=== PATIENT | female | born 1975 | race Caucasian/White ===

== ENCOUNTER 2019-06-16 09:30 | Outpatient (CLI) | payer BC, SELFPAY ==
--- NOTE | ~2019-06-16 | XR_ITS ---
XR ribs RT 2V w CXR 2V DATE: 06/16/2019 10:07 INDICATION: Right rib and chest pain under right breast following a fall 2 days ago TECHNIQUE: PA and lateral views COMPARISON: None FINDINGS: Bilateral hyperinflation suggesting COPD. No pulmonary infiltrate or consolidation or any s ignificant new pulmonary opacity is noted. Normal heart size. No hilar or mediastinal enlargement. Moderate osteopenia. IMPRESSION: Bilateral hyperinflation; no active cardiopulmonary disease No rib fracture is evident Reviewed, dictated and finalized at location B. ING LOOM OPERATOR
[2019-06-16 09:46] LABS: Basophils Absolute Auto 0.06 K/mm3 (0.00-0.10); Basophils Percent Auto 0.5 % (0.0-1.0); Eosinophils Absolute Auto 0.08 K/mm3 (0.02-0.50); Eosinophils Percent Auto 0.7 % (1.0-6.0); Hematocrit 46.8 % (35.0-49.0); Hemoglobin 15.8 g/dL (12.0-15.0); Immature Granulocyte Absolute 0.05 K/mm3 (0.00-0.00); Immature Granulocyte Percent A 0.4 % (0.0-0.0); Lymphocytes Absolute Auto 1.82 K/mm3 (1.10-4.50); Lymphocytes Percent Auto 15.1 % (18.0-42.0); Mean Corpuscular HGB Conc 33.8 g/dL (32.0-36.0); Mean Corpuscular Hemoglobin 32.4 pg (27.0-31.0); Mean Corpuscular Volume 95.9 fL (78.0-102.0); Mean Platelet Volume 9.8 fl (9.2-11.8); Neutrophils Absolute Auto 9.5 K/mm3 (1.7-7.2); Neutrophils Percent Auto 78.3 % (50.0-70.0); Platelet Count Result 257 K/mm3 (150-420); Red Blood Count 4.88 M/mm3 (4.20-5.40); Red Cell Distribution Width 12.4 % (11.6-14.4); White Blood Count 12.1 K/mm3 (4.8-10.8)
[2019-06-16 10:34] LABS: Alanine Aminotransferase 18 U/L (14-59); Albumin Level 4.6 g/dL (3.4-5.0); Alkaline Phosphatase 105 U/L (46-116); Anion Gap 17.3 mmol/L (7-16); Aspartate Amino Transferase 12 U/L (15-37); Bilirubin,Total 0.4 mg/dL (0.00-1.00); Blood Urea Nitrogen 10 mg/dL (7-18); Calcium 9.5 mg/dL (8.5-10.1); Carbon Dioxide 25 mmol/L (21-32); Chloride 102 mmol/L (98-108); Estimated Glomerular Filt Rate > 60; Glucose 122 mg/dL (70-99); Osmolality Calculated 290 mOsm/kg (285-295); Potassium 4.3 mmol/L (3.5-5.1); Sodium 140 mmol/L (136-145); Total Protein 8.3 g/dL (6.4-8.2)
[2019-06-16 12:41] LABS: Hemoglobin A1C 5.3 % (<5.7)
[2019-06-19 10:06] LABS: Vitamin D 25 Hydroxy 25 ng/mL (30-100)
== END 2019-06-16 09:31 | disposition home or self-care (01) ==
PROVIDERS: PCP Internal Medicine; Visit Provider Nurse Practitioner Family
DX: R07.9 Chest pain, unspecified (principal); R07.81 Pleurodynia; E55.9 Vitamin D deficiency, unspecified; R73.01 Impaired fasting glucose
CPT/HCPCS: 36415; 71045; 71101; 80053; 82306; 83036; 85025

== ENCOUNTER 2020-03-23 11:42 | Emergency (ER) | payer BC, SELFPAY ==
--- NOTE | ~2020-03-23 | CT_ITS ---
EXAMINATION: CT brain wo con EXAM DATE: 03/23/2020 13:04 INDICATION: confusion after head injury head injury 1wk ago with confusion since, hx sinus surg 17yrs ago . TECHNIQUE: Spiral CT of the head was performed without contrast. Axial, coronal and sagittal images were reviewed. The dose-length product (DLP) for this examination was 529.67 mGy-cm. The exposure w as tailored according to patient size, and iterative reconstruction (ASIR) was used as additional dos e reduction technique. There is no prior study for comparison. FINDINGS: There is no acute intraparenchymal hemorrhage. No evidence of intraparenchymal brain mass lesion. No evidence of acute infarction. There is no mass effect or midline shift. The ventricles are normal in size. There are no extra-axial collections. There are no acute calvarial fractures. T he orbits are unremarkable. Soft tissue is unremarkable. There is mild bilateral ethmoid mucoperios teal thickening and probable partial ethmoidectomies. Mastoid air cells are well aerated. IMPRESSION: 1. No acute intracranial findings. Reviewed, dictated and finalized at location B. CTIVE PRECINCT
--- NOTE | ~2020-03-23 | XR_ITS ---
EXAMINATION: XR chest 2V EXAM DATE: 03/23/2020 13:13 INDICATION: palpitations x 3days, hx asthma. TECHNIQUE: Frontal and lateral projections of the chest obtained and reviewed. Comparison is made to prior examination from 06/16/2019. FINDINGS: Moderate chronic hyperinflation. The lungs are clear. There are no pleural effusions. Th e cardiomediastinal silhouette is within normal limits. There is no pneumothorax suspected. The bon es and soft tissues are unremarkable. IMPRESSION: 1. No acute cardiopulmonary findings. 2. Hyperinflation. Reviewed, dictated and finalized at location B. E FITTER
--- NOTE | 2020-03-23 12:04 | ED.HEATRA ---
HPI - Head Injury General Chief complaint: Head Injury Stated complaint: dr sent pt to er Time Seen by Provider: 03/23/20 12:04 Source: patient Mode of arrival: ambulatory Limitations: no limitations History of Present Illness HPI Narrative: 45-year-old woman was previously well comes in today complaining of nausea, palpitations, confusion, weakness, and fatigue. She states that she began not feeling well after she hit her head after a drinking binge at home a week ago. She states that she does not recall losing consciousness and had no vomiting afterwards. Since then she has not felt like herself. She complains of fast heart rate, lightheadedness, palpitations, and weakness today. She denies prior history of similar symptoms and is not a regular drinker. MD Complaint: head injury Onset (ago): week(s) (1) Mechanism of Injury: fall Loss of Consciousness: no Severity: moderate Other Injuries: none Context: recent alcohol use Associated symptoms: confusion and nausea Related Data Home Medications Medication Instructions Recorded Confirmed duloxetine 60 mg PO DAILY 03/23/20 03/23/20 fluticasone propion-salmeterol 1 inh INHALATION Q12H 03/23/20 03/23/20 [Advair Diskus] Allergies Allergy/AdvReac Type Severity Reaction Status Date / Time No Known Allergies Allergy Unverified 06/13/12 14:35 Review of Systems Constitutional: Constitutional: Denies chills, Reports fatigue, Denies fever(s) and Reports weakness Eyes: Eyes: Denies change in vision and Denies photophobia ENT: Denies dysphagia, Denies nasal congestion and Denies sore throat Cardiovascular: Cardiovascular: Denies chest pain and Denies radiating jaw, neck or arm pain Respiratory: Respiratory: Denies cough, Denies dyspnea and Denies wheezing Gastrointestinal: Gastrointestinal: Denies abdominal pain, Denies diarrhea, Reports nausea and Denies vomiting Genitourinary: Genitourinary: Denies hematuria, Denies nocturia and Denies dysuria Musculoskeletal: Musculoskeletal: Denies back pain, Denies arthralgias and Denies joint swelling Integumentary/Breasts: Skin/Breast: Denies pruritus, Denies erythema and Denies rash Neurologic: Denies vertigo, Denies dizziness and Denies syncope Endocrine: Endocrine: Reports fatigue, Denies polydipsia and Denies polyuria Hematologic/Lymphatic: Hematologic/Lymphatic: Denies easy bleeding and Denies easy bruising Allergic/Immunologic: Allergic/Immunologic: Denies lip swelling and Denies tongue swelling [facility] Surgical History Surgical History (Updated 03/23/20 @ 12:16 by Martin Frazier MD) H/O sinus surgery Social History Social History (Updated 03/23/20 @ 12:17 by Martin Frazier MD) Smoking status: Current every day smoker Alcohol use details: occasional Substance use: never Living arrangements: with family Exam Const: General: healthy appearing and alert Orientation/consciousness: patient oriented x3 Limitations: no limitations Other: mild acute distress. HENMT: Head: normal to inspection Ears: external ears normal, TM's normal bilaterally and EAC's normal General nose exam: Normal nares present Face and sinus: normal facial exam Mouth: Yes moist mucous membranes Throat: posterior oropharynx normal Eyes: Conjunctivae: conjunctivae normal Pupils: Equal, round and reactive pupils present EOM: EOMs intact bilaterally Neck: Neck: normal visual inspection and no lymphadenopathy Resp: Effort & Inspection: normal respiratory effort and not labored Auscultation: clear to auscultation bilaterally, no rales, no rhonchi and no wheezes Cardio: Rate: tachycardic Rhythm: regular rhythm Heart sounds: no murmurs GI: GI Palp: Yes Soft to palpation, No Tenderness to palpation present (GI), No Guarding due to palpation present (GI), No Rigid due to palpation and No Palpable mass present Skin: General skin exam: normal color, no jaundice and no pallor Rashes: no rashes Neuro: General:
[2020-03-23 12:06] VITALS: BP 165/87; PULSE 120; RESP 20; TEMP 36.6; O2SAT 99
--- NOTE | 2020-03-23 12:10 | ECG_ITS ---
Measurements Intervals [place] Rate: 100 P: 64 RI: 121 QRS: 98 QRSD: 105 T: 1 QT: 364 QTc: 471 Interpretive Statements SINUS TACHYCARDIA RIGHT AXIS DEVIATION DELAYED PRECORDIAL R/S TRANSITION BORDERLINE T WAVE ABNORMALITY- ANTEROLATERAL LEADS BORDERLINE ECG Electronically Signed On 03-23-2020 13:00:18 LINOTYPIST by Kamran Rea D.O.
[2020-03-23] MEDS: SODIUM CHLORIDE 0.9% IV 1,000 ML 999 ML IV CONT (12:34)
[2020-03-23] MEDS: ONDANSETRON INJ 4 MG/2 ML VIAL IV PUSH (12:34)
[2020-03-23 12:35] LABS: Basophils Absolute Auto 0.04 K/mm3 (0.00-0.10); Basophils Percent Auto 0.5 % (0.0-1.0); Eosinophils Absolute Auto 0.11 K/mm3 (0.02-0.50); Eosinophils Percent Auto 1.3 % (1.0-6.0); Hematocrit 45.5 % (35.0-49.0); Hemoglobin 15.1 g/dL (12.0-15.0); Immature Granulocyte Absolute 0.03 K/mm3 (0.00-0.00); Immature Granulocyte Percent A 0.4 % (0.0-0.0); Lymphocytes Absolute Auto 1.97 K/mm3 (1.10-4.50); Lymphocytes Percent Auto 23.9 % (18.0-42.0); Mean Corpuscular HGB Conc 33.2 g/dL (32.0-36.0); Mean Corpuscular Hemoglobin 32.3 pg (27.0-31.0); Mean Corpuscular Volume 97.2 fL (78.0-102.0); Mean Platelet Volume 10.1 fl (9.2-11.8); Monocytes Absolute Auto 0.39 K/mm3 (0.10-0.90); Monocytes Percent Auto 4.7 % (2.0-11.0); Neutrophils Absolute Auto 5.7 K/mm3 (1.7-7.2); Neutrophils Percent Auto 69.2 % (50.0-70.0); Platelet Count Result 240 K/mm3 (150-420); Red Blood Count 4.68 M/mm3 (4.20-5.40); Red Cell Distribution Width 12.2 % (11.6-14.4); White Blood Count 8.3 K/mm3 (4.8-10.8)
[2020-03-23 12:37] LABS: Add Urine Microscopic? YES; Appearance Urine Clear (Clear); Bilirubin Urine Negative (Negative); Blood Urine 2+ (Negative); Color Urine Yellow (Yellow); Glucose Urine UA Negative (Negative); Ketones Urine Negative (Negative); Leukocyte Esterase Ur Negative LEU/UL (Negative); Nitrate Urine Negative (Negative); Protein Urine Negative (Negative); Specific Grav Ur 1.025 (1.010-1.020); Urobilinogen Urine 0.2 mg/dL (0.2-1.0)
[2020-03-23 12:42] LABS: Bacteria Urine 1+ /hpf; Squamous Epithelial Cell Urine Moderate /hpf (Few); WBC Urine 0-3 /hpf (0-3)
[2020-03-23 12:45] LABS: Amphetamine Screen Urine Negative (Negative); Barbiturate Screen Urine Negative (Negative); Benzodiazepines Screen Urine Negative (Negative); Cannabinoid Screen Urine Negative (Negative); Cocaine Screen Urine Negative (Negative); Methadone Screen Urine Negative (Negative); Opiate Screen Urine Negative (Negative); Phencyclidine Screen Urine Negative (Negative)
[2020-03-23 12:46] VITALS: BP 147/86; PULSE 96; RESP 18; O2SAT 98
[2020-03-23 12:51] LABS: Partial Thromboplastin Time 29.4 SEC (23.90-30.70); Prothrombin Time 11.1 Seconds (9.50-12.10)
[2020-03-23 12:54] LABS: Lactic Acid Reflex 1.4 mmol/L (0.4-2.0)
[2020-03-23 13:05] LABS: Creatine Kinase 64 U/L (26-192)
[2020-03-23 13:06] LABS: D Dimer 0.33 mg/L (0.19-0.50); Troponin I < 0.02 ng/mL (0.00-0.056)
[2020-03-23 13:53] VITALS: BP 130/81; PULSE 91; RESP 18; O2SAT 100
== END 2020-03-23 14:04 | disposition home or self-care (01) ==
PROVIDERS: Emergency Provider Emergency Medicine; PCP Internal Medicine
DX: F07.81 Postconcussional syndrome (principal); S09.90XA Unspecified injury of head, initial encounter; E86.0 Dehydration; W19.XXXA Unspecified fall, initial encounter
CPT/HCPCS: 36415; 70450; 71046; 80307; 81001; 82550; 83605; 84443; 84484; 85025; 85380; 85610; 85730; 87040; 93005; 96361; 96374; 99284; J2405; J7030

== ENCOUNTER → 2020-04-15 16:22 | Outpatient (CLI) | payer BC, SELFPAY ==
--- NOTE | ~2020-04-15 | MM_ITS ---
EXAMINATION: MM screening nate BI w maryanne HISTORY: Screening mammogram TECHNIQUE: Craniocaudal and mediolateral oblique 3-D tomosynthesis images were obtained and synthetic 2-D images were generated. CAD analysis was submitted and interpreted. COMPARISON: No prior mammogram is available for comparison at this institution. BREAST PARENCHYMAL COMPOSITION: The breasts are heterogeneously dense, which may obscure small masses . FINDINGS: Bilateral asymmetries are noted in the mid to lower aspect of the breasts on MLO projection , including circumscribed 9 mm opacity in the mid and lower outer right breast. Bilateral diagnostic mammography and bilateral breast ultrasound examination are recommended. IMPRESSION: 1. Bilateral mammographic asymmetries including mid to lower outer right breast 9 mm mass 2. Bilateral diagnostic mammography and bilateral breast ultrasound examination are recommended BI-RADS Category 0: Incomplete: Needs additional imaging evaluation. Reviewed, dictated and finalized at location A. NATAL EDUCATOR
== END ==
PROVIDERS: PCP Internal Medicine; Visit Provider Internal Medicine
DX: Z12.31 Encounter for screening mammogram for malignant neoplasm of breast (principal); R92.8 Other abnormal and inconclusive findings on diagnostic imaging of breast
CPT/HCPCS: 77063; 77067

== ENCOUNTER → 2020-05-13 13:59 | Outpatient (CLI) | payer BC, SELFPAY ==
--- NOTE | ~2020-05-13 | MMUS_ITS ---
EXAMINATION: MM diagnostic mammo BI, US breast BI complete HISTORY: Follow-up bilateral breast asymmetries TECHNIQUE: Additional 3-D tomosynthesis images of the breasts were performed and synthetic 2-D images were generated. CAD analysis was submitted and interpreted. High resolution complete bilateral breas t ultrasound was performed. COMPARISON: 04/15/2020 BREAST PARENCHYMAL COMPOSITION: The breasts are heterogenously dense, which may obscure small masses. FINDINGS: MAMMOGRAPHIC FINDINGS: There are scattered bilateral nodular densities in both breasts which are obscured by dense fibroglan dular tissue. There are no suspicious calcifications or architectural distortion. ULTRASOUND: Complete bilateral breast ultrasound including all 4 quadrants in the subareolar locations: There are in numerable bilateral simple cysts, minimally complicated cysts and clusters of microcysts in both breasts corresponding to the nodular densities seen on mammography. There are no suspicious masses in either breast to suggest malignancy. IMPRESSION: 1. No evidence for malignancy in either breast. Benign findings. 2. Routine yearly screening mammogram and regular clinical breast examination are recommended. BI-RADS Category 2: Benign finding(s). Reviewed, dictated and finalized at location A. ER HARDWARE WORKER IMPRESSION: 1. No evidence for malignancy in either breast. Benign findings. 2. Routine yearly screening mammogram and regular clinical breast examination a re recommended. BI-RADS Category 2: Benign finding(s).
== END ==
PROVIDERS: PCP Internal Medicine; Visit Provider Internal Medicine
DX: R92.8 Other abnormal and inconclusive findings on diagnostic imaging of breast (principal); N60.02 Solitary cyst of left breast; N60.01 Solitary cyst of right breast
CPT/HCPCS: 76641; 77066

== ENCOUNTER 2020-05-25 18:13 | Outpatient (CLI) | payer BC, SELFPAY ==
[2020-05-25 19:00] LABS: SARS-CoV-2 Ag Negative (Negative)
[2020-05-27 19:17] LABS: SARS-CoV-2 RNA PCR Negative
== END 2020-05-25 18:14 | disposition home or self-care (01) ==
LOC: CHSLAB 18:15
PROVIDERS: PCP Internal Medicine; Visit Provider Family Medicine
DX: J01.80 Other acute sinusitis (principal); Z20.822 Contact with and (suspected) exposure to COVID-19
CPT/HCPCS: 87426; C9803; U0003; U0005

== ENCOUNTER 2021-04-07 15:13 | Outpatient (CLI) | payer BC, SELFPAY ==
--- NOTE | ~2021-04-07 | XR_ITS ---
EXAMINATION: XR chest 2V DATE: 04/07/2021 15:32 INDICATION: Shortness of breath. Cough. TECHNIQUE: Frontal and lateral views of the chest were obtained on 3 radiographs. COMPARISON: Chest 2 views 03/23/2020, 03/18/2018, CT abdomen and pelvis 05/04/12 FINDINGS: There is mild scarring at the lung apices. A calcified left lung nodule is consistent with old granulomatous disease. No pleural effusion or pneumothorax. The heart size is normal. IMPRESSION: 1. Mild scarring at the lung apices. Reviewed, dictated and finalized at location A. EILLANCE SYSTEMS ANALYST
== END 2021-04-07 15:14 | disposition home or self-care (01) ==
LOC: CHSIMG 15:15
PROVIDERS: PCP Internal Medicine; Visit Provider Nurse Practitioner Family
DX: J06.9 Acute upper respiratory infection, unspecified (principal)
CPT/HCPCS: 71046

== ENCOUNTER 2021-07-17 14:29 | Outpatient (CLI) | payer BC, SELFPAY ==
--- NOTE | ~2021-07-17 | CT_ITS ---
EXAMINATION: CT abdomen pelvis w con INDICATION: Acute left lower quadrant abdominal pain TECHNIQUE: Computed tomographic images of the abdomen and pelvis were obtained after the administrati on of 100 cc of Omnipaque 350 intravenous contrast. The dose-length product (DLP) was 207.49 mGy-cm. Automated exposure control and iterative reconstruction technique were employed. COMPARISON: 05/14/2012 FINDINGS: The lung bases are clear. The heart size is normal. Cysts of the liver measure up to 7 mm i n the right hepatic lobe. The spleen, pancreas, gallbladder, and adrenal glands are normal. Cysts of the kidneys measure up to 7 mm on the right. There is a 9 mm rim calcified aneurysm of the splenic ar hardik. No pathologically enlarged abdominal or pelvic lymph nodes are identified. There is no free int raperitoneal gas or evidence of bowel obstruction. The appendix is normal. There is colonic diverticu losis. There is wall thickening with adjacent fat stranding in the proximal sigmoid colon. There is a n umbilical hernia containing fat. There is mild lumbar spondylosis. IMPRESSION: 1. Uncomplicated sigmoid diverticulitis. 2. 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 Reviewed, dictated and finalized at location B.
== END 2021-07-17 14:30 | disposition home or self-care (01) ==
PROVIDERS: PCP Internal Medicine; Visit Provider Internal Medicine
DX: R10.32 Left lower quadrant pain (principal)
CPT/HCPCS: 74177; Q9967

== ENCOUNTER 2022-05-25 15:24 | Outpatient (CLI) | payer BC, SELFPAY ==
--- NOTE | ~2022-05-25 | CT_ITS ---
EXAMINATION: CT sinus wo con DATE: 05/25/2022 15:38 INDICATION: Chronic sinusitis. TECHNIQUE: Computed tomography (CT) of the paranasal sinuses was performed without intravenous contra st. Iterative reconstruction technique was employed. The dose-length product was 304.88 mGy-cm. COMPARISON: Head CT 03/23/2020 FINDINGS: There is moderate mucosal thickening in the frontal sinuses and bilateral ethmoid sinuses a nd sphenoid sinuses. There is mild mucosal thickening in right maxillary sinus and moderate mucosal t hickening in left maxillary sinus. There are changes of uncinectomies, ethmoidectomies, and partial l eft middle turbinectomy. The ostiomeatal units are patent. There is leftward deviation of the nasal s eptum. Right middle turbinate is paradoxical. There are small mastoid effusions. IMPRESSION: 1. Mucosal thickening in the paranasal sinuses. 2. Leftward deviation of the nasal septum. Reviewed, dictated and finalized at location A. WAY TRUCK DRIVER
== END 2022-05-25 15:25 | disposition home or self-care (01) ==
LOC: CHSIMG 15:25
PROVIDERS: PCP Internal Medicine; Visit Provider Internal Medicine
DX: J32.9 Chronic sinusitis, unspecified (principal); J34.2 Deviated nasal septum
CPT/HCPCS: 70486

== ENCOUNTER 2022-06-01 12:17 | Outpatient (CLI) | payer BC, SELFPAY ==
--- NOTE | 2022-06-01 12:30 | ECG_ITS ---
Measurements Intervals [place] Rate: 82 P: 38 [place]: 117 QRS: 83 QRSD: 98 T: 62 QT: 363 QTc: 426 Interpretive Statements SINUS RHYTHM WITH SHORT MO INTERVAL ST DEVIATION AND MODERATE T-WAVE ABNORMALITY, CONSIDER ANTEROLATERAL ISCHEMIA [-0.1+ mV T-WAVE IN V3-V6] COMPARED TO ECG 03/23/2020 12:46:[address] SEGMENT CHANGES ARE NOW EVIDENT Electronically Signed On 06-01-2022 14:24:57 COMMERCIAL FINANCE ANALYST by Jaciel Bianchi M.D.
== END 2022-06-01 12:18 | disposition home or self-care (01) ==
LOC: CHSCARD 12:23
PROVIDERS: PCP Internal Medicine
DX: G44.001 Cluster headache syndrome, unspecified, intractable (principal); Z79.899 Other long term (current) drug therapy; R94.31 Abnormal electrocardiogram [ECG] [EKG]
CPT/HCPCS: 93005

== ENCOUNTER 2022-06-13 11:06 | Outpatient (CLI) | payer BC, SELFPAY ==
--- NOTE | 2022-06-13 11:19 | ECG_ITS ---
Measurements Intervals [place] Rate: 75 P: 48 MO: 135 QRS: 82 QRSD: 98 T: 15 QT: 372 QTc: 416 Interpretive Statements SINUS RHYTHM MODERATE T-WAVE ABNORMALITY, CONSIDER LATERAL ISCHEMIA [-0.1+ mV T-WAVE IN I/aVL/V5/V6] MODERATE T-WAVE ABNORMALITY, CONSIDER INFERIOR ISCHEMIA [-0.1+ mV T-WAVE IN II/aVF] COMPARED TO ECG 06/01/2022 12:35:25 NO SIGNIFICANT CHANGES Electronically Signed On 06-13-2022 19:54:49 BLOCKING MACHINE OPERATOR SECOND by Zina Orosco M.D.
== END 2022-06-13 11:07 | disposition home or self-care (01) ==
LOC: CHSCARD 11:10
PROVIDERS: PCP Internal Medicine
DX: G44.001 Cluster headache syndrome, unspecified, intractable (principal); Z79.899 Other long term (current) drug therapy
CPT/HCPCS: 93005

== ENCOUNTER 2022-07-03 11:56 | Outpatient (CLI) | payer BC, SELFPAY ==
[2022-07-03 12:13] LABS: Basophils Absolute Auto 0.03 K/mm3 (0.00-0.10); Basophils Percent Auto 0.4 % (0.0-1.0); Eosinophils Absolute Auto 0.22 K/mm3 (0.02-0.50); Eosinophils Percent Auto 3.1 % (1.0-6.0); Hematocrit 42.8 % (35.0-49.0); Hemoglobin 14.7 g/dL (12.0-15.0); Immature Granulocyte Absolute 0.02 K/mm3 (0.00-0.00); Immature Granulocyte Percent A 0.3 % (0.0-0.0); Lymphocytes Absolute Auto 2.68 K/mm3 (1.10-4.50); Lymphocytes Percent Auto 38.2 % (18.0-42.0); Mean Corpuscular HGB Conc 34.3 g/dL (32.0-36.0); Mean Corpuscular Hemoglobin 32.7 pg (27.0-31.0); Mean Corpuscular Volume 95.3 fL (78.0-102.0); Mean Platelet Volume 10.5 fl (9.2-11.8); Monocytes Absolute Auto 0.53 K/mm3 (0.10-0.90); Monocytes Percent Auto 7.5 % (2.0-11.0); Neutrophils Absolute Auto 3.5 K/mm3 (1.7-7.2); Neutrophils Percent Auto 50.5 % (50.0-70.0); Platelet Count Result 207 K/mm3 (150-420); Red Blood Count 4.49 M/mm3 (4.20-5.40); Red Cell Distribution Width 12.4 % (11.6-14.4)
[2022-07-03 12:35] LABS: Alanine Aminotransferase 29 U/L (14-59); Albumin Level 3.9 g/dL (3.4-5.0); Alkaline Phosphatase 95 U/L (46-116); Anion Gap 9 mmol/L (8-16); Aspartate Amino Transferase 12 U/L (15-37); Bilirubin,Total 0.5 mg/dL (0.00-1.00); Blood Urea Nitrogen 11 mg/dL (7-18); CRP < 0.5 mg/dL (0.0-0.9); Calcium 7.8 mg/dL (8.5-10.1); Carbon Dioxide 29 mmol/L (21-32); Chloride 104 mmol/L (98-108); Estimated Glomerular Filt Rate > 60; Glucose 102 mg/dL (70-99); NT Pro B Type Natriuretic Pept 77 pg/mL (0-125); Osmolality Calculated 293 mOsm/kg (285-295); Potassium 3.7 mmol/L (3.5-5.1); Sodium 142 mmol/L (136-145); Total Protein 7.5 g/dL (6.4-8.2); Uric Acid 3.5 mg/dL (2.6-6.0)
--- NOTE | 2022-07-03 13:00 | ECG_ITS ---
V3 V4 V5 V6 II Rate 94 NH 116 QRSd 94 QT 355 QTc 444 --[place]-- P 75 QRS 101 T -68 SINUS RHYTHM WITH SHORT NH INTERVAL RIGHT AXIS DEVIATION DELAYED PRECORDIAL R/S TRANSITION ST-T WAVE ABNORMALITY IN ANTEROLAT/INF LEADS- CONSIDER ISCHEMIA ABNORMAL ECG Electronically Signed On 07-03-2022 13:18:28 SPECIAL ED ASSISTANT by Kamran Rea D.O. COMPARED TO ECG 06/13/2022 11:24:24 NO SIGNIFICANT CHANGES MTDD
[2022-07-05 21:23] LABS: Vitamin D 25 Hydroxy 22 ng/mL (30-100)
== END 2022-07-03 11:57 | disposition home or self-care (01) ==
PROVIDERS: PCP Internal Medicine; Visit Provider Nurse Practitioner Family
DX: G44.001 Cluster headache syndrome, unspecified, intractable (principal); Z79.899 Other long term (current) drug therapy; E83.51 Hypocalcemia; M79.89 Other specified soft tissue disorders; I50.9 Heart failure, unspecified; R94.31 Abnormal electrocardiogram [ECG] [EKG]
CPT/HCPCS: 36415; 80053; 82306; 83880; 84550; 85025; 85380; 86140; 93005

== ENCOUNTER → 2022-07-09 15:12 | Outpatient (CLI) | payer BC, SELFPAY ==
--- NOTE | ~2022-07-09 | CT_ITS ---
EXAMINATION: CTA brain DATE: 07/09/2022 15:46 INDICATION: Pulsatile tenderness. TECHNIQUE: Computed tomographic angiography (CTA) of the head was performed without and with 100 mL O mnipaque-350 intravenous contrast. Automated exposure control and iterative reconstruction technique were employed. The dose-length product was 1101.17 mGy-cm. Maximum intensity projection 3D reconstru ctions were created. Volume-rendered 3D reconstructions of the intracranial arteries were created by the technologist on a separate workstation. COMPARISON: Head CT 03/23/2020, sinuses CT 05/25/2022 FINDINGS: There is no intracranial hemorrhage, acute infarction, or abnormal intracranial mass lesion . The ventricles are normal in size. There is mucosal thickening in the paranasal sinuses. There are likely changes of ocular lens replacement surgeries. There are trace mastoid effusions bilaterally. T he vertebral arteries are codominant. There is no significant stenosis of basilar artery or the poste rior cerebral arteries. There is no significant stenosis of the intracranial internal carotid arterie s. 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 There is no significant stenosis of the anterior or middle cerebral arteries. Anterior commun icating artery is normal. The posterior communicating arteries are normal. IMPRESSION: 1. 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 2. Normal brain. Reviewed, dictated and finalized at location A. IMPRESSION: 1. 2 mm saccular aneurysm of the cavernous segment of left internal carotid art octavio directed medially. 2. Normal brain.
== END ==
PROVIDERS: PCP Internal Medicine
DX: H93.A1 Pulsatile tinnitus, right ear (principal); I67.1 Cerebral aneurysm, nonruptured
CPT/HCPCS: 70496; Q9967

== ENCOUNTER 2022-08-03 09:41 | Outpatient (CLI) | payer BC, SELFPAY | END 2022-08-03 09:42 | disposition home or self-care (01) | PROVIDERS: PCP Internal Medicine | DX: G44.001 Cluster headache syndrome, unspecified, intractable (principal); Z79.899 Other long term (current) drug therapy; R94.31 Abnormal electrocardiogram [ECG] [EKG] | CPT/HCPCS: 93005 ==

== ENCOUNTER 2023-10-22 10:08 | Outpatient (CLI) | payer BC, SELFPAY ==
--- NOTE | 2023-10-22 10:16 | ECG_ITS ---
Test Date: 2023-10-22 10:23:07 Measurements Intervals [place] Rate: 67 P: 78 OR: 159 QRS: 92 QRSD: 110 T: 87 QT: 413 QTc: 438 Interpretive Statements SINUS RHYTHM BORDERLINE RIGHT AXIS DEVIATION [QRS AXIS > 90] MODERATE T-WAVE ABNORMALITY, CONSIDER ANTEROLATERAL ISCHEMIA [-0.1+ mV T-WAVE IN V3-V6] No previous ECG available for comparison Electronically Signed On 10-22-2023 13:23:45 CDT by Noni Navas M.D.
== END 2023-10-22 10:09 | disposition home or self-care (01) ==
LOC: CHSCARD 10:12
PROVIDERS: PCP Internal Medicine
DX: G44.009 Cluster headache syndrome, unspecified, not intractable (principal); R94.31 Abnormal electrocardiogram [ECG] [EKG]
CPT/HCPCS: 93005

== ENCOUNTER 2024-06-06 13:23 | Emergency (ER) | payer BC, SELFPAY ==
[2024-06-06] VITALS (22 sets, daily range): BP systolic 103–114; BP diastolic 66–91; PULSE 86–131; RESP 18–20; TEMP 36.8–37.1; O2SAT 92–98
--- NOTE | ~2024-06-06 | CT_ITS ---
EXAMINATION: CT abdomen pelvis wo con DATE: 06/06/2024 14:16 INDICATION: LLQ abdominal pain/ low back pain x2 days; worsening TECHNIQUE: Computed tomography (CT) of the abdomen and pelvis was performed without intravenous contr ast. Automated exposure control and iterative reconstruction technique were employed. The dose-length product was 192.83 mGy-cm. COMPARISON: 07/17/2021. FINDINGS: Lower thorax: Unremarkable Liver: Stable right lobe cyst/hemangioma. Biliary/Gallbladder: Gallbladder is normal. No bile duct dilation. Pancreas: No mass or duct dilation. Spleen: Normal. Adrenals:No mass. Kidneys: No suspicious mass, obstructing stone, or hydronephrosis. GI tract: No small or large bowel dilation. Normal appendix. Diverticulosis short segment proximal si gmoid wall thickening with significant surrounding inflammatory change. 2.2 cm gas and fecal filled p ericolonic collection, with an ill-defined wall. Mesentery/Peritoneum: No ascites, mass, or free air. Retroperitoneum: No mass. Atherosclerotic calcifications of intra-abdominal arterial vessels. Pelvis: Pelvic organs are within normal limits. Soft Tissues: Soft tissues and body wall unremarkable. Bones: No acute osseous finding. IMPRESSION: Acute diverticulitis. Adjacent 2.2 cm pericolonic collection may represent an early contained perfora tion or a markedly inflamed diverticulum. Reviewed, dictated and finalized at location [facility] [employer] IMPRESSION: Acute diverticulitis. Adjacent 2.2 cm pericolonic collection may represent an e mehrdad contained perforation or a markedly inflamed diverticulum.
--- OUTSIDE RECORDS SUMMARY | 2024-06-06 13:26 | XMS_ITS | Referral Summary ---
Author Organization [facility] [address] Address [address] [place] [address] Care Team Providers Care Dobby Loom Chain Pegger Name Role Phone Johanny Reyes MD Primary Care Provider Encounters Date Type Department Care Team Description 05/15/2024 Telephone [facility] Cardiology [address] [place] [address] [place] [id number] Jaciel Antonio MD Testing 03/11/2024 3:00 PM MANAGER INTRANET Office Visit [facility] - [address] [place] [address] Beata Fraser DO Otorrhea of left ear (Primary Dx) from Last 3 Months Allergies No known active allergies Medications DULoxetine DR (CYMBALTA) 60 mg capsule Take 1 capsule (60 mg total) by mouth daily 90 capsule 3 08/30/19 21 Active fluticasone propionate (FLONASE) 50 mcg/actuation nasal sprayIndicatio ns:Chronic maxillary sinusitis Administer 2 sprays into each nostril daily 16 g 11 06/13/19 23 Active fluticasone propion-salmet Jevon (ADVAIR DISKUS) 100-50 mcg/dose diskus inhaler Inhale 1 puff 2 (two) times a day Rinse mouth with water after use. Do not swallow. Active calcitRIOL (ROCALTROL) 0.5 mcg capsule Take 1 capsule (0.5 mcg total) by mouth daily Active atorvastatin (LIPITOR) 40 mg tablet Take 1 tablet (40 mg total) by mouth daily 30 tablet 10/16/19 24 025 Active ciprofloxacin (CILOXAN) 0.3 % ophthalmic solutionIndica tions:Otorrhea of left ear 7 drops into Left EAR, NOT EYE, twice daily for 10 days 10 mL 1 03/11/20 24 Active propranolol LA (INDERAL LA) 80 mg 24 hr capsule TAKE 1 CAPSULE(80 MG) BY MOUTH DAILY 90 capsule 05/18/19 25 Active propranolol LA (INDERAL LA) 80 mg 24 hr capsule Take 1 capsule (80 mg total) by mouth daily 30 capsule 11 08/15/19 24 025 Discontinued Active Problems Problem Noted Date Diagnosed Date Otorrhea of left ear 03/11/2024 Assessment & Plan (03/11/2024 3:05 PM MANAGER INTRANET): Ciprofloxacin 7 drops into the Left ear twice daily Call if no improvement in ear drainage for switch to Tobradex Familial hyperlipidemia, high LDL 08/14/2023 Tobacco use disorder 08/14/2023 Underweight 08/14/2023 Seasonal allergic rhinitis due to pollen 024 Assessment & Plan (07/09/2023 3:51 PM CDT): Cetirizine 10 mg daily (Zyrtec) without decongestant Avoid ear cleaning techniques Avoid water to ears Follow up in 9 months for ear tube check, earlier with ear drainage Dysfunction of left eustachian tube 07/09/2023 Assessment & Plan (07/09/2023 3:51 PM CDT): Cetirizine 10 mg daily (Zyrtec) without decongestant Avoid ear cleaning techniques Avoid water to ears Follow up in 9 months for ear tube check, earlier with ear drainage Abnormal EKG 12/05/2022 Dysfunction of both eustachian tubes 10/12/2022 Assessment & Plan (10/12/2022 2:44 PM CDT): Avoid ear cleaning techniques Use ear plugs El's proplugs, Junito's ear plugs with [place], [place] or [place] water exposure Follow up in 9 months for ear tube check Chronic maxillary sinusitis 06/13/2022 Assessment & Plan (06/13/2022 3:52 PM MANAGER INTRANET): CT angiogram - call with results If sinus mucosal thickening noted on imaging, will consider CT Sinus Hearing test Flonase 2 sprays into each nostril while looking down over the sink, do not sniff in or blow nose after use for at least 30 minutes Cefdinir twice daily with a meal for 14 days Sensorineural hearing loss ( SNHL) of right ear with unrestricted hearing of left ear 06/13/2022 Assessment & Plan (06/13/2022 3:52 PM MANAGER INTRANET): CT angiogram - call with results If sinus mucosal thickening noted on imaging, will consider CT Sinus Hearing test [facility] Dr. 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 Monthly or less 10/04/2022 Q2: How many drinks containi ng alcohol do you have on a typical day when you are drinking? 1 or 2 10/04/2022 Q3: How often do you have si x or more drinks on one occasion? Never 10/04/2022 Personal Safety Answer Date Recorded Have you ever been in or are you currently in a harmful physical or emotional relationship or is someone making you feel afraid or unsafe? Denies 10/04/2022 Comments No Sex and Gender Information Value Date Recorded Sex Assigned at Not on file Legal Sex Female 2:33 AM MANAGER INTRANET Gender Identity Not on file Sexual Orientation Not on file Last Filed Vital Signs Vital Sign Reading Time Taken Comments Blood Pressure 98/65 03/11/2024 2:38 PM MANAGER INTRANET Pulse 101 03/11/2024 2:38 PM MANAGER INTRANET Temperature 36.1 C (97 F) 03/11/2024 2:38 PM MANAGER INTRANET Respiratory Rate 21 02/14/2023 11:43 AM CDT Oxygen Saturation 94% 03/11/2024 2:38 PM MANAGER INTRANET Inhaled Oxygen Concentration - - Weight 57.2 kg (126 lb) 03/11/2024 2:38 PM MANAGER INTRANET Height 170.2 cm (5' 7 ) 03/11/2024 2:38 PM MANAGER INTRANET Body Mass Index 19.73 03/11/2024 2:38 PM MANAGER INTRANET Plan of Treatment Not on file Medical Devices Implanted Type Area Sap Data Analyst Device Identifier Shelf Expiration Date Model / Serial / Lot Med[employer]onic [employer] Karlos 1.27mm 9.5mm 4.5mm T Ear 9.5mm Tube Ventilation Silicone [id number] - [id number] Implanted:Qty: 1 on 10/04/2022 by Beata Fraser DO at [facility] Bilateral : Ear [employer] 01/07/2030 [id number] / / [id number] [place] Directives For more information, please contact: [phone] Documents on File Type Date Recorded Patient Business Support Professional Expl anation ADVANCE DIRECTIVE 08/27/2019 12:54 PM Care Teams Dobby Loom Chain Pegger Relationship Specialty Start Date End Date Johanny Reyes MD [address] [place] [address] PCP - General 08/21/16
--- OUTSIDE RECORDS SUMMARY | 2024-06-06 13:26 | XMS_ITS | Clinical Summary ---
Author Organization [facility] [address] Address [address] [place] [address] Care Team Providers Care Nutrient Management Specialist Name Role Phone Johanny Reyes MD Primary Care Provider Allergies No known active allergies Medications DULoxetine [...] mg total) by mouth daily 30 tablet 11 10/16/19 24 025 Active ciprofloxacin (CILOXAN) 0.3 [...] 03/11/2024 Assessment & Plan (03/11/2024 3:05 PM LIEN SEARCHER): Ciprofloxacin 7 drops into the Left ear [...] Avoid ear cleaning techniques Use ear plugs Doc's proplugs, Junito's ear plugs with [place], [place] or [place] water exposure Follow up in 9 months for ear tube check Chronic maxillary sinusitis 06/13/2022 Assessment & Plan (06/13/2022 3:52 PM LIEN SEARCHER): CT angiogram - call with results If [...] 06/13/2022 Assessment & Plan (06/13/2022 3:52 PM LIEN SEARCHER): CT angiogram - call with results If [...] 06/13 Assessment & Plan (06/13/2022 3:52 PM LIEN SEARCHER): CT angiogram - call with results Vestibular migraine 10/10/2012 Anxiety 10/10/2012 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 Cluster headaches 06/27/2009 Encounters Date Type Department Care Team Description 05/15/2024 Telephone [facility] Cardiology [address] 8[address] [place] [address] [place] [address] Jaciel Antonio MD Testing 03/11/2024 3:00 PM LIEN SEARCHER Office Visit [facility] - [address] [place] [address] Beata Fraser, DO Otorrhea of left ear (Primary Dx) from Last 3 Months Surgical History Surgery Date Site/Laterality Comments SINUS SURGERY Sinus Surgery - (Added by TW Conv) Medical History Medical History Date Comments Suicide and self-inflicted injury (HCC) Suicide Attempt - with alcohol and Xanax (Added by TW Conv) Episodic tension-type headac he, not intractable Episodic tension type headac he - (Added by TW Conv) PONV (postoperative nausea and vomiting) Asthma Family History Medical History Relation Name Comments Bipolar disorder Other Bipolar Dis order - daughter (Added by TW Conv) Relation Name Status Comments Other Social History Tobacco Use Types Packs/Day Years [...] on file Legal Sex Female 2:33 AM LIEN SEARCHER Gender Identity Not on file Sexual Orientation Not on file Obstetrics History Last Filed Vital Signs Vital Sign Reading Time Taken Comments Blood Pressure 98/65 03/11/2024 2:38 PM LIEN SEARCHER Pulse 101 03/11/2024 2:38 PM LIEN SEARCHER Temperature 36.1 C (97 F) 03/11/2024 2:38 PM LIEN SEARCHER Respiratory Rate 21 02/14/2023 11:43 AM CDT Oxygen Saturation 94% 03/11/2024 2:38 PM LIEN SEARCHER Inhaled Oxygen Concentration - - Weight 57.2 kg (126 lb) 03/11/2024 2:38 PM LIEN SEARCHER Height 170.2 cm (5' 7 ) 03/11/2024 2:38 PM LIEN SEARCHER Body Mass Index 19.73 03/11/2024 2:38 PM LIEN SEARCHER Plan of Treatment Health Maintenance Due Date Last Done Comments Breast Cancer Screening-Mammogram 1973 Cervical Cancer Screening 1973 Colon Cancer Screening-Colonoscopy 1973 Depression Screening 1973 Hepatitis C Screening 1973 Hepatitis B Screening 1991 Regular Well Visit/Exam 18-64 1991 Pneumococcal vaccine <65 (2 of 2 - PCV) 01/01/2020 12/31/2018 Zoster Vaccine (1 of 2) 2023 Influenza Vaccine (#1) 2023 9, 02/18/2018, 02/18/2015, Additional history exists DTaP/Tdap/Td Vaccine (2 - Td or Tdap) 12/31/2028 12/31/2018 Medical Devices Implanted Type Area Train Starter Device Identifier Shelf Expiration Date Model / Serial / Lot [employer] Karlos 1.27mm 9.5mm 4.5mm T Ear 9.5mm Tube Ventilation Silicone [id number] - [id number] Implanted:Qty: 1 on 10/04/2022 by Beata Fraser DO at [facility] Bilateral : Ear [employer] 01/07/2030 [id number] / / [id number] [place] [employer] [place] [employer] [place] [employer] [place] For more information, please contact: [phone] Documents on File Type Date Recorded Patient Dietary Director Expl anation ADVANCE DIRECTIVE 08/27/2019 12:54 PM Care Teams Nutrient Management Specialist Relationship Specialty Start Date End Date Johanny Reyes MD [address] [id number] PCP - General 08/21/16
--- OUTSIDE RECORDS SUMMARY | 2024-06-06 13:26 | XMS_ITS | Clinical Summary ---
Author Organization [facility] Address [address] [place] [address] Phone Care Team Providers Care Wild Animal Caretaker Name Role Phone DONOVAN ESTEVEZ DO Unavailable [phone] Reason for Visit and Chief Complaint The Chief Complaint is: No COVID exposure, sx of fever at 5 am yesterday morning of 100.3-took Tyl every 4 hours, coguhing phlegm, fatigue/tried,muscle/body aches, stefanie S.T and stuffy nasal congestion since 5 AM yesterday morning, along with have Rt side tooth pain-boke off & has an appt to get pulled the 18 of this month & Rt ear pain as well (2 COVID vaccines) Plan of Treatment Stay well hydrated and get plenty of rest. Alternate tylenol/ibuprofen for fever/muscle body aches. Can take OTC medications for symptoms. If symptoms worsen or do not improve call/return to clinic. - Last Documented On 06/30/2023 5:24PM ; [facility] Tooth pain: Discussed oral hygiene. Recommended frequent saline mouth rinses. Follow up with dentist at soonest availability. - Last Documented On 06/30/2023 5:24PM ; [facility] Assessments Includes: Assessments from this encounter Findings - Infection of tooth [K08.89 - Other specified disorders of teeth and supporting structures] - Last Documented On 06/30/2023 5:24PM ; [facility] - Viral infection [B34.9 - Viral infection, unspecified] - Last Documented On 06/30/2023 5:24PM ; [facility] Medical Equipment - Implanted Devices Includes: Current Devices No Medical Equipment Recorded Medications Includes: Medications discussed during this encounter and other current Medications New / Renewed during this visit KEN SANTAMARIA on 06/30/2023 Amoxicillin-Pot Clavulanate 875-125 MG Oral Tablet Provider: KEN SANTAMARIA 10 day supply: 20 tablet, 0 refills Diagnosis: Other specified disorders of teeth and supporting structures One tablet twice a day Pharmacy: [address], [id number] - Last Documented On 4 5:28PM By Ken SANTAMARIA ; [facility] Current Medications (continue as prescribed) Atorvastatin Calcium 10 MG Oral Tablet 07/30/2023 Pr ovider: Diagnosis: Last Documented On 07/30/2023 5:10PM By Edwina Salcedo ; [facility] Advair Diskus 100-50 MCG/ACT Inhalation Aerosol Powder Breath Activated 07/30/2023 Provider: Diagnosis: Last Documented On 07/30/2023 5:11PM By Edwina Salcedo ; [facility] Singulair 10 MG Oral Tablet 07/30/2023 Provider: Diagnosis: Last Documented On 07/30/2023 5:11PM By Edwina Salcedo ; [facility] Verapamil HCl ER 360 MG Oral Capsule Extended Re lease 24 Hour 03/29/2022 Provider: Diagnosis: Last Documented On 03/29/2022 3:58PM By RAFAELA MAGDALENO ; [facility] DULoxetine HCl 60 MG Oral Capsule Delayed Releas e Particles 03/29/2022 Provider: Diagnosis: Last Documented On 03/29/2022 4:00PM By RAFAELA MAGDALENO ; [facility] Past Medications on file Amoxicillin 875 MG Oral Tablet 09/11/2023 - 09/21/2023 Provider: KEN MARES DNP Diagnosis: Streptococcal pharyngitis 1 CAPSULE TWO TIMES A DAY Last Documented On 4 10:15AM By Ken Mares DNP ; [facility] Ofloxacin 0.3% Otic Solution 07/30/2023 - 08/06/2023 Provider: KEN MARES DNP Diagnosis: Otitis media, unspecified, left ear Apply 10 drops to the left e ar daily for 7 days Last Documented On 4 6:37PM By Ken Mares DNP ; [facility] Cefdinir 300 MG Oral Capsule 07/30/2023 - 08/09/2023 Provider: KEN STEVEN DNP Diagnosis: Otitis media, unspecified, left ear 1 CAPSULE TWO TIMES A DAY Last Documented On 4 5:50PM By Ken Mares DNP ; [facility] Amoxicillin 875 MG Oral Tablet 03/29/2022 - 04/08/2022 Provider: VLAD RIVERA INSOLE FILLER-BC Diagnosis: Acute serous will tis media, right ear One tablet twice a day Last Documented On 2 4:28PM By VLAD RIVERA INSOLE FILLER-BC ; [facility] Medications Administered Includes: Administered Medications from this encounter No Administered Medications Recorded Vital Signs Includes: Vital Signs from this encounter Vital Name 06/30/2023 05:06P Blood Pressure Sitting L 128/70 BP Cuff Size Regular Pulse Rate-Sitting (bpm) 110 Pulse Rhythm Regular Respiration Rate (breaths/min) 21 Temp-Oral (F) 98.1 Height (in) 65 Weight (lb) 112 Body Mass Index 18.6 Body Surface Area 1.5 Oxygen Saturation (%) 98 Last Documented: On 06/30/2023 5:10PM ; [facility] Results Includes: Results discussed during this encounter SARS COVID-19 FLU A & B [facility] Ordered by KEN SEYMOUR-Kareem on 0 06/30/2023 Collected: Reported: 06/30/2023 Last Documented On 4 5:23PM ; [facility] Reviewed on 06/30/2023; All test results are final unless otherwise noted. COVID neg N (Normal) Last Documented On 4 5:22PM ; [facility] INFLUENZA A neg (Negative) N (Normal) Last Documented On 4 5:22PM ; [facility] INFLUENZA B neg (negative) N (Normal) Last Documented On 4 5:22PM ; [facility] INT. QC ACCEPTABLE? yes N (Normal) Last Documented On 4 5:22PM ; [facility] LOT # & EXP. DATE [id number] 05/14/24 N (Normal) Last Documented On 4 5:22PM ; [facility] History of Present Illness Includes: History of Present Illness from this encounter JANIE MELCHOR is a 48 year old female. - Allergy list reviewed - Medication list reviewed - Medication list reviewed - Feeling tired - Feeling poorly (malaise) - Fever - Chills - Headache - Nasal discharge - Postnasal drip - Nasal passage blockage (stuffiness) - Sore throat - Tooth pain - No ear symptoms - No chest pain or discomfort - Feeling congested in the chest - Cough - No wheezing - Decreased appetite - No nausea - No vomiting - No abdominal pain - No diarrhea - Myalgia -muscle/body aches Isaías is here with symptoms since yesterday. She is feeling fever, congestion, body aches and sore throat. She is also having tooth pain from a right lower tooth that is broken and it hurts into the right ear. Social History Description Last Updated Not a current smoker 06/30/2023 Last Documented On 4 5:24PM ; [facility] Tobacco non-user 06/30/2023 Last Documented On 4 5:24PM ; [facility] Smoking Status Unknown Procedures and Surgical History Includes: Procedures from this encounter Procedures Code Diagnosis Performing Provider Service Location Service Date SARS-CO,SARS-COV- 2, INFLUENZA A/B TEST ([facility] WAIVED) 92745 Fever, unspecified, Acute cough, Acute pharyngitis, unspecified KEN SARMIENTO INSOLE FILLER-C [facility] 06/30/2023 Last Documented On 4 3:45PM ; [facility] Discussed with family/pt kailash t rapid influenza testing was NEGATIVE. Discussed with family that pt is contagious until afebrile for 24 hours, secretions controled, and feeling better. Discussed symptom relief. Pt / family to call our office for further evaluation if persisting, worsening, or new symptoms noted Last Documented On 4 5:20PM ; [facility] use of tobacco assessment performed 1000F Last Documented On 4 5:07PM ; [facility] Clinical summary provided to patient Last Documented On 4 5:20PM ; [facility] Medical History Includes: Medical History addressed during this encounter Description Last Updated Taking OTC medications 06/30/2023 Last Documented On 4 5:24PM ; [facility] No Contact with and (Suspected) exposure to COVID-19 06/30/2023 Last Documented On 4 5:24PM ; [facility] No fall 06/30/2023 Last Documented On 4 5:24PM ; [facility] Family History Includes: Family History addressed during this encounter No Family History Recorded Review of Systems Includes: Review of Systems from this encounter Systemic: Fatigue, fever, and chills. Head: Headache. Neck: Neck symptoms. Eyes: No eye symptoms. Otolaryngeal: Earache, nasal discharge, sore throat, and tooth pain. Cardiovascular: No chest pain or discomfort and no palpitations. Pulmonary: Dyspnea and cough. No wheezing. Gastrointestinal: No vomiting. Abdominal pain. No diarrhea. Musculoskeletal: Muscle aches. Skin: No skin symptoms. Mental Status Includes: Mental Status from this encounter Description Oriented to time, place, and person Functional Status Includes: Functional Status from this encounter No Functional Status Recorded Physical Exam Includes: Physical Exam from this encounter Allergies Includes: Active Allergies No Known Allergies Encounters Encounter Provider Location Date Check-In Time Check-Out Time Diagnosis COVID SICK VISIT- ESTABLISHED PATIENT KEN Doyle SANTAMARIA [facility] 06/30/19 24 4:43PM 5:24PM Infection of Tooth,Infecti ous Disease Viral Infection Insurance Includes: Active Insurance Policies Plan Name Member ID Group # Subscriber Relationship Effect edelmira Dates 1 - [facility] [id number] ISAÍAS MELCHOR Self Clinical Notes Includes: Clinical Notes from this encounter * Progress note Date Encounter Last Documented by 06/30/2023 COVID SICK VISIT- ESTABLISHED ANGEL CLARK Last documented on 06/30/2023; 5:24 PM, KEN SANTAMARIA; [facility] Chief Complaint The Chief Complaint is: No COVID exposure, sx of fever at 5 am yesterday morning of 100.3-took Tyl every 4 hours, coguhing phlegm, fatigue/tried,muscle/body aches, stefanie S.T and stuffy nasal congestion since 5 AM yesterday morning, along with have Rt side tooth pain-boke off & has an appt to get pulled the 18th of this month & Rt ear pain as well (2 COVID vaccines). History of Present Illness ISAÍAS MELCHOR is a 48 year old female. - Allergy list reviewed - Medication list reviewed - Medication list reviewed - Feeling tired - Feeling poorly (malaise) - Fever - Chills - Headache - Nasal discharge - Postnasal drip - Nasal passage blockage (stuffiness) - Sore throat - Tooth pain - No ear symptoms - No chest pain or discomfort - Feeling congested in the chest - Cough - No wheezing - Decreased appetite - No nausea - No vomiting - No abdominal pain - No diarrhea - Myalgia -muscle/body aches Isaías is here with symptoms since yesterday. She is feeling fever, congestion, body aches and sore throat. She is also having tooth pain from a right lower tooth that is broken and it hurts into the right ear. Current Medication - DULoxetine HCl 60 MG Oral Capsule Delayed Release Particles 1 Capsule every morning 0 days, 0 refills - Verapamil HCl ER 360 MG Oral Capsule Extended Release 24 Hour 1 Capsule every morning 0 days, 0 refills Past Medical/Surgical History Reported: Medications: Taking OTC medications. Exposure: No Contact with and (Suspected) exposure to COVID-19. Physical Trauma: No fall. Social History Tobacco use: Not a current smoker. Tobacco non-user. Allergies - No Known Allergies Review Of Systems Systemic: Fatigue, fever, and chills. Head: Headache. Neck: Neck symptoms. Eyes: No eye symptoms. Otolaryngeal: Earache, nasal discharge, sore throat, and tooth pain. Cardiovascular: No chest pain or discomfort and no palpitations. Pulmonary: Dyspnea and cough. No wheezing. Gastrointestinal: No vomiting. Abdominal pain. No diarrhea. Musculoskeletal: Muscle aches. Skin: No skin symptoms. Physical Findings - Vitals taken 06/30/2023 05:06 pm BP-Sitting L 128/70 mmHg BP Cuff Size Regular Pulse Rate-Sitting 110 bpm Pulse Rhythm Regular Respiration Rate 21 per min Temp-Oral 98.1 F Height 65 in Weight 112 lbs Body Mass Index 18.6 kg/m2 Body Surface Area 1.5 m2 Oxygen Saturation 98 % General Appearance: - Awake. - Alert. - Well developed. - Well nourished. - Well hydrated. - In no acute distress. Eyes: General/bilateral: Pupils: - PERRLA. Ears: Right Ear: External Auditory Canal: - Normal. Tympanic Membrane: - Normal. - Not erythematous. Left Ear: External Auditory Canal: - Normal. Tympanic Membrane: - Normal. - Not erythematous. Nose: General/bilateral: Discharge: - No nasal discharge. Sinus Tenderness: - No sinus tenderness. Oral Cavity: Teeth: - Dental abnormalities. Pharynx: Oropharynx: - Tonsils showed no abnormalities. - Tonsils were not erythematous. - Tonsils were not enlarged. - Tonsils showed no exudate. - Not inflamed. Lymph Nodes: - Normal. Lungs: - Clear to auscultation. - Normal breath sounds/voice sounds. - No wheezing was heard. - No rhonchi were heard. - No rales/crackles were heard. Cardiovascular: Heart Rate And Rhythm: - Normal. Heart Sounds: - Normal. Murmurs: - No murmurs were heard. Abdomen: Auscultation: - Bowel sounds were normal. Palpation: - Abdomen was soft. - No direct tenderness in the abdomen. Neurological: - Oriented to time, place, and person. Gait And Stance: - Normal. Psychiatric: Appearance: - Tired. Skin: - Mucous membranes were not dry. Tests - Test: SARS COVID-19 FLU A & B Report Date: 06/30/2023 COVID neg Normal INFLUENZA A neg Normal INFLUENZA B neg Normal INT. QC ACCEPTABLE? yes Normal LOT # & EXP. DATE [id number] 05/14/24 Normal Assessment - Infection of tooth [K08.89 - Other specified disorders of teeth and supporting structures] - Viral infection [B34.9 - Viral infection, unspecified] Therapy - Clinical summary provided to patient. Discussed with family/pt that rapid influenza testing was NEGATIVE. Discussed with family that pt is contagious until afebrile for 24 hours, secretions controled, and feeling better. Discussed symptom relief. Pt / family to call our office for further evaluation if persisting, worsening, or new symptoms noted. Plan StartCited - Other specified disorders of teeth and supporting structures Amoxicillin-Pot Clavulanate 875-125 MG tablet One tablet twice a day, 10 days, 0 refills EndCited StartCited - Viral infection, unspecified In office procedures/*Clia Waived Labs: SARS COVID-19 + flu A & B test EndCited Stay well hydrated and get plenty of rest. Alternate tylenol/ibuprofen for fever/muscle body aches. Can take OTC medications for symptoms. If symptoms worsen or do not improve call/return to clinic. Tooth pain: Discussed oral hygiene. Recommended frequent saline mouth rinses. Follow up with dentist at soonest availability. Practice Management Use of tobacco assessment performed. Health Reminders - Assess BMI satisfied 06/30/2023. - Assess Need for CT Lung Screen satisfied 06/30/2023. - Assess Tobacco Use satisfied 06/30/2023.
--- OUTSIDE RECORDS SUMMARY | 2024-06-06 13:26 | XMS_ITS | Continuity of Care Document ---
Author Organization [facility] Address [address] [place] [address] Phone Care Team Providers Care Rejector Name Role Phone Leoncio Seay MD Unavailable [...] No Charge GDX Retina IOLMaster-Technical Office/outpatient Visit, [facility] Advance Directives Directive Yes / No Effective Date File Name No Information Encounters Encounter Description Practice Location Reason(s) For Visit Diagnoses Date Provider Providers Copied on Encounter [facility], [address] [place] [address] [address], [place], [place], [id number], tel:[phone] [place] Profession[place] 1 mo CE PO (09/14/20) (chief complaint) Post op visit 1 Dawood Fang. [address] [facility] [place], [place], [id number], [place]. tel:[phone] Referring Provider: Violet[facility] Brantley OD, [facility] [address] [place], [address]. tel:[phone] [facility], [address], [place], [place], [id number], [place] tel:[phone] [place] Profession[place] Post-Op (chief complaint) Post op visit 1 No Information Referring Provider: Violetta Brantley OD, [facility] [address] [place], [address]. tel:[phone] [facility], [address], [place], [place], [id number], [place] tel: [place] Profession[place] 1 day CE PO (09/14/20) (chief complaint) Post op visit 1 No Information Referring Provider: Violetta Brantley OD, [facility] [address], [place], [address]. tel:[phone] [facility], [address], [place], [place], [id number], tel: [facility] No Information 1 Dawood Fang. [address] [facility], [address] [place], [place], [id number], . tel: Referring Provider: Violetta Brantley OD, [facility] [address], [place], [address]. tel:[phone] [facility], [address], [place], [place], [id number], [place] tel: [place] No Information 1 Dawood Fang. [address] [facility], [address] [place], [place], [id number], . tel:[phone] Referring Provider: Violetta Masonhop OD, [facility] [address], [place], [address]. tel:[phone] [facility], [address], [place], [place], [id number], [place] tel: SEC [place] No Information 1 Dawood Fang. [address] [facility], [address], [place], [id number], . tel: [facility], [address], [place], [place], [address], tel: [place] Post-Op (chief complaint) Post op visit No Information Referring Provider: Violetta Brantley OD, [facility] [address], [place], [address]. tel:[phone] [facility], [address], [place], [place], [id number], [place] tel:[phone] [place] 1 day po PCIOL OD (08/17/20) (chief complaint) Post op visit No Information Referring Provider: Violetta Brantley OD, [facility] [address], [place], [address]. tel:[phone] [facility], [address] [place] [address] [address], [place], [place], [id number], [place] tel: [facility] No Information Dawood Fang. [address] [facility] [place], [place], [address], [place]. tel:[phone] Referring Provider: Violetta Brantley OD, [facility] [address], [place], [address]. tel:[phone] [facility], [address], [place], [place], [id number], [place] tel: [place] No Information Dawood Fang. [address] [facility], [facility], [place], [place], [address], [place]. tel:[phone] Referring Provider: Violetta Brantley OD, [facility] [address], [place], [address]. tel:[phone] [facility], [address], [place], [place], [address], [place] tel:[phone] [place] Repeat measurements only (chief complaint) Age-related nuclear cataract, bilateral Jun- 1 Dawood Fang. [address] [facility], [facility], [place], [place], [address], [place]. tel:[phone] Referring Provider: Violetta Brantley OD, [facility] [address] [place], [address]. tel:[phone] [facility]pa tient Visit, [facility], [address], [place], [place], [id number], [place] tel:[phone] [place] Cataract evaluation (chief complaint) Posterior polar cataract of both eyesAge-rela sandra nuclear cataract, bilateral 1 Dawood Fang. [address] [facility], [facility], [place], [place], [address], [place]. tel:[phone] Referring Provider: Violetta Brantley OD, [facility] [address] [place], [address]. tel:[phone] [facility], [address], [place], [place], [address], [place] tel:[phone] [place] No Information 1 No Information Family History Family Member Type Diagnosis Age At Onset Problem Family history of Diabetes m blaine Payers Payer name Insurance type Covered republican ID Authoriza tion(s) No Information Social History [...]
--- OUTSIDE RECORDS SUMMARY | 2024-06-06 13:26 | XMS_ITS | Clinical Summary ---
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 Gender Identity Not on file Sexual Orientation Not on file Plan of Treatment Health Maintenance Due Date Last Done Comments Cervical Cancer Screening Pa p Smear (Age 30 to 64) Every 3 Years 1973 Colorectal Cancer Screening Colonoscopy (10 Years) 1973 Annual Physical 1976 Hepatitis C 1991 DTaP, Tdap and Td Vaccines ( 1 - Tdap) 1992 Hepatitis B Vaccines (1 of 3 - 19+ 3-dose series) 1992 Cervical Cancer Screening Pa p with HPV Testing (Age 30 to 64) Every 5 Years 2003 Cervical Cancer Screening with HPV 2003 Mammogram Screening 2013 Zoster Vaccines (1 of 2) 2023 COVID-19 Vaccine (2023-2 5 season) 2023 Influenza Adult (#1) 2024 Meningococcal B Vaccine Aged Out No l onger eligible based on patient's age to complete this topic Meningococcal Vaccine Aged Out No víctor janie eligible based on patient's age to complete this topic Pneumococcal Vaccine: Pediat rics (0 to 5 Years) and At-Risk Patients (6 to 64 Years) Aged Out No longer eligible b ased on patient's age to complete this topic RSV Immunizations Under 20 Months Aged Out No longer eligible based on patient's age to complete this topic
--- OUTSIDE RECORDS SUMMARY | 2024-06-06 13:26 | XMS_ITS | Clinical Summary ---
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 COVID/influenza test was negative. 1. Increase water intake. 2. Get plenty of rest. 3. Take antibiotic as directed, even if/when you start to feel better. 4. May use salt water gargles, OTC Chloraseptic spray, or throat lozenges to help with symptoms. 5. Change mouth care products, such as your tooth brush, 24-48 hours after starting antibiotic to help prevent re-infection. 6. Illness is spread via droplet contact. It is important to avoid sharing eating utensils and drinking cups to prevent the spread of infection. 7. Patient may return to school/work after being on antibiotic therapy for 24 hours. 8. Patient voiced understanding to the teaching. - Last Documented On 09/11/2023 10:44AM ; [facility] Assessments Includes: Assessments from this encounter Findings - [J02.0 - Streptococcal pharyngitis] Group A streptococcus: B hemolytic pharyngitis - Last Documented On 09/11/2023 10:44AM ; [facility] Medical Equipment - Implanted Devices Includes: Current Devices No Medical Equipment Recorded Medications Includes: Medications discussed during this encounter and other current Medications New / Renewed during this visit KEN MARES DNP on 09/11/2023 Amoxicillin 875 MG Oral Tablet Provider: KEN Aburto BACK SEAM STITCHER 10 day supply: 20 tablet, 0 refills Diagnosis: Streptococcal pharyngitis 1 CAPSULE TWO TIMES A DAY Pharmacy: [address], [phone] - Last Documented On 4 10:15AM By Ken Mares DNP ; [facility] Current Medications (continue as prescribed) Atorvastatin Calcium 10 MG Oral Tablet 07/30/2023 Pr ovider: Diagnosis: Last Documented On 07/30/2023 5:10PM By Edwina Salcedo ; [facility] Advair Diskus 100-50 MCG/ACT Inhalation Aerosol Powder Breath Activated 07/30/2023 Provider: Diagnosis: Last Documented On 07/30/2023 5:11PM By Edwina Salcedo ; [facility] Singulair 10 MG Oral Tablet 07/30/2023 Provider: Diagnosis: Last Documented On 07/30/2023 5:11PM By Edwina Salcedo ; [facility] Amoxicillin-Pot Clavulanate 875-125 MG Oral Tablet 06/30/2023 Provider: KEN SANTAMARIA Diagnosis: Other specified disorders of teeth and supporting structures One tablet twice a day Last Documented On 4 5:28PM By Ken SANTAMARIA ; [facility] Verapamil HCl ER 360 MG Oral Capsule Extended Re lease 24 Hour 03/29/2022 Provider: Diagnosis: Last Documented On 03/29/2022 3:58PM By RAFAELA MAGDALENO ; [facility] DULoxetine HCl 60 MG Oral Capsule Delayed Releas e Particles 03/29/2022 Provider: Diagnosis: Last Documented On 03/29/2022 4:00PM By RAFAELA MAGDALENO ; [facility] Medications Administered Includes: Administered Medications from this encounter No Administered Medications Recorded Vital Signs Includes: Vital Signs from this encounter Vital Name 09/11/2023 09:58A Pulse Rate-Sitting (bpm) 94 Respiration Rate (breaths/min) 21 Temp-Oral (F) 98.9 Height (in) 65 Weight (lb) 108.375 Body Mass Index 18 Body Surface Area 1.5 Oxygen Saturation (%) 98 Last Documented: On 09/11/2023 9:58AM ; [facility] Results Includes: Results discussed during this encounter Group A strep [facility] Ordered by KEN MARES DNP on Collected: Reported: 09/11/2023 Last Documented On 4 10:14AM ; [facility] Reviewed on 09/11/2023; All test results are final unless otherwise noted. Rapid Strep POS A (Abnormal) Last Documented On 4 10:12AM ; [facility] LOT # AND EXP. DATE [id number] 02-28-24 N (Normal) Last Documented On 4 10:12AM ; [facility] INT. QC ACCEPTABLE? YES N (Normal) Last Documented On 4 10:12AM ; [facility] SARS COVID-19 FLU A & B [facility] Ordered by KEN MARES DNP on Collected: Reported: 09/11/2023 Last Documented On 4 10:14AM ; [facility] Reviewed on 09/11/2023; All test results are final unless otherwise noted. COVID NEG N (Normal) Last Documented On 4 10:12AM ; [facility] INFLUENZA A NEG (Negative) N (Normal) Last Documented On 4 10:12AM ; [facility] INFLUENZA B NEG (negative) N (Normal) Last Documented On 4 10:12AM ; [facility] INT. QC ACCEPTABLE? YES N (Normal) Last Documented On 4 10:12AM ; [facility] LOT # & EXP. DATE [id number] 04-16-24 N (Normal) Last Documented On 4 10:12AM ; [facility] History of Present Illness Includes: History of Present Illness from this encounter JANIE MELCHOR is a 48 year old female. - Allergy list reviewed - Medication list reviewed - Not feeling fine - Feeling tired - Fever - Chills - No sinus pain - No neck pain - No neck stiffness - No swollen glands in the neck - No eye symptoms - Sore throat constantly - Triggered by swallowing - No ear symptoms - No nasal discharge - No nasal passage blockage (stuffiness) - No hoarseness - No excessive drooling - No chest pain or discomfort - No dyspnea - No cough - Decreased appetite - No heartburn - No nausea - No abdominal pain Harriet presents to the clinic with the above reported symptoms that have been going on for the past couple of days. She reports that she was running a fever and had chills off and on. Patient has been exposed to strep recently. Social History Description Last Updated Tobacco non-user 09/11/2023 Last Documented On 4 10:44AM ; [facility] Not a current smoker 09/11/2023 Last Documented On 4 10:44AM ; [facility] Smoking Status Unknown Procedures and Surgical History Includes: Procedures from this encounter Procedures Code Diagnosis Performing Provider Service Location Service Date SARS-CO,SARS-COV- 2, INFLUENZA A/B TEST ([facility]) 89545 Fever, unspecified KEN MARES [facility] 09/11/2023 Last Documented On 4 6:23PM ; [facility] STREP TEST SCREENING ([facility]) 16326 Streptococcal pharyngitis KEN MARES [facility] 09/11/2023 Last Documented On 4 6:23PM ; [facility] Pt to use prescription as ordered. Purpo se of and use of medication discussed.~ Last Documented On 4 10:14AM ; [facility] Pt to use OTC fever/pain product as need ed per product instruction.~ Last Documented On 4 10:14AM ; [facility] use of tobacco assessment performed 1000F Last Documented On 4 9:58AM ; [facility] review of medications documented 1160F Last Documented On 4 9:58AM ; [facility] Clinical summary provided to patient Last Documented On 4 10:14AM ; [facility] Medical History Includes: Medical History addressed during this encounter Description Last Updated No Contact with and (Suspected) exposure to COVID-19 09/11/2023 Last Documented On 4 10:44AM ; [facility] No fall 09/11/2023 Last Documented On 4 10:44AM ; [facility] Family History Includes: Family History addressed during this encounter No Family History Recorded Review of Systems Includes: Review of Systems from this encounter Systemic: Feeling poorly (malaise), fatigue, fever, and chills. Head: Headache. No sinus pain. Neck: No neck pain, no neck stiffness, and no lump or swelling in the neck. Eyes: No itching of the eyes and no eye pain. Otolaryngeal: No earache, no nasal discharge, and no hoarseness. Sore throat. Cardiovascular: No chest pain or discomfort. Pulmonary: No dyspnea and no cough. Gastrointestinal: No dysphagia, no nausea, no vomiting, no abdominal pain, and no diarrhea. Skin: No rash. Mental Status Includes: Mental Status from this encounter No Mental Status Recorded Functional Status Includes: Functional Status from this encounter No Functional Status Recorded Physical Exam Includes: Physical Exam from this encounter Allergies Includes: Active Allergies No Known Allergies Encounters Encounter Provider Location Date Check-In Time Check-Out Time Diagnosis COVID SICK VISIT- ESTABLISHED PATIENT KEN MARES DNP [facility] 09/11/19 24 9:25AM 10:14AM Pharyngitis Streptococcus, Group A: Beta Hemolytic Insurance Includes: Active Insurance Policies Plan Name Member ID Group # Subscriber Relationship Effect edelmira Dates 1 - [facility] [id number] HARRIET MELCHOR Self Clinical Notes Includes: Clinical Notes from this encounter * Progress note Date Encounter Last Documented by 09/11/2023 COVID SICK VISIT- ESTABLISHED ANGEL CLARK Last documented on 09/11/2023; 10:44 AM, KEN MARES DNP; [facility] Chief Complaint The Chief Complaint is: Sore throat PT IS DUE TO SORE THROAT, CHILLS, FATIGUE, BODY ACHES, AND SORE THROAT SINCE YESTERDAY DID FLU COVID STREP. History of Present Illness HARRIET MELCHOR is a 48 year old female. - Allergy list reviewed - Medication list reviewed - Not feeling fine - Feeling tired - Fever - Chills - No sinus pain - No neck pain - No neck stiffness - No swollen glands in the neck - No eye symptoms - Sore throat constantly - Triggered by swallowing - No ear symptoms - No nasal discharge - No nasal passage blockage (stuffiness) - No hoarseness - No excessive drooling - No chest pain or discomfort - No dyspnea - No cough - Decreased appetite - No heartburn - No nausea - No abdominal pain Harriet presents to the clinic with the above reported symptoms that have been going on for the past couple of days. She reports that she was running a fever and had chills off and on. Patient has been exposed to strep recently. Past Medical/Surgical History Reported: Exposure: No Contact with and (Suspected) exposure to COVID-19. Physical Trauma: No fall. Social History Tobacco use: Not a current smoker. Tobacco non-user. Review Of Systems Systemic: Feeling poorly (malaise), fatigue, fever, and chills. Head: Headache. No sinus pain. Neck: No neck pain, no neck stiffness, and no lump or swelling in the neck. Eyes: No itching of the eyes and no eye pain. Otolaryngeal: No earache, no nasal discharge, and no hoarseness. Sore throat. Cardiovascular: No chest pain or discomfort. Pulmonary: No dyspnea and no cough. Gastrointestinal: No dysphagia, no nausea, no vomiting, no abdominal pain, and no diarrhea. Skin: No rash. Physical Findings - Vitals taken 09/11/2023 09:58 am Pulse Rate-Sitting 94 bpm Respiration Rate 21 per min Temp-Oral 98.9 F Height 65 in Weight 108 lbs 6 oz Body Mass Index 18 kg/m2 Body Surface Area 1.5 m2 Oxygen Saturation 98 % General Appearance: - Awake. - Alert. - Well nourished. Eyes: General/bilateral: Pupils: - PERRLA. Ears: Right Ear: Tympanic Membrane: - Normal. - Not erythematous. Left Ear: Tympanic Membrane: - Examined. - PET in place. - Not erythematous. Nose: General/bilateral: Discharge: - No nasal discharge. Sinus Tenderness: - No sinus tenderness. Pharynx: Oropharynx: - Tonsils showed abnormalities. - Tonsils were enlarged. - Inflamed. - Tonsils showed no exudate. Lymph Nodes: - No adenopathy. - No tender lymph nodes. Lungs: - Clear to auscultation. Cardiovascular: Heart Rate And Rhythm: - Normal. Abdomen: Auscultation: - Bowel sounds were normal. Skin: - Normal. - Texture was normal. - Color and pigmentation were normal. - Mucous membranes were not dry. Tests - Test: Group A strep Report Date: 09/11/2023 Rapid Strep POS Abnormal LOT # AND EXP. DATE [id number] 02-28-24 Normal INT. QC ACCEPTABLE? YES Normal - Test: SARS COVID-19 FLU A & B Report Date: 09/11/2023 COVID NEG Normal INFLUENZA A NEG Normal INFLUENZA B NEG Normal INT. QC ACCEPTABLE? YES Normal LOT # & EXP. DATE [id number] 04-16-24 Normal Assessment - [J02.0 - Streptococcal pharyngitis] Group A streptococcus: B hemolytic pharyngitis Therapy - Clinical summary provided to patient. Pt to use prescription as ordered. Purpose of and use of medication discussed. . Pt to use OTC fever/pain product as needed per product instruction. . Plan StartCited - Streptococcal pharyngitis In office procedures/*Clia Waived Labs: Rapid Strep Test Amoxicillin 875 MG tablet 1 CAPSULE TWO TIMES A DAY, 10 days, 0 refills EndCited - Return to the clinic if condition worsens or new symptoms arise Strep test was positive at today's visit. COVID/influenza test was negative. 1. Increase water intake. 2. Get plenty of rest. 3. Take antibiotic as directed, even if/when you start to feel better. 4. May use salt water gargles, OTC Chloraseptic spray, or throat lozenges to help with symptoms. 5. Change mouth care products, such as your tooth brush, 24-48 hours after starting antibiotic to help prevent re-infection. 6. Illness is spread via droplet contact. It is important to avoid sharing eating utensils and drinking cups to prevent the spread of infection. 7. Patient may return to school/work after being on antibiotic therapy for 24 hours. 8. Patient voiced understanding to the teaching. Practice Management Use of tobacco assessment performed Review of medications documented. Health Reminders - Assess BMI satisfied 09/11/2023. - Assess Need for CT Lung Screen satisfied 09/11/2023. - Assess Tobacco Use satisfied 09/11/2023.
--- OUTSIDE RECORDS SUMMARY | 2024-06-06 13:26 | XMS_ITS | Clinical Summary ---
Author Organization [facility] Address [address] [place] [address] Phone Care Team Providers Care Commercial Sales Consultant Name Role Phone DONOVAN ESTEVEZ DO Unavailable [phone] Reason for Visit and Chief Complaint The Chief Complaint is: Left ear drainage since yesterday morning and Rt ear cannot hear out of it with pain off & on since yesterday Plan of Treatment - Return to the clinic if condition worsens or new symptoms arise - Last Documented On 04/02/2022 10:05AM ; [facility] - Patient will call for appointment as needed - Last Documented On 04/02/2022 10:05AM ; [facility] Assessments Includes: Assessments from this encounter Findings - [H65.01 - Acute serous otitis media, right ear] Otitis media - Last Documented On 04/02/2022 10:05AM ; [facility] Medical Equipment - Implanted Devices Includes: Current Devices No Medical Equipment Recorded Medications Includes: Medications discussed during this encounter and other current Medications New / Renewed during this visit VLAD HENRIQUEZ on 03/29/2022 Amoxicillin 875 MG Oral Tablet Provider: VLAD HENRIQUEZ 10 day supply: 20 tablet, 0 refills Diagnosis: Acute serous otitis media, right ear One tablet twice a day Pharmacy: [facility], [phone] - Last Documented On 4:28PM By VLAD HENRIQUEZ ; [facility] Current Medications (continue as prescribed) Atorvastatin Calcium 10 MG Oral Tablet 07/30/2023 Pr ovider: Diagnosis: Last Documented On 07/30/2023 5:10PM By Edwina Salcedo ; [facility] Advair Diskus 100-50 MCG/ACT Inhalation Aerosol Powder Breath Activated 07/30/2023 Provider: Diagnosis: Last Documented On 07/30/2023 5:11PM By Edwina Salcedo ; [facility] Singulair 10 MG Oral Tablet 07/30/2023 Provider: Diagnosis: Last Documented On 07/30/2023 5:11PM By Edwina Salcedo ; [facility] Amoxicillin-Pot Clavulanate 875-125 MG Oral Tablet 06/30/2023 Provider: KEN SANTAMARIA Diagnosis: Other specified disorders of teeth and supporting structures One tablet twice a day Last Documented On 4 5:28PM By Kne SANTAMARIA ; [facility] Verapamil HCl ER 360 MG Oral Capsule Extended Re lease 24 Hour 03/29/2022 Provider: Diagnosis: Last Documented On 03/29/2022 3:58PM By RAFAELA MAGDALENO ; [facility] DULoxetine HCl 60 MG Oral Capsule Delayed Releas e Particles 03/29/2022 Provider: Diagnosis: Last Documented On 03/29/2022 4:00PM By RAFAELA MAGDALENO ; [facility] Past Medications on file Amoxicillin 875 MG Oral Tablet 09/11/2023 - 09/21/2023 Provider: KEN MARES DNP Diagnosis: Streptococcal pharyngitis 1 CAPSULE TWO TIMES A DAY Last Documented On 4 10:15AM By Ken Mares DNP ; [facility] Ofloxacin 0.3% Otic Solution 07/30/2023 - 08/06/2023 Provider: KEN MARES DNP Diagnosis: Otitis media, unspecified, left ear Apply 10 drops to the left e ar daily for 7 days Last Documented On 4 6:37PM By Ken Mares DNP ; [facility] Cefdinir 300 MG Oral Capsule 07/30/2023 - 08/09/2023 Provider: KEN STEVEN DNP Diagnosis: Otitis media, unspecified, left ear 1 CAPSULE TWO TIMES A DAY Last Documented On 4 5:50PM By Ken Mares DNP ; [facility] Medications Administered Includes: Administered Medications from this encounter No Administered Medications Recorded Vital Signs Includes: Vital Signs from this encounter Vital Name 03/29/2022 03:58P Pulse Rate-Sitting (bpm) 102 Temp-Oral (F) 98.5 Height (in) 65 Weight (lb) 137.2 Body Mass Index 22.8 Body Surface Area 1.7 Oxygen Saturation (%) 96 Last Documented: On 03/29/2022 4:01PM ; [facility] Results Includes: Results discussed during this encounter No Results Recorded For Specified Dates History of Present Illness Includes: History of Present Illness from this encounter JANIE MELCHOR is a 47 year old female. - Allergy list reviewed - Medication list reviewed - Feeling fine - No fever - No chills - No headache - No chest pain or discomfort - No palpitations - The heart rate was not fast - No dyspnea - No cough - Normal appetite - No nausea - No vomiting - No abdominal pain Social History Description Last Updated Current smoker 03/29/2022 Last Documented On 2 10:05AM ; [facility] Sexually active with partners in the 05/17/2011 Last Documented On 2 3:58PM ; [facility] Alcohol use: 2 drinks or less per day Last Documented On 2 3:58PM ; [facility] Cigarette smoking 0.5 pack-years 20 04/29 Last Documented On 2 3:58PM ; [facility] 05/17/2011 Last Documented On 2 3:58PM ; [facility] 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 Last Documented On 2 3:58PM ; [facility] Smoking Status Unknown Procedures and Surgical History Includes: Procedures from this encounter Procedures Code Diagnosis Performing Provider Service L ocation Service Date use of tobacco assessment performed 1000F Last Documented On 2 3:58PM ; [facility] Clinical summary provided to patient Last Documented On 2 4:25PM ; [facility] Medical History Includes: Medical History addressed during this encounter Description Last Updated History of asthma 05/17/2011 Last Documented On 2 3:58PM ; [facility] 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 05/17/2011 Last Documented On 2 3:58PM ; [facility] History of urinary tract infection appx 3 per year 05/17/2011 Last Documented On 2 3:58PM ; [facility] 3 05/17/2011 Last Documented On 2 3:58PM ; [facility] Para 3 05/17/2011 Last Documented On 2 3:58PM ; [facility] LMP: 04/25/2011 05/17/2011 Last Documented On 2 3:58PM ; [facility] sinus surgery ~perforated colon ~cluster headaches 05/17/2011 Last Documented On 2 3:58PM ; [facility] A colonoscopy was performed 2009 diverti culitis 05/17/2011 Last Documented On 2 3:58PM ; [facility] Asthma 05/17/2011 Last Documented On 2 3:58PM ; [facility] Last pap smear date 200905/17/2011 Last Documented On 2 3:58PM ; [facility] Result: normal 05/17/2011 Last Documented On 2 3:58PM ; [facility] Family History Includes: Family History addressed during this encounter Description Last Updated Family history of diabetes mellitus 04/29 Last Documented On 2 3:58PM ; [facility] Family history of Cancer Father & Grandp arents 05/17/2011 Last Documented On 2 3:58PM ; [facility] Family history of cardiac problems grand parents 05/17/2011 Last Documented On 2 3:58PM ; [facility] Family history of Diabetes grandparents 05/17/2011 Last Documented On 2 3:58PM ; [facility] Family history of high cholesterol paren ts 05/17/2011 Last Documented On 2 3:58PM ; [facility] Family history of Hypertension parents 0 05/17/2011 Last Documented On 2 3:58PM ; [facility] Family history of thyroid disease mother 05/17/2011 Last Documented On 2 3:58PM ; [facility] Review of Systems Includes: Review of Systems from this encounter Systemic: No fever. Otolaryngeal: Earache. No sore throat. Pulmonary: No cough. 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
--- OUTSIDE RECORDS SUMMARY | 2024-06-06 13:26 | XMS_ITS ---
Author Organization [facility] Address [address] [place] [address] Phone Care Team Providers Care Sales Clerk Name Role Phone DONOVAN ESTEVEZ DO Shelly Unavailable [phone] Plan of Treatment Findings Encounter Date Ordered return to the clinic if condition worsens or new symptoms arise COVID SICK VISIT- ESTABLISHED PATIENT with KEN MARES [facility] 09/11/2023 Last Documented On 4 10:44AM ; [facility] Ordered return to the clinic if condition worsens or new symptoms arise COVID SICK VISIT- ESTABLISHED PATIENT with KEN MARES [facility] 07/30/2023 Last Documented On 4 5:20PM ; [facility] Ordered patient will call fo r appointment as needed WALK IN PATIENT - NEW PT with VLAD RIVERA [facility] 03/29/2022 Last Documented On 2 10:05AM ; [facility] Ordered return to the clinic if condition worsens or new symptoms arise WALK IN PATIENT - NEW PT with VLAD RIVERA [facility] 03/29/2022 Last Documented On 2 10:05AM ; [facility] Assessments Includes: Assessments for all patient encounters Findings Encounter Date Group A streptococcus: B hem olytic pharyngitis COVID SICK VISIT- ESTABLISHED PATIENT with KEN MARES DNP 09/11/2023 Last Documented On 4 10:44AM ; [facility] Otitis media of the left ear COVID SICK VISIT- ESTABLISHED PATIENT with KEN MARES DNP 07/30/2023 Last Documented On 4 5:20PM ; [facility] [B34.9 - Viral infection, un specified] viral infection COVID SICK VISIT- ESTABLISHED PATIENT with KEN REALCLAIR [employer] 06/30/2023 Last Documented On 4 5:24PM ; [facility] Infection of tooth COVID SICK VISIT- ES TABLISHED PATIENT with KEN REALCLAIR [employer] 06/30/2023 Last Documented On 4 5:24PM ; [facility] Otitis media WALK IN PATIENT - NEW PT with ISABELLE RIVERA [employer] 03/29/2022 Last Documented On 2 10:05AM ; [facility] Mirena insertion IUD INSERTION with Graciela SY MD 08/02/2011 Last Documented On 2 1:34PM ; [facility] Contraceptive management NEW PATIENT VISIT with Graciela MCNAIR MD 05/17/2011 Last Documented On 2 2:05PM ; [facility] NORMAL FEMALE EXAM NEW PATIENT VISIT with Graciela MCNAIR MD 05/17/2011 Last Documented On 2 2:05PM ; [facility] Urinary tract infection NEW PATIENT VISIT with Graciela CMNAIR MD 05/17/2011 Last Documented On 2 2:05PM ; [facility] Medical Equipment - Implanted Devices Includes: Current and historical Devices No Medical Equipment Recorded Medications Includes: Current and historical Medications Current Medications (continue as prescribed) Atorvastatin Calcium 10 MG Oral Tablet 07/30/2023 Pr ovider: Diagnosis: Last Documented On 07/30/2023 5:10PM By Edwina Salcedo ; [facility] Advair Diskus 100-50 MCG/ACT Inhalation Aerosol Powder Breath Activated 07/30/2023 Provider: Diagnosis: Last Documented On 07/30/2023 5:11PM By Edwina Salcedo ; [facility] Singulair 10 MG Oral Tablet 07/30/2023 Provider: Diagnosis: Last Documented On 07/30/2023 5:11PM By Edwina Salcedo ; [facility] Amoxicillin-Pot Clavulanate 875-125 MG Oral Tablet 06/30/2023 Provider: KEN Francis [employer] Diagnosis: Other specified disorders of teeth and supporting structures One tablet twice a day Last Documented On 4 5:28PM By Ken SANTAMARIA ; [facility] Verapamil HCl ER 360 MG Oral Capsule Extended Re lease 24 Hour 03/29/2022 Provider: Diagnosis: Last Documented On 03/29/2022 3:58PM By RAFAELA MAGDALENO ; [facility] DULoxetine HCl 60 MG Oral Capsule Delayed Releas e Particles 03/29/2022 Provider: Diagnosis: Last Documented On 03/29/2022 4:00PM By RAFAELA MAGDALENO ; [facility] Past Medications on file Amoxicillin 875 MG Oral Tablet 09/11/2023 - 09/21/2023 Provider: KEN MARES DNP Diagnosis: Streptococcal pharyngitis 1 CAPSULE TWO TIMES A DAY Last Documented On 4 10:15AM By Ken Mares DNP ; [facility] Ofloxacin 0.3% Otic Solution 07/30/2023 - 08/06/2023 Provider: KEN MARES DNP Diagnosis: Otitis media, unspecified, left ear Apply 10 drops to the left e ar daily for 7 days Last Documented On 4 6:37PM By Ken Mares DNP ; [facility] Cefdinir 300 MG Oral Capsule 07/30/2023 - 08/09/2023 Provider: KEN STEVEN DNP Diagnosis: Otitis media, unspecified, left ear 1 CAPSULE TWO TIMES A DAY Last Documented On 4 5:50PM By Ken Mares DNP ; [facility] Amoxicillin 875 MG Oral Tablet 03/29/2022 - 04/08/2022 Provider: VLAD HENRIQUEZ Diagnosis: Acute serous will tis media, right ear One tablet twice a day Last Documented On 2 4:28PM By VLAD HENRIQUEZ ; [facility] Medications Administered Includes: Administered Medications in patient's chart No Administered Medications Recorded Vital Signs Includes: Vital Signs from 06/06/2023 through 06/06/2024 Vital Name 09/11/2023 09:58A 07/30/2023 05:14P 06/29 05:06P Pulse Rate-Sitting (bpm) 94 120 110 Respiration Rate (breaths/min) 21 18 21 Temp-Oral (F) 98.9 98.8 98.1 Height (in) 65 65 65 Weight (lb) 108.375 115 112 Body Mass Index 18 19.1 18.6 Body Surface Area 1.5 1.6 1.5 Oxygen Saturation (%) 98 97 98 Blood Pressure Sitting L 128/70 BP Cuff Size Regular Pulse Rhythm Regular Last Documented: On 09/11/2023 9:58AM ; [facility] On 07/30/2023 5:14PM ; [facility] On 06/30/2023 5:10PM ; [facility] Results Includes: Results from 06/06/2023 through 06/06/2024 Group A strep [facility] Ordered by KEN MARES DNP on Collected: Reported: 09/11/2023 Last Documented On 4 10:14AM ; [facility] Reviewed on 09/11/2023; All test results are final unless otherwise noted. Rapid Strep POS A (Abnormal) Last Documented On 4 10:12AM ; [facility] LOT # AND EXP. DATE [id number] 02-28-24 N (Normal) Last Documented On 4 10:12AM ; [facility] INT. QC ACCEPTABLE? YES N (Normal) Last Documented On 4 10:12AM ; [facility] SARS COVID-19 FLU A & B [facility] Ordered by KEN MARES DNP on Collected: Reported: 09/11/2023 Last Documented On 4 10:14AM ; [facility] Reviewed on 09/11/2023; All test results are final unless otherwise noted. COVID NEG N (Normal) Last Documented On 4 10:12AM ; [facility] INFLUENZA A NEG (Negative) N (Normal) Last Documented On 4 10:12AM ; [facility] INFLUENZA B NEG (negative) N (Normal) Last Documented On 4 10:12AM ; [facility] INT. QC ACCEPTABLE? YES N (Normal) Last Documented On 4 10:12AM ; [facility] LOT # & EXP. DATE [id number] 04-16-24 N (Normal) Last Documented On 4 10:12AM ; [facility] SARS COVID-19 FLU A & B [facility] Ordered by KEN SANTAMARIA on 0 06/30/2023 Collected: Reported: 06/30/2023 Last Documented On 4 5:23PM ; [facility] Reviewed on 06/30/2023; All test results are final unless otherwise noted. COVID neg N (Normal) Last Documented On 4 5:22PM ; [facility] INFLUENZA A neg (Negative) N (Normal) Last Documented On 4 5:22PM ; [facility] INFLUENZA B neg (negative) N (Normal) Last Documented On 4 5:22PM ; [facility] INT. QC ACCEPTABLE? yes N (Normal) Last Documented On 4 5:22PM ; [facility] LOT # & EXP. DATE [id number] 05/14/24 N (Normal) Last Documented On 4 5:22PM ; [facility] History of Present Illness History of Present Illness not supported for this document type No History of Present Illness Recorded Social History Description Last Updated Tobacco non-user 09/11/2023 Last Documented On 4 10:44AM ; [facility] Not a current smoker 09/11/2023 Last Documented On 4 10:44AM ; [facility] In monogamous relationship 05/17/2011 Last Documented On 2 2:05PM ; [facility] Sexually active with partners in the t year 1 05/17/2011 Last Documented On 2 2:05PM ; [facility] Alcohol use: 2 drinks or less per day Last Documented On 2 2:05PM ; [facility] Cigarette smoking 0.5 pack-years 20 04/29 Last Documented On 2 2:05PM ; [facility] 05/17/2011 Last Documented On 2 2:05PM ; [facility] Does not have high school diploma 2011 Last Documented On 2 2:05PM ; [facility] 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 Last Documented On 2 2:05PM ; [facility] Smoking Status Unknown Procedures and Surgical History Includes: Procedures from 06/06/2023 through 06/06/2024 Procedures Code Diagnosis Performing Provider Service Location Service Date SARS-CO,SARS-COV- 2, INFLUENZA A/B TEST ([facility]IA WAIVED) 45611 Fever, unspecified KEN MARES [facility] 09/11/2023 Last Documented On 4 6:23PM ; [facility] STREP TEST SCREENING ([facility]IA WAIVED) 52641 Streptococcal pharyngitis KEN MARES [facility] 09/11/2023 Last Documented On 4 6:23PM ; [facility] SARS-CO,SARS-COV-2, INFLUENZA A/B TEST ([facility]IA WAIVED) 49188 Fever, unspecified, Acute cough, Acute pharyngitis, unspecified KEN SARMIENTO [employer] OFFICER-C [facility] 06/30/2023 Last Documented On 4 3:45PM ; [facility] Medical History Includes: Medical History in patient's chart Description Last Updated No Contact with and (Suspected) exposure to COVID-19 09/11/2023 Last Documented On 4 10:44AM ; [facility] No fall 09/11/2023 Last Documented On 4 10:44AM ; [facility] Taking OTC medications 06/30/2023 Last Documented On 4 5:24PM ; [facility] History of asthma 05/17/2011 Last Documented On 2 2:05PM ; [facility] 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 05/17/2011 Last Documented On 2 2:05PM ; [facility] History of urinary tract infection appx 3 per year 05/17/2011 Last Documented On 2 2:05PM ; [facility] No history of cervical dysplasia 012 Last Documented On 2 2:05PM ; [facility] No history of dysfunctional uterine blee ding 05/17/2011 Last Documented On 2 2:05PM ; [facility] No history of human papilloma virus infe ction 05/17/2011 Last Documented On 2 2:05PM ; [facility] No history of vaginitis 05/17/2011 Last Documented On 2 2:05PM ; [facility] 3 05/17/2011 Last Documented On 2 2:05PM ; [facility] Para 3 05/17/2011 Last Documented On 2 2:05PM ; [facility] LMP: 04/25/2011 05/17/2011 Last Documented On 2 2:05PM ; [facility] sinus surgery ~perforated colon ~cluster headaches 05/17/2011 Last Documented On 2 2:05PM ; [facility] A colonoscopy was performed 2009 diverti culitis 05/17/2011 Last Documented On 2 2:05PM ; [facility] Asthma 05/17/2011 Last Documented On 2 2:05PM ; [facility] Last pap smear date 200905/17/2011 Last Documented On 2 2:05PM ; [facility] Result: normal 05/17/2011 Last Documented On 2 2:05PM ; [facility] Family History Includes: Family History in patient's chart Description Last Updated Family history of diabetes mellitus 04/29 Last Documented On 2 2:05PM ; [facility] No family history of malignant female br east neoplasm 05/17/2011 Last Documented On 2 2:05PM ; [facility] No family history of malignant neoplasm of the large intestine 05/17/2011 Last Documented On 2 2:05PM ; [facility] No family history of malignant neoplasm of the ovary 05/17/2011 Last Documented On 2 2:05PM ; [facility] Family history of Cancer Father & Grandp arents 05/17/2011 Last Documented On 2 2:05PM ; [facility] Family history of cardiac problems grand parents 05/17/2011 Last Documented On 2 2:05PM ; [facility] Family history of Diabetes grandparents 05/17/2011 Last Documented On 2 2:05PM ; [facility] Family history of high cholesterol paren ts 05/17/2011 Last Documented On 2 2:05PM ; [facility] Family history of Hypertension parents 0 05/17/2011 Last Documented On 2 2:05PM ; [facility] Family history of thyroid disease mother 05/17/2011 Last Documented On 2 2:05PM ; [facility] Review of Systems Review of Systems not supported for this document type No Review of Systems Recorded Mental Status No Mental Status Recorded Functional Status No Functional Status Recorded Physical Exam Physical Exam not supported for this document type No Physical Exam Recorded Allergies Includes: Active, inactive, and resolved Allergies No Known Allergies Encounters Includes: Encounters from 06/06/2023 through 06/06/2024 Encounter Provider Location Date Check-In Time Check-Out Time Diagnosis COVID SICK VISIT- ESTABLISHED PATIENT KEN MARES DNP [facility] 09/11/19 24 9:25AM 10:14AM Pharyngitis Streptococcus, Group A: Beta Hemolytic COVID SICK VISIT- ESTABLISHED PATIENT KEN MARES DNP [facility] 07/30/19 24 4:53PM 5:15PM Otitis Media Left Ear COVID SICK VISIT- ESTABLISHED PATIENT KEN SARMIENTO [employer] OFFICER-C [facility] 06/30/19 24 4:43PM 5:24PM Infection of Tooth,Infectio us Disease Viral Infection Insurance Includes: Active Insurance Policies Plan Name Member ID Group # Subscriber Relationship Effect edelmira Dates 1 - [place] [id number] HARRIET MELCHOR Self Clinical Notes Includes: Signed Clinical Notes starting from 05/18/2022 * Progress note Date Encounter Last Documented by 09/11/2023 COVID SICK VISIT- ESTABLISHED ANGEL CLARK Last documented on 09/11/2023; 10:44 AM, KEN MARES DNP; [facility] Chief Complaint The Chief Complaint is: Sore [...] POS Abnormal LOT # AND EXP. DATE [id number] 02-28-24 Normal INT. QC ACCEPTABLE? YES Normal - Test: SARS COVID-19 FLU A & B Report Date: 09/11/2023 COVID NEG Normal INFLUENZA A NEG Normal INFLUENZA B NEG Normal INT. QC ACCEPTABLE? YES Normal LOT # & EXP. DATE [id number] 04-16-24 Normal Assessment - [J02.0 - Streptococcal [...] 09/11/2023. - Assess Tobacco Use satisfied 09/11/2023. * Progress note Date Encounter Last Documented by 07/30/2023 COVID SICK VISIT- ESTABLISHED ANGEL CLARK Last documented on 07/30/2023; 5:20 PM, KEN MARES DNP; [facility] Chief Complaint The Chief Complaint is: Ear draining left ear PT IS HERE WITH DRAINAGE COMING FROM HER LEFT EAR SINCE SATURDAY SHE HAS A TUBE IN IT SHE ALSO HAS A COUGH THAT STARTED TODAY NO TESTING WANTED. History of Present Illness HARRIET MELCHOR is a 48 year old female. - Allergy list reviewed - Medication list reviewed - Feeling tired - No fever - No chills - No sinus pain - No eye symptoms - Earache in left ear - The ears feel pressured on the left - Nasal discharge - No earache in right ear - The right ear does not feel pressured - No nasal passage blockage (stuffiness) - No sore throat - No chest pain or discomfort - Cough - No dyspnea Harriet presents to the clinic with the above reported symptoms. She reports that the left ear pain and drainage has been going on for the past 5 days. Patient reports that her cough and runny nose started today. She denies any known fever or chills. Current Medication - Advair Diskus 100-50 MCG/ACT Inhalation Aerosol Powder Breath Activated 0 days, 0 refills - Amoxicillin-Pot Clavulanate 875-125 MG Oral Tablet One tablet twice a day, 10 days, 0 refills - Atorvastatin Calcium 10 MG Oral Tablet 0 days, 0 refills - DULoxetine HCl 60 MG Oral Capsule Delayed Release Particles 1 Capsule every morning 0 days, 0 refills - Singulair 10 MG Oral Tablet 0 days, 0 refills - Verapamil HCl ER 360 MG Oral Capsule Extended Release 24 Hour 1 Capsule every morning 0 days, 0 refills Past Medical/Surgical History Reported: Exposure: No Contact with and (Suspected) exposure to COVID-19. Physical Trauma: No fall. Social History Tobacco use: Current smoker. Allergies - No Known Allergies Review Of Systems Systemic: No fever and no chills. Head: Headache. No sinus pain. Neck: Neck symptoms. Eyes: No eye pain. Otolaryngeal: Earache in left ear and nasal discharge. No nasal discharge and no sore throat. Cardiovascular: No chest pain or discomfort. Pulmonary: No dyspnea. Cough. Nursing Assessment: Other symptoms , specify: Ear draining. Physical Findings - Vitals taken 07/30/2023 05:14 pm Pulse Rate-Sitting 120 bpm Respiration Rate 18 per min Temp-Oral 98.8 F Height 65 in Weight 115 lbs Body Mass Index 19.1 kg/m2 Body Surface Area 1.6 m2 Oxygen Saturation 97 % General Appearance: - Awake. - Alert. - Well nourished. Eyes: General/bilateral: Pupils: - PERRLA. Ears: General/bilateral: External Auditory Canal: - Purulent discharge. Right Ear: External Auditory Canal: - Normal. Tympanic Membrane: - Examined. - PET in place. - No bulging tympanic membrane. - Not erythematous. Left Ear: External Auditory Canal: - Purulent discharge. - Normal. Tympanic Membrane: - Examined. - Bulging tympanic membrane. - Erythematous. - PET in place. Nose: General/bilateral: Discharge: - Nasal discharge. Cavity: - Nasal turbinate not hypertrophied. Sinus Tenderness: - No sinus tenderness. Pharynx: Oropharynx: - Tonsils showed no abnormalities. - Not inflamed. Lungs: - Clear to auscultation. Cardiovascular: Heart Rate And Rhythm: - Normal. Skin: - Mucous membranes were not dry. Assessment - [H66.92 - Otitis media, unspecified, left ear] Otitis media of the left ear Therapy - Clinical summary provided to patient. Plan StartCited - Otitis media, unspecified, left ear Ofloxacin 0.3% mL Apply 10 drops to the left ear daily for 7 days, 7 days, 0 refills Cefdinir 300 MG capsule 1 CAPSULE TWO TIMES A DAY, 10 days, 0 refills EndCited - Return to the clinic if condition worsens or new symptoms arise 1. Get plenty of rest. 2. Take antibiotic to full course, even if/when you start to feel better. 3. May use OTC antihistamine (Zyrtec, Claritin, Benadryl) to help dry up fluid behind the eardrum. 4. Flonase nasal spray may also help to open up nasal passages to help promote better flow of secretions through the sinus cavity. . Use a humidifier at night to help prevent nasal congestion. . May use OTC Tylenol/ibuprofen for fevers or pain. 9. Patient voiced understanding of teaching. Practice Management Use of tobacco assessment performed Review of medications documented. * Progress note Date Encounter Last Documented by 06/30/2023 COVID SICK VISIT- ESTABLISHED ANGEL CLARK Last documented on 06/30/2023; 5:24 PM, KEN SEYMOUR-C; [facility] Chief Complaint The Chief Complaint is: No [...] (2 COVID vaccines). History of Present Illness HARRIET MELCHOR is [...] - No diarrhea - Myalgia -muscle/body aches Harriet is here with symptoms since yesterday. She [...] yes Normal LOT # & EXP. DATE [id number] 05/14/24 Normal Assessment - Infection of tooth [...]
--- OUTSIDE RECORDS SUMMARY | 2024-06-06 13:26 | XMS_ITS ---
Care Plan - [facility] Created on: June 06, 2024 ALEXX MELCHOR : 1975 Sex: Female Author Organization [facility] Address [address] [place] [address] Phone Care Team Providers Care Silviculture Teacher Name Role Phone DONOVAN ESTEVEZ DO Unavailable [phone]
--- OUTSIDE RECORDS SUMMARY | 2024-06-06 13:26 | XMS_ITS | CONTINUITY OF CARE DOCUMENT ---
Author Name christina vasquez Address Unknown Organization [facility] Address [address] [place] [address] Phone [phone] Care Team Providers Care Product Manufacturing Professional Name Role Phone .[employer]hv Unavailable Unavailable INSURANCE PROVIDERS Payer name Policy type / Coverage type [place] red constitution party ID [facility] [id number]
--- OUTSIDE RECORDS SUMMARY | 2024-06-06 13:26 | XMS_ITS | Encounter Summary ---
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
--- OUTSIDE RECORDS SUMMARY | 2024-06-06 13:26 | XMS_ITS | Clinical Summary ---
Author Organization [facility] Address [address] [place] [address] Phone Care Team Providers Care Dietician Name Role Phone DONOVAN ESTEVEZ DO Unavailable [phone] Reason for Visit and Chief Complaint gynecologic consultation Here for IUD insertion. Currently on her period. Has had 2 Mirenas before - The Chief Complaint is: Procedure Mirena placement of period 12 pt is on peroid today Plan of Treatment - Insertion Of Iud - Last Documented On 08/02/2011 1:34PM ; [facility] In office procedures/*Family Practice: IUD - Last Documented On 08/02/2011 1:34PM ; [facility] Pending Tests Order Diagnosis Results Due Ordering Vielka hernandez In office procedures - *Family Practice IUD Insertion Of Iud 08/16/11 Graciela KNIGHT MD Last Documented On 2 1:34PM ; [facility] Assessments Includes: Assessments from this encounter Findings Mirena insertion. - Last Documented On 08/02/2011 1:34PM ; [facility] Medical Equipment - Implanted Devices Includes: Current Devices No Medical Equipment Recorded Medications Includes: Medications discussed during this encounter and other current Medications Current Medications (continue as prescribed) Atorvastatin Calcium 10 MG Oral Tablet 07/30/2023 Pr ovider: Diagnosis: Last Documented On 07/30/2023 5:10PM By Edwina Salcedo ; [facility] Advair Diskus 100-50 MCG/ACT Inhalation Aerosol Powder Breath Activated 07/30/2023 Provider: Diagnosis: Last Documented On 07/30/2023 5:11PM By Edwina Salcedo ; [facility] Singulair 10 MG Oral Tablet 07/30/2023 Provider: Diagnosis: Last Documented On 07/30/2023 5:11PM By Edwina Salcedo ; [facility] Amoxicillin-Pot Clavulanate 875-125 MG Oral Tablet 06/30/2023 Provider: KEN SANTAMARIA Diagnosis: Other specified disorders of teeth and supporting structures One tablet twice a day Last Documented On 4 5:28PM By Ken SANTAMARIA ; [facility] Verapamil HCl ER 360 MG Oral Capsule Extended Re lease 24 Hour 03/29/2022 Provider: Diagnosis: Last Documented On 03/29/2022 3:58PM By RAFAELA AVALOS [place] ; [facility] DULoxetine HCl 60 MG Oral Capsule Delayed Releas e Particles 03/29/2022 Provider: Diagnosis: Last Documented On 03/29/2022 4:00PM By RAFAELA MAGDALENO ; [facility] Past Medications on file Amoxicillin 875 MG Oral Tablet 09/11/2023 - 09/21/2023 Provider: KEN MARES DNP Diagnosis: Streptococcal pharyngitis 1 CAPSULE TWO TIMES A DAY Last Documented On 4 10:15AM By Ken Mares DNP ; [facility] Ofloxacin 0.3% Otic Solution 07/30/2023 - 08/06/2023 Provider: KEN MARES DNP Diagnosis: Otitis media, unspecified, left ear Apply 10 drops to the left e ar daily for 7 days Last Documented On 4 6:37PM By Ken Mares DNP ; [facility] Cefdinir 300 MG Oral Capsule 07/30/2023 - 08/09/2023 Provider: KEN STEVEN DNP Diagnosis: Otitis media, unspecified, left ear 1 CAPSULE TWO TIMES A DAY Last Documented On 4 5:50PM By Ken Mares DNP ; [facility] Amoxicillin 875 MG Oral Tablet 03/29/2022 - 04/08/2022 Provider: VLAD RIVERA CUSTODIAL MAINTENANCE WORKER- Diagnosis: Acute serous will tis media, right ear One tablet twice a day Last Documented On 2 4:28PM By VLAD RIVERA CUSTODIAL MAINTENANCE WORKER-BC ; [facility] Medications Administered Includes: Administered Medications from this encounter No Administered Medications Recorded Vital Signs Includes: Vital Signs from this encounter Vital Name 08/02/2011 01:00P Blood Pressure Sitting R 90/58 BP Cuff Size Regular Pulse Rate-Sitting (bpm) 72 Pulse Rhythm Regular Respiration Rate (breaths/min) 18 Weight (lb) 115 Last Documented: On 08/02/2011 1:13PM ; [facility] Results Includes: Results discussed during this encounter No Results Recorded For Specified Dates History of Present Illness Includes: History of Present Illness from this encounter No History of Present Illness Recorded Social History Description Last Updated In monogamous relationship 05/17/2011 Last Documented On 2 1:14PM ; [facility] Sexually active with partners in the 1 05/17/2011 Last Documented On 2 1:14PM ; [facility] Alcohol use: 2 drinks or less per day Last Documented On 2 1:14PM ; [facility] Cigarette smoking 0.5 pack-years 20 04/29 Last Documented On 2 1:14PM ; [facility] 05/17/2011 Last Documented On 2 1:14PM ; [facility] Does not have high school diploma 2011 Last Documented On 2 1:14PM ; [facility] 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 Last Documented On 2 1:14PM ; [facility] Smoking Status Unknown Medical History Includes: Medical History addressed during this encounter Description Last Updated History of asthma 05/17/2011 Last Documented On 2 1:14PM ; [facility] 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 05/17/2011 Last Documented On 2 1:14PM ; [facility] History of urinary tract infection appx 3 per year 05/17/2011 Last Documented On 2 1:14PM ; [facility] No history of cervical dysplasia 012 Last Documented On 2 1:14PM ; [facility] No history of dysfunctional uterine blee ding 05/17/2011 Last Documented On 2 1:14PM ; [facility] No history of human papilloma virus infe ction 05/17/2011 Last Documented On 2 1:14PM ; [facility] No history of vaginitis 05/17/2011 Last Documented On 2 1:14PM ; [facility] 3 05/17/2011 Last Documented On 2 1:14PM ; [facility] Para 3 05/17/2011 Last Documented On 2 1:14PM ; [facility] LMP: 04/25/2011 05/17/2011 Last Documented On 2 1:14PM ; [facility] sinus surgery ~perforated colon ~cluster headaches 05/17/2011 Last Documented On 2 1:14PM ; [facility] A colonoscopy was performed 2009 diverti culitis 05/17/2011 Last Documented On 2 1:14PM ; [facility] Asthma 05/17/2011 Last Documented On 2 1:14PM ; [facility] Last pap smear date 200905/17/2011 Last Documented On 2 1:14PM ; [facility] Result: normal 05/17/2011 Last Documented On 2 1:14PM ; [facility] Family History Includes: Family History addressed during this encounter No Family History Recorded Review of Systems Includes: Review of Systems from this encounter No Review of Systems Recorded Mental Status Includes: Mental Status from this encounter No Mental Status Recorded Functional Status Includes: Functional Status from this encounter No Functional Status Recorded Physical Exam Includes: Physical Exam from this encounter Allergies Includes: Active Allergies No Known Allergies Encounters Encounter Provider Location Date Check-In Time Check-Out Time Diagnosis IUD INSERTION Graciela MCNAIR MD [facility] 08/02/19 12 1:00PM 1:40PM Assessment [use For S.o.a.p. Note Free Text] Insurance Includes: Active Insurance Policies Plan Name Member ID Group # Subscriber Relationship Effect edelmira Dates [address] - [facility] [id number] ALEXX MELCHOR Self Clinical Notes Includes: Clinical Notes from this encounter No Clinical Notes Recorded
--- OUTSIDE RECORDS SUMMARY | 2024-06-06 13:26 | XMS_ITS ---
Author Name EJ DELEON D.O. Address [address] [place] [address] Phone [phone] [facility] Care Team Providers Care Donor Recruitment Manager Name Role Phone VELVET DELEON Unavailable [phone] Unavailable Unavailable Unavailable Unavailable Unavailable Unavailable Johanny Reyes Unavailable [phone] Reason for Referral Not Available Allergies, adverse reactions, alerts No known allergies History of medication use Medication Class Instructions Start Date End Date ALPRAZolam 0.25 mg Tab No Data Available 2023-03-27 No Data Available DULoxetine 60 mg Cap delayed rel No Data Available 2023-03-27 No Data Available Calcitriol 0.5 MCG Cap No Data Available 2023-03-26 No Data Available Montelukast Sodium 10 mg Tab No Data Available 2023-02 No Data Available Atorvastatin Calcium 20 mg Tab No Data Available 12-07 No Data Available Amoxicillin-Pot Clavulanate 875/125 mg Tab No Data Available 2023-06-30 No Data Available Cefdinir 300 mg Cap No Data Available 2023-07-30 No Data Available Ofloxacin 0.3 % Solution No Data Available 2023-07-30 No Data Available Propranolol ER 80 mg Cap ER 24hr No Data Available 2023-08-15 No Data Available Amoxicillin 875 mg Tab No Data Available 2023-09-11 No Data Available predniSONE 20 mg Tab Starting 5 tabs (10 0 mg) and decreased by 10 mg (half tab) every day 2023-09-19 No Data Available SUMAtriptan 20 mg/ACT Soluti on Nasal 1 spray intranasally one time if headache returns may repeat 1 time after 2 hours in one nostril 2023-09-19 No Data Available Verapamil ER 120 mg Tab ER 1 tablet oral ly qAM and 2 tablets qPM 2023-09-19 No Data Available methylPREDNISolone 4 mg Tab Therapy Pack No Data Available 2023-10-08 No Data Available Wixela Inhub 100-50 MCG/ACT Aerosol Powder Breath Activated No Data Available 2024-02-21 No Data Available Problem List No known problems Encounters Encounters Type Facility Date of Service Diagnosis/Co mplaint new patient, high complexity office visit [facility]2023 Episodic cluster hea dache, not intractable [facility]21[facility]2023 Episodic cluster hea dache, not intractable high complexity office visit [facility] 11/26/2023 Episodic cluster he adache, not intractableDepression, unspecifiedHeadache, unspecifiedOther chronic painAdjustment disorder with depressed mood Social History Sex Female Gender identity Woman History of Procedures Procedures Service Procedure code Service date Servicing provider Phone# new patient, high complexity office visit [id number] 2023-09-19 No Data Available No Data Availa ble moderate complexity office visit [id number] 2023-10-21 No Data Available No Data Availa ble high complexity office visit [id number] 2023-11-26 No Data Available No Data Availa ble Functional Status No Information Mental Status No Information Assessments Date of Service Assessments 2023-09-19 08:00:00 Episodic cluster hea dache 2023-10-21 08:30:00 Episodic cluster hea dache 2023-11-26 06:30:00 Episodic cluster hea dache Plan of Care Date of Service Plans 2023-09-19 08:00:00 Prednisone Taper for Cluster Headache:20 mg Tablet ( total 28)Take 5 tablets (100 mg total) for one day, 4 1/2 for one day, 4 for one day, 3 1/2 for one day, 3 for one day, 2 1/2 for one day, 2 for one day, 1 1/2 for one day, 1 for one day, then 1/2 one day, then stop. Take with either Famotidine or Omeprazole OTC to prevent acid reflex. Recommend to take melatonin 3-6 mg bedtime to counter insomniaOxygen for Cluster HeadachesTell me if you have COPD before using oxygen for cluster headaches.This can be used to help break headaches. You will want to set the oxygen to 15 liters per minute.You will use a special mask to help increase the amount of oxygen delivered.You will need to be in the tripod seated position that we discussed in the office.It is important to remember that this is an active process and you need to make sure you take big deep breaths. Typically people need to use this for 10 to 15 minutes.Sumatriptan Nasal SprayTake the medication at the onset of your headache. One spray in one nostril only. You can repeat after 2 hours if needed once. DO NOT EXCEED >3 days per week. Exceed this can lead to rebound headaches, which will end up making the headaches worse in the long run.Common side effects can include tightness in the jaw and drowsiness. If you have a history of heart attack or stroke or develop these, discuss with one of the headache physicians before taking this medication. If you begin to have heavy sweating, diarrhea, severe muscle stiffness, agitation after taking this medication, then stop this medication and message me before starting again. Do not take on the same day as other triptans (maxalt, relpax, etc).VerapamilER 120 mg tabletsWeek 1: take one at nightWeek 2 and thereafter: Take 1 in the morning and 1 at nightBefore beginning this medication, you need to get a EKG (if no recent EKG). Please message me after this was completed and I will inform you if it is okay to take this medication. After dosing changes, we will need to get an EKG 14 days after each time the dose is adjusted. Please confirm with me about the EKG after each dosing changes.If you are on a beta-sandra such as propranolol or metoprolol, please discuss with me before starting this medication....- Prednisone Burst/Bridge for Cluster Headache, which is typically a slightly higher dose than with migraine:20 mg Tablet ( total 28).Sig: Starting 5 tabs (100 mg) and decreased by 10 mg every day. #28. Take with either Famotidine or Omeprazole OTC to prevent acid reflex. Patient was recommended to take melatonin 3-6 mg bedtime to counter insomnia. Side effects including psychosis discussed.- For cluster headache, will prescribe oxygen to help abort the headaches. Patient will need to use a non-rebreather mask, sitting up in a tripod position with moderately heavy active breathing typically for 15 minutes.The patient should inform me if they have COPD- Patient will begin sumatriptan nasal 20 mg per spray. It is taken the onset of the headache. One spray in one nostril only. The patient can repeat after 2 hours if needed. Patient was instructed to not exceed > 2 days per week. Side effects were discussed and include: paresthesias, chest tightness/pressure, jaw tightness, nausea, unspecified dizziness, somnolence. Patient instructed not to take if they have or develop cardiac or stroke history unless discussing with the team first.- Patient was started on verapamil 240 mg (120 qam 120 qpm) with titration. Side effects such as hypotension and dizziness was discussed. Serious reactions such as severe bradycardia and AV block was also discussed.Initial EKG was done September 04 at cardiology office. Follow-up EKGs: in 4 weekswill obtain EKG/clearance from cardiology Dr Jaciel Dick next visit, will consider starting duloxetine to sertraline transitionrecommended once weekly sessions with therapyFollow up in 4 weeksVirtual Visit: Today's visit was conducted via secured, two-way communication through [employer]. Patient located in [place]. Patient expressed consent with video communication to carry out today's visit. Total time of video encounter was 61 mins that were spent reviewing records, obtaining history, doing a physical exam (via video) as appropriate, documenting in the chart, and any associated orders, all on the day of the visit.Voice dictation software is in use. Engine Room Operator variances may occur. Please excuse if any pronouns (he/she/they) or other wording is incorrect. If there is concern in wording, feel free to message back. We discussed the diagnosis today. We discussed the implications of this on future health and management. I reviewed relevant possible side effects and interactions of these medications. This allergy history was addressed in my selection of new medications. The patient was instructed to read packet insert and follow the instructions before taking the medication. We discussed potential referrals, testing and indications as above. For female patients, it was discussed to contact us if they wish to become or are . Additionally, if that applies, they should discuss all medications and treatments with their OBGyn before initiated therapy. Patient instructed to check the portal for updated care plan notes and clinical note. 2023-10-21 08:30:00 - Patient was starte d on verapamil 120mg qam and 240mg qpm. Side effects such as hypotension and dizziness was discussed. Serious reactions such as severe bradycardia and AV block was also discussed.Initial EKG was done September 04 at cardiology office. Follow-up EKGs: in 4 weeks. May continue O2 and IN sumatriptan for cluster headache acute rescue.will obtain EKG prior to next OV.at next visit, will consider starting duloxetine to sertraline transitionrecommended once weekly sessions with therapyFollow up in 4 weeksVirtual Visit: Today's visit was conducted via secured, two-way communication through [employer]. Patient located in [place]. Patient expressed consent with video communication to carry out today's visit. Total time of video encounter was 26 mins that were spent reviewing records, obtaining history, doing a physical exam (via video) as appropriate, documenting in the chart, and any associated orders, all on the day of the visit.Voice dictation software is in use. Engine Room Operator variances may occur. Please excuse if any pronouns (he/she/they) or other wording is incorrect. If there is concern in wording, feel free to message back. We discussed the diagnosis today. We discussed the implications of this on future health and management. I reviewed relevant possible side effects and interactions of these medications. This allergy history was addressed in my selection of new medications. The patient was instructed to read packet insert and follow the instructions before taking the medication. We discussed potential referrals, testing and indications as above. For female patients, it was discussed to contact us if they wish to become or are . Additionally, if that applies, they should discuss all medications and treatments with their OBGyn before initiated therapy. Patient instructed to check the portal for updated care plan notes and clinical note. 2023-10-21 08:54:58 12 Lead EKG 2023-11-26 06:30:00 continue current natalie apamil dosing.will refer to Dr Bocanegra for psychiatry management. Patient agrees.on duloxetine 60mg daily.recommended once weekly sessions with therapyFollow up in 4 weeksVirtual Visit: Today's visit was conducted via secured, two-way communication through [employer]. Patient located in [place]. Patient expressed consent with video communication to carry out today's visit. Total time of video encounter was 40 mins that were spent reviewing records, obtaining history, doing a physical exam (via video) as appropriate, documenting in the chart, and any associated orders, all on the day of the visit.Voice dictation software is in use. Engine Room Operator variances may occur. Please excuse if any pronouns (he/she/they) or other wording is incorrect. If there is concern in wording, feel free to message back. We discussed the diagnosis today. We discussed the implications of this on future health and management. I reviewed relevant possible side effects and interactions of these medications. This allergy history was addressed in my selection of new medications. The patient was instructed to read packet insert and follow the instructions before taking the medication. We discussed potential referrals, testing and indications as above. For female patients, it was discussed to contact us if they wish to become or are . Additionally, if that applies, they should discuss all medications and treatments with their OBGyn before initiated therapy. Patient instructed to check the portal for updated care plan notes and clinical note.
--- OUTSIDE RECORDS SUMMARY | 2024-06-06 13:26 | XMS_ITS | Clinical Summary ---
Author Organization [facility] Address [address] [place] [address] Phone Care Team Providers Care [id number] Engineer Name Role Phone DONOVAN ESTEEVZ DO Unavailable [phone] Reason for Visit and Chief Complaint The Chief Complaint is: Ear draining left ear ~ ~PT IS HERE WITH DRAINAGE COMING FROM HER LEFT EAR SINCE SATURDAY SHE HAS A TUBE IN IT SHE ALSO HAS A COUGH THAT STARTED TODAY NO TESTING WANTED Plan of Treatment - Return to the clinic if condition worsens or new symptoms arise - Last Documented On 07/30/2023 5:20PM ; [facility] 1. Get plenty of rest. 2. Take [...] pain. 9. Patient voiced understanding of teaching. - Last Documented On 07/30/2023 5:20PM ; [facility] Assessments Includes: Assessments from this encounter Findings - [H66.92 - Otitis media, unspecified, left ear] Otitis media of the left ear - Last Documented On 07/30/2023 5:20PM ; [facility] Medical Equipment - Implanted Devices Includes: Current Devices No Medical Equipment Recorded Medications Includes: Medications discussed during this encounter and other current Medications New / Renewed during this visit KEN MARES DNP on 07/30/2023 Ofloxacin 0.3% Otic Solution Provider: KEN Aburto NP 7 day supply: 5 mL, 0 refills Diagnosis: O titis media, unspecified, left ear Apply 10 drops to the left e ar daily for 7 days Pharmacy: [facility] [address], [id number] - Last Documented On 4 6:37PM By Ken Mares DNP ; [facility] Cefdinir 300 MG Oral Capsule Provider: KEN Aburto NP 10 day supply: 20 capsule, 0 refills Diagnosis: Otitis media, unspecified, left ear 1 CAPSULE TWO TIMES A DAY Pharmacy: [facility] [address], [id number] - Last Documented On 4 5:50PM By Ken Mares DNP ; [facility] Current Medications (continue as prescribed) Atorvastatin Calcium 10 MG Oral Tablet 07/30/2023 Pr ovider: Diagnosis: Last Documented On 07/30/2023 5:10PM By Edwina Salcedo ; [facility] Advair Diskus 100-50 MCG/ACT Inhalation Aerosol Powder Breath Activated 07/30/2023 Provider: Diagnosis: Last Documented On 07/30/2023 5:11PM By Edwina Salcedo ; [facility] Singulair 10 MG Oral Tablet 07/30/2023 Provider: Diagnosis: Last Documented On 07/30/2023 5:11PM By Edwina Salcedo ; [facility] Amoxicillin-Pot Clavulanate 875-125 MG Oral Tablet 06/30/2023 Provider: KEN SANTAMARIA Diagnosis: Other specified disorders of teeth and supporting structures One tablet twice a day Last Documented On 4 5:28PM By Ken SANTAMARIA ; [facility] Verapamil HCl ER 360 MG Oral Capsule Extended Re lease 24 Hour 03/29/2022 Provider: Diagnosis: Last Documented On 03/29/2022 3:58PM By RAFAELA MAGDALENO ; [facility] DULoxetine HCl 60 MG Oral Capsule Delayed Releas e Particles 03/29/2022 Provider: Diagnosis: Last Documented On 03/29/2022 4:00PM By RAFAELA MAGDALENO ; [facility] Past Medications on file Amoxicillin 875 MG Oral Tablet 09/11/2023 - 09/21/2023 Provider: KEN MARES DNP Diagnosis: Streptococcal pharyngitis 1 CAPSULE TWO TIMES A DAY Last Documented On 4 10:15AM By Ken Mares DNP ; [facility] Amoxicillin 875 MG Oral Tablet 03/29/2022 - 04/08/2022 Provider: VLAD HENRIQUEZ Diagnosis: Acute serous will tis media, right ear One tablet twice a day Last Documented On 2 4:28PM By VLAD SEYMOUR-ELIU ; [facility] Medications Administered Includes: Administered Medications from this encounter No Administered Medications Recorded Vital Signs Includes: Vital Signs from this encounter Vital Name 07/30/2023 05:14P Pulse Rate-Sitting (bpm) 120 Respiration Rate (breaths/min) 18 Temp-Oral (F) 98.8 Height (in) 65 Weight (lb) 115 Body Mass Index 19.1 Body Surface Area 1.6 Oxygen Saturation (%) 97 Last Documented: On 07/30/2023 5:14PM ; [facility] Results Includes: Results discussed during this encounter [...] She denies any known fever or chills. Social History Description Last Updated Current smoker 07/30/2023 Last Documented On 4 5:20PM ; [facility] Smoking Status Unknown Procedures and Surgical History Includes: Procedures from this encounter Procedures Code Diagnosis Performing Provider Service L ocation Service Date use of tobacco assessment performed 1000F Last Documented On 4 5:13PM ; [facility] review of medications documented 1160F Last Documented On 4 5:13PM ; [facility] Clinical summary provided to patient Last Documented On 4 5:14PM ; [facility] Medical History Includes: Medical History addressed during this encounter Description Last Updated No Contact with and (Suspected) exposure to COVID-19 07/30/2023 Last Documented On 4 5:20PM ; [facility] No fall 07/30/2023 Last Documented On 4 5:20PM ; [facility] Family History Includes: Family History addressed during this encounter No Family History Recorded Review of Systems Includes: Review of Systems from this encounter Systemic: No fever and no chills. Head: Headache. No sinus pain. Neck: Neck symptoms. Eyes: No eye pain. Otolaryngeal: Earache in left ear and nasal discharge. No nasal discharge and no sore throat. Cardiovascular: No chest pain or discomfort. Pulmonary: No dyspnea. Cough. Nursing Assessment: Other symptoms , specify: Ear draining. Mental Status Includes: Mental Status from this encounter No Mental Status Recorded Functional Status Includes: Functional Status from this encounter No Functional Status Recorded Physical Exam Includes: Physical Exam from this encounter Allergies Includes: Active Allergies No Known Allergies Encounters Encounter Provider Location Date Check-In Time Check-Out Time Diagnosis COVID SICK VISIT- ESTABLISHED PATIENT KEN MARES DNP [facility] 07/30/19 24 4:53PM 5:15PM Otitis Media Left Ear Insurance Includes: Active Insurance Policies Plan Name Member ID Group # Subscriber Relationship Effect edelmira Dates 1 - [facility] [id number] HARRIET MELCHOR Self Clinical Notes Includes: Clinical Notes from this encounter * Progress note Date Encounter Last Documented by 07/30/2023 COVID SICK VISIT- ESTABLISHED ANGEL RUTHIECHONG Last documented on 07/30/2023; 5:20 PM, KEN MARES DNP; [facility] Chief Complaint The Chief Complaint is: Ear [...]
--- OUTSIDE RECORDS SUMMARY | 2024-06-06 13:46 | XMS_ITS | Encounter Summary ---
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
--- OUTSIDE RECORDS SUMMARY | 2024-06-06 13:46 | XMS_ITS | Clinical Summary ---
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
--- OUTSIDE RECORDS SUMMARY | 2024-06-06 13:46 | XMS_ITS | Clinical Summary ---
Author Organization [facility] Address [address] [place] [address] Phone Care Team Providers Care Wheat Farmer Name Role Phone DONOVAN ESTEVEZ DO Unavailable [phone] Reason for Visit and [...] - Last Documented On 07/30/2023 5:20PM ; [facility] 1. Get plenty of rest. [...] - Last Documented On 07/30/2023 5:20PM ; [facility] Assessments Includes: Assessments from this encounter Findings - [H66.92 - Otitis media, unspecified, left ear] Otitis media of the left ear - Last Documented On 07/30/2023 5:20PM ; [facility] Medical Equipment - Implanted Devices [...] ar daily for 7 days Pharmacy: [facility] [address], [id number] - Last Documented On 4 6:37PM By Ken Mares DNP ; [facility] Cefdinir 300 MG Oral Capsule Provider: KEN Aburto NP 10 day supply: 20 capsule, 0 refills Diagnosis: Otitis media, unspecified, left ear 1 CAPSULE TWO TIMES A DAY Pharmacy: [facility] [address], [id number] - Last Documented On 4 5:50PM By Ken Mares DNP ; [facility] Current Medications (continue as prescribed) Atorvastatin Calcium 10 MG Oral Tablet 07/30/2023 Pr ovider: Diagnosis: Last Documented On 07/30/2023 5:10PM By Edwina Salcedo ; [facility] Advair Diskus 100-50 MCG/ACT Inhalation Aerosol Powder Breath Activated 07/30/2023 Provider: Diagnosis: Last Documented On 07/30/2023 5:11PM By Edwina Salcedo ; [facility] Singulair 10 MG Oral Tablet 07/30/2023 Provider: Diagnosis: Last Documented On 07/30/2023 5:11PM By Edwina Salcedo ; [facility] Amoxicillin-Pot Clavulanate 875-125 MG Oral Tablet 06/30/2023 Provider: KEN SANTAMARIA Diagnosis: Other specified disorders of teeth and supporting structures One tablet twice a day Last Documented On 4 5:28PM By Ken SANTAMARIA ; [facility] Verapamil HCl ER 360 MG Oral Capsule Extended Re lease 24 Hour 03/29/2022 Provider: Diagnosis: Last Documented On 03/29/2022 3:58PM By RAFAELA MAGDALENO ; [facility] DULoxetine HCl 60 MG Oral Capsule Delayed Releas e Particles 03/29/2022 Provider: Diagnosis: Last Documented On 03/29/2022 4:00PM By RAFAELA MAGDALENO ; [facility] Past Medications on file Amoxicillin 875 MG Oral Tablet 09/11/2023 - 09/21/2023 Provider: KEN MARES DNP Diagnosis: Streptococcal pharyngitis 1 CAPSULE TWO TIMES A DAY Last Documented On 4 10:15AM By Ken Mares DNP ; [facility] Amoxicillin 875 MG Oral Tablet 03/29/2022 - 04/08/2022 Provider: VLAD HENRIQUEZ Diagnosis: Acute serous will tis media, right ear One tablet twice a day Last Documented On 2 4:28PM By VLAD SEYMOUR-ELIU ; [facility] Medications Administered Includes: Administered Medications from this encounter No Administered Medications Recorded Vital Signs Includes: Vital Signs from this encounter Vital Name 07/30/2023 05:14P Pulse Rate-Sitting (bpm) 120 Respiration Rate (breaths/min) 18 Temp-Oral (F) 98.8 Height (in) 65 Weight (lb) 115 Body Mass Index 19.1 Body Surface Area 1.6 Oxygen Saturation (%) 97 Last Documented: On 07/30/2023 5:14PM ; [facility] Results Includes: Results discussed during this [...] 07/30/2023 Last Documented On 4 5:20PM ; [facility] Smoking Status Unknown Procedures and Surgical History Includes: Procedures from this encounter Procedures Code Diagnosis Performing Provider Service L ocation Service Date use of tobacco assessment performed 1000F Last Documented On 4 5:13PM ; [facility] review of medications documented 1160F Last Documented On 4 5:13PM ; [facility] Clinical summary provided to patient Last Documented On 4 5:14PM ; [facility] Medical History Includes: Medical History addressed during this encounter Description Last Updated No Contact with and (Suspected) exposure to COVID-19 07/30/2023 Last Documented On 4 5:20PM ; [facility] No fall 07/30/2023 Last Documented On 4 5:20PM ; [facility] Family History Includes: Family History addressed [...] SICK VISIT- ESTABLISHED PATIENT KEN MARES DNP [facility] 07/30/19 24 4:53PM 5:15PM Otitis Media Left Ear Insurance Includes: Active Insurance Policies Plan Name Member ID Group # Subscriber Relationship Effect edelmira Dates 1 - [facility] [id number] HARRIET MELCHOR Self Clinical Notes Includes: Clinical Notes from this encounter * Progress note Date Encounter Last Documented by 07/30/2023 COVID SICK VISIT- ESTABLISHED ANGEL RUTHIECHONG Last documented on 07/30/2023; 5:20 PM, KEN MARES DNP; [facility] Chief Complaint The Chief Complaint [...]
--- OUTSIDE RECORDS SUMMARY | 2024-06-06 13:46 | XMS_ITS | Referral Summary ---
Author Organization [facility] Address [address] [place] [address] Care Team Providers Care Paint Mixer Hand Name Role Phone Johanny Reyes MD Primary Care Provider Encounters Date Type Department Care Team Description 05/15/2024 Telephone [facility] Cardiology [address] 8[address] [place] [address] [place] [id number] Jaciel Antonio MD Testing 03/11/2024 3:00 PM SENIOR ELECTRICAL DESIGNER Office Visit [facility] - [address] [place] [address] Beata Fraser DO Otorrhea of [...] 03/11/2024 Assessment & Plan (03/11/2024 3:05 PM SENIOR ELECTRICAL DESIGNER): Ciprofloxacin 7 drops into the Left ear [...] plugs El's proplugs, Junito's ear plugs with [place], [place] or [place] water exposure Follow up in 9 months for ear tube check Chronic maxillary sinusitis 06/13/2022 Assessment & Plan (06/13/2022 3:52 PM SENIOR ELECTRICAL DESIGNER): CT angiogram - call with results If [...] 06/13/2022 Assessment & Plan (06/13/2022 3:52 PM SENIOR ELECTRICAL DESIGNER): CT angiogram - call with results If [...] 06/13 Assessment & Plan (06/13/2022 3:52 PM SENIOR ELECTRICAL DESIGNER): CT angiogram - call with results Vestibular [...] on file Legal Sex Female 2:33 AM SENIOR ELECTRICAL DESIGNER Gender Identity Not on file Sexual Orientation Not on file Last Filed Vital Signs Vital Sign Reading Time Taken Comments Blood Pressure 98/65 03/11/2024 2:38 PM SENIOR ELECTRICAL DESIGNER Pulse 101 03/11/2024 2:38 PM SENIOR ELECTRICAL DESIGNER Temperature 36.1 C (97 F) 03/11/2024 2:38 PM SENIOR ELECTRICAL DESIGNER Respiratory Rate 21 02/14/2023 11:43 AM CDT Oxygen Saturation 94% 03/11/2024 2:38 PM SENIOR ELECTRICAL DESIGNER Inhaled Oxygen Concentration - - Weight 57.2 kg (126 lb) 03/11/2024 2:38 PM SENIOR ELECTRICAL DESIGNER Height 170.2 cm (5' 7 ) 03/11/2024 2:38 PM SENIOR ELECTRICAL DESIGNER Body Mass Index 19.73 03/11/2024 2:38 PM SENIOR ELECTRICAL DESIGNER Plan of Treatment Not on file Medical Devices Implanted Type Area Salary Manager Device Identifier Shelf Expiration Date Model / Serial / Lot [employer] Karlos 1.27mm 9.5mm 4.5mm T Ear 9.5mm Tube Ventilation Silicone [id number] - [id number] Implanted:Qty: 1 on 10/04/2022 by Beata Fraser DO at [facility] Bilateral : Ear [employer] 01/07/2030 [id number] / / [id number] [place] Advance Directives For more information, please contact: [phone] Documents on File Type Date Recorded Patient Rice Drier Expl anation ADVANCE DIRECTIVE 08/27/2019 12:54 PM Care Teams Paint Mixer Hand Relationship Specialty Start Date End Date Johanny Reyes MD [address] [place] [address] PCP - General 08/21/16
--- OUTSIDE RECORDS SUMMARY | 2024-06-06 13:46 | XMS_ITS ---
Author Organization [facility] Address [address] [place] [address] Phone Care Team Providers Care Mailroom Assistant Name Role Phone DONOVAN ESTEVEZ DO Shelly Unavailable [phone] Plan of Treatment Findings Encounter Date Ordered return to the clinic if condition worsens or new symptoms arise COVID SICK VISIT- ESTABLISHED PATIENT with KEN MARES [facility] 09/11/2023 Last Documented On 4 10:44AM ; [facility] Ordered return to the clinic if condition worsens or new symptoms arise COVID SICK VISIT- ESTABLISHED PATIENT with KEN MARES [facility] 07/30/2023 Last Documented On 4 5:20PM ; [facility] Ordered patient will call fo r appointment as needed WALK IN PATIENT - NEW PT with VLAD RIVERA [facility] 03/29/2022 Last Documented On 2 10:05AM ; [facility] Ordered return to the clinic if condition worsens or new symptoms arise WALK IN PATIENT - NEW PT with VLAD RIVERA [facility] 03/29/2022 Last Documented On 2 10:05AM ; [facility] Assessments Includes: Assessments for all patient encounters Findings Encounter Date Group A streptococcus: B hem olytic pharyngitis COVID SICK VISIT- ESTABLISHED PATIENT with KEN MARES DNP 09/11/2023 Last Documented On 4 10:44AM ; [facility] Otitis media of the left ear COVID SICK VISIT- ESTABLISHED PATIENT with KEN MARES DNP 07/30/2023 Last Documented On 4 5:20PM ; [facility] [B34.9 - Viral infection, un specified] viral infection COVID SICK VISIT- ESTABLISHED PATIENT with KEN REALCLAIR VIDEO EFFECTS EDITOR-C 06/30/2023 Last Documented On 4 5:24PM ; [facility] Infection of tooth COVID SICK VISIT- ES TABLISHED PATIENT with KEN REALCLAIR VIDEO EFFECTS EDITOR-C 06/30/2023 Last Documented On 4 5:24PM ; [facility] Otitis media WALK IN PATIENT - NEW PT with ISABELLE RIVERA VIDEO EFFECTS EDITOR-BC 03/29/2022 Last Documented On 2 10:05AM ; [facility] Mirena insertion IUD INSERTION with Graciela SY MD 08/02/2011 Last Documented On 2 1:34PM ; [facility] Contraceptive management NEW PATIENT VISIT with Graciela MCNAIR MD 05/17/2011 Last Documented On 2 2:05PM ; [facility] NORMAL FEMALE EXAM NEW PATIENT VISIT with Graciela MCNAIR MD 05/17/2011 Last Documented On 2 2:05PM ; [facility] Urinary tract infection NEW PATIENT VISIT with Graciela MCNAIR MD 05/17/2011 Last Documented On 2 2:05PM ; [facility] Medical Equipment - Implanted Devices Includes: Current and historical Devices No Medical Equipment Recorded Medications Includes: Current and historical Medications Current Medications (continue as prescribed) Atorvastatin Calcium 10 MG Oral Tablet 07/30/2023 Pr ovider: Diagnosis: Last Documented On 07/30/2023 5:10PM By Edwina Salcedo ; [facility] Advair Diskus 100-50 MCG/ACT Inhalation Aerosol Powder Breath Activated 07/30/2023 Provider: Diagnosis: Last Documented On 07/30/2023 5:11PM By Edwina Salcedo ; [facility] Singulair 10 MG Oral Tablet 07/30/2023 Provider: Diagnosis: Last Documented On 07/30/2023 5:11PM By Edwina Salcedo ; [facility] Amoxicillin-Pot Clavulanate 875-125 MG Oral Tablet 06/30/2023 Provider: KEN Francis VIDEO EFFECTS EDITOR-C Diagnosis: Other specified disorders of teeth and supporting structures One tablet twice a day Last Documented On 4 5:28PM By Ken SANTAMARIA ; [facility] Verapamil HCl ER 360 MG Oral Capsule Extended Re lease 24 Hour 03/29/2022 Provider: Diagnosis: Last Documented On 03/29/2022 3:58PM By RAFAELA MAGDALENO ; [facility] DULoxetine HCl 60 MG Oral Capsule Delayed Releas e Particles 03/29/2022 Provider: Diagnosis: Last Documented On 03/29/2022 4:00PM By RAFAELA MAGDALENO ; [facility] Past Medications on file Amoxicillin 875 MG Oral Tablet 09/11/2023 - 09/21/2023 Provider: KEN MARES DNP Diagnosis: Streptococcal pharyngitis 1 CAPSULE TWO TIMES A DAY Last Documented On 4 10:15AM By Ken Mares DNP ; [facility] Ofloxacin 0.3% Otic Solution 07/30/2023 - 08/06/2023 Provider: KEN MARES DNP Diagnosis: Otitis media, unspecified, left ear Apply 10 drops to the left e ar daily for 7 days Last Documented On 4 6:37PM By Ken Mares DNP ; [facility] Cefdinir 300 MG Oral Capsule 07/30/2023 - 08/09/2023 Provider: KEN STEVEN DNP Diagnosis: Otitis media, unspecified, left ear 1 CAPSULE TWO TIMES A DAY Last Documented On 4 5:50PM By Ken Mares DNP ; [facility] Amoxicillin 875 MG Oral Tablet 03/29/2022 - 04/08/2022 Provider: VLAD HENRIQUEZ Diagnosis: Acute serous will tis media, right ear One tablet twice a day Last Documented On 2 4:28PM By VLAD HENRIQUEZ ; [facility] Medications Administered Includes: Administered Medications in patient's [...] Regular Last Documented: On 09/11/2023 9:58AM ; [facility] On 07/30/2023 5:14PM ; [facility] On 06/30/2023 5:10PM ; [facility] Results Includes: Results from 06/06/2023 through 06/06/2024 Group A strep [facility] Ordered by KEN MARES DNP on Collected: Reported: 09/11/2023 Last Documented On 4 10:14AM ; [facility] Reviewed on 09/11/2023; All test results are final unless otherwise noted. Rapid Strep POS A (Abnormal) Last Documented On 4 10:12AM ; [facility] LOT # AND EXP. DATE [id number] 02-28-24 N (Normal) Last Documented On 4 10:12AM ; [facility] INT. QC ACCEPTABLE? YES N (Normal) Last Documented On 4 10:12AM ; [facility] SARS COVID-19 FLU A & B [facility] Ordered by KEN MARES DNP on Collected: Reported: 09/11/2023 Last Documented On 4 10:14AM ; [facility] Reviewed on 09/11/2023; All test results are final unless otherwise noted. COVID NEG N (Normal) Last Documented On 4 10:12AM ; [facility] INFLUENZA A NEG (Negative) N (Normal) Last Documented On 4 10:12AM ; [facility] INFLUENZA B NEG (negative) N (Normal) Last Documented On 4 10:12AM ; [facility] INT. QC ACCEPTABLE? YES N (Normal) Last Documented On 4 10:12AM ; [facility] LOT # & EXP. DATE [id number] 04-16-24 N (Normal) Last Documented On 4 10:12AM ; [facility] SARS COVID-19 FLU A & B [facility] Ordered by KEN SANTAMARIA on 0 06/30/2023 Collected: Reported: 06/30/2023 Last Documented On 4 5:23PM ; [facility] Reviewed on 06/30/2023; All test results are final unless otherwise noted. COVID neg N (Normal) Last Documented On 4 5:22PM ; [facility] INFLUENZA A neg (Negative) N (Normal) Last Documented On 4 5:22PM ; [facility] INFLUENZA B neg (negative) N (Normal) Last Documented On 4 5:22PM ; [facility] INT. QC ACCEPTABLE? yes N (Normal) Last Documented On 4 5:22PM ; [facility] LOT # & EXP. DATE [id number] 05/14/24 N (Normal) Last Documented On 4 5:22PM ; [facility] History of Present Illness History of Present Illness not supported for this document type No History of Present Illness Recorded Social History Description Last Updated Tobacco non-user 09/11/2023 Last Documented On 4 10:44AM ; [facility] Not a current smoker 09/11/2023 Last Documented On 4 10:44AM ; [facility] In monogamous relationship 05/17/2011 Last Documented On 2 2:05PM ; [facility] Sexually active with partners in the t year 1 05/17/2011 Last Documented On 2 2:05PM ; [facility] Alcohol use: 2 drinks or less per day Last Documented On 2 2:05PM ; [facility] Cigarette smoking 0.5 pack-years 20 04/29 Last Documented On 2 2:05PM ; [facility] 05/17/2011 Last Documented On 2 2:05PM ; [facility] Does not have high school diploma 2011 Last Documented On 2 2:05PM ; [facility] 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 Last Documented On 2 2:05PM ; [facility] Smoking Status Unknown Procedures and Surgical History Includes: Procedures from 06/06/2023 through 06/06/2024 Procedures Code Diagnosis Performing Provider Service Location Service Date SARS-CO,SARS-COV- 2, INFLUENZA A/B TEST (CLIA WAIVED) 01081 Fever, unspecified KEN MARES [facility] 09/11/2023 Last Documented On 4 6:23PM ; [facility] STREP TEST SCREENING (CLIA WAIVED) 57112 Streptococcal pharyngitis KEN MARES [facility] 09/11/2023 Last Documented On 4 6:23PM ; [facility] SARS-CO,SARS-COV-2, INFLUENZA A/B TEST (CLIA WAIVED) 95294 Fever, unspecified, Acute cough, Acute pharyngitis, unspecified KEN SARMIENTO VIDEO EFFECTS EDITOR-C [facility] 06/30/2023 Last Documented On 4 3:45PM ; [facility] Medical History Includes: Medical History in patient's chart Description Last Updated No Contact with and (Suspected) exposure to COVID-19 09/11/2023 Last Documented On 4 10:44AM ; [facility] No fall 09/11/2023 Last Documented On 4 10:44AM ; [facility] Taking OTC medications 06/30/2023 Last Documented On 4 5:24PM ; [facility] History of asthma 05/17/2011 Last Documented On 2 2:05PM ; [facility] 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 05/17/2011 Last Documented On 2 2:05PM ; [facility] History of urinary tract infection appx 3 per year 05/17/2011 Last Documented On 2 2:05PM ; [facility] No history of cervical dysplasia 012 Last Documented On 2 2:05PM ; [facility] No history of dysfunctional uterine blee ding 05/17/2011 Last Documented On 2 2:05PM ; [facility] No history of human papilloma virus infe ction 05/17/2011 Last Documented On 2 2:05PM ; [facility] No history of vaginitis 05/17/2011 Last Documented On 2 2:05PM ; [facility] 3 05/17/2011 Last Documented On 2 2:05PM ; [facility] Para 3 05/17/2011 Last Documented On 2 2:05PM ; [facility] LMP: 04/25/2011 05/17/2011 Last Documented On 2 2:05PM ; [facility] sinus surgery ~perforated colon ~cluster headaches 05/17/2011 Last Documented On 2 2:05PM ; [facility] A colonoscopy was performed 2009 diverti culitis 05/17/2011 Last Documented On 2 2:05PM ; [facility] Asthma 05/17/2011 Last Documented On 2 2:05PM ; [facility] Last pap smear date 200905/17/2011 Last Documented On 2 2:05PM ; [facility] Result: normal 05/17/2011 Last Documented On 2 2:05PM ; [facility] Family History Includes: Family History in patient's chart Description Last Updated Family history of diabetes mellitus 04/29 Last Documented On 2 2:05PM ; [facility] No family history of malignant female br east neoplasm 05/17/2011 Last Documented On 2 2:05PM ; [facility] No family history of malignant neoplasm of the large intestine 05/17/2011 Last Documented On 2 2:05PM ; [facility] No family history of malignant neoplasm of the ovary 05/17/2011 Last Documented On 2 2:05PM ; [facility] Family history of Cancer Father & Grandp arents 05/17/2011 Last Documented On 2 2:05PM ; [facility] Family history of cardiac problems grand parents 05/17/2011 Last Documented On 2 2:05PM ; [facility] Family history of Diabetes grandparents 05/17/2011 Last Documented On 2 2:05PM ; [facility] Family history of high cholesterol paren ts 05/17/2011 Last Documented On 2 2:05PM ; [facility] Family history of Hypertension parents 0 05/17/2011 Last Documented On 2 2:05PM ; [facility] Family history of thyroid disease mother 05/17/2011 Last Documented On 2 2:05PM ; [facility] Review of Systems Review of Systems not [...] Diagnosis COVID SICK VISIT- ESTABLISHED PATIENT KEN MRAES DNP [facility] 09/11/19 24 9:25AM 10:14AM Pharyngitis Streptococcus, Group A: Beta Hemolytic COVID SICK VISIT- ESTABLISHED PATIENT KEN MARES DNP [facility] 07/30/19 24 4:53PM 5:15PM Otitis Media Left Ear COVID SICK VISIT- ESTABLISHED PATIENT KEN SARMIENTO VIDEO EFFECTS EDITOR-C [facility] 06/30/19 24 4:43PM 5:24PM Infection of Tooth,Infectio us Disease Viral Infection Insurance Includes: Active Insurance Policies Plan Name Member ID Group # Subscriber Relationship Effect edelmira Dates 1 - [facility] [id number] HARRIET MELCHOR Self Clinical Notes Includes: Signed Clinical Notes starting from 05/18/2022 * Progress note Date Encounter Last Documented by 09/11/2023 COVID SICK VISIT- ESTABLISHED ANGEL CLARK Last documented on 09/11/2023; 10:44 AM, KEN MARES DNP; [facility] Chief Complaint The Chief Complaint is: Sore [...] POS Abnormal LOT # AND EXP. DATE [id number] 02-28-24 Normal INT. QC ACCEPTABLE? YES Normal - Test: SARS COVID-19 FLU A & B Report Date: 09/11/2023 COVID NEG Normal INFLUENZA A NEG Normal INFLUENZA B NEG Normal INT. QC ACCEPTABLE? YES Normal LOT # & EXP. DATE [id number] 04-16-24 Normal Assessment - [J02.0 - Streptococcal [...] on 07/30/2023; 5:20 PM, KEN MARES DNP; [facility] Chief Complaint The Chief Complaint [...] documented on 06/30/2023; 5:24 PM, KEN SEYMOUR-C; [facility] Chief Complaint The Chief Complaint [...] - No diarrhea - Myalgia -muscle/body aches Hariret is here with symptoms since yesterday. She [...] yes Normal LOT # & EXP. DATE [id number] 05/14/24 Normal Assessment - Infection of tooth [...]
--- OUTSIDE RECORDS SUMMARY | 2024-06-06 13:46 | XMS_ITS | Clinical Summary ---
Author Organization [facility] Address [address] [place] [address] Care Team Providers Care Engineer Sergeant Name Role Phone Johanny Reyes MD Primary Care Provider [phone] Allergies No known active allergies Medications DULoxetine [...] 03/11/2024 Assessment & Plan (03/11/2024 3:05 PM SOLID WASTE COLLECTION WORKER): Ciprofloxacin 7 drops into the Left ear [...] plugs Doc's proplugs, Junito's ear plugs with [place], [place] or [place] water exposure Follow up in 9 months for ear tube check Chronic maxillary sinusitis 06/13/2022 Assessment & Plan (06/13/2022 3:52 PM SOLID WASTE COLLECTION WORKER): CT angiogram - call with results If [...] 06/13/2022 Assessment & Plan (06/13/2022 3:52 PM SOLID WASTE COLLECTION WORKER): CT angiogram - call with results If [...] 06/13 Assessment & Plan (06/13/2022 3:52 PM SOLID WASTE COLLECTION WORKER): CT angiogram - call with results Vestibular migraine 10/10/2012 Anxiety 10/10/2012 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 [place] [address] [place] [address] Jaciel Antonio MD Testing 03/11/2024 3:00 PM SOLID WASTE COLLECTION WORKER Office Visit [facility] - [address] [place] [address] Beata Fraser, DO Otorrhea of [...] on file Legal Sex Female 2:33 AM SOLID WASTE COLLECTION WORKER Gender Identity Not on file Sexual Orientation Not on file Obstetrics History Last Filed Vital Signs Vital Sign Reading Time Taken Comments Blood Pressure 98/65 03/11/2024 2:38 PM SOLID WASTE COLLECTION WORKER Pulse 101 03/11/2024 2:38 PM SOLID WASTE COLLECTION WORKER Temperature 36.1 C (97 F) 03/11/2024 2:38 PM SOLID WASTE COLLECTION WORKER Respiratory Rate 21 02/14/2023 11:43 AM CDT Oxygen Saturation 94% 03/11/2024 2:38 PM SOLID WASTE COLLECTION WORKER Inhaled Oxygen Concentration - - Weight 57.2 kg (126 lb) 03/11/2024 2:38 PM SOLID WASTE COLLECTION WORKER Height 170.2 cm (5' 7 ) 03/11/2024 2:38 PM SOLID WASTE COLLECTION WORKER Body Mass Index 19.73 03/11/2024 2:38 PM SOLID WASTE COLLECTION WORKER Plan of Treatment Health Maintenance Due Date [...] 12/31/2028 12/31/2018 Medical Devices Implanted Type Area Author Device Identifier Shelf Expiration Date Model / Serial / Lot [employer] Karlos 1.27mm 9.5mm 4.5mm T Ear 9.5mm Tube Ventilation Silicone [id number] - [id number] Implanted:Qty: 1 on 10/04/2022 by Beata Fraser DO at [facility] Bilateral : Ear [employer] 01/07/2030 [id number] / / [id number] [place] Advance Directives For more information, please contact: [phone] Documents on File Type Date Recorded Patient Safety Grooving Machine Operator Expl anation ADVANCE DIRECTIVE 08/27/2019 12:54 PM Care Teams Engineer Sergeant Relationship Specialty Start Date End Date Johanny Reyes MD [address] [id number] PCP - General 08/21/16
--- OUTSIDE RECORDS SUMMARY | 2024-06-06 13:46 | XMS_ITS | CONTINUITY OF CARE DOCUMENT ---
Author Name christina vasquez Address Unknown Organization [facility] Address [address] [place] [address] Phone [phone] Care Team Providers Care Client Operations Manager Name Role Phone .[employer], slhv Unavailable Unavailable INSURANCE PROVIDERS Payer name Policy type / Coverage type [place] red republican ID [facility] [id number]
--- OUTSIDE RECORDS SUMMARY | 2024-06-06 13:47 | XMS_ITS | Clinical Summary ---
Author Organization [facility] Address [address] [place] [address] Phone Care Team Providers Care Balloon Tester Name Role Phone DONOVAN ESTEVEZ DO Unavailable [phone] Reason for Visit and Chief Complaint The Chief Complaint is: Sore throat ~PT IS DUE TO SORE THROAT, CHILLS, FATIGUE, BODY ACHES, AND SORE THROAT SINCE YESTERDAY DID FLU COVID STREP Plan of Treatment - Return to the clinic if condition worsens or new symptoms arise - Last Documented On 09/11/2023 10:44AM ; [facility] Strep test was positive at today's visit. [...] Documented On 09/11/2023 10:44AM ; [facility] Assessments Includes: Assessments from this encounter Findings - [J02.0 - Streptococcal pharyngitis] Group A streptococcus: B hemolytic pharyngitis - Last Documented On 09/11/2023 10:44AM ; [facility] Medical Equipment - Implanted Devices Includes: Current Devices No Medical Equipment Recorded Medications Includes: Medications discussed during this encounter and other current Medications New / Renewed during this visit KEN MARES DNP on 09/11/2023 Amoxicillin 875 MG Oral Tablet Provider: KEN Aburto APPLIED TECHNOLOGIST 10 day supply: 20 tablet, 0 refills Diagnosis: Streptococcal pharyngitis 1 CAPSULE TWO TIMES A DAY Pharmacy: [address], [phone] - Last Documented On 4 10:15AM By Ken Mares DNP ; [facility] Current Medications (continue as prescribed) Atorvastatin Calcium 10 MG Oral Tablet 07/30/2023 Pr ovider: Diagnosis: Last Documented On 07/30/2023 5:10PM By Edwina Salcedo ; [facility] Advair Diskus 100-50 MCG/ACT Inhalation Aerosol Powder Breath Activated 07/30/2023 Provider: Diagnosis: Last Documented On 07/30/2023 5:11PM By Edwina Salcedo ; [facility] Singulair 10 MG Oral Tablet 07/30/2023 Provider: Diagnosis: Last Documented On 07/30/2023 5:11PM By Edwina Salcedo ; [facility] Amoxicillin-Pot Clavulanate 875-125 MG Oral Tablet 06/30/2023 Provider: KEN SANTAMARIA Diagnosis: Other specified disorders of teeth and supporting structures One tablet twice a day Last Documented On 4 5:28PM By Ken SANTAMARIA ; [facility] Verapamil HCl ER 360 MG Oral Capsule Extended Re lease 24 Hour 03/29/2022 Provider: Diagnosis: Last Documented On 03/29/2022 3:58PM By RAFAELA MAGDALENO ; [facility] DULoxetine HCl 60 MG Oral Capsule Delayed Releas e Particles 03/29/2022 Provider: Diagnosis: Last Documented On 03/29/2022 4:00PM By RAFAELA MAGDALENO ; [facility] Medications Administered Includes: [...] Documented: On 09/11/2023 9:58AM ; [facility] Results Includes: Results discussed during this encounter Group A strep [facility] Ordered by KEN MARES DNP on Collected: Reported: 09/11/2023 Last Documented On 4 10:14AM ; [facility] Reviewed on 09/11/2023; All test results are final unless otherwise noted. Rapid Strep POS A (Abnormal) Last Documented On 4 10:12AM ; [facility] LOT # AND EXP. DATE [id number] 02-28-24 N (Normal) Last Documented On 4 10:12AM ; [facility] INT. QC ACCEPTABLE? YES N (Normal) Last Documented On 4 10:12AM ; [facility] SARS COVID-19 FLU A & B [facility] Ordered by KEN MARES DNP on Collected: Reported: 09/11/2023 Last Documented On 4 10:14AM ; [facility] Reviewed on 09/11/2023; All test results are final unless otherwise noted. COVID NEG N (Normal) Last Documented On 4 10:12AM ; [facility] INFLUENZA A NEG (Negative) N (Normal) Last Documented On 4 10:12AM ; [facility] INFLUENZA B NEG (negative) N (Normal) Last Documented On 4 10:12AM ; [facility] INT. QC ACCEPTABLE? YES N (Normal) Last Documented On 4 10:12AM ; [facility] LOT # & EXP. DATE [id number] 04-16-24 N (Normal) Last Documented On 4 10:12AM ; [facility] History of Present Illness Includes: History of [...] 09/11/2023 Last Documented On 4 10:44AM ; [facility] Not a current smoker 09/11/2023 Last Documented On 4 10:44AM ; [facility] Smoking Status Unknown Procedures and Surgical History Includes: Procedures from this encounter Procedures Code Diagnosis Performing Provider Service Location Service Date SARS-CO,SARS-COV- 2, INFLUENZA A/B TEST (CLIA WAIVED) 51474 Fever, unspecified KEN MARES [facility] 09/11/2023 Last Documented On 4 6:23PM ; [facility] STREP TEST SCREENING (CLIA WAIVED) 74109 Streptococcal pharyngitis KEN MARES [facility] 09/11/2023 Last Documented On 4 6:23PM ; [facility] Pt to use prescription as ordered. Purpo se of and use of medication discussed.~ Last Documented On 4 10:14AM ; [facility] Pt to use OTC fever/pain product as need ed per product instruction.~ Last Documented On 4 10:14AM ; [facility] use of tobacco assessment performed 1000F Last Documented On 4 9:58AM ; [facility] review of medications documented 1160F Last Documented On 4 9:58AM ; [facility] Clinical summary provided to patient Last Documented On 4 10:14AM ; [facility] Medical History Includes: Medical History addressed during this encounter Description Last Updated No Contact with and (Suspected) exposure to COVID-19 09/11/2023 Last Documented On 4 10:44AM ; [facility] No fall 09/11/2023 Last Documented On 4 10:44AM ; [facility] Family History Includes: Family History addressed during [...] SICK VISIT- ESTABLISHED PATIENT KEN MARES DNP [facility] 09/11/19 24 9:25AM 10:14AM Pharyngitis Streptococcus, Group A: Beta Hemolytic Insurance Includes: Active Insurance Policies Plan Name Member ID Group # Subscriber Relationship Effect edelmira Dates 1 - [facility] [id number] HARRIET MELCHOR Self Clinical Notes Includes: Clinical Notes from this encounter * Progress note Date Encounter Last Documented by 09/11/2023 COVID SICK VISIT- ESTABLISHED ANGEL CLARK Last documented on 09/11/2023; 10:44 AM, KEN MARES DNP; [facility] Chief Complaint The Chief Complaint is: Sore [...] POS Abnormal LOT # AND EXP. DATE [id number] 02-28-24 Normal INT. QC ACCEPTABLE? YES Normal - Test: SARS COVID-19 FLU A & B Report Date: 09/11/2023 COVID NEG Normal INFLUENZA A NEG Normal INFLUENZA B NEG Normal INT. QC ACCEPTABLE? YES Normal LOT # & EXP. DATE [id number] 04-16-24 Normal Assessment - [J02.0 - Streptococcal [...]
--- OUTSIDE RECORDS SUMMARY | 2024-06-06 13:47 | XMS_ITS | Clinical Summary ---
Author Organization [facility] Address [address] [place] [address] Phone Care Team Providers Care Printed Circuit Boards Router Name Role Phone DONOVAN ESTEVEZ DO Unavailable [phone] Reason for Visit and Chief Complaint gynecologic consultation Here for IUD insertion. Currently on her period. Has had 2 Mirenas before - The Chief Complaint is: Procedure Mirena placement of period 12 pt is on peroid today Plan of Treatment - Insertion Of Iud - Last Documented On 08/02/2011 1:34PM ; [facility] In office procedures/*Family Practice: IUD - Last Documented On 08/02/2011 1:34PM ; [facility] Pending Tests Order Diagnosis Results Due Ordering Vielka hernandez In office procedures - *Family Practice IUD Insertion Of Iud 08/16/11 Graciela KNIGHT MD Last Documented On 2 1:34PM ; [facility] Assessments Includes: Assessments from this encounter Findings Mirena insertion. - Last Documented On 08/02/2011 1:34PM ; [facility] Medical Equipment - Implanted Devices Includes: Current Devices No Medical Equipment Recorded Medications Includes: Medications discussed during this encounter and other current Medications Current Medications (continue as prescribed) Atorvastatin Calcium 10 MG Oral Tablet 07/30/2023 Pr ovider: Diagnosis: Last Documented On 07/30/2023 5:10PM By Edwina Salcedo ; [facility] Advair Diskus 100-50 MCG/ACT Inhalation Aerosol Powder Breath Activated 07/30/2023 Provider: Diagnosis: Last Documented On 07/30/2023 5:11PM By Edwina Salcedo ; [facility] Singulair 10 MG Oral Tablet 07/30/2023 Provider: Diagnosis: Last Documented On 07/30/2023 5:11PM By Edwina Salcedo ; [facility] Amoxicillin-Pot Clavulanate 875-125 MG Oral Tablet 06/30/2023 Provider: KEN SANTAMARIA Diagnosis: Other specified disorders of teeth and supporting structures One tablet twice a day Last Documented On 4 5:28PM By Ken SANTAMARIA ; [facility] Verapamil HCl ER 360 MG Oral Capsule Extended Re lease 24 Hour 03/29/2022 Provider: Diagnosis: Last Documented On 03/29/2022 3:58PM By RAFAELA AVALOS [place] ; [facility] DULoxetine HCl 60 MG Oral Capsule Delayed Releas e Particles 03/29/2022 Provider: Diagnosis: Last Documented On 03/29/2022 4:00PM By RAFAELA MAGDALENO ; [facility] Past Medications on file Amoxicillin 875 MG Oral Tablet 09/11/2023 - 09/21/2023 Provider: KEN MARES DNP Diagnosis: Streptococcal pharyngitis 1 CAPSULE TWO TIMES A DAY Last Documented On 4 10:15AM By Ken Mares DNP ; [facility] Ofloxacin 0.3% Otic Solution 07/30/2023 - 08/06/2023 Provider: KEN MARES DNP Diagnosis: Otitis media, unspecified, left ear Apply 10 drops to the left e ar daily for 7 days Last Documented On 4 6:37PM By Ken Mares DNP ; [facility] Cefdinir 300 MG Oral Capsule 07/30/2023 - 08/09/2023 Provider: KEN STEVEN DNP Diagnosis: Otitis media, unspecified, left ear 1 CAPSULE TWO TIMES A DAY Last Documented On 4 5:50PM By Ken Mares DNP ; [facility] Amoxicillin 875 MG Oral Tablet 03/29/2022 - 04/08/2022 Provider: VLAD RIVERA DIGITAL PROJECT MANAGER- Diagnosis: Acute serous will tis media, right ear One tablet twice a day Last Documented On 2 4:28PM By VLAD RIVERA DIGITAL PROJECT MANAGER-BC ; [facility] Medications Administered Includes: Administered Medications from this encounter No Administered Medications Recorded Vital Signs Includes: Vital Signs from this encounter Vital Name 08/02/2011 01:00P Blood Pressure Sitting R 90/58 BP Cuff Size Regular Pulse Rate-Sitting (bpm) 72 Pulse Rhythm Regular Respiration Rate (breaths/min) 18 Weight (lb) 115 Last Documented: On 08/02/2011 1:13PM ; [facility] Results Includes: Results discussed during this encounter No Results Recorded For Specified Dates History of Present Illness Includes: History of Present Illness from this encounter No History of Present Illness Recorded Social History Description Last Updated In monogamous relationship 05/17/2011 Last Documented On 2 1:14PM ; [facility] Sexually active with partners in the 1 05/17/2011 Last Documented On 2 1:14PM ; [facility] Alcohol use: 2 drinks or less per day Last Documented On 2 1:14PM ; [facility] Cigarette smoking 0.5 pack-years 20 04/29 Last Documented On 2 1:14PM ; [facility] 05/17/2011 Last Documented On 2 1:14PM ; [facility] Does not have high school diploma 2011 Last Documented On 2 1:14PM ; [facility] 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 Last Documented On 2 1:14PM ; [facility] Smoking Status Unknown Medical History Includes: Medical History addressed during this encounter Description Last Updated History of asthma 05/17/2011 Last Documented On 2 1:14PM ; [facility] 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 05/17/2011 Last Documented On 2 1:14PM ; [facility] History of urinary tract infection appx 3 per year 05/17/2011 Last Documented On 2 1:14PM ; [facility] No history of cervical dysplasia 012 Last Documented On 2 1:14PM ; [facility] No history of dysfunctional uterine blee ding 05/17/2011 Last Documented On 2 1:14PM ; [facility] No history of human papilloma virus infe ction 05/17/2011 Last Documented On 2 1:14PM ; [facility] No history of vaginitis 05/17/2011 Last Documented On 2 1:14PM ; [facility] 3 05/17/2011 Last Documented On 2 1:14PM ; [facility] Para 3 05/17/2011 Last Documented On 2 1:14PM ; [facility] LMP: 04/25/2011 05/17/2011 Last Documented On 2 1:14PM ; [facility] sinus surgery ~perforated colon ~cluster headaches 05/17/2011 Last Documented On 2 1:14PM ; [facility] A colonoscopy was performed 2009 diverti culitis 05/17/2011 Last Documented On 2 1:14PM ; [facility] Asthma 05/17/2011 Last Documented On 2 1:14PM ; [facility] Last pap smear date 200905/17/2011 Last Documented On 2 1:14PM ; [facility] Result: normal 05/17/2011 Last Documented On 2 1:14PM ; [facility] Family History Includes: Family History addressed [...] Time Diagnosis IUD INSERTION Graciela MCNAIR MD [facility] 08/02/19 12 1:00PM 1:40PM Assessment [use For S.o.a.p. Note Free Text] Insurance Includes: Active Insurance Policies Plan Name Member ID Group # Subscriber Relationship Effect edelmira Dates 1 - [facility] [id number] ALEXX MELCHOR Self Clinical Notes Includes: Clinical Notes from this encounter No Clinical Notes Recorded
--- OUTSIDE RECORDS SUMMARY | 2024-06-06 13:47 | XMS_ITS | Continuity of Care Document ---
Author Organization [facility] Address [address] [place] [address] Phone Care Team Providers Care Meat Processing Center Manager Name Role Phone Leoncio Seay MD Unavailable [...] No Charge GDX Retina IOLMaster-Technical Office/outpatient Visit, [facility] Advance Directives Directive Yes / No Effective Date File Name No Information Encounters Encounter Description Practice Location Reason(s) For Visit Diagnoses Date Provider Providers Copied on Encounter [facility], [address] [place] [address] [address], [place], [place], [id number], tel:[phone] [place] Profession[place] 1 mo CE PO (09/14/20) (chief complaint) Post op visit 1 Dawood Fang. [address] [place], [id number], [place]. tel:[phone] Referring Provider: [facility] OD, [facility] [address] [place], [address]. tel:[phone] [facility], [address], [place], [place], [id number], [place] tel:[phone] [place] Profession[place] Post-Op (chief complaint) Post op visit 1 No Information Referring Provider: Violetta Brantley OD, [facility] [address] [place], [address]. tel:[phone] [facility], [address], [place], [place], [id number], [place] tel: [place] 1 day CE PO (09/14/20) (chief complaint) Post op visit 1 No Information Referring Provider: Violetta Brantley OD, [facility] [address] [place], [place], [address]. tel:[phone] [facility], [address], [place], [place], [id number], tel: [facility] No Information 1 Dawood Fang. [address] [facility], [address] [place], [address], . tel: Referring Provider: Violetta Brantley OD, [facility] [address] [place], [place], [address]. tel:[phone] [facility], [address], [place], [place], [id number], [place] tel: [place] No Information 1 Dawood Fang. [address] [facility] [address] [facility], [address] [place], [id number], . tel:[phone] Referring Provider: Violetta Masonhop OD, [facility] [address] [place], [place], [address]. tel:[phone] [facility], [address], [place], [place], [id number], [place] tel: [place] No Information 1 Dawood Fang. [address] [facility], [address] [place], [address], . tel: [facility], [address], [place], [place], [id number], tel: [place] Post-Op (chief complaint) Post op visit No Information Referring Provider: Violetta Brantley OD, [facility] [address] [place], [place], [address]. tel:[phone] [facility], [address], [place], [place], [id number], [place] tel:[phone] [place] 1 day po PCIOL OD (08/17/20) (chief complaint) Post op visit No Information Referring Provider: Violetta Brantley OD, [facility] [address] [place], [place], [address]. tel:[phone] [facility], [address] [place] [address] [address], [place], [place], [id number], [place] tel: [facility] No Information Dawood Fang. [address] [facility] [place], [id number], [place]. tel:[phone] Referring Provider: Violetta Brantley OD, [facility] [address] [place], [place], [address]. tel:[phone] [facility], [address], [place], [place], [id number], [place] tel: [place] No Information Dawood Fang. [address] [facility], [facility] A, [place], [place], [id number], [place]. tel:[phone] Referring Provider: Violetta Brantley OD, [facility] [address] [place], [place], [address]. tel:[phone] [facility], [address], [place], [place], [id number], [place] tel:[phone] [place] Repeat measurements only (chief complaint) Age-related nuclear cataract, bilateral Jun- 1 Dawood Fang. [address] [facility], [facility] A, [place], [place], [address], [place]. tel:[phone] Referring Provider: Violetta Brantley OD, [facility] [address] [place], [address]. tel:[phone] [facility], [address], [place], [place], [address], [place] tel:[phone] [place] Cataract evaluation (chief complaint) Posterior polar cataract of both eyesAge-rela sandra nuclear cataract, bilateral 1 Dawood Fang. [address] [facility], [facility] A, [place], [place], [address], [place]. tel:[phone] Referring Provider: Violetta Brantley OD, [facility] [address] [place], [address]. tel:[phone] [facility], [address], [place], [place], [id number], [place] tel:[phone] [place] No Information 1 No Information Family History Family Member Type Diagnosis Age At Onset Problem Family history of Diabetes m blaine Payers Payer name Insurance type Covered libertarian ID Authoriza tion(s) No Information Social History [...]
--- OUTSIDE RECORDS SUMMARY | 2024-06-06 13:47 | XMS_ITS ---
Care Plan - [facility] Created on: June 06, 2024 ALEXX MELCHOR : 1975 Sex: Female Author Organization [facility] Address [address] [place] [address] Phone Care Team Providers Care Budget Analyst Name Role Phone DONOVAN ESTEVEZ DO Unavailable [phone]
--- OUTSIDE RECORDS SUMMARY | 2024-06-06 13:47 | XMS_ITS | Clinical Summary ---
Author Organization [facility] Address [address] [place] [address] Phone Care Team Providers Care Top Lift Compresser Name Role Phone DONOVAN ESTEVEZ DO Unavailable [phone] Reason for Visit and Chief Complaint The Chief Complaint is: Left ear drainage since yesterday morning and Rt ear cannot hear out of it with pain off & on since yesterday Plan of Treatment - Return to the clinic if condition worsens or new symptoms arise - Last Documented On 04/02/2022 10:05AM ; [facility] - Patient will call for appointment as needed - Last Documented On 04/02/2022 10:05AM ; [facility] Assessments Includes: Assessments from this encounter Findings - [H65.01 - Acute serous otitis media, right ear] Otitis media - Last Documented On 04/02/2022 10:05AM ; [facility] Medical Equipment - Implanted Devices Includes: Current Devices No Medical Equipment Recorded Medications Includes: Medications discussed during this encounter and other current Medications New / Renewed during this visit VLAD HENRIQUEZ on 03/29/2022 Amoxicillin 875 MG Oral Tablet Provider: VLAD HENRIQUEZ 10 day supply: 20 tablet, 0 refills Diagnosis: Acute serous otitis media, right ear One tablet twice a day Pharmacy: [facility], [id number] - Last Documented On 4:28PM By VLAD HENRIQUEZ ; [facility] Current Medications (continue as prescribed) Atorvastatin Calcium 10 MG Oral Tablet 07/30/2023 Pr ovider: Diagnosis: Last Documented On 07/30/2023 5:10PM By Edwina Salcedo ; [facility] Advair Diskus 100-50 MCG/ACT Inhalation Aerosol Powder Breath Activated 07/30/2023 Provider: Diagnosis: Last Documented On 07/30/2023 5:11PM By Edwina Salcedo ; [facility] Singulair 10 MG Oral Tablet 07/30/2023 Provider: Diagnosis: Last Documented On 07/30/2023 5:11PM By Edwina Salcedo ; [facility] Amoxicillin-Pot Clavulanate 875-125 MG Oral Tablet 06/30/2023 Provider: KEN SANTAMARIA Diagnosis: Other specified disorders of teeth and supporting structures One tablet twice a day Last Documented On 4 5:28PM By Ken SANTAMARIA ; [facility] Verapamil HCl ER 360 MG Oral Capsule Extended Re lease 24 Hour 03/29/2022 Provider: Diagnosis: Last Documented On 03/29/2022 3:58PM By RAFAELA MAGDALENO ; [facility] DULoxetine HCl 60 MG Oral Capsule Delayed Releas e Particles 03/29/2022 Provider: Diagnosis: Last Documented On 03/29/2022 4:00PM By RAFAELA MAGDALENO ; [facility] Past Medications on file Amoxicillin 875 MG Oral Tablet 09/11/2023 - 09/21/2023 Provider: KEN MARES DNP Diagnosis: Streptococcal pharyngitis 1 CAPSULE TWO TIMES A DAY Last Documented On 4 10:15AM By Ken Mares DNP ; [facility] Ofloxacin 0.3% Otic Solution 07/30/2023 - 08/06/2023 Provider: KEN MARES DNP Diagnosis: Otitis media, unspecified, left ear Apply 10 drops to the left e ar daily for 7 days Last Documented On 4 6:37PM By Ken Mares DNP ; [facility] Cefdinir 300 MG Oral Capsule 07/30/2023 [...] 96 Last Documented: On 03/29/2022 4:01PM ; [facility] Results Includes: Results discussed [...] 03/29/2022 Last Documented On 2 10:05AM ; [facility] Sexually active with partners in the 05/17/2011 Last Documented On 2 3:58PM ; [facility] Alcohol use: 2 drinks or less per day Last Documented On 2 3:58PM ; [facility] Cigarette smoking 0.5 pack-years 20 04/29 Last Documented On 2 3:58PM ; [facility] 05/17/2011 Last Documented On 2 3:58PM ; [facility] 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 Last Documented On 2 3:58PM ; [facility] Smoking Status Unknown Procedures and Surgical History Includes: Procedures from this encounter Procedures Code Diagnosis Performing Provider Service L ocation Service Date use of tobacco assessment performed 1000F Last Documented On 2 3:58PM ; [facility] Clinical summary provided to patient Last Documented On 2 4:25PM ; [facility] Medical History Includes: Medical History addressed during this encounter Description Last Updated History of asthma 05/17/2011 Last Documented On 2 3:58PM ; [facility] 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 05/17/2011 Last Documented On 2 3:58PM ; [facility] History of urinary tract infection appx 3 per year 05/17/2011 Last Documented On 2 3:58PM ; [facility] 3 05/17/2011 Last Documented On 2 3:58PM ; [facility] Para 3 05/17/2011 Last Documented On 2 3:58PM ; [facility] LMP: 04/25/2011 05/17/2011 Last Documented On 2 3:58PM ; [facility] sinus surgery ~perforated colon ~cluster headaches 05/17/2011 Last Documented On 2 3:58PM ; [facility] A colonoscopy was performed 2009 diverti culitis 05/17/2011 Last Documented On 2 3:58PM ; [facility] Asthma 05/17/2011 Last Documented On 2 3:58PM ; [facility] Last pap smear date 200905/17/2011 Last Documented On 2 3:58PM ; [facility] Result: normal 05/17/2011 Last Documented On 2 3:58PM ; [facility] Family History Includes: Family History addressed during this encounter Description Last Updated Family history of diabetes mellitus 04/29 Last Documented On 2 3:58PM ; [facility] Family history of Cancer Father & Grandp arents 05/17/2011 Last Documented On 2 3:58PM ; [facility] Family history of cardiac problems grand parents 05/17/2011 Last Documented On 2 3:58PM ; [facility] Family history of Diabetes grandparents 05/17/2011 Last Documented On 2 3:58PM ; [facility] Family history of high cholesterol paren ts 05/17/2011 Last Documented On 2 3:58PM ; [facility] Family history of Hypertension parents 0 05/17/2011 Last Documented On 2 3:58PM ; [facility] Family history of thyroid disease mother 05/17/2011 Last Documented On 2 3:58PM ; [facility] Review of Systems Includes: Review [...] IN PATIENT - NEW PT VLAD RIVERA 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
--- OUTSIDE RECORDS SUMMARY | 2024-06-06 13:47 | XMS_ITS ---
Author Name EJ EDLEON D.O. Address [address] [place] [address] Phone [phone] [facility] Headache and Ne urology Care Team Providers Care Biomedical Engineering Internship Name Role Phone VELVET DELEON Unavailable [phone] Unavailable Unavailable Unavailable Unavailable Unavailable Unavailable Johanny Reyes Unavailable [phone] Reason for Referral Not Available Allergies, adverse [...] dache, not intractable moderate complexity [facility] 10/21/2023 Episodic cluster hea dache, not intractable high complexity office visit [facility] 11/26/2023 Episodic cluster he adache, not intractableDepression, unspecifiedHeadache, unspecifiedOther chronic painAdjustment disorder with depressed mood Social History Sex Female Gender identity Woman History of Procedures Procedures Service Procedure code Service date Servicing provider Phone# new patient, high complexity office visit [id number] 2023-09-19 No Data Available No Data Availa ble moderate complexity office visit [id number] 2023-10-21 No Data Available No Data Availa ble high complexity office visit [id number] 2023-11-26 No Data Available No Data Availa [...] was conducted via secured, two-way communication through [employer]. Patient located in [place]. Patient expressed consent with video communication to carry out today's visit. Total time of video encounter was 61 mins that were spent reviewing records, obtaining history, doing a physical exam (via video) as appropriate, documenting in the chart, and any associated orders, all on the day of the visit.Voice dictation software is in use. Financial Investment Manager variances may occur. Please excuse if any [...] was conducted via secured, two-way communication through [employer]. Patient located in [place]. Patient expressed consent with video communication to carry out today's visit. Total time of video encounter was 26 mins that were spent reviewing records, obtaining history, doing a physical exam (via video) as appropriate, documenting in the chart, and any associated orders, all on the day of the visit.Voice dictation software is in use. Financial Investment Manager variances may occur. Please excuse if any [...] was conducted via secured, two-way communication through [employer]. Patient located in [place]. Patient expressed consent with video communication to carry out today's visit. Total time of video encounter was 40 mins that were spent reviewing records, obtaining history, doing a physical exam (via video) as appropriate, documenting in the chart, and any associated orders, all on the day of the visit.Voice dictation software is in use. Financial Investment Manager variances may occur. Please excuse if any [...]
[2024-06-06 14:13] LABS: Add Urine Microscopic? YES; Appearance Urine Cloudy (Clear); Bilirubin Urine Negative (Negative); Blood Urine Trace-intact (Negative); Color Urine Light Yellow (Yellow); Glucose Urine UA Negative (Negative); Ketones Urine Negative (Negative); Leukocyte Esterase Ur Trace LEU/UL (Negative); Nitrate Urine Positive (Negative); Protein Urine Negative (Negative); Urobilinogen Urine 0.2 mg/dL (0.2-1.0)
[2024-06-06 14:17] LABS: Bacteria Urine 1+ /hpf; RBC Urine 0-2 /hpf (0-2); Squamous Epithelial Cell Urine Few /hpf (Few); WBC Urine 0-3 /hpf (0-3)
[2024-06-06 14:20] LABS: SARS-CoV-2 RNA PCR Negative (Negative)
[2024-06-06 14:22] LABS: Influenza A QL RT-PCR Negative (Negative); Influenza B QL RT-PCR Negative (Negative); RSV RNA, RT-PCR Negative (Negative)
[2024-06-06] MEDS: SODIUM CHLORIDE 0.9% IV 1,000 ML 999 ML IV CONT (14:24)
[2024-06-06] MEDS: KETOROLAC 30 MG/ML VIAL (*BKC) IV PUSH (14:24)
[2024-06-06 14:36] LABS: Basophils Absolute Auto 0.03 K/mm3 (0.00-0.10); Basophils Percent Auto 0.2 % (0.0-1.0); Eosinophils Absolute Auto 0.21 K/mm3 (0.02-0.50); Eosinophils Percent Auto 1.5 % (1.0-6.0); Hematocrit 42.7 % (35.0-49.0); Hemoglobin 14.2 g/dL (12.0-15.0); Immature Granulocyte Absolute 0.09 K/mm3 (0.00-0.00); Immature Granulocyte Percent A 0.6 % (0.0-0.0); Lymphocytes Absolute Auto 2.31 K/mm3 (1.10-4.50); Lymphocytes Percent Auto 16.2 % (18.0-42.0); Mean Corpuscular HGB Conc 33.3 g/dL (32-36); Mean Corpuscular Hemoglobin 31.3 pg (27.0-31.0); Mean Corpuscular Volume 94.1 fL (78.0-102.0); Mean Platelet Volume 9.6 fl (9.2-11.8); Monocytes Absolute Auto 1.05 K/mm3 (0.10-0.90); Monocytes Percent Auto 7.3 % (2.0-11.0); Neutrophils Absolute Auto 10.61 K/mm3 (1.70-7.20); Neutrophils Percent Auto 74.2 % (50.0-70.0); Platelet Count Result 229 K/mm3 (150-420); Red Blood Count 4.54 M/mm3 (4.20-5.40); Red Cell Distribution Width 13.2 % (11.6-14.4); White Blood Count 14.3 K/mm3 (4.8-10.8)
[2024-06-06 14:44] LABS: Alanine Aminotransferase 14 U/L (14-59); Albumin Level 3.6 g/dL (3.4-5.0); Alkaline Phosphatase 120 U/L (46-116); Anion Gap 10 mmol/L (4-12); Aspartate Amino Transferase < 10 U/L (15-37); Bilirubin,Total 0.7 mg/dL (0.00-1.00); Blood Urea Nitrogen 14 mg/dL (7-18); Calcium 8.9 mg/dL (8.5-10.1); Carbon Dioxide 27 mmol/L (21-32); Chloride 99 mmol/L (98-108); Estimated CRCL calculation 62 ml/min; Estimated Glomerular Filt Rate > 60; Glucose 92 mg/dL (70-99); Osmolality Calculated 282 mOsm/kg (285-295); Potassium 3.9 mmol/L (3.5-5.1); Sodium 136 mmol/L (136-145); Total Protein 7.8 g/dL (6.4-8.2)
[2024-06-06 15:42] LABS: Lactic Acid Reflex 0.7 mmol/L (0.4-2.0)
--- NOTE | 2024-06-06 16:20 | ED_ITS ---
HPI - Abdominal Pain General Chief Complaint: Urogenital-Female Stated Complaint: flank pain, cough Source: patient Mode of arrival: ambulatory Limitations: no limitations History of Present Illness HPI narrative: this is 49-year-old female who presents with left flank and left lower quadrant abdominal pain, has a history of diverticulitis. Patient rates her pain about 8/10 with no dysuria no hematuria no fever chills. Patient has a history of hypertension and depression. Patient currently is afebrile with no nausea vomiting no diarrhea constipation. MD elicited complaint: abdominal pain and flank pain Onset (ago): hour(s) Pain Consistency: constant Location: LLQ and L flank Severity: moderate Quality: aching Radiation: LLQ Migration to: L flank Exacerbating factors: nothing Relieving factors: nothing Related Data Home Medications ?Medication ?Instructions ?Recorded ?Confirmed ?Last Taken ?Type duloxetine 60 mg capsule,delayed 60 mg PO DAILY 03/23/20 03/23/20 Unknown History release calcitriol 0.5 mcg capsule mcg 06/06/24 Unknown History montelukast 10 mg tablet mg 06/06/24 Unknown History propranolol 80 mg capsule,24 mg PO 06/06/24 Unknown History hr,extended release Allergies Allergy/AdvReac Type Severity Reaction Status Date / Time No Known Allergies Allergy Verified 06/06/24 13:36 Review of Systems 2 Review of Systems: All systems reviewed & are unremarkable except as noted in HPI and below PMFSH Past Medical History Medical History Diverticulitis Surgical History Surgical History H/O sinus surgery Family History Family History Father Diabetes mellitus Mother Asthma Hypertension Grandparent Melanoma Social History Social History Smoking status: Current every day smoker Alcohol intake: never Alcohol use details: occasional Substance use: never Living arrangements: with family Exam 2 Const: General: healthy appearing Nutritional Appearance: well nourished Orientation/consciousness: patient oriented x3 HENMT: Head: normal to inspection Neck: Neck: normal visual inspection Chest: Chest palpation & inspection: normal inspection of the chest Resp: Effort & Inspection: normal respiratory effort Auscultation: clear to auscultation bilaterally Cardio: Rate: regular rate Rhythm: regular rhythm GI: GI Palp: Yes Soft to palpation and Yes Tenderness to palpation present (GI) : General: Yes bladder normal to palpation Skin: General skin exam: normal color Rashes: no rashes Extrem: General: normal to inspection Course Course Emergency Course: patient had CT scan of abdomen and pelvis which shows that she has acute diverticulitis with a 2.2cm pericolonic collection of early contained perforation[place] [address] lactic acid 0.7. Patient received IV fluids IV Toradol and started on IV Cipro and IV Flagyl. spoke to surgeon that accepted the patient at [facility], and hospitalist also accepted the patient for transfer. Vital Signs Vital signs: Vital Signs Temperature 37.1 C 06/06/24 13:27 Pulse Rate 131 H 06/06/24 13:27 Respiratory Rate 20 06/06/24 13:27 Blood Pressure 104/66 06/06/24 13:27 Pulse Oximetry 94 06/06/24 13:27 Oxygen Delivery Room Air 06/06/24 13:27 Temperature 36.8 C 06/06/24 15:31 Pulse Rate 90 06/06/24 15:31 Respiratory Rate 20 06/06/24 13:27 Blood Pressure 103/66 06/06/24 15:31 Pulse Oximetry 98 06/06/24 15:31 Oxygen Delivery Room Air 06/06/24 15:31 MDM - Abdominal Pain Lab Data 06/06/24 14:25 06/06/24 14:25 Labs: Lab Results 06/06/24 06/06/24 06/06/24 Range/Units 13:26 13:32 14:23 WBC (4.8-10.8) K/mm3 RBC (4.20-5.40) M/mm3 Hgb (12.0-15.0) g/dL Hct (35.0-49.0) % MCV (78.0-102.0) fL MCH (27.0-31.0) pg MCHC (32-36) g/dL RDW (11.6-14.4) % Plt Count (150-420) K/mm3 MPV (9.2-11.8) fl Immature Gran % (Auto) (0.0-0.0) % Neut % (Auto) (50.0-70.0) % Lymph % (Auto) (18.0-42.0) % [place] % (Auto) (2.0-11.0) % Eos % (Auto) (1.0-6.0) % Baso % (Auto) (0.0-1.0) % Lymph # (Auto) (1.10-4.50) K/mm3 [place] # (Auto) (0.10-0.90) K/mm3 Eos # (Auto) (0.02-0.50) K/mm3 Baso # (Auto) (0.00-0.10) K/mm3 Abs Immat Gran (auto) (0.00-0.00) K/mm3 Absolute Neuts (auto) (1.70-7.20) K/mm3 Absolute Nucleated RBC (0.00-0.00) K/mm3 Nucleated RBC % (0-0.0) % Sodium (136-145) mmol/L Potassium (3.5-5.1) mmol/L Chloride (98-108) mmol/L Carbon Dioxide (21-32) mmol/L Anion Gap (4-12) mmol/L BUN (7-18) mg/dL Creatinine (0.55-1.02) mg/dL Estim Creat Clear Calc ml/min Estimated GFR (59 - ) Glucose (70-99) mg/dL Calculated Osmolality (285-295) mOsm/kg Lactic Acid 0.7 (0.4-2.0) mmol/L Calcium (8.5-10.1) mg/dL Total Bilirubin (0.00-1.00) mg/dL AST (15-37) U/L ALT (14-59) U/L Alkaline Phosphatase (46-116) U/L Total Protein (6.4-8.2) g/dL Albumin (3.4-5.0) g/dL Urine Color Light yellow (Yellow) Urine Appearance Cloudy A (Clear) Urine pH 7.0 (5.0-8.0) Ur Specific [place] 1.020 (1.010-1.020) Urine Protein Negative (Negative) Urine Glucose (UA) Negative (Negative) Urine Ketones Negative (Negative) Ur Blood (Man) Trace-intact H (Negative) Urine Nitrate Positive H (Negative) Urine Bilirubin Negative (Negative) Urine Urobilinogen 0.2 (0.2-1.0) mg/dL Leukocyte Esterase Rfl Trace H (Negative) AMY/UL Urine RBC 0-2 (0-2) /hpf Urine WBC 0-3 (0-3) /hpf Ur Squamous Epith Cells Few (Few) /hpf Urine Bacteria 1+ H (None) /hpf Influenza A (RT-PCR) Negative (Negative) Influenza B (RT-PCR) Negative (Negative) RSV (RT-PCR) Negative (Negative) SARS-CoV-2 RNA (RT-PCR) Negative (Negative) 06/06/24 Range/Units 14:25 WBC 14.3 H (4.8-10.8) K/mm3 RBC 4.54 (4.20-5.40) M/mm3 Hgb 14.2 (12.0-15.0) g/dL Hct 42.7 (35.0-49.0) % MCV 94.1 (78.0-102.0) fL MCH 31.3 H (27.0-31.0) pg MCHC 33.3 (32-36) g/dL RDW 13.2 (11.6-14.4) % Plt Count 229 (150-420) K/mm3 MPV 9.6 (9.2-11.8) fl Immature Gran % (Auto) 0.6 H (0.0-0.0) % Neut % (Auto) 74.2 H (50.0-70.0) % Lymph % (Auto) 16.2 L (18.0-42.0) % [place] % (Auto) 7.3 (2.0-11.0) % Eos % (Auto) 1.5 (1.0-6.0) % Baso % (Auto) 0.2 (0.0-1.0) % Lymph # (Auto) 2.31 (1.10-4.50) K/mm3 [place] # (Auto) 1.05 H (0.10-0.90) K/mm3 Eos # (Auto) 0.21 (0.02-0.50) K/mm3 Baso # (Auto) 0.03 (0.00-0.10) K/mm3 Abs Immat Gran (auto) 0.09 H (0.00-0.00) K/mm3 Absolute Neuts (auto) 10.61 H (1.70-7.20) K/mm3 Absolute Nucleated RBC 0.00 (0.00-0.00) K/mm3 Nucleated RBC % 0.0 (0-0.0) % Sodium 136 (136-145) mmol/L Potassium 3.9 (3.5-5.1) mmol/L Chloride 99 (98-108) mmol/L Carbon Dioxide 27 (21-32) mmol/L Anion Gap 10 (4-12) mmol/L BUN 14 (7-18) mg/dL Creatinine 0.88 (0.55-1.02) mg/dL Estim Creat Clear Calc 62 ml/min Estimated GFR > 60 (59 - ) Glucose 92 (70-99) mg/dL Calculated Osmolality 282 L (285-295) mOsm/kg Lactic Acid (0.4-2.0) mmol/L Calcium 8.9 (8.5-10.1) mg/dL Total Bilirubin 0.7 (0.00-1.00) mg/dL AST < 10 L (15-37) U/L ALT 14 (14-59) U/L Alkaline Phosphatase 120 H (46-116) U/L Total Protein 7.8 (6.4-8.2) g/dL Albumin 3.6 (3.4-5.0) g/dL Urine Color (Yellow) Urine Appearance (Clear) Urine pH (5.0-8.0) Ur Specific [place] (1.010-1.020) Urine Protein (Negative) Urine Glucose (UA) (Negative) Urine Ketones (Negative) Ur Blood (Man) (Negative) Urine Nitrate (Negative) Urine Bilirubin (Negative) Urine Urobilinogen (0.2-1.0) mg/dL Leukocyte Esterase Rfl (Negative) AMY/UL Urine RBC (0-2) /hpf Urine WBC (0-3) /hpf Ur Squamous Epith Cells (Few) /hpf Urine Bacteria (None) /hpf Influenza A (RT-PCR) (Negative) Influenza B (RT-PCR) (Negative) RSV (RT-PCR) (Negative) SARS-CoV-2 RNA (RT-PCR) (Negative) Imaging Data Radiologist's impression: ITS Impressions Abdomen/Pelvis CT 06/06/24 14:21 IMPRESSION: Acute diverticulitis. Adjacent 2.2 cm pericolonic collection may represent an early contained perforation or a markedly inflamed diverticulum. Critical Care Time Critical Care Time Critical Care Time: No Discharge Plan Discharge Clinical Impression: Diverticulitis Patient Disposition: Acute Care Hospital Condition: Stable Patient Language: Ukrainian Prescriptions: No Action duloxetine 60 mg capsule,delayed release(DR/EC) 60 mg PO DAILY calcitriol 0.5 mcg capsule propranolol 80 mg capsule,extended release 24 hr PO montelukast 10 mg tablet Follow-up/Referrals: Johanny Reyes MD [Primary Care Provider] - Time of Disposition: 16:38
[2024-06-06] MEDS: CIPROFLOXACIN 400 MG/D5W 200ML 200 ML 200 MG IVPB (16:46)
[2024-06-06] MEDS: metroNIDAZOLE 500 MG/ISO 100ML 500 MG/100 ML BAG 100 MG IVPB (16:54)
--- NOTE | 2024-06-09 16:08 | PC.NURSE ---
Preliminary urine culture report; gram negative bacilli isolated, will wait for final culture and sensitivity. Preliminary blood culture report; no growth to date.
--- NOTE | 2024-06-10 13:21 | PC.NURSE ---
FINAL URINE CULTURE RESULTS: ISOLATE 1: GREATER THAN 100,000 CFU/ML OF KLEBSIELLA PNEUMONIAE. SPOKE WITH MEKA AT DR. CASTELAN'S OFFICE, HE IS AWARE AND WILL BE TAKING CARE OF THIS.
== END 2024-06-06 18:10 | disposition short-term general hospital (02) ==
PROVIDERS: Emergency Provider Emergency Medicine; PCP Internal Medicine
DX: K57.32 Diverticulitis of large intestine without perforation or abscess without bleeding (principal); I10 Essential (primary) hypertension; F32.A Depression, unspecified; F17.200 Nicotine dependence, unspecified, uncomplicated; Z20.822 Contact with and (suspected) exposure to COVID-19
CPT/HCPCS: 36415; 74176; 80053; 81001; 83605; 85025; 87040; 87086; 87186; 87637; 96365; 96375; 99285; J0744; J1836; J1885; J7030

== ENCOUNTER 2024-06-18 16:45 | Outpatient (CLI) | payer BC, SELFPAY ==
--- OUTSIDE RECORDS SUMMARY | 2024-06-18 16:51 | XMS_ITS | Encounter Summary ---
Author Organization [facility] Address [address] [place] [id number] Care Team Providers Care Bessemer Converter Operator Name Role Phone Unavailable Primary Care Provider Unavailabl e Encounter Details Date Type Department Care Team (Late st Contact Info) Description 10/04/2018 Abstract [facility] CONVERSION [address] [place] [address] , Generic Conversion, Social History Tobacco Use Types Packs/Day Years Used Date Smoking Tobacco: Never Assessed Comments Unknown Sex and Gender Information Value Date Recorded Sex Assigned at Not on file Legal Sex Female 5:48 PM TRAVEL COTA Gender Identity Not on file Sexual Orientation Not on file documented as of this encounter Plan of Treatment Not on file documented as of this encounter Visit Diagnoses Not on filedocumented in this encounter
--- OUTSIDE RECORDS SUMMARY | 2024-06-18 16:51 | XMS_ITS ---
Author Organization [facility] Address [address] [place] [address] Phone Care Team Providers Care Real Estate Accountant Name Role Phone DONOVAN ESTEVEZ DO Shelly Unavailable [phone] Plan of Treatment Findings Encounter Date Ordered return to the clinic if condition worsens or new symptoms arise COVID SICK VISIT- ESTABLISHED PATIENT with KEN MARES [facility] 09/11/2023 Last Documented On 4 10:44AM ; [facility] Ordered return to the clinic if condition worsens or new symptoms arise COVID SICK VISIT- ESTABLISHED PATIENT with KEN MARES [facility] 07/30/2023 Last Documented On 4 5:20PM ; [facility] Ordered patient will call fo r appointment as needed WALK IN PATIENT - NEW PT with VLAD RIVERA [facility] 03/29/2022 Last Documented On 2 10:05AM ; [facility] Ordered return to the clinic if condition worsens or new symptoms arise WALK IN PATIENT - NEW PT with VLAD RIVERA [facility] 03/29/2022 Last Documented On 2 10:05AM ; [facility] Assessments Includes: Assessments for all patient encounters Findings Encounter Date Group A streptococcus: B hem olytic pharyngitis COVID SICK VISIT- ESTABLISHED PATIENT with KEN MARES DNP 09/11/2023 Last Documented On 4 10:44AM ; [facility] Otitis media of the left ear COVID SICK VISIT- ESTABLISHED PATIENT with KEN MARES DNP 07/30/2023 Last Documented On 4 5:20PM ; [facility] [B34.9 - Viral infection, un specified] viral infection COVID SICK VISIT- ESTABLISHED PATIENT with KEN REALCLAIR [facility] SPECIAL[facility] 06/30/2023 Last Documented On 4 5:24PM ; [facility] Infection of tooth COVID SICK VISIT- ES TABLISHED PATIENT with KEN REALCLAIR [facility] C[facility] SPECIALIST-[facility] 06/30/2023 Last Documented On 4 5:24PM ; [facility] Otitis media WALK IN PATIENT - NEW PT with ISABELLE RIVERA [facility]IC[facility] CARE SPECIALIST-[facility] 03/29/2022 Last Documented On 2 10:05AM ; [facility] Mirena insertion IUD INSERTION with Graciela SY MD 08/02/2011 Last Documented On 2 1:34PM ; [facility] Contraceptive management NEW PATIENT VISIT with Graciela MCNAIR MD 05/17/2011 Last Documented On 2 2:05PM ; [facility] NORMAL FEMALE EXAM NEW PATIENT VISIT with Graciela MCNAIR MD 05/17/2011 Last Documented On 2 2:05PM ; [facility] Urinary tract infection NEW PATIENT VISIT with Graciela MCNAIR MD 05/17/2011 Last Documented On 2 2:05PM ; [facility] Medical Equipment - Implanted Devices Includes: Current and historical Devices No Medical Equipment Recorded Medications Includes: Current and historical Medications Current Medications (continue as prescribed) Atorvastatin Calcium 10 MG Oral Tablet 07/30/2023 Pr ovider: Diagnosis: Last Documented On 07/30/2023 5:10PM By Edwina Salcedo ; [facility] Advair Diskus 100-50 MCG/ACT Inhalation Aerosol Powder Breath Activated 07/30/2023 Provider: Diagnosis: Last Documented On 07/30/2023 5:11PM By Edwina Salcedo ; [facility] Singulair 10 MG Oral Tablet 07/30/2023 Provider: Diagnosis: Last Documented On 07/30/2023 5:11PM By Edwina Salcedo ; [facility] Amoxicillin-Pot Clavulanate 875-125 MG Oral Tablet 06/30/2023 Provider: KEN Francis VEHICLE CARE SPECIALIST-C Diagnosis: Other specified disorders of teeth and supporting structures One tablet twice a day Last Documented On 4 5:28PM By Ken SANTAMARIA ; [facility] Verapamil HCl ER 360 MG Oral Capsule Extended Re lease 24 Hour 03/29/2022 Provider: Diagnosis: Last Documented On 03/29/2022 3:58PM By RAFAELA MAGDALENO ; [facility] DULoxetine HCl 60 MG Oral Capsule Delayed Releas e Particles 03/29/2022 Provider: Diagnosis: Last Documented On 03/29/2022 4:00PM By RAFAELA MAGDALENO ; [facility] Past Medications on file Amoxicillin 875 MG Oral Tablet 09/11/2023 - 09/21/2023 Provider: KEN MARES DNP Diagnosis: Streptococcal pharyngitis 1 CAPSULE TWO TIMES A DAY Last Documented On 4 10:15AM By Ken Mares DNP ; [facility] Ofloxacin 0.3% Otic Solution 07/30/2023 - 08/06/2023 Provider: KEN MARES DNP Diagnosis: Otitis media, unspecified, left ear Apply 10 drops to the left e ar daily for 7 days Last Documented On 4 6:37PM By Ken Mares DNP ; [facility] Cefdinir 300 MG Oral Capsule 07/30/2023 - 08/09/2023 Provider: KEN STEVEN DNP Diagnosis: Otitis media, unspecified, left ear 1 CAPSULE TWO TIMES A DAY Last Documented On 4 5:50PM By Ken Mares DNP ; [facility] Amoxicillin 875 MG Oral Tablet 03/29/2022 - 04/08/2022 Provider: VLAD HENRIQUEZ Diagnosis: Acute serous will tis media, right ear One tablet twice a day Last Documented On 2 4:28PM By VLAD HENRIQUEZ ; [facility] Medications Administered Includes: Administered Medications in patient's chart No Administered Medications Recorded Vital Signs Includes: Vital Signs from 06/18/2023 through 06/18/2024 Vital Name 09/11/2023 09:58A 07/30/2023 05:14P 06/29 [...] Regular Last Documented: On 09/11/2023 9:58AM ; [facility] On 07/30/2023 5:14PM ; [facility] On 06/30/2023 5:10PM ; [facility] Results Includes: Results from 06/18/2023 through 06/18/2024 Group A strep [facility] Ordered by KEN MARES DNP on Collected: Reported: 09/11/2023 Last Documented On 4 10:14AM ; [facility] Reviewed on 09/11/2023; All test results are final unless otherwise noted. Rapid Strep POS A (Abnormal) Last Documented On 4 10:12AM ; [facility] LOT # AND EXP. DATE [id number] 02-28-24 N (Normal) Last Documented On 4 10:12AM ; [facility] INT. QC ACCEPTABLE? YES N (Normal) Last Documented On 4 10:12AM ; [facility] SARS COVID-19 FLU A & B [facility] Ordered by KEN MARES DNP on Collected: Reported: 09/11/2023 Last Documented On 4 10:14AM ; [facility] Reviewed on 09/11/2023; All test results are final unless otherwise noted. COVID NEG N (Normal) Last Documented On 4 10:12AM ; [facility] INFLUENZA A NEG (Negative) N (Normal) Last Documented On 4 10:12AM ; [facility] INFLUENZA B NEG (negative) N (Normal) Last Documented On 4 10:12AM ; [facility] INT. QC ACCEPTABLE? YES N (Normal) Last Documented On 4 10:12AM ; [facility] LOT # & EXP. DATE [id number] 04-16-24 N (Normal) Last Documented On 4 10:12AM ; [facility] SARS COVID-19 FLU A & B [facility] Ordered by KEN SANTAMARIA on 0 06/30/2023 Collected: Reported: 06/30/2023 Last Documented On 4 5:23PM ; [facility] Reviewed on 06/30/2023; All test results are final unless otherwise noted. COVID neg N (Normal) Last Documented On 4 5:22PM ; [facility] INFLUENZA A neg (Negative) N (Normal) Last Documented On 4 5:22PM ; [facility] INFLUENZA B neg (negative) N (Normal) Last Documented On 4 5:22PM ; [facility] INT. QC ACCEPTABLE? yes N (Normal) Last Documented On 4 5:22PM ; [facility] LOT # & EXP. DATE [id number] 05/14/24 N (Normal) Last Documented On 4 5:22PM ; [facility] History of Present Illness History of Present Illness not supported for this document type No History of Present Illness Recorded Social History Description Last Updated Tobacco non-user 09/11/2023 Last Documented On 4 10:44AM ; [facility] Not a current smoker 09/11/2023 Last Documented On 4 10:44AM ; [facility] In monogamous relationship 05/17/2011 Last Documented On 2 2:05PM ; [facility] Sexually active with partners in the t year 1 05/17/2011 Last Documented On 2 2:05PM ; [facility] Alcohol use: 2 drinks or less per day Last Documented On 2 2:05PM ; [facility] Cigarette smoking 0.5 pack-years 20 04/29 Last Documented On 2 2:05PM ; [facility] 05/17/2011 Last Documented On 2 2:05PM ; [facility] Does not have high school diploma 2011 Last Documented On 2 2:05PM ; [facility] 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 Last Documented On 2 2:05PM ; [facility] Smoking Status Unknown Procedures and Surgical History Includes: Procedures from 06/18/2023 through 06/18/2024 Procedures Code Diagnosis Performing Provider Service Location Service Date SARS-CO,SARS-COV- 2, INFLUENZA A/B TEST ([facility]) 60209 Fever, unspecified KEN MARES [facility] 09/11/2023 Last Documented On 4 6:23PM ; [facility] STREP TEST SCREENING ([facility]IA WAIVED) 47179 Streptococcal pharyngitis KEN MARES [facility] 09/11/2023 Last Documented On 4 6:23PM ; [facility] SARS-CO,SARS-COV-2, INFLUENZA A/B TEST (CLIA WAIVED) 64780 Fever, unspecified, Acute cough, Acute pharyngitis, unspecified KEN SARMIENTO VEHICLE CARE SPECIALIST-C [facility] 06/30/2023 Last Documented On 4 3:45PM ; [facility] Medical History Includes: Medical History in patient's chart Description Last Updated No Contact with and (Suspected) exposure to COVID-19 09/11/2023 Last Documented On 4 10:44AM ; [facility] No fall 09/11/2023 Last Documented On 4 10:44AM ; [facility] Taking OTC medications 06/30/2023 Last Documented On 4 5:24PM ; [facility] History of asthma 05/17/2011 Last Documented On 2 2:05PM ; [facility] 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 05/17/2011 Last Documented On 2 2:05PM ; [facility] History of urinary tract infection appx 3 per year 05/17/2011 Last Documented On 2 2:05PM ; [facility] No history of cervical dysplasia 012 Last Documented On 2 2:05PM ; [facility] No history of dysfunctional uterine blee ding 05/17/2011 Last Documented On 2 2:05PM ; [facility] No history of human papilloma virus infe ction 05/17/2011 Last Documented On 2 2:05PM ; [facility] No history of vaginitis 05/17/2011 Last Documented On 2 2:05PM ; [facility] 3 05/17/2011 Last Documented On 2 2:05PM ; [facility] Para 3 05/17/2011 Last Documented On 2 2:05PM ; [facility] LMP: 04/25/2011 05/17/2011 Last Documented On 2 2:05PM ; [facility] sinus surgery ~perforated colon ~cluster headaches 05/17/2011 Last Documented On 2 2:05PM ; [facility] A colonoscopy was performed 2009 diverti culitis 05/17/2011 Last Documented On 2 2:05PM ; [facility] Asthma 05/17/2011 Last Documented On 2 2:05PM ; [facility] Last pap smear date 200905/17/2011 Last Documented On 2 2:05PM ; [facility] Result: normal 05/17/2011 Last Documented On 2 2:05PM ; [facility] Family History Includes: Family History in patient's chart Description Last Updated Family history of diabetes mellitus 04/29 Last Documented On 2 2:05PM ; [facility] No family history of malignant female br east neoplasm 05/17/2011 Last Documented On 2 2:05PM ; [facility] No family history of malignant neoplasm of the large intestine 05/17/2011 Last Documented On 2 2:05PM ; [facility] No family history of malignant neoplasm of the ovary 05/17/2011 Last Documented On 2 2:05PM ; [facility] Family history of Cancer Father & Grandp arents 05/17/2011 Last Documented On 2 2:05PM ; [facility] Family history of cardiac problems grand parents 05/17/2011 Last Documented On 2 2:05PM ; [facility] Family history of Diabetes grandparents 05/17/2011 Last Documented On 2 2:05PM ; [facility] Family history of high cholesterol paren ts 05/17/2011 Last Documented On 2 2:05PM ; [facility] Family history of Hypertension parents 0 05/17/2011 Last Documented On 2 2:05PM ; [facility] Family history of thyroid disease mother 05/17/2011 Last Documented On 2 2:05PM ; [facility] Review of Systems Review of Systems not supported for this document type No Review of Systems Recorded Mental Status No Mental Status Recorded Functional Status No Functional Status Recorded Physical Exam Physical Exam not supported for this document type No Physical Exam Recorded Allergies Includes: Active, inactive, and resolved Allergies No Known Allergies Encounters Includes: Encounters from 06/18/2023 through 06/18/2024 Encounter Provider Location Date Check-In Time Check-Out Time Diagnosis COVID SICK VISIT- ESTABLISHED PATIENT KEN MARES DNP [facility] 09/11/19 24 9:25AM 10:14AM Pharyngitis Streptococcus, Group A: Beta Hemolytic COVID SICK VISIT- ESTABLISHED PATIENT KEN MARES DNP [facility] 07/30/19 24 4:53PM 5:15PM Otitis Media Left Ear COVID SICK VISIT- ESTABLISHED PATIENT KEN SARMIENTO VEHICLE CARE SPECIALIST-C [facility] 06/30/19 24 4:43PM 5:24PM Infection of Tooth,Infectio us Disease Viral Infection Insurance Includes: Active Insurance Policies Plan Name Member ID Group # Subscriber Relationship Effect edelmira Dates 1 - [facility] [id number] HARRIET MELCHOR Self Clinical Notes Includes: Signed Clinical Notes starting from 05/18/2022 * Progress note Date Encounter Last Documented by 09/11/2023 COVID SICK VISIT- ESTABLISHED ANGEL CLARK Last documented on 09/11/2023; 10:44 AM, KEN MARES DNP; [facility] Chief Complaint The Chief Complaint is: [...] POS Abnormal LOT # AND EXP. DATE [id number] 02-28-24 Normal INT. QC ACCEPTABLE? YES Normal - Test: SARS COVID-19 FLU A & B Report Date: 09/11/2023 COVID NEG Normal INFLUENZA A NEG Normal INFLUENZA B NEG Normal INT. QC ACCEPTABLE? YES Normal LOT # & EXP. DATE [id number] 04-16-24 Normal Assessment - [J02.0 - Streptococcal [...] on 07/30/2023; 5:20 PM, KEN MARES DNP; [facility] Chief Complaint The Chief Complaint [...] documented on 06/30/2023; 5:24 PM, KEN SEYMOUR-C; [facility] Chief Complaint The Chief Complaint [...] yes Normal LOT # & EXP. DATE [id number] 05/14/24 Normal Assessment - Infection of tooth [...]
--- OUTSIDE RECORDS SUMMARY | 2024-06-18 16:51 | XMS_ITS | Clinical Summary ---
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
--- OUTSIDE RECORDS SUMMARY | 2024-06-18 16:51 | XMS_ITS | Clinical Summary ---
Author Organization [facility] Address [address] [place] [address] Phone Care Team Providers Care Class A Lineman Name Role Phone DONOVAN ESTEVEZ DO Unavailable [phone] Reason for Visit and [...] - Last Documented On 06/30/2023 5:24PM ; [facility] Tooth pain: Discussed oral hygiene. Recommended frequent saline mouth rinses. Follow up with dentist at soonest availability. - Last Documented On 06/30/2023 5:24PM ; [facility] Assessments Includes: Assessments from this encounter Findings - Infection of tooth [K08.89 - Other specified disorders of teeth and supporting structures] - Last Documented On 06/30/2023 5:24PM ; [facility] - Viral infection [B34.9 - Viral infection, unspecified] - Last Documented On 06/30/2023 5:24PM ; [facility] Medical Equipment - Implanted [...] structures One tablet twice a day Pharmacy: [address], [phone] - Last Documented On 4 5:28PM By Ken SANTAMARIA ; [facility] Current Medications (continue as prescribed) Atorvastatin Calcium 10 MG Oral Tablet 07/30/2023 Pr ovider: Diagnosis: Last Documented On 07/30/2023 5:10PM By Edwina Salcedo ; [facility] Advair Diskus 100-50 MCG/ACT Inhalation Aerosol Powder Breath Activated 07/30/2023 Provider: Diagnosis: Last Documented On 07/30/2023 5:11PM By Edwina Salcedo ; [facility] Singulair 10 MG Oral Tablet 07/30/2023 Provider: Diagnosis: Last Documented On 07/30/2023 5:11PM By Edwina Salcedo ; [facility] Verapamil HCl ER 360 MG Oral Capsule Extended Re lease 24 Hour 03/29/2022 Provider: Diagnosis: Last Documented On 03/29/2022 3:58PM By RAFAELA MAGDALENO ; [facility] DULoxetine HCl 60 MG Oral Capsule Delayed Releas e Particles 03/29/2022 Provider: Diagnosis: Last Documented On 03/29/2022 4:00PM By RAFAELA MAGDALENO ; [facility] Past Medications on file Amoxicillin 875 MG Oral Tablet 09/11/2023 - 09/21/2023 Provider: KEN MARES DNP Diagnosis: Streptococcal pharyngitis 1 CAPSULE TWO TIMES A DAY Last Documented On 4 10:15AM By Ken Mares DNP ; [facility] Ofloxacin 0.3% Otic Solution 07/30/2023 - 08/06/2023 Provider: KEN MARES DNP Diagnosis: Otitis media, unspecified, left ear Apply 10 drops to the left e ar daily for 7 days Last Documented On 4 6:37PM By Ken Mares DNP ; [facility] Cefdinir 300 MG Oral Capsule 07/30/2023 - 08/09/2023 Provider: KEN STEVEN DNP Diagnosis: Otitis media, unspecified, left ear 1 CAPSULE TWO TIMES A DAY Last Documented On 4 5:50PM By Ken Mares DNP ; [facility] Amoxicillin 875 MG Oral Tablet 03/29/2022 - 04/08/2022 Provider: VLAD RIVERA AOC [facility]ADC OPERATIONS STAFF OFFICER-BC Diagnosis: Acute serous will tis media, right ear One tablet twice a day Last Documented On 2 4:28PM By VLAD RIVERA AOC AADC OPERATIONS STAFF OFFICER-BC ; [facility] Medications Administered Includes: Administered Medications [...] 98 Last Documented: On 06/30/2023 5:10PM ; [facility] Results Includes: Results discussed during this encounter SARS COVID-19 FLU A & B [facility] Ordered by KEN SEYMOUR-Kareem on 0 06/30/2023 Collected: Reported: 06/30/2023 Last Documented On 4 5:23PM ; [facility] Reviewed on 06/30/2023; All test results are final unless otherwise noted. COVID neg N (Normal) Last Documented On 4 5:22PM ; [facility] INFLUENZA A neg (Negative) N (Normal) Last Documented On 4 5:22PM ; [facility] INFLUENZA B neg (negative) N (Normal) Last Documented On 4 5:22PM ; [facility] INT. QC ACCEPTABLE? yes N (Normal) Last Documented On 4 5:22PM ; [facility] LOT # & EXP. DATE [id number] 05/14/24 N (Normal) Last Documented On 4 5:22PM ; [facility] History of Present Illness Includes: History of Present Illness from this encounter JANIE MELCHRO is a 48 year old female. - [...] 06/30/2023 Last Documented On 4 5:24PM ; [facility] Tobacco non-user 06/30/2023 Last Documented On 4 5:24PM ; [facility] Smoking Status Unknown Procedures and Surgical History Includes: Procedures from this encounter Procedures Code Diagnosis Performing Provider Service Location Service Date SARS-CO,SARS-COV- 2, INFLUENZA A/B TEST ([facility] WAIVED) 00388 Fever, unspecified, Acute cough, Acute pharyngitis, unspecified KEN SARMIENTO AOC AADC OPERATIONS STAFF OFFICER-C [facility] 06/30/2023 Last Documented On 4 3:45PM ; [facility] Discussed with family/pt kailash t rapid influenza testing was NEGATIVE. Discussed with family that pt is contagious until afebrile for 24 hours, secretions controled, and feeling better. Discussed symptom relief. Pt / family to call our office for further evaluation if persisting, worsening, or new symptoms noted Last Documented On 4 5:20PM ; [facility] use of tobacco assessment performed 1000F Last Documented On 4 5:07PM ; [facility] Clinical summary provided to patient Last Documented On 4 5:20PM ; [facility] Medical History Includes: Medical History addressed during this encounter Description Last Updated Taking OTC medications 06/30/2023 Last Documented On 4 5:24PM ; [facility] No Contact with and (Suspected) exposure to COVID-19 06/30/2023 Last Documented On 4 5:24PM ; [facility] No fall 06/30/2023 Last Documented On 4 5:24PM ; [facility] Family History Includes: Family [...] SICK VISIT- ESTABLISHED PATIENT KEN Doyle SANTAMARIA [facility] 06/30/19 24 4:43PM 5:24PM Infection of Tooth,Infecti ous Disease Viral Infection Insurance Includes: Active Insurance Policies Plan Name Member ID Group # Subscriber Relationship Effect edelmira Dates 1 - [facility] [id number] ISAÍAS MELCHOR Self Clinical Notes Includes: Clinical Notes from this encounter * Progress note Date Encounter Last Documented by 06/30/2023 COVID SICK VISIT- ESTABLISHED ANGEL CLARK Last documented on 06/30/2023; 5:24 PM, KEN SANTAMARIA; [facility] Chief Complaint The Chief Complaint is: No [...] yes Normal LOT # & EXP. DATE [id number] 05/14/24 Normal Assessment - Infection of tooth [...]
--- OUTSIDE RECORDS SUMMARY | 2024-06-18 16:51 | XMS_ITS | Referral Summary ---
Author Organization [facility] [address] Address [address] [facility] [place] [address] Care Team Providers Care Retail Wireless Sales Representative Name Role Phone Johanny Reyes MD Primary Care Provider [phone] Encounters Date Type Department Care Team Description 05/15/2024 Telephone [facility] Cardiology [address] 8[address] [place] [address] [place] [address] Jaciel Antonio MD Testing from Last 3 Months Allergies No known active allergies Medications DULoxetine DR (CYMBALTA) 60 mg capsule Take 1 capsule (60 mg total) by mouth daily 90 capsule 3 1 Active fluticasone propionate (FLONASE) 50 mcg/actuation nasal sprayIndication s:Chronic maxillary sinusitis Administer 2 sprays into each nostril daily 16 g 11 3 Active fluticasone propion-salmete roL (ADVAIR DISKUS) 100-50 mcg/dose diskus inhaler Inhale 1 puff 2 (two) times a day Rinse mouth with water after use. Do not swallow. Active calcitRIOL (ROCALTROL) 0.5 mcg capsule Take 1 capsule (0.5 mcg total) by mouth daily Active atorvastatin (LIPITOR) 40 mg tablet Take 1 tablet (40 mg total) by mouth daily 30 tablet 11 4 10/16/19 25 Active ciprofloxacin (CILOXAN) 0.3 % ophthalmic solutionIndicat ions:Otorrhea of left ear 7 drops into Left EAR, NOT EYE, twice daily for 10 days 10 mL 1 4 Active propranolol LA (INDERAL LA) 80 mg 24 hr capsule TAKE 1 CAPSULE(80 MG) BY MOUTH DAILY 90 capsule 5 Active Active Problems Problem Noted Date Diagnosed Date Otorrhea of left ear 03/11/2024 Assessment & Plan (03/11/2024 3:05 PM CROSS TIE CUTTER): Ciprofloxacin 7 drops into the Left ear [...] plugs Doc's proplugs, Junito's ear plugs with [place], [place] or [place] water exposure Follow up in 9 months for ear tube check Chronic maxillary sinusitis 06/13/2022 Assessment & Plan (06/13/2022 3:52 PM CROSS TIE CUTTER): CT angiogram - call with results If [...] 06/13/2022 Assessment & Plan (06/13/2022 3:52 PM CROSS TIE CUTTER): CT angiogram - call with results If [...] 06/13 Assessment & Plan (06/13/2022 3:52 PM CROSS TIE CUTTER): CT angiogram - call with results Vestibular [...] on file Legal Sex Female 2:33 AM CROSS TIE CUTTER Gender Identity Not on file Sexual Orientation Not on file Last Filed Vital Signs Vital Sign Reading Time Taken Comments Blood Pressure 98/65 03/11/2024 2:38 PM CROSS TIE CUTTER Pulse 101 03/11/2024 2:38 PM CROSS TIE CUTTER Temperature 36.1 C (97 F) 03/11/2024 2:38 PM CROSS TIE CUTTER Respiratory Rate 21 02/14/2023 11:43 AM CDT Oxygen Saturation 94% 03/11/2024 2:38 PM CROSS TIE CUTTER Inhaled Oxygen Concentration - - Weight 57.2 kg (126 lb) 03/11/2024 2:38 PM CROSS TIE CUTTER Height 170.2 cm (5' 7 ) 03/11/2024 2:38 PM CROSS TIE CUTTER Body Mass Index 19.73 03/11/2024 2:38 PM CROSS TIE CUTTER Plan of Treatment Not on file Medical Devices Implanted Type Area Deputy Sheriff Bailiff Device Identifier Shelf Expiration Date Model / Serial / Lot [employer] Karlos 1.27mm 9.5mm 4.5mm T Ear 9.5mm Tube Ventilation Silicone [id number] - [id number] Implanted:Qty: 1 on 10/04/2022 by Beata Fraser DO at [facility] Bilateral : Ear [employer] 01/07/2030 [id number] / / [id number] [place] [email or web address] [place] [email or web address] [place] [facility] Advance Directives For more information, please contact: [phone] Documents on File Type Date Recorded Patient Cable Ferry Operator Expl anation ADVANCE DIRECTIVE 08/27/2019 12:54 PM Care Teams Retail Wireless Sales Representative Relationship Specialty Start Date End Date Johanny Reyes MD [address], [place] [id number] PCP - General 08/21/16
--- OUTSIDE RECORDS SUMMARY | 2024-06-18 16:51 | XMS_ITS | Clinical Summary ---
Author Organization [facility] Address [address] [place] [address] Phone Care Team Providers Care Sql Tech Name Role Phone DONOVAN ESTEVEZ DO Unavailable [phone] Reason for Visit and [...] - Last Documented On 07/30/2023 5:20PM ; [facility] 1. Get plenty of rest. [...] - Last Documented On 07/30/2023 5:20PM ; [facility] Assessments Includes: Assessments from this encounter Findings - [H66.92 - Otitis media, unspecified, left ear] Otitis media of the left ear - Last Documented On 07/30/2023 5:20PM ; [facility] Medical Equipment - Implanted Devices [...] ar daily for 7 days Pharmacy: [facility] [address], [id number] - Last Documented On 4 6:37PM By Ken Mares DNP ; [facility] Cefdinir 300 MG Oral Capsule Provider: KEN Aburto NP 10 day supply: 20 capsule, 0 refills Diagnosis: Otitis media, unspecified, left ear 1 CAPSULE TWO TIMES A DAY Pharmacy: [facility] [address], [id number] - Last Documented On 4 5:50PM By Ken Mares DNP ; [facility] Current Medications (continue as prescribed) Atorvastatin Calcium 10 MG Oral Tablet 07/30/2023 Pr ovider: Diagnosis: Last Documented On 07/30/2023 5:10PM By Edwina Salcedo ; [facility] Advair Diskus 100-50 MCG/ACT Inhalation Aerosol Powder Breath Activated 07/30/2023 Provider: Diagnosis: Last Documented On 07/30/2023 5:11PM By Edwina Salcedo ; [facility] Singulair 10 MG Oral Tablet 07/30/2023 Provider: Diagnosis: Last Documented On 07/30/2023 5:11PM By Edwina Salcedo ; [facility] Amoxicillin-Pot Clavulanate 875-125 MG Oral Tablet 06/30/2023 Provider: KEN SANTAMARIA Diagnosis: Other specified disorders of teeth and supporting structures One tablet twice a day Last Documented On 4 5:28PM By Ken SANTAMARIA ; [facility] Verapamil HCl ER 360 MG Oral Capsule Extended Re lease 24 Hour 03/29/2022 Provider: Diagnosis: Last Documented On 03/29/2022 3:58PM By RAFAELA MAGDALENO ; [facility] DULoxetine HCl 60 MG Oral Capsule Delayed Releas e Particles 03/29/2022 Provider: Diagnosis: Last Documented On 03/29/2022 4:00PM By RAFAELA MAGDALENO ; [facility] Past Medications on file Amoxicillin 875 MG Oral Tablet 09/11/2023 - 09/21/2023 Provider: KEN MARES DNP Diagnosis: Streptococcal pharyngitis 1 CAPSULE TWO TIMES A DAY Last Documented On 4 10:15AM By Ken Mares DNP ; [facility] Amoxicillin 875 MG Oral Tablet 03/29/2022 - 04/08/2022 Provider: VLAD HENRIQUEZ Diagnosis: Acute serous will tis media, right ear One tablet twice a day Last Documented On 2 4:28PM By VLAD SEYMOUR-ELIU ; [facility] Medications Administered Includes: Administered Medications from this encounter No Administered Medications Recorded Vital Signs Includes: Vital Signs from this encounter Vital Name 07/30/2023 05:14P Pulse Rate-Sitting (bpm) 120 Respiration Rate (breaths/min) 18 Temp-Oral (F) 98.8 Height (in) 65 Weight (lb) 115 Body Mass Index 19.1 Body Surface Area 1.6 Oxygen Saturation (%) 97 Last Documented: On 07/30/2023 5:14PM ; [facility] Results Includes: Results discussed during this encounter [...] 07/30/2023 Last Documented On 4 5:20PM ; [facility] Smoking Status Unknown Procedures and Surgical History Includes: Procedures from this encounter Procedures Code Diagnosis Performing Provider Service L ocation Service Date use of tobacco assessment performed 1000F Last Documented On 4 5:13PM ; [facility] review of medications documented 1160F Last Documented On 4 5:13PM ; [facility] Clinical summary provided to patient Last Documented On 4 5:14PM ; [facility] Medical History Includes: Medical History addressed during this encounter Description Last Updated No Contact with and (Suspected) exposure to COVID-19 07/30/2023 Last Documented On 4 5:20PM ; [facility] No fall 07/30/2023 Last Documented On 4 5:20PM ; [facility] Family History Includes: Family History addressed during [...] SICK VISIT- ESTABLISHED PATIENT KEN MARES DNP [facility] 07/30/19 24 4:53PM 5:15PM Otitis Media Left Ear Insurance Includes: Active Insurance Policies Plan Name Member ID Group # Subscriber Relationship Effect edelmira Dates 1 - [facility] [id number] HARRIET MELCHOR Self Clinical Notes Includes: Clinical Notes from this encounter * Progress note Date Encounter Last Documented by 07/30/2023 COVID SICK VISIT- ESTABLISHED ANGEL RUTHIECHONG Last documented on 07/30/2023; 5:20 PM, KEN MARES DNP; [facility] Chief Complaint The Chief Complaint is: [...]
--- OUTSIDE RECORDS SUMMARY | 2024-06-18 16:51 | XMS_ITS | Clinical Summary ---
Author Organization [facility] [address] Address [address] [place] [address] Care Team Providers Care Weatherization Administrator Name Role Phone Johanny Reyes MD Primary [...] 03/11/2024 Assessment & Plan (03/11/2024 3:05 PM MOLD FINISHER): Ciprofloxacin 7 drops into the Left ear [...] plugs Doc's proplugs, Junito's ear plugs with [place], [place] or [place] water exposure Follow up in 9 months for ear tube check Chronic maxillary sinusitis 06/13/2022 Assessment & Plan (06/13/2022 3:52 PM MOLD FINISHER): CT angiogram - call with results If [...] 06/13/2022 Assessment & Plan (06/13/2022 3:52 PM MOLD FINISHER): CT angiogram - call with results If [...] 06/13 Assessment & Plan (06/13/2022 3:52 PM MOLD FINISHER): CT angiogram - call with results Vestibular migraine 10/10/2012 Anxiety 10/10/2012 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 Cluster headaches 06/27/2009 Encounters Date Type Department Care Team Description 05/15/2024 Telephone [facility] Cardiology [address] [facility] [address] 8[address] [place] [address] [place] [address] Jaciel Antonio MD Testing from Last 3 Months Surgical History Surgery [...] on file Legal Sex Female 2:33 AM MOLD FINISHER Gender Identity Not on file Sexual Orientation Not on file Obstetrics History Last Filed Vital Signs Vital Sign Reading Time Taken Comments Blood Pressure 98/65 03/11/2024 2:38 PM MOLD FINISHER Pulse 101 03/11/2024 2:38 PM MOLD FINISHER Temperature 36.1 C (97 F) 03/11/2024 2:38 PM MOLD FINISHER Respiratory Rate 21 02/14/2023 11:43 AM CDT Oxygen Saturation 94% 03/11/2024 2:38 PM MOLD FINISHER Inhaled Oxygen Concentration - - Weight 57.2 kg (126 lb) 03/11/2024 2:38 PM MOLD FINISHER Height 170.2 cm (5' 7 ) 03/11/2024 2:38 PM MOLD FINISHER Body Mass Index 19.73 03/11/2024 2:38 PM MOLD FINISHER Plan of Treatment Health Maintenance Due Date [...] 12/31/2028 12/31/2018 Medical Devices Implanted Type Area Sheriff'S Detective Device Identifier Shelf Expiration Date Model / Serial / Lot [employer] Karlos 1.27mm 9.5mm 4.5mm T Ear 9.5mm Tube Ventilation Silicone [id number] - [id number] Implanted:Qty: 1 on 10/04/2022 by Beata Fraser DO at [facility] Bilateral : Ear [employer] 01/07/2030 [id number] / / [id number] Insurance [employer] [place] Advance Directives For more information, please contact: [phone] Documents on File Type Date Recorded Patient Graphic Coordinator Expl anation ADVANCE DIRECTIVE 08/27/2019 12:54 PM Care Teams Weatherization Administrator Relationship Specialty Start Date End Date Johanny Reyes MD [address] [id number] [facility] - General 08/21/16
--- OUTSIDE RECORDS SUMMARY | 2024-06-18 16:52 | XMS_ITS | Patient Health Summary ---
Author Organization [facility] [email or web address] Address [address] [place] [address] Care Team Providers Care Livestock Dealer Name Role Phone Johanny Reyes MD Primary Care Provider [phone] [facility],non-owned Affiliates and Associated Physician Practices is amultiple site organization consisting of ambulatory clinics and hospital sitesin [place], [place], [place] and [place]. This disclosure is being madepursuant to the Care Everywhere program and may not contain all information available regarding this patient. Last updated 18.[facility] [email or web address] Allergies No known active allergies Medications * Be aware that medications may not be up to date on this document. Alwaysverify current medications with the patient. * montelukast (Singulair) 10 MG tablet Take 1 (one) tablet by mouth at bedtime * DULoxetine (Cymbalta) 60 MG capsule Take 1 (one) capsule by mouth at bedtime * propranolol ER 24hr (Inderal LA) 80 MG capsule Take 1 (one) capsule by mouth at bedtime * verapamil CR (Isoptin-SR) 120 MG tablet Take 1 (one) tablet by mouth at bedtime * albuterol HFA (Proventil; Ventolin; Proair) 108 (90 Base) MCG/ACT inhaler Inhale 2 (two) puffs by mouth every 6 hours as needed for Shortness of Breath or Wheezing * acetaminophen (Tylenol) 325 MG tablet(Started 06/09/2024) Take 2 (two) tablets by mouth every 4 hours as needed * polyethylene glycol 3350 (Miralax) 17 GM/SCOOP powder(Started 06/09/2024) Mix one capful of powder in liquid and drink once daily as needed for constipation * senna-docusate (Senokot-S) 8.6-50 MG tablet(Started 06/09/2024) Take 2 (two) tablets by mouth once daily as needed for Constipation Ended Medications* ciprofloxacin (Cipro) 500 MG tablet(Started 06/09/2024) () Take 1 (one) tablet by mouth every 12 hours for 7 days * metroNIDAZOLE (Flagyl) 500 MG tablet(Started 06/09/2024)() Take 1 (one) tablet by mouth every 8 hours for 7 days Active Problems Problem Noted Date Diagnosed Date Acute diverticulitis 06/06/2024 Otorrhea of left ear 03/11/2024 Familial hyperlipidemia, high LDL 08/14/2023 Underweight 08/14/2023 Tobacco use disorder 08/14/2023 Dysfunction of left eustachian tube 07/09/2023 Seasonal allergic rhinitis due to pollen 024 Abnormal EKG 12/05/2022 Dysfunction of both eustachian tubes 10/12/2022 Chronic maxillary sinusitis 06/13/2022 Sensorineural hearing loss ( SNHL) of right ear with unrestricted hearing of left ear 06/13/2022 Subjective pulsatile tinnitus of right ear 06/13 Anxiety 10/10/2012 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 (AFLURIA, FLUZONE QUADRIVALENT; 6MO+) (IIV4)(Given 02/13/2019, 02/18/2015, 02/02/2014) * INFLUENZA VACCINE, QUADR. (FLUZONE; FLULAVAL; FLUARIX; AFLURIA QUADRIVALENT; 6MO+), 0.5 ML (IIV4)(Given 02/19/2023) * PNEUMOCOCCAL PPV VACCINE(Given 12/31/2018) * TDAP, HISTORIC VACCINE(Given 12/31/2018) Social History Tobacco Use Types Packs/Day Years Used Date Smoking Tobacco: Every Day Cigarettes Started: 04/1989 Passive Smoke Exposure: Never Smokeless Tobacco: Never Tobacco Cessation:Ready to Q uit: No; Counseling Given: Yes Alcohol Use Standard Drinks/Week Comments Never 0 (1 standard drink = 0.6 oz pur e alcohol) AUDIT-C Answer Date Recorded Q1: How often do you have a drink containing alcohol? Never 06/06/2024 Q2: How many drinks containi ng alcohol do you have on a typical day when you are drinking? Patient does not drink Q3: How often do you have si x or more drinks on one occasion? Never 06/06/2024 Overall Financial Resource Strain (CARDIA) Answe r Date Recorded How hard is it for you to pa y for the very basics like food, housing, medical care, and heating? Not hard at all 06/06/2024 [facility] [place] [facility] - Occupational Stress Questionnaire Answer Date Recorded Do you feel stress - tense, restless, nervous, or anxious, or unable to sleep at night because your mind is troubled all the time - these days? Not at all 06/06/2024 Hunger Vital Sign Answer Date Recorded Within the past 12 months, y ou worried that your food would run out before you got the money to buy more. Never true 06/06/19 25 Within the past 12 months, t he food you bought just didn't last and you didn't have money to get more. Never true 06/06/2024 PRAPARE - Transportation Answer Date Re corded In the past 12 months, has l ack of transportation kept you from medical appointments or from getting medications? No 11/2024 In the past 12 months, has l ack of transportation kept you from meetings, work, or from getting things needed for daily living? No 06/06/2024 Housing Stability Vital Sign Answer Yohannes e Recorded In the last 12 months, was t here a time when you were not able to pay the mortgage or rent on time? No 06/06/2024 In the past 12 months, how m any times have you moved where you were living? 1 06/06/2024 At any time in the past 12 m [facility], were you homeless or living in a care home (including now)? No 06/06/2024 Sex and Gender Information Value Date Recorded Sex Assigned at Female 06/06/2024 8:59 PM GEOSPATIAL IMAGE ANALYST Gender Identity Not on file Sexual Orientation Not on file Last Filed Vital Signs Vital Sign Reading Time Taken Comments Blood Pressure 99/65 06/09/2024 11:27 AM GEOSPATIAL IMAGE ANALYST Pulse 68 06/09/2024 11:27 AM GEOSPATIAL IMAGE ANALYST Temperature 36.4 C (97.5 F) 06/09/2024 11:27 AM GEOSPATIAL IMAGE ANALYST Respiratory Rate 18 06/09/2024 11:27 AM GEOSPATIAL IMAGE ANALYST Oxygen Saturation 93% 06/09/2024 11:27 AM GEOSPATIAL IMAGE ANALYST Inhaled Oxygen Concentration - - Weight 59 kg (130 lb) 06/06/2024 9:10 PM GEOSPATIAL IMAGE ANALYST Height 170.2 cm (5' 7 ) 06/06/2024 9:10 PM GEOSPATIAL IMAGE ANALYST Body Mass Index 20.36 06/06/2024 9:10 PM GEOSPATIAL IMAGE ANALYST Procedures * CARDIAC RHYTHM STRIP ORDER(Performed 06/11/2024) * GLUCOSE - POINT OF CARE(Performed 06/09/2024) * GLUCOSE - POINT OF CARE(Performed 06/09/2024) * GLUCOSE - POINT OF CARE(Performed 06/08/2024) * GLUCOSE - POINT OF CARE(Performed 06/08/2024) * GLUCOSE - POINT OF CARE(Performed 06/08/2024) * CBC W/O DIFFERENTIAL(Performed 06/08/2024) * RENAL FUNCTION PANEL(Performed 06/08/2024) * GLUCOSE - POINT OF CARE(Performed 06/07/2024) * GLUCOSE - POINT OF CARE(Performed 06/07/2024) * GLUCOSE - POINT OF CARE(Performed 06/07/2024) * CT ABDOMEN PELVIS W CONTRAST(Performed 06/07/2024) Performed for Acute diverticulitis * GLUCOSE - POINT OF CARE(Performed 06/07/2024) * MAGNESIUM BLOOD(Performed 06/07/2024) * CBC W/O DIFFERENTIAL(Performed 06/07/2024) * BASIC METABOLIC PANEL (CALCIUM TOTAL)(Performed 06/07/2024) * MAGNESIUM BLOOD(Performed 06/06/2024) * CBC W AUTO DIFFERENTIAL(Performed 06/06/2024) * LACTIC ACID BLOOD(Performed 06/06/2024) * BASIC METABOLIC PANEL (CALCIUM TOTAL)(Performed 06/06/2024) Results * CARDIAC RHYTHM STRIP ORDER (06/11/2024 10:04 PM GEOSPATIAL IMAGE ANALYST) Narrative 06/11/2024 10:04 PM GEOSPATIAL IMAGE ANALYST Ordered by an unspecified provider. Scanned Document CARDIAC SERVICES ORD ERABLES * GLUCOSE - POINT OF CARE (06/09/2024 12:22 PM GEOSPATIAL IMAGE ANALYST) Only the most recent of9 resultswithin the time period is included. Pathologist [facility] Glucose WB/POC 90 70 - 99 mg/dL 06/09/2024 12:32 PM GEOSPATIAL IMAGE ANALYST [facility] Specimen Type Cap Fingerstick 2024 12:32 PM [facility] Blood BLOOD SPECIMEN / Unknown 06/09/2024 12:22 PM GEOSPATIAL IMAGE ANALYST 06/09/2024 12:31 PM GEOSPATIAL IMAGE ANALYST Fabiola Mckeon MD LAB - POINT OF CARE ORDERABLES Performing Organization Address City/State/[facility] Co de Phone Number [facility] [address] [place] [address] * (ABNORMAL) CBC W/O DIFFERENTIAL (06/08/2024 3:49 AM GEOSPATIAL IMAGE ANALYST) Only the most recent of2 resultswithin the time period is included. [facility] WBC 7.2 4.0 - 10.7 x10E9/L 06/08/2024 4:07 AM [facility] RBC Count 3.81(L) 3.90 - 5.20 x10E12/L 06/08/2024 4:07 AM [facility] Hemoglobin 11.9 11.9 - 15.8 g/dL 06/08/2024 4:07 AM [facility] Hematocrit 36.1 34.8 - 46.1 % 06/08/2024 4:07 AM [facility] MCV 94.8 80.0 - 98.0 fL 06/08/2024 4:07 AM [facility] MCH 31.2 26.7 - 33.6 pg 06/08/2024 4:07 AM [facility] MCHC 33.0 31.7 - 36.3 g/dL 06/08/2024 4:07 AM [facility] RDW-CV 12.8 11.3 - 14.8 % 06/08/2024 4:07 AM [facility] Platelet Count 189 150 - 420 x10E9/L 06/08/2024 4:07 AM [facility] MPV 9.5 7.8 - 11.4 fL 06/08/2024 4:07 AM [facility] Blood BLOOD SPECIMEN / Unknown Lab Venipuncture / Unknown 06/08/2024 3:49 AM GEOSPATIAL IMAGE ANALYST 06/08/2024 4:01 AM [facility] Sharon Orozco MD LAB - HEMATOLOGY ORD ERABLES [facility] [address] [place] [address] * (ABNORMAL) RENAL FUNCTION PANEL (06/08/2024 3:49 AM [facility]) Glucose 85 70 - 99 mg/dL 06/08/2024 4:30 AM [facility] Sodium 138 136 - 145 mmol/L 06/08/2024 4:30 AM [facility] Potassium 3.9 3.5 - 5.1 mmol/L 06/08/2024 4:30 AM [facility] Chloride 108(H) 98 - 107 mmol/L 06/08/2024 4:30 AM [facility] CO2 26 22 - 29 mmol/L 06/08/2024 4:30 AM [facility] Calcium 8.3(L) 8.4 - 10.4 mg/dL 06/08/2024 4:30 AM [facility] Anion Gap 4(L) 6 - 16 mmol/L 06/08/2024 4:30 AM [facility] BUN 8 7 - 26 mg/dL 06/08/2024 4:30 AM [facility] Creatinine 0.65 0.57 - 1.11 mg/dL 06/08/2024 4:30 AM [facility] Albumin 2.9(L) 3.4 - 5.0 gm/dL 06/08/2024 4:30 AM [facility] Phosphorus 2.5 2.5 - 4.5 mg/dL 06/08/2024 4:30 AM [facility] eGFR by CKD-EPI >90 >=90 mL/min/1.7 3 m2 06/08/2024 4:30 AM [facility] Blood BLOOD SPECIMEN / Unknown Lab Venipuncture / Unknown 06/08/2024 3:49 AM GEOSPATIAL IMAGE ANALYST 06/08/2024 4:01 AM GEOSPATIAL IMAGE ANALYST Sharon Orozco MD LAB - CHEMISTRY LAURA Mendoza Organization Address City/State/ZIP Co de Phone Number [facility] [address] [place] [address] * CT Abdomen Pelvis W Contrast (06/07/2024 10:27 AM GEOSPATIAL IMAGE ANALYST) Anatomical Region Laterality Modality Abdomen, Pelvis Computed Tomogra phy 06/07/2024 10:3 3 AM GEOSPATIAL IMAGE ANALYST Impressions 06/07/2024 10:38 AM GEOSPATIAL IMAGE ANALYST IMPRESSION: 1. Findings compatible with acute uncomplicated sigmoid diverticulitis. > Interpreting Provider: Jaciel Meehan MD on 06/07/2024 10:38 AM Narrative 06/07/2024 10:38 AM GEOSPATIAL IMAGE ANALYST PROCEDURE: CT ABDOMEN PELVIS W CONTRAST DATE/TIME OF EXAM: 06/07/2024 10:28 AM CLINICAL INFORMATION: None relevant/not provided if blank. Indication: K57.92: Diverticulitis of intestine, part unspecified, without perforation or abscess without bleeding Additional History: COMPARISON: None. TECHNIQUE: CT of the abdomen and pelvis was performed following intravenous contrast utilizing standard protocol. CT dose reduction technique was used, including Automated Exposure Control. CONTRAST: IOPAMIDOL 76 % IV SOLN:95 mL FINDINGS: LUNG BASES: Mild dependent atelectasis. LIVER: Scattered too small to characterize hypoattenuating foci, statistically cysts, as well as a few or persist. Homogeneously hyperattenuating 9 mm hepatic segment 6 lesion on image 37 of series 2 with surrounding shunting, most likely a flash fill hemangioma. BILE DUCTS: Nondilated. GALLBLADDER: Within normal limits. SPLEEN: Within normal limits. PANCREAS: Within normal limits. ADRENALS: Within normal limits. KIDNEYS/URETERS: Few too small to characterize hypoattenuating foci in the right kidney, statistically cysts. BOWEL: Normal in caliber. Small duodenal diverticulum arising from the second portion. Moderate sigmoid diverticulosis with segmental wall thickening and pericolonic stranding compatible with acute diverticulitis. Scattered diverticulosis elsewhere. Appendix is normal. PERITONEUM/RETROPERITONEUM: No ascites, free air or enlarged mesenteric/retroperitoneal lymph nodes. PELVIC ORGANS: Few small fibroids. Suggestion of postsurgical changes in the right adnexa. Left adnexa and bladder are grossly normal. VESSELS: Abdominal aorta is moderately atherosclerotic but normal in caliber. ABDOMINAL WALL: Within normal limits. BONES: No suspicious lytic or blastic lesions. Procedure Note Jaciel Meehan MD - 06/07/2024 PROCEDURE: CT ABDOMEN PELVIS W CONTRAST DATE/TIME OF EXAM: 06/07/2024 10:28 AM CLINICAL INFORMATION: None relevant/not provided if blank. Indication: K57.92: Diverticulitis of intestine, part unspecified,without perforation or abscess without bleeding Additional History: COMPARISON: None. TECHNIQUE: CT of the abdomen and pelvis was performed following intravenouscontrast utilizing standard protocol. CT dose reduction technique was used, including Automated ExposureControl. CONTRAST: IOPAMIDOL 76 % IV SOLN:95 mL FINDINGS: LUNG BASES: Mild dependent atelectasis. LIVER: Scattered too small to characterize hypoattenuating foci, statistically cysts, as well as a few or persist. Homogeneously hyperattenuating 9 mm hepatic segment 6 lesion on image 37 of series 2with surrounding shunting, most likely a flash fill hemangioma. BILE DUCTS: Nondilated. GALLBLADDER: Within normal limits. SPLEEN: Within normal limits. PANCREAS: Within normal limits. ADRENALS: Within normal limits. KIDNEYS/URETERS: Few too small to characterize hypoattenuating foci inthe right kidney, statistically cysts. BOWEL: Normal in caliber. Small duodenal diverticulum arising from the second portion. Moderate sigmoid diverticulosis with segmental wall thickening and pericolonic stranding compatible with acutediverticulitis. Scattered diverticulosis elsewhere. Appendix is normal. PERITONEUM/RETROPERITONEUM: No ascites, free air or enlarged mesenteric/retroperitoneal lymph nodes. PELVIC ORGANS: Few small fibroids. Suggestion of postsurgical changes in the right adnexa. Left adnexa and bladder are grossly normal. VESSELS: Abdominal aorta is moderately atherosclerotic but normal in caliber. ABDOMINAL WALL: Within normal limits. BONES: No suspicious lytic or blastic lesions. IMPRESSION: 1. Findings compatible with acute uncomplicated sigmoid diverticulitis. > Interpreting Provider: Jaciel Meehan MD on 06/07/2024 10:38 AM Sharon Orozco MD CT ORDERABLES * (ABNORMAL) BASIC METABOLIC PANEL (CALCIUM TOTAL) (06/07/2024 3:45 AM GEOSPATIAL IMAGE ANALYST) Only the most recent of2 resultswithin the time period is included. Glucose 83 70 - 99 mg/dL 06/07/2024 5:47 AM GEOSPATIAL IMAGE ANALYST [facility] Sodium 137 136 - 145 mmol/L 06/07/2024 5:47 AM [facility] Potassium 3.5 3.5 - 5.1 mmol/L 06/07/2024 5:47 AM [facility] Chloride 105 98 - 107 mmol/L 06/07/2024 5:47 AM [facility] CO2 24 22 - 29 mmol/L 06/07/2024 5:47 AM [facility] Calcium 8.3(L) 8.4 - 10.4 mg/dL 06/07/2024 5:47 AM [facility] Anion Gap 8 6 - 16 mmol/L 06/07/2024 5:47 AM [facility] BUN 12 7 - 26 mg/dL 06/07/2024 5:47 AM [facility] Creatinine 0.73 0.57 - 1.11 mg/dL 06/07/2024 5:47 AM [facility] eGFR by CKD-EPI >90 >=90 mL/min/1.7 3 m2 06/07/2024 5:47 AM [facility] Blood BLOOD SPECIMEN / Unknown Lab Venipuncture / Unknown 06/07/2024 3:45 AM GEOSPATIAL IMAGE ANALYST 06/07/2024 4:59 AM [facility] Matt Thompson MD LAB - CHEMISTRY ORDE DIANA [facility] Organization Address City/State/ZIP Co de Phone Number [facility] [address] [place] [address] * MAGNESIUM BLOOD (06/07/2024 3:45 AM GEOSPATIAL IMAGE ANALYST) Only the most recent of2 resultswithin the time period is included. Magnesium 1.8 1.6 - 2.6 mg/dL 06/07/2024 5:47 AM [facility] Blood BLOOD SPECIMEN / Unknown Lab Venipuncture / Unknown 06/07/2024 3:45 AM GEOSPATIAL IMAGE ANALYST 06/07/2024 4:59 AM GEOSPATIAL IMAGE ANALYST Matt Thompson MD LAB - CHEMISTRY LAURA ORTIZ [facility] Organization Address City/State/ZIP Co de Phone Number [facility] [address] [place] [address] * (ABNORMAL) CBC W AUTO DIFFERENTIAL (06/06/2024 11:36 PM GEOSPATIAL IMAGE ANALYST) WBC 11.2(H) 4.0 - 10.7 x10E9/L 06/06/2024 11:47 PM [facility] RBC Count 3.96 3.90 - 5.20 x10E12/L 06/06/2024 11:47 PM [facility] Hemoglobin 12.4 11.9 - 15.8 g/dL 06/06/2024 11:47 PM [facility] Hematocrit 37.6 34.8 - 46.1 % 06/06/2024 11:47 PM [facility] MCV 94.9 80.0 - 98.0 fL 06/06/2024 11:47 PM [facility] MCH 31.3 26.7 - 33.6 pg 06/06/2024 11:47 PM [facility] MCHC 33.0 31.7 - 36.3 g/dL 06/06/2024 11:47 PM [facility] RDW-CV 13.2 11.3 - 14.8 % 06/06/2024 11:47 PM [facility] Platelet Count 174 150 - 420 x10E9/L 06/06/2024 11:47 PM [facility] MPV 9.7 7.8 - 11.4 fL 06/06/2024 11:47 PM [facility] Neutrophil % 66.1 41.0 - 74.0 % 06/06/2024 11:47 PM [facility] Lymphocyte % 22.7 17.0 - 47.0 % 06/06/2024 11:47 PM [facility] Monocyte % 8.2 3.0 - 11.0 % 06/06/2024 11:47 PM [facility] Eosinophil % 2.1 0.0 - 7.0 % 06/06/2024 11:47 PM GEOSPATIAL IMAGE ANALYST [facility] Basophil % 0.4 0.0 - 1.6 % 06/06/2024 11:47 PM GEOSPATIAL IMAGE ANALYST [facility] Immature Granulocytes % 0.5 0.0 - 1.0 % 06/06/2024 11:47 PM GEOSPATIAL IMAGE ANALYST [facility] Neutrophil Absolute 7.40 1.60 - 7.50 x10E9/L 06/06/2024 11:47 PM GEOSPATIAL IMAGE ANALYST [facility] Lymphocyte Absolute 2.54 1.00 - 4.40 x10E9/L 06/06/2024 11:47 PM GEOSPATIAL IMAGE ANALYST [facility] Monocyte Absolute 0.92 0.15 - 1.00 x10E9/L 06/06/2024 11:47 PM GEOSPATIAL IMAGE ANALYST [facility] Eosinophil Absolute 0.24 0.00 - 0.60 x10E9/L 06/06/2024 11:47 PM GEOSPATIAL IMAGE ANALYST [facility] Basophil Absolute 0.04 0.00 - 0.13 x10E9/L 06/06/2024 11:47 PM GEOSPATIAL IMAGE ANALYST [facility] Blood BLOOD SPECIMEN / Unknown Lab Venipuncture / Unknown 06/06/2024 11:36 PM GEOSPATIAL IMAGE ANALYST 06/06/2024 11:44 PM GEOSPATIAL IMAGE ANALYST Matt Thompson MD LAB - HEMATOLOGY ORD ERABLES [facility] [address] [place], [place] [id number] * LACTIC ACID BLOOD (06/06/2024 11:36 PM GEOSPATIAL IMAGE ANALYST) Lactic Acid 0.696 <=2 mmol/L 06/07/2024 12:04 AM GEOSPATIAL IMAGE ANALYST [facility] Blood BLOOD SPECIMEN / Unknown Lab Venipuncture / Unknown 06/06/2024 11:36 PM GEOSPATIAL IMAGE ANALYST 06/06/2024 11:43 PM GEOSPATIAL IMAGE ANALYST Matt Thompson MD LAB - CHEMISTRY ORDE RABTEJ Performing Organization Address City/[facility]/ZIP Co de Phone Number [facility] [address] [place] [id number] Care Teams Livestock Dealer Relationship Specialty Start Date End Date Johanny Reyes MD [address] [place] [id number] PCP - General Internal Medicine 06/06/24
--- OUTSIDE RECORDS SUMMARY | 2024-06-18 16:52 | XMS_ITS | Clinical Summary ---
Author Organization [facility] Address [address] [place] [address] Phone Care Team Providers Care Ticket Sales Supervisor Name Role Phone DONOVAN ESTEVEZ DO Unavailable [phone] Reason for Visit and Chief Complaint gynecologic consultation Here for IUD insertion. Currently on her period. Has had 2 Mirenas before - The Chief Complaint is: Procedure Mirena placement of period 12 pt is on peroid today Plan of Treatment - Insertion Of Iud - Last Documented On 08/02/2011 1:34PM ; [facility] In office procedures/*Family Practice: IUD - Last Documented On 08/02/2011 1:34PM ; [facility] Pending Tests Order Diagnosis Results Due Ordering Vielka hernandez In office procedures - *Family Practice IUD Insertion Of Iud 08/16/11 Graciela KNIGHT MD Last Documented On 2 1:34PM ; [facility] Assessments Includes: Assessments from this encounter Findings Mirena insertion. - Last Documented On 08/02/2011 1:34PM ; [facility] Medical Equipment - Implanted Devices Includes: Current Devices No Medical Equipment Recorded Medications Includes: Medications discussed during this encounter and other current Medications Current Medications (continue as prescribed) Atorvastatin Calcium 10 MG Oral Tablet 07/30/2023 Pr ovider: Diagnosis: Last Documented On 07/30/2023 5:10PM By Edwina Salcedo ; [facility] Advair Diskus 100-50 MCG/ACT Inhalation Aerosol Powder Breath Activated 07/30/2023 Provider: Diagnosis: Last Documented On 07/30/2023 5:11PM By Edwina Salcedo ; [facility] Singulair 10 MG Oral Tablet 07/30/2023 Provider: Diagnosis: Last Documented On 07/30/2023 5:11PM By Edwina Salcedo ; [facility] Amoxicillin-Pot Clavulanate 875-125 MG Oral Tablet 06/30/2023 Provider: KEN SANTAMARIA Diagnosis: Other specified disorders of teeth and supporting structures One tablet twice a day Last Documented On 4 5:28PM By Ken SANTAMARIA ; [facility] Verapamil HCl ER 360 MG Oral Capsule Extended Re lease 24 Hour 03/29/2022 Provider: Diagnosis: Last Documented On 03/29/2022 3:58PM By RAFAELA AVALOS [place] ; [facility] DULoxetine HCl 60 MG Oral Capsule Delayed Releas e Particles 03/29/2022 Provider: Diagnosis: Last Documented On 03/29/2022 4:00PM By RAFAELA MAGDALENO ; [facility] Past Medications on file Amoxicillin 875 MG Oral Tablet 09/11/2023 - 09/21/2023 Provider: KEN MARES DNP Diagnosis: Streptococcal pharyngitis 1 CAPSULE TWO TIMES A DAY Last Documented On 4 10:15AM By Ken Mares DNP ; [facility] Ofloxacin 0.3% Otic Solution 07/30/2023 - 08/06/2023 Provider: KEN MARES DNP Diagnosis: Otitis media, unspecified, left ear Apply 10 drops to the left e ar daily for 7 days Last Documented On 4 6:37PM By Ken Mares DNP ; [facility] Cefdinir 300 MG Oral Capsule 07/30/2023 - 08/09/2023 Provider: KEN STEVEN DNP Diagnosis: Otitis media, unspecified, left ear 1 CAPSULE TWO TIMES A DAY Last Documented On 4 5:50PM By Ken Mares DNP ; [facility] Amoxicillin 875 MG Oral Tablet 03/29/2022 - 04/08/2022 Provider: VLAD RIVERA SCREENING REPRESENTATIVE- Diagnosis: Acute serous will tis media, right ear One tablet twice a day Last Documented On 2 4:28PM By VLAD RIVERA SCREENING REPRESENTATIVE-BC ; [facility] Medications Administered Includes: Administered Medications from this encounter No Administered Medications Recorded Vital Signs Includes: Vital Signs from this encounter Vital Name 08/02/2011 01:00P Blood Pressure Sitting R 90/58 BP Cuff Size Regular Pulse Rate-Sitting (bpm) 72 Pulse Rhythm Regular Respiration Rate (breaths/min) 18 Weight (lb) 115 Last Documented: On 08/02/2011 1:13PM ; [facility] Results Includes: Results discussed during this encounter No Results Recorded For Specified Dates History of Present Illness Includes: History of Present Illness from this encounter No History of Present Illness Recorded Social History Description Last Updated In monogamous relationship 05/17/2011 Last Documented On 2 1:14PM ; [facility] Sexually active with partners in the 1 05/17/2011 Last Documented On 2 1:14PM ; [facility] Alcohol use: 2 drinks or less per day Last Documented On 2 1:14PM ; [facility] Cigarette smoking 0.5 pack-years 20 04/29 Last Documented On 2 1:14PM ; [facility] 05/17/2011 Last Documented On 2 1:14PM ; [facility] Does not have high school diploma 2011 Last Documented On 2 1:14PM ; [facility] 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 Last Documented On 2 1:14PM ; [facility] Smoking Status Unknown Medical History Includes: Medical History addressed during this encounter Description Last Updated History of asthma 05/17/2011 Last Documented On 2 1:14PM ; [facility] 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 05/17/2011 Last Documented On 2 1:14PM ; [facility] History of urinary tract infection appx 3 per year 05/17/2011 Last Documented On 2 1:14PM ; [facility] No history of cervical dysplasia 012 Last Documented On 2 1:14PM ; [facility] No history of dysfunctional uterine blee ding 05/17/2011 Last Documented On 2 1:14PM ; [facility] No history of human papilloma virus infe ction 05/17/2011 Last Documented On 2 1:14PM ; [facility] No history of vaginitis 05/17/2011 Last Documented On 2 1:14PM ; [facility] 3 05/17/2011 Last Documented On 2 1:14PM ; [facility] Para 3 05/17/2011 Last Documented On 2 1:14PM ; [facility] LMP: 04/25/2011 05/17/2011 Last Documented On 2 1:14PM ; [facility] sinus surgery ~perforated colon ~cluster headaches 05/17/2011 Last Documented On 2 1:14PM ; [facility] A colonoscopy was performed 2009 diverti culitis 05/17/2011 Last Documented On 2 1:14PM ; [facility] Asthma 05/17/2011 Last Documented On 2 1:14PM ; [facility] Last pap smear date 200905/17/2011 Last Documented On 2 1:14PM ; [facility] Result: normal 05/17/2011 Last Documented On 2 1:14PM ; [facility] Family History Includes: [...] Time Diagnosis IUD INSERTION Graciela MCNAIR MD [facility] 08/02/19 12 1:00PM 1:40PM Assessment [use For S.o.a.p. Note Free Text] Insurance Includes: Active Insurance Policies Plan Name Member ID Group # Subscriber Relationship Effect edelmira Dates 1 - [facility] [id number] ALEXX MELCHOR Self Clinical Notes Includes: Clinical Notes from this encounter No Clinical Notes Recorded
--- OUTSIDE RECORDS SUMMARY | 2024-06-18 16:52 | XMS_ITS | Continuity of Care Document ---
Author Organization [facility] [place] [address] [place] [address] Phone Care Team Providers Care Freelance Designer Name Role Phone Leoncio Seay MD Unavailable [...] No Charge [facility] IOLMaster-Technical Office/outpatient Visit, [facility] Advance Directives Directive Yes / No Effective Date File Name No Information Encounters Encounter Description Practice Location Reason(s) For Visit Diagnoses Date Provider Providers Copied on Encounter [facility], [address] [place] [address] [address], [place], [place], [id number], tel:[phone] [place] Professiona l 1 mo CE PO (09/14/20) (chief complaint) Post op visit 1 Dawood Fang. [address] [facility] [place], [place], [id number], [place]. tel:[phone] Referring Provider: Violet[facility] Brantley OD, [facility] [address] [place], [address]. tel:[phone] [facility], [address], [place], [place], [id number], [place] tel:[phone] [place] Profession[place] Post-Op (chief complaint) Post op visit 1 No Information Referring Provider: Violetta Brantley OD, [facility] [address] [place], [address]. tel:[phone] [facility], [address], [place], [place], [id number], [place] tel: [place] Professiona [place] 1 day CE PO (09/14/20) (chief complaint) Post op visit 1 No Information Referring Provider: Violetta Brantley OD, [facility] [address], [place], [address]. tel:[phone] [facility], [address], [place], [place], [id number], tel: [facility] No Information 1 Dawood Fang. [address], [address] [place], [place], [id number], . tel: Referring Provider: Violetta Brantley OD, [facility] [address], [place], [address]. tel:[phone] [facility], [address], [place], [place], [id number], [place] tel: [place] Profession[place] No Information 1 Dawood Fang. [address], [address] [place], [place], [id number], . tel:[phone] Referring Provider: Violetta Masonhop OD, [facility] [address], [place], [address]. tel:[phone] [facility], [address], [place], [place], [id number], [place] tel: [place] No Information 1 [address] Fang. [address] [facility] [place], [id number], . tel: [facility], [address], [place], [place], [address], tel: [place] Profession[place] Post-Op (chief complaint) Post op visit No Information Referring Provider: Violetta Brantley OD, [facility] [address], [place], [address]. tel:[phone] [facility], [address], [place], [place], [address], [place] tel:[phone] [place] Profession[place] 1 day po PCIOL OD (08/17/20) (chief complaint) Post op visit No Information Referring Provider: Violetta Brantley OD, [facility] [address], [place], [address]. tel:[phone] [facility], [address] [place] [address] [address], [place], [place], [id number], [place] tel: [facility] No Information Dawood Fang. [address] [facility] [place], [place], [address], [place]. tel:[phone] Referring Provider: Violetta Brantley OD, [facility] [address], [place], [address]. tel:[phone] [facility], [address], [place], [place], [address], [place] tel: [place] Profession[place] No Information Dawood Fang. [address], [facility] A, [place], [place], [id number], [place]. tel:[phone] Referring Provider: Violetta Brantley OD, [facility] [address], [place], [address]. tel:[phone] [facility], [address], [place], [place], [address], [place] tel:[phone] [place] Profession[place] Repeat measurements only (chief complaint) Age-related nuclear cataract, bilateral Jun- 1 Da[place] Fang. [address] [facility], [facility], [place], [place], [id number], [place]. tel:[phone] Referring Provider: Violetta Brantley OD, [facility] [address] [place], [address]. tel:[phone] [facility], [address], [place], [place], [address], [place] tel:[phone] [place] Profession[place] Cataract evaluation (chief complaint) Posterior polar cataract of both eyesAge-rela sandra nuclear cataract, bilateral 1 Dawood Fang. [address] [facility], [facility], [place], [place], [address], [place]. tel:[phone] Referring Provider: Violetta Brantley OD, [facility] [address] [place], [address]. tel:[phone] [facility] [employer] [facility], [address], [place], [place], [address], [place] tel:[phone] [place] Profession[place] No Information 1 No Information Family History Family Member Type Diagnosis Age At Onset Problem Family history of Diabetes m blaine Payers Payer name Insurance type Covered democrat ID Authoriza tion(s) No Information Social History [...]
--- OUTSIDE RECORDS SUMMARY | 2024-06-18 16:52 | XMS_ITS | Clinical Summary ---
Author Organization [facility] Address [address] [place] [address] Phone Care Team Providers Care Supervisor Machine Workers Name Role Phone DONOVAN ESTEVEZ DO Unavailable [phone] Reason for Visit and Chief Complaint The Chief Complaint is: Left ear drainage since yesterday morning and Rt ear cannot hear out of it with pain off & on since yesterday Plan of Treatment - Return to the clinic if condition worsens or new symptoms arise - Last Documented On 04/02/2022 10:05AM ; [facility] - Patient will call for appointment as needed - Last Documented On 04/02/2022 10:05AM ; [facility] Assessments Includes: Assessments from this encounter Findings - [H65.01 - Acute serous otitis media, right ear] Otitis media - Last Documented On 04/02/2022 10:05AM ; [facility] Medical Equipment - Implanted Devices Includes: Current Devices No Medical Equipment Recorded Medications Includes: Medications discussed during this encounter and other current Medications New / Renewed during this visit VLAD HENRIQUEZ on 03/29/2022 Amoxicillin 875 MG Oral Tablet Provider: VLAD HENRIQUEZ 10 day supply: 20 tablet, 0 refills Diagnosis: Acute serous otitis media, right ear One tablet twice a day Pharmacy: [facility], [id number] - Last Documented On 4:28PM By VLAD HENRIQUEZ ; [facility] Current Medications (continue as prescribed) Atorvastatin Calcium 10 MG Oral Tablet 07/30/2023 Pr ovider: Diagnosis: Last Documented On 07/30/2023 5:10PM By Edwina Salcedo ; [facility] Advair Diskus 100-50 MCG/ACT Inhalation Aerosol Powder Breath Activated 07/30/2023 Provider: Diagnosis: Last Documented On 07/30/2023 5:11PM By Edwina Salcedo ; [facility] Singulair 10 MG Oral Tablet 07/30/2023 Provider: Diagnosis: Last Documented On 07/30/2023 5:11PM By Edwina Salcedo ; [facility] Amoxicillin-Pot Clavulanate 875-125 MG Oral Tablet 06/30/2023 Provider: KEN SANTAMARIA Diagnosis: Other specified disorders of teeth and supporting structures One tablet twice a day Last Documented On 4 5:28PM By Ken SANTAMARIA ; [facility] Verapamil HCl ER 360 MG Oral Capsule Extended Re lease 24 Hour 03/29/2022 Provider: Diagnosis: Last Documented On 03/29/2022 3:58PM By RAFAELA MAGDALENO ; [facility] DULoxetine HCl 60 MG Oral Capsule Delayed Releas e Particles 03/29/2022 Provider: Diagnosis: Last Documented On 03/29/2022 4:00PM By RAFAELA MAGDALENO ; [facility] Past Medications on file Amoxicillin 875 MG Oral Tablet 09/11/2023 - 09/21/2023 Provider: KEN MARES DNP Diagnosis: Streptococcal pharyngitis 1 CAPSULE TWO TIMES A DAY Last Documented On 4 10:15AM By Ken Mares DNP ; [facility] Ofloxacin 0.3% Otic Solution 07/30/2023 - 08/06/2023 Provider: KEN MARES DNP Diagnosis: Otitis media, unspecified, left ear Apply 10 drops to the left e ar daily for 7 days Last Documented On 4 6:37PM By Ken Mares DNP ; [facility] Cefdinir 300 MG Oral Capsule [...] 96 Last Documented: On 03/29/2022 4:01PM ; [facility] Results Includes: Results discussed during [...] 03/29/2022 Last Documented On 2 10:05AM ; [facility] Sexually active with partners in the 05/17/2011 Last Documented On 2 3:58PM ; [facility] Alcohol use: 2 drinks or less per day Last Documented On 2 3:58PM ; [facility] Cigarette smoking 0.5 pack-years 20 04/29 Last Documented On 2 3:58PM ; [facility] 05/17/2011 Last Documented On 2 3:58PM ; [facility] 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 Last Documented On 2 3:58PM ; [facility] Smoking Status Unknown Procedures and Surgical History Includes: Procedures from this encounter Procedures Code Diagnosis Performing Provider Service L ocation Service Date use of tobacco assessment performed 1000F Last Documented On 2 3:58PM ; [facility] Clinical summary provided to patient Last Documented On 2 4:25PM ; [facility] Medical History Includes: Medical History addressed during this encounter Description Last Updated History of asthma 05/17/2011 Last Documented On 2 3:58PM ; [facility] 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 LMP: 04/25/2011 05/17/2011 Last Documented On 2 3:58PM ; [facility] sinus surgery ~perforated colon ~cluster headaches 05/17/2011 Last Documented On 2 3:58PM ; [facility] A colonoscopy was performed 2009 diverti culitis 05/17/2011 Last Documented On 2 3:58PM ; [facility] Asthma 05/17/2011 Last Documented On 2 3:58PM ; [facility] Last pap smear date 200905/17/2011 Last Documented On 2 3:58PM ; [facility] Result: normal 05/17/2011 Last Documented On 2 3:58PM ; [facility] Family History Includes: Family History addressed during this encounter Description Last Updated Family history of diabetes mellitus 04/29 Last Documented On 2 3:58PM ; [facility] Family history of Cancer Father & Grandp arents 05/17/2011 Last Documented On 2 3:58PM ; [facility] Family history of cardiac problems grand parents 05/17/2011 Last Documented On 2 3:58PM ; [facility] Family history of Diabetes grandparents 05/17/2011 Last Documented On 2 3:58PM ; [facility] Family history of high cholesterol paren ts 05/17/2011 Last Documented On 2 3:58PM ; [facility] Family history of Hypertension parents 0 05/17/2011 Last Documented On 2 3:58PM ; [facility] Family history of thyroid disease mother 05/17/2011 Last Documented On 2 3:58PM ; [facility] Review of Systems Includes: Review of Systems [...] IN PATIENT - NEW PT VLAD RIVERA [facility] 03/29/20 22 3:51PM 4:22PM Otitis Media Insurance Includes: Active Insurance Policies Plan Name Member ID Group # Subscriber Relationship Effect edelmira Dates 1 - [facility] [id number] ALEXX MELCHOR Self Clinical Notes Includes: Clinical Notes from this encounter No Clinical Notes Recorded
--- OUTSIDE RECORDS SUMMARY | 2024-06-18 16:52 | XMS_ITS | Clinical Summary ---
Author Organization [facility] Address [address] [place] [address] Care Team Providers Care Head Of Geography Name Role Phone Johanny Reyes MD Primary Care Provider [phone] Source Comments [facility],non-owned Affiliates and Associated Physician Practices is amultiple site organization consisting of ambulatory clinics and hospital sitesin [place], [place], [place] and [place]. This disclosure is being madepursuant to the Care Everywhere program and may not contain all information available regarding this patient. Last updated 18.[facility] Allergies No known active allergies Medications * Be aware that medications may not be up to date on this document. Alwaysverify current medications with the patient. Medication Sig Dispensed Refills Start Date End Date Status montelukast (Singulair) 10 MG tablet Take 1 (one) tablet by mouth at bedtime Active DULoxetine (Cymbalta) 60 MG capsule Take 1 (one) capsule by mouth at bedtime Active propranolol ER 24hr (Inderal LA) 80 MG capsule Take 1 (one) capsule by mouth at bedtime Active verapamil CR (Isoptin-SR) 120 MG tablet Take 1 (one) tablet by mouth at bedtime Active albuterol HFA (Proventil; Ventolin; Proair) 108 (90 Base) MCG/ACT inhaler Inhale 2 (two) puffs by mouth every 6 hours as needed for Shortness of Breath or Wheezing Active acetaminophen (Tylenol) 325 MG tablet Take 2 (two) tablets by mouth every 4 hours as needed 90 tablet 06/09/2024 Active polyethylene glycol 3350 (Miralax) 17 GM/SCOOP powder Mix one capful of powder in liquid and drink once daily as needed for constipation 510 g 06/09/2024 Active senna-docusate (Senokot-S) 8.6-50 MG tablet Take 2 (two) tablets by mouth once daily as needed for Constipation 30 tablet 06/09/2024 Active ciprofloxacin (Cipro) 500 MG tablet Take 1 (one) tablet by mouth every 12 hours for 7 days 14 tablet 06/09/2024 06/16/2024 metroNIDAZOLE (Flagyl) 500 MG tablet Take 1 (one) tablet by mouth every 8 hours for 7 days 21 tablet 06/09/2024 06/16/2024 Active Problems Problem Noted Date Diagnosed Date [...] 10/10/2012 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 Vestibular migraine 06/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 Encounters Date Type Department Care Team Description 06/06/2024 9:04 PM [employer] - 06/09/2024 4:00 PM [facility] Hospital Encounter [facility] 2 ORTHO/NEW VIS [address] [place] [address] Martin Booth MD Qazi, MD Pam Gutierrez Saira, MD Hambolu, Kehinde, MD Kang, MD Fabiola Hospitalist Discharge Disposition: Home or Self Care 06/06/2024 Travel from Last 3 Months Immunizations Name Administration Dates Next Due Covid Moderna primary monova lent 12+ yr 0.5mL 05/08/2021,06/11/2020,05/14/2020 FLU VACCINE TRI IIV3 SPLIT IM (FLUVIRIN) 013 INFLUENZA VACCINE 02/18/2018 INFLUENZA VACCINE, QUADR. (A FLURIA, FLUZONE QUADRIVALENT; 6MO+) (IIV4) 02/13/2019,02/18/2015,02/02/2014 INFLUENZA VACCINE, QUADR. (F LUZONE; FLULAVAL; FLUARIX; AFLURIA QUADRIVALENT; 6MO+), 0.5 ML (IIV4) 02/19/2023 PNEUMOCOCCAL PPV VACCINE 12/31/2018 TDAP, HISTORIC VACCINE 12/31/2018 Social History Tobacco Use Types Packs/Day Years [...] and heating? Not hard at all 06/06/2024 [facility] - Occupational Stress [...] any time in the past 12 m [facility] [place], were you homeless or living in a skilled nursing (including now)? No 06/06/2024 Sex and Gender Information Value Date Recorded Sex Assigned at Female 06/06/2024 8:59 PM [employer] Gender Identity Not on file Sexual Orientation Not on file Last Filed Vital Signs Vital Sign Reading Time Taken Comments Blood Pressure 99/65 06/09/2024 11:27 AM [employer] Pulse 68 06/09/2024 11:27 AM [employer] Temperature 36.4 C (97.5 F) 06/09/2024 11:27 AM [employer] Respiratory Rate 18 06/09/2024 11:27 AM [employer] Oxygen Saturation 93% 06/09/2024 11:27 AM [employer] Inhaled Oxygen Concentration - - Weight 59 kg (130 lb) 06/06/2024 9:10 PM [employer] Height 170.2 cm (5' 7 ) 06/06/2024 9:10 PM [employer] Body Mass Index 20.36 06/06/2024 9:10 PM [employer] Plan of Treatment Upcoming Encounters Date Type Department Care Team (Late st Contact Info) Description 07/01/2024 10:45 AM [employer] Office Visit [facility] - Colorectal Surgery [address] [place] [phone] Tj Estrada MD [address] [place] [phone] Health Maintenance Due Date Last Done Comments COLOGUARD (AGES 45-75) - COLON CA SCREENING 1973 COLON MONITORING 1973 COLONOSCOPY - COLON CA SCREENING 1973 CT COLONOGRAPHY - COLON CA SCREENING 1973 Colorectal Cancer Screening 1973 FIT - COLON CA SCREENING 1973 FLEX SIG - COLON CA SCREENING 1973 LIPID TESTING 1973 MAMMOGRAM 1973 PAP SMEAR 1973 HIV SCREENING 1988 HEPATITIS C SCREENING 03/05/1991 HEPATITIS B VACCINE (1 of 3 - 19+ 3-dose series) 1992 PNEUMOCOCCAL VACCINE 50+ (2 of 2 - PCV) 01/01/2020 12/31/2018 ZOSTER VACCINE (1 of 2) 2023 COVID-19 VACCINE (4 - season) 2023 05/08/2021, 06/11/2020, 05/14/2020 INFLUENZA VACCINE (#1) 2023 3, 02/13/2019, 02/18/2018, Additional history exists DEPRESSION SCREENING 04/29/2024 DTAP/TDAP/TD VACCINES (2 - Td or Tdap) 12/31/2028 12/31/2018 HIB VACCINE Aged Out No longer eligi ble based on patient's age to complete this topic HPV VACCINE Aged Out No longer eligi ble based on patient's age to complete this topic MENINGOCOCCAL (Group B) VACCINE Aged Out No longer eligible based on patient's age to complete this topic MENINGOCOCCAL VACCINE Aged Out No víctor janie eligible based on patient's age to complete this topic Procedures Procedure Name Priority Date/Time Associated Diagnosis Comments CARDIAC RHYTHM STRIP ORDER 06/11/2024 10:04 PM [employer] GLUCOSE - POINT OF CARE Routine 06/09/2024 12:22 PM [employer] GLUCOSE - POINT OF CARE Routine 06/09/2024 7:54 AM [employer] GLUCOSE - POINT OF CARE Routine 06/08/2024 6:12 PM [employer] GLUCOSE - POINT OF CARE Routine 06/08/2024 12:34 PM [employer] GLUCOSE - POINT OF CARE Routine 06/08/2024 4:57 AM [employer] CBC W/O DIFFERENTIAL AM Draw 06/08/2024 3:49 AM [employer] RENAL FUNCTION PANEL AM Draw 06/08/2024 3:49 AM [employer] GLUCOSE - POINT OF CARE Routine 06/07/2024 11:32 PM [employer] GLUCOSE - POINT OF CARE Routine 06/07/2024 6:19 PM [employer] GLUCOSE - POINT OF CARE Routine 06/07/2024 12:[address] [employer] [address] ABDOMEN PELVIS W CONTRAST STAT 06/07/2024 10:27 AM [employer] Acute diverticulitis GLUCOSE - POINT OF CARE Routine 06/07/2024 6:26 AM [employer] MAGNESIUM BLOOD Routine 06/07/2024 3:45 AM [employer] CBC W/O DIFFERENTIAL Routine 06/07/2024 3:45 AM [employer] BASIC METABOLIC PANEL (CALCIUM TOTAL) Routine 06/07/2024 3:45 AM [employer] MAGNESIUM BLOOD STAT 06/06/2024 11:36 PM [employer] CBC W AUTO DIFFERENTIAL STAT 06/06/2024 11:36 PM [employer] LACTIC ACID BLOOD STAT 06/06/2024 11: 36 PM [employer] BASIC METABOLIC PANEL (CALCIUM TOTAL) STAT 06/06/2024 11:36 PM [employer] from Last 3 Months Results * CARDIAC RHYTHM STRIP ORDER (06/11/2024 10:04 PM [employer]) Narrative 06/11/2024 10:04 PM [employer] Ordered by an unspecified provider. Scanned Document CARDIAC SERVICES ORD ERABLES * GLUCOSE - POINT OF CARE (06/09/2024 12:22 PM [employer]) Only the most recent of9 resultswithin the time period is included. Glucose WB/POC 90 70 - 99 mg/dL 06/09/2024 12:32 PM [employer] [facility] Specimen Type Cap Fingerstick 2024 12:32 PM [employer] [facility] Blood BLOOD SPECIMEN / Unknown 06/09/2024 12:22 PM [employer] 06/09/2024 12:31 PM [employer] Fabiola Mckeon MD LAB - POINT OF CARE ORDERABLES Performing Organization Address City/[facility]/ZIP Co de Phone Number [facility] [address] [place] [address] * (ABNORMAL) CBC W/O DIFFERENTIAL (06/08/2024 3:49 AM [employer]) Only the most recent of2 resultswithin the time period is included. [facility] WBC 7.2 4.0 - 10.7 x10E9/L 06/08/2024 4:07 AM [facility] RBC Count 3.81(L) 3.90 - 5.20 x10E12/L 06/08/2024 4:07 AM [facility] Hemoglobin 11.9 11.9 - 15.8 g/dL 06/08/2024 4:07 AM [facility] Hematocrit 36.1 34.8 - 46.1 % 06/08/2024 4:07 AM [facility] MCV 94.8 80.0 - 98.0 fL 06/08/2024 4:07 AM [facility] MCH 31.2 26.7 - 33.6 pg 06/08/2024 4:07 AM [facility] MCHC 33.0 31.7 - 36.3 g/dL 06/08/2024 4:07 AM [facility] RDW-CV 12.8 11.3 - 14.8 % 06/08/2024 4:07 AM [facility] Platelet Count 189 150 - 420 x10E9/L 06/08/2024 4:07 AM [facility] MPV 9.5 7.8 - 11.4 fL 06/08/2024 4:07 AM [facility] Blood BLOOD SPECIMEN / Unknown Lab Venipuncture / Unknown 06/08/2024 3:49 AM [employer] 06/08/2024 4:01 AM [employer] Sharon Orozco MD LAB - HEMATOLOGY ORD ERABLES [facility] [address] [place] [address] * (ABNORMAL) RENAL FUNCTION PANEL (06/08/2024 3:49 AM [facility]) [facility] Glucose 85 70 - 99 mg/dL 06/08/2024 4:30 AM [facility] Sodium 138 136 - 145 mmol/L 06/08/2024 4:30 AM [facility] Potassium 3.9 3.5 - 5.1 mmol/L 06/08/2024 4:30 AM [facility] Chloride 108(H) 98 - 107 mmol/L 06/08/2024 4:30 AM [facility] CO2 26 22 - 29 mmol/L 06/08/2024 4:30 AM [facility] Calcium 8.3(L) 8.4 - 10.4 mg/dL 06/08/2024 4:30 AM [facility] Anion Gap 4(L) 6 - 16 mmol/L 06/08/2024 4:30 AM [facility] BUN 8 7 - 26 mg/dL 06/08/2024 4:30 AM [facility] Creatinine 0.65 0.57 - 1.11 mg/dL 06/08/2024 4:30 AM [facility] Albumin 2.9(L) 3.4 - 5.0 gm/dL 06/08/2024 4:30 AM [facility] Phosphorus 2.5 2.5 - 4.5 mg/dL 06/08/2024 4:30 AM [facility] eGFR by CKD-EPI >90 >=90 mL/min/1.7 3 m2 06/08/2024 4:30 AM [facility] Blood BLOOD SPECIMEN / Unknown Lab Venipuncture / Unknown 06/08/2024 3:49 AM [employer] 06/08/2024 4:01 AM [facility] Sharon Orozco MD LAB - CHEMISTRY LAURA ORTIZ [facility] Organization Address City/State/ZIP Co de Phone Number [facility] [address] [place] [address] * CT Abdomen Pelvis W Contrast (06/07/2024 10:27 AM [employer]) Anatomical Region Laterality Modality Abdomen, Pelvis Computed Tomogra phy 06/07/2024 10:3 3 AM [employer] Impressions 06/07/2024 10:38 AM [employer] IMPRESSION: 1. Findings compatible with acute uncomplicated sigmoid diverticulitis. > Interpreting Provider: Jaciel Meehan MD on 06/07/2024 10:38 AM Narrative 06/07/2024 10:38 AM [employer] PROCEDURE: CT ABDOMEN PELVIS W CONTRAST DATE/TIME [...] METABOLIC PANEL (CALCIUM TOTAL) (06/07/2024 3:45 AM [employer]) Only the most recent of2 resultswithin the time period is included. Glucose 83 70 - 99 mg/dL 06/07/2024 5:47 AM [employer] [facility] Sodium 137 136 - 145 mmol/L 06/07/2024 5:47 AM [employer] [facility] Potassium 3.5 3.5 - 5.1 mmol/L 06/07/2024 5:47 AM [employer] [facility] Chloride 105 98 - 107 mmol/L 06/07/2024 5:47 AM [facility] CO2 24 22 - 29 mmol/L 06/07/2024 5:47 AM [facility] Calcium 8.3(L) 8.4 - 10.4 mg/dL 06/07/2024 5:47 AM [facility] Anion Gap 8 6 - 16 mmol/L 06/07/2024 5:47 AM [facility] BUN 12 7 - 26 mg/dL 06/07/2024 5:47 AM [facility] Creatinine 0.73 0.57 - 1.11 mg/dL 06/07/2024 5:47 AM [facility] eGFR by CKD-EPI >90 >=90 mL/min/1.7 3 m2 06/07/2024 5:47 AM [facility] Blood BLOOD SPECIMEN / Unknown Lab Venipuncture / Unknown 06/07/2024 3:45 AM [employer] 06/07/2024 4:59 AM [employer] Matt Thompson MD LAB - CHEMISTRY ORDSung ORTIZ Performing Organization Address City/[facility]/ZIP Co de Phone Number [facility] [address] [place], [place] [id number] * MAGNESIUM BLOOD (06/07/2024 3:45 AM [employer]) Only the most recent of2 resultswithin the time period is included. Magnesium 1.8 1.6 - 2.6 mg/dL 06/07/2024 5:47 AM [facility] Blood BLOOD SPECIMEN / Unknown Lab Venipuncture / Unknown 06/07/2024 3:45 AM [employer] 06/07/2024 4:59 AM [employer] Matt Thompson MD LAB - CHEMISTRY ORDSung ORTIZ [facility] [address] [place] [phone] * (ABNORMAL) CBC W AUTO DIFFERENTIAL (06/06/2024 11:36 PM [employer]) WBC 11.2(H) 4.0 - 10.7 x10E9/L 06/06/2024 11:47 PM [facility] RBC Count 3.96 3.90 - 5.20 x10E12/L 06/06/2024 11:47 PM [facility] Hemoglobin 12.4 11.9 - 15.8 g/dL 06/06/2024 11:47 PM [facility] Hematocrit 37.6 34.8 - 46.1 % 06/06/2024 11:47 PM [facility] MCV 94.9 80.0 - 98.0 fL 06/06/2024 11:47 PM [facility] MCH 31.3 26.7 - 33.6 pg 06/06/2024 11:47 PM [facility] MCHC 33.0 31.7 - 36.3 g/dL 06/06/2024 11:47 PM [facility] RDW-CV 13.2 11.3 - 14.8 % 06/06/2024 11:47 PM [facility] Platelet Count 174 150 - 420 x10E9/L 06/06/2024 11:47 PM [facility] MPV 9.7 7.8 - 11.4 fL 06/06/2024 11:47 PM [facility] Neutrophil % 66.1 41.0 - 74.0 % 06/06/2024 11:47 PM [facility] Lymphocyte % 22.7 17.0 - 47.0 % 06/06/2024 11:47 PM [facility] Monocyte % 8.2 3.0 - 11.0 % 06/06/2024 11:47 PM [facility] Eosinophil % 2.1 0.0 - 7.0 % 06/06/2024 11:47 PM [facility] Basophil % 0.4 0.0 - 1.6 % 06/06/2024 11:47 PM [facility] Immature Granulocytes % 0.5 0.0 - 1.0 % 06/06/2024 11:47 PM [facility] Neutrophil Absolute 7.40 1.60 - 7.50 x10E9/L 06/06/2024 11:47 PM [facility] Lymphocyte Absolute 2.54 1.00 - 4.40 x10E9/L 06/06/2024 11:47 PM [employer] [facility] Monocyte Absolute 0.92 0.15 - 1.00 x10E9/L 06/06/2024 11:47 PM [employer] [facility] Eosinophil Absolute 0.24 0.00 - 0.60 x10E9/L 06/06/2024 11:47 PM [employer] [facility] Basophil Absolute 0.04 0.00 - 0.13 x10E9/L 06/06/2024 11:47 PM [employer] [facility] Blood BLOOD SPECIMEN / Unknown Lab Venipuncture / Unknown 06/06/2024 11:36 PM [employer] 06/06/2024 11:44 PM [employer] Matt Thompson MD LAB - HEMATOLOGY ORD ERABLES [facility] [address] [place], [place] [id number] * LACTIC ACID BLOOD (06/06/2024 11:36 PM [employer]) Lactic Acid 0.696 <=2 mmol/L 06/07/2024 12:04 AM [employer] [facility] Blood BLOOD SPECIMEN / Unknown Lab Venipuncture / Unknown 06/06/2024 11:36 PM [employer] 06/06/2024 11:43 PM [employer] Matt Thompson MD LAB - CHEMISTRY ORDE DIANA [facility] [address] [place] [address] from Last 3 Months Advance Directives * Full Code (Latest Code Status on File) Date Activated Date Inactivated Comments 06/06/2024 10:47 PM 06/09/2024 5:30 PM Care Teams Head Of Geography Relationship Specialty Start Date End Date Johanny Reyes MD [address] [place] [id number] PCP - General Internal Medicine 06/06/24
--- OUTSIDE RECORDS SUMMARY | 2024-06-18 16:52 | XMS_ITS | Clinical Summary ---
Author Organization [facility] Address [address] [place] [address] Phone Care Team Providers Care Rail Manager Name Role Phone DONOVAN ESTEVEZ DO Unavailable [phone] Reason for Visit and Chief Complaint The Chief Complaint is: Sore throat ~PT IS DUE TO SORE THROAT, CHILLS, FATIGUE, BODY ACHES, AND SORE THROAT SINCE YESTERDAY DID FLU COVID STREP Plan of Treatment - Return to the clinic if condition worsens or new symptoms arise - Last Documented On 09/11/2023 10:44AM ; [facility] Strep test was positive at today's visit. [...] - Last Documented On 09/11/2023 10:44AM ; [facility] Assessments Includes: Assessments from this encounter Findings - [J02.0 - Streptococcal pharyngitis] Group A streptococcus: B hemolytic pharyngitis - Last Documented On 09/11/2023 10:44AM ; [facility] Medical Equipment - Implanted Devices Includes: Current Devices No Medical Equipment Recorded Medications Includes: Medications discussed during this encounter and other current Medications New / Renewed during this visit KEN MARES DNP on 09/11/2023 Amoxicillin 875 MG Oral Tablet Provider: KEN Aburto [employer] 10 day supply: 20 tablet, 0 refills Diagnosis: Streptococcal pharyngitis 1 CAPSULE TWO TIMES A DAY Pharmacy: [address], [phone] - Last Documented On 4 10:15AM By Ken Mares DNP ; [facility] Current Medications (continue as prescribed) Atorvastatin Calcium 10 MG Oral Tablet 07/30/2023 Pr ovider: Diagnosis: Last Documented On 07/30/2023 5:10PM By Edwina Salcedo ; [facility] Advair Diskus 100-50 MCG/ACT Inhalation Aerosol Powder Breath Activated 07/30/2023 Provider: Diagnosis: Last Documented On 07/30/2023 5:11PM By Edwina Salcedo ; [facility] Singulair 10 MG Oral Tablet 07/30/2023 Provider: Diagnosis: Last Documented On 07/30/2023 5:11PM By Edwina Salcedo ; [facility] Amoxicillin-Pot Clavulanate 875-125 MG Oral Tablet 06/30/2023 Provider: KEN SANTAMARIA Diagnosis: Other specified disorders of teeth and supporting structures One tablet twice a day Last Documented On 4 5:28PM By Ken SANTAMARIA ; [facility] Verapamil HCl ER 360 MG Oral Capsule Extended Re lease 24 Hour 03/29/2022 Provider: Diagnosis: Last Documented On 03/29/2022 3:58PM By RAFAELA MAGDALENO ; [facility] DULoxetine HCl 60 MG Oral Capsule Delayed Releas e Particles 03/29/2022 Provider: Diagnosis: Last Documented On 03/29/2022 4:00PM By RAFAELA MAGDALENO ; [facility] Medications Administered Includes: Administered Medications from this encounter No Administered Medications Recorded Vital Signs Includes: Vital Signs from this encounter Vital Name 09/11/2023 09:58A Pulse Rate-Sitting (bpm) 94 Respiration Rate (breaths/min) 21 Temp-Oral (F) 98.9 Height (in) 65 Weight (lb) 108.375 Body Mass Index 18 Body Surface Area 1.5 Oxygen Saturation (%) 98 Last Documented: On 09/11/2023 9:58AM ; [facility] Results Includes: Results discussed during this encounter Group A strep [facility] Ordered by KEN MARES DNP on Collected: Reported: 09/11/2023 Last Documented On 4 10:14AM ; [facility] Reviewed on 09/11/2023; All test results are final unless otherwise noted. Rapid Strep POS A (Abnormal) Last Documented On 4 10:12AM ; [facility] LOT # AND EXP. DATE [id number] 02-28-24 N (Normal) Last Documented On 4 10:12AM ; [facility] INT. QC ACCEPTABLE? YES N (Normal) Last Documented On 4 10:12AM ; [facility] SARS COVID-19 FLU A & B [facility] Ordered by KEN MARES DNP on Collected: Reported: 09/11/2023 Last Documented On 4 10:14AM ; [facility] Reviewed on 09/11/2023; All test results are final unless otherwise noted. COVID NEG N (Normal) Last Documented On 4 10:12AM ; [facility] INFLUENZA A NEG (Negative) N (Normal) Last Documented On 4 10:12AM ; [facility] INFLUENZA B NEG (negative) N (Normal) Last Documented On 4 10:12AM ; [facility] INT. QC ACCEPTABLE? YES N (Normal) Last Documented On 4 10:12AM ; [facility] LOT # & EXP. DATE [id number] 04-16-24 N (Normal) Last Documented On 4 10:12AM ; [facility] History of Present Illness Includes: History [...] 09/11/2023 Last Documented On 4 10:44AM ; [facility] Not a current smoker 09/11/2023 Last Documented On 4 10:44AM ; [facility] Smoking Status Unknown Procedures and Surgical History Includes: Procedures from this encounter Procedures Code Diagnosis Performing Provider Service Location Service Date SARS-CO,SARS-COV- 2, INFLUENZA A/B TEST (CLIA WAIVED) 97389 Fever, unspecified KEN MARES [facility] 09/11/2023 Last Documented On 4 6:23PM ; [facility] STREP TEST SCREENING (CLIA WAIVED) 31185 Streptococcal pharyngitis KEN MARES [facility] 09/11/2023 Last Documented On 4 6:23PM ; [facility] Pt to use prescription as ordered. Purpo se of and use of medication discussed.~ Last Documented On 4 10:14AM ; [facility] Pt to use OTC fever/pain product as need ed per product instruction.~ Last Documented On 4 10:14AM ; [facility] use of tobacco assessment performed 1000F Last Documented On 4 9:58AM ; [facility] review of medications documented 1160F Last Documented On 4 9:58AM ; [facility] Clinical summary provided to patient Last Documented On 4 10:14AM ; [facility] Medical History Includes: Medical History addressed during this encounter Description Last Updated No Contact with and (Suspected) exposure to COVID-19 09/11/2023 Last Documented On 4 10:44AM ; [facility] No fall 09/11/2023 Last Documented On 4 10:44AM ; [facility] Family History Includes: Family History [...] SICK VISIT- ESTABLISHED PATIENT KEN MARES DNP [facility] 09/11/19 24 9:25AM 10:14AM Pharyngitis Streptococcus, Group A: Beta Hemolytic Insurance Includes: Active Insurance Policies Plan Name Member ID Group # Subscriber Relationship Effect edelmira Dates 1 - [facility] [id number] HARRIET MELCHOR Self Clinical Notes Includes: Clinical Notes from this encounter * Progress note Date Encounter Last Documented by 09/11/2023 COVID SICK VISIT- ESTABLISHED ANGEL CLARK Last documented on 09/11/2023; 10:44 AM, KEN MARES DNP; [facility] Chief Complaint The Chief Complaint is: Sore [...] POS Abnormal LOT # AND EXP. DATE [id number] 02-28-24 Normal INT. QC ACCEPTABLE? YES Normal - Test: SARS COVID-19 FLU A & B Report Date: 09/11/2023 COVID NEG Normal INFLUENZA A NEG Normal INFLUENZA B NEG Normal INT. QC ACCEPTABLE? YES Normal LOT # & EXP. DATE [id number] 04-16-24 Normal Assessment - [J02.0 - Streptococcal [...]
--- OUTSIDE RECORDS SUMMARY | 2024-06-18 16:52 | XMS_ITS ---
Care Plan - [facility] Created on: June 18, 2024 ALEXX MELCHOR : 1975 Sex: Female Author Organization [facility] Address [address] [place] [address] Phone Care Team Providers Care Lockstitcher Name Role Phone DONOVAN ESTEVEZ DO Unavailable [phone]
--- OUTSIDE RECORDS SUMMARY | 2024-06-18 16:52 | XMS_ITS | Referral Summary ---
Author Organization [facility] Address [address] [place] [address] Care Team Providers Care Agricultural Research Director Name Role Phone Johanny Reyes MD Primary Care Provider [phone] Source Comments [facility],non-owned Affiliates and Associated Physician Practices is amultiple site organization consisting of ambulatory clinics and hospital sitesin [place], [place], [place] and [place]. This disclosure is being madepursuant to the Care Everywhere program and may not contain all information available regarding this patient. 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 Not hard at all 06/06/2024 [facility] [place] [facility] Occupat ional [facility] - Occupational Stress [...] any time in the past 12 m [facility], were you homeless or living in a nursing home (including now)? No 06/06/2024 Sex and Gender Information Value Date Recorded Sex Assigned at Female 06/06/2024 8:59 PM CHURN DRILL OPERATOR Gender Identity Not on file Sexual Orientation Not on file Last Filed Vital Signs Vital Sign Reading Time Taken Comments Blood Pressure 99/65 06/09/2024 11:27 AM CHURN DRILL OPERATOR Pulse 68 06/09/2024 11:27 AM CHURN DRILL OPERATOR Temperature 36.4 C (97.5 F) 06/09/2024 11:27 AM CHURN DRILL OPERATOR Respiratory Rate 18 06/09/2024 11:27 AM CHURN DRILL OPERATOR Oxygen Saturation 93% 06/09/2024 11:27 AM CHURN DRILL OPERATOR Inhaled Oxygen Concentration - - Weight 59 kg (130 lb) 06/06/2024 9:10 PM CHURN DRILL OPERATOR Height 170.2 cm (5' 7 ) 06/06/2024 9:10 PM CHURN DRILL OPERATOR Body Mass Index 20.36 06/06/2024 9:10 PM CHURN DRILL OPERATOR Functional Status Functional Status Response Date of Assess ment Is person deaf or have serious hearing difficult y? No 06/06/2024 Is person blind or have serious difficulty seein g? No 06/06/2024 Does person have serious dif ficulty walking/climbing stairs? No 06/06/2024 Does person have difficulty dressing/bathing? No 06/06/2024 Does person have difficulty doing errands alone? No 06/06/2024 Cognitive Status Response Date of Assessm ent Does person have difficulty concentrating/remembering/making decisions? No 06/06/2024 Plan of Treatment Upcoming Encounters Date Type Department Care Team (Late st Contact Info) Description 07/01/2024 10:45 AM CHURN DRILL OPERATOR Office Visit [facility] - Colorectal Surgery [address] [place] [address] Tj Estrada MD [address] [place] [address] Procedures Procedure Name Priority Date/Time Associated Diagnosis Comments CARDIAC RHYTHM STRIP ORDER 06/11/2024 10:04 PM CHURN DRILL OPERATOR GLUCOSE - POINT OF CARE Routine 06/09/2024 12:22 PM CHURN DRILL OPERATOR GLUCOSE - POINT OF CARE Routine 06/09/2024 7:54 AM CHURN DRILL OPERATOR GLUCOSE - POINT OF CARE Routine 06/08/2024 6:12 PM CHURN DRILL OPERATOR GLUCOSE - POINT OF CARE Routine 06/08/2024 12:34 PM CHURN DRILL OPERATOR GLUCOSE - POINT OF CARE Routine 06/08/2024 4:57 AM CHURN DRILL OPERATOR CBC W/O DIFFERENTIAL AM Draw 06/08/2024 3:49 AM CHURN DRILL OPERATOR RENAL FUNCTION PANEL AM Draw 06/08/2024 3:49 AM CHURN DRILL OPERATOR GLUCOSE - POINT OF CARE Routine 06/07/2024 11:32 PM CHURN DRILL OPERATOR GLUCOSE - POINT OF CARE Routine 06/07/2024 6:19 PM CHURN DRILL OPERATOR GLUCOSE - POINT OF CARE Routine 06/07/2024 12:[address] ABDOMEN PELVIS W CONTRAST STAT 06/07/2024 10:27 AM CHURN DRILL OPERATOR Acute diverticulitis GLUCOSE - POINT OF CARE Routine 06/07/2024 6:26 AM CHURN DRILL OPERATOR MAGNESIUM BLOOD Routine 06/07/2024 3:45 AM CHURN DRILL OPERATOR CBC W/O DIFFERENTIAL Routine 06/07/2024 3:45 AM CHURN DRILL OPERATOR BASIC METABOLIC PANEL (CALCIUM TOTAL) Routine 06/07/2024 3:45 AM CHURN DRILL OPERATOR MAGNESIUM BLOOD STAT 06/06/2024 11:36 PM CHURN DRILL OPERATOR CBC W AUTO DIFFERENTIAL STAT 06/06/2024 11:36 PM CHURN DRILL OPERATOR LACTIC ACID BLOOD STAT 06/06/2024 11: 36 PM CHURN DRILL OPERATOR BASIC METABOLIC PANEL (CALCIUM TOTAL) STAT 06/06/2024 11:36 PM CHURN DRILL OPERATOR from Last 3 Months Results * CARDIAC RHYTHM STRIP ORDER (06/11/2024 10:04 PM CHURN DRILL OPERATOR) Narrative 06/11/2024 10:04 PM CHURN DRILL OPERATOR Ordered by an unspecified provider. Scanned Document CARDIAC SERVICES ORD ERABLES * GLUCOSE - POINT OF CARE (06/09/2024 12:22 PM CHURN DRILL OPERATOR) Only the most recent of9 resultswithin the time period is included. Pathologist [facility] Glucose WB/POC 90 70 - 99 mg/dL 06/09/2024 12:32 PM CHURN DRILL OPERATOR [facility] Specimen Type Cap Fingerstick 2024 12:32 PM CHURN DRILL OPERATOR [facility] Blood BLOOD SPECIMEN / Unknown 06/09/2024 12:22 PM CHURN DRILL OPERATOR 06/09/2024 12:31 PM CHURN DRILL OPERATOR Fabiola Mckeon MD LAB - POINT OF CARE ORDERABLES Performing Organization Address City/State/[facility] Co de Phone Number [facility] [address] [place] [address] * (ABNORMAL) CBC W/O DIFFERENTIAL (06/08/2024 3:49 AM CHURN DRILL OPERATOR) Only the most recent of2 resultswithin the time period is included. WBC 7.2 4.0 - 10.7 x10E9/L 06/08/2024 4:07 AM CHURN DRILL OPERATOR [facility] RBC Count 3.81(L) 3.90 - 5.20 x10E12/L 06/08/2024 4:07 AM CHURN DRILL OPERATOR [facility] Hemoglobin 11.9 11.9 - 15.8 g/dL 06/08/2024 4:07 AM CHURN DRILL OPERATOR [facility] Hematocrit 36.1 34.8 - 46.1 % 06/08/2024 4:07 AM [facility] MCV 94.8 80.0 - 98.0 fL 06/08/2024 4:07 AM [facility] MCH 31.2 26.7 - 33.6 pg 06/08/2024 4:07 AM [facility] MCHC 33.0 31.7 - 36.3 g/dL 06/08/2024 4:07 AM [facility] RDW-CV 12.8 11.3 - 14.8 % 06/08/2024 4:07 AM [facility] Platelet Count 189 150 - 420 x10E9/L 06/08/2024 4:07 AM [facility] MPV 9.5 7.8 - 11.4 fL 06/08/2024 4:07 AM [facility] Blood BLOOD SPECIMEN / Unknown Lab Venipuncture / Unknown 06/08/2024 3:49 AM CHURN DRILL OPERATOR 06/08/2024 4:01 AM [facility] Sharon Orozco MD LAB - HEMATOLOGY ORD ERABLES [facility] [address] [place] [address] * (ABNORMAL) RENAL FUNCTION PANEL (06/08/2024 3:49 AM [facility]) Glucose 85 70 - 99 mg/dL 06/08/2024 4:30 AM [facility] Sodium 138 136 - 145 mmol/L 06/08/2024 4:30 AM [facility] Potassium 3.9 3.5 - 5.1 mmol/L 06/08/2024 4:30 AM [facility] Chloride 108(H) 98 - 107 mmol/L 06/08/2024 4:30 AM [facility] CO2 26 22 - 29 mmol/L 06/08/2024 4:30 AM [facility] Calcium 8.3(L) 8.4 - 10.4 mg/dL 06/08/2024 4:30 AM [facility] Anion Gap 4(L) 6 - 16 mmol/L 06/08/2024 4:30 AM [facility] BUN 8 7 - 26 mg/dL 06/08/2024 4:30 AM CHURN DRILL OPERATOR [facility] Creatinine 0.65 0.57 - 1.11 mg/dL 06/08/2024 4:30 AM CHURN DRILL OPERATOR [facility] Albumin 2.9(L) 3.4 - 5.0 gm/dL 06/08/2024 4:30 AM CHURN DRILL OPERATOR [facility] Phosphorus 2.5 2.5 - 4.5 mg/dL 06/08/2024 4:30 AM [facility] eGFR by CKD-EPI >90 >=90 mL/min/1.7 3 m2 06/08/2024 4:30 AM CHURN DRILL OPERATOR [facility] Blood BLOOD SPECIMEN / Unknown Lab Venipuncture / Unknown 06/08/2024 3:49 AM CHURN DRILL OPERATOR 06/08/2024 4:01 AM CHURN DRILL OPERATOR Sharon Orozco MD [facility] Organization Address City/State/[facility] Co de Phone Number [facility] [address] [place] [address] * CT Abdomen Pelvis W Contrast (06/07/2024 10:27 AM CHURN DRILL OPERATOR) Anatomical Region Laterality Modality Abdomen, Pelvis Computed Tomogra phy 06/07/2024 10:3 3 AM CHURN DRILL OPERATOR Impressions 06/07/2024 10:38 AM CHURN DRILL OPERATOR IMPRESSION: 1. Findings compatible with acute uncomplicated sigmoid diverticulitis. > Interpreting Provider: Jaciel Meehan MD on 06/07/2024 10:38 AM Narrative 06/07/2024 10:38 AM CHURN DRILL OPERATOR PROCEDURE: CT ABDOMEN PELVIS W CONTRAST DATE/TIME [...] METABOLIC PANEL (CALCIUM TOTAL) (06/07/2024 3:45 AM CHURN DRILL OPERATOR) Only the most recent of2 resultswithin the time period is included. Pathologist [facility] Glucose 83 70 - 99 mg/dL 06/07/2024 5:47 AM [facility] Sodium 137 136 - 145 mmol/L 06/07/2024 5:47 AM [facility] Potassium 3.5 3.5 - 5.1 mmol/L 06/07/2024 5:47 AM [facility] Chloride 105 98 - 107 mmol/L 06/07/2024 5:47 AM [facility] CO2 24 22 - 29 mmol/L 06/07/2024 5:47 AM [facility] Calcium 8.3(L) 8.4 - 10.4 mg/dL 06/07/2024 5:47 AM [facility] Anion Gap 8 6 - 16 mmol/L 06/07/2024 5:47 AM [facility] BUN 12 7 - 26 mg/dL 06/07/2024 5:47 AM [facility] Creatinine 0.73 0.57 - 1.11 mg/dL 06/07/2024 5:47 AM [facility] eGFR by CKD-EPI >90 >=90 mL/min/1.7 3 m2 06/07/2024 5:47 AM [facility] Blood BLOOD SPECIMEN / Unknown Lab Venipuncture / Unknown 06/07/2024 3:45 AM CHURN DRILL OPERATOR 06/07/2024 4:59 AM CHURN DRILL OPERATOR Matt Thompson MD LAB - CHEMISTRY LAURA ORTIZ Performing Organization Address [facility]/ZIP Co de Phone Number [facility] [address] [place], [place] [id number] * MAGNESIUM BLOOD (06/07/2024 3:45 AM CHURN DRILL OPERATOR) Only the most recent of2 resultswithin the time period is included. Magnesium 1.8 1.6 - 2.6 mg/dL 06/07/2024 5:47 AM CHURN DRILL OPERATOR [facility] Blood BLOOD SPECIMEN / Unknown Lab Venipuncture / Unknown 06/07/2024 3:45 AM CHURN DRILL OPERATOR 06/07/2024 4:59 AM CHURN DRILL OPERATOR Matt Thompson MD LAB - CHEMISTRY LAURA ORTIZ Performing Organization Address [facility]/ZIP Co de Phone Number [facility] [address] [place] [phone] * (ABNORMAL) CBC W AUTO DIFFERENTIAL (06/06/2024 11:36 PM CHURN DRILL OPERATOR) Pathologist [facility] WBC 11.2(H) 4.0 - 10.7 x10E9/L 06/06/2024 11:47 PM [facility] RBC Count 3.96 3.90 - 5.20 x10E12/L 06/06/2024 11:47 PM [facility] Hemoglobin 12.4 11.9 - 15.8 g/dL 06/06/2024 11:47 PM [facility] Hematocrit 37.6 34.8 - 46.1 % 06/06/2024 11:47 PM [facility] MCV 94.9 80.0 - 98.0 fL 06/06/2024 11:47 PM [facility] MCH 31.3 26.7 - 33.6 pg 06/06/2024 11:47 PM [facility] MCHC 33.0 31.7 - 36.3 g/dL 06/06/2024 11:47 PM [facility] RDW-CV 13.2 11.3 - 14.8 % 06/06/2024 11:47 PM [facility] Platelet Count 174 150 - 420 x10E9/L 06/06/2024 11:47 PM [facility] MPV 9.7 7.8 - 11.4 fL 06/06/2024 11:47 PM [facility] Neutrophil % 66.1 41.0 - 74.0 % 06/06/2024 11:47 PM [facility] Lymphocyte % 22.7 17.0 - 47.0 % 06/06/2024 11:47 PM [facility] Monocyte % 8.2 3.0 - 11.0 % 06/06/2024 11:47 PM [facility] Eosinophil % 2.1 0.0 - 7.0 % 06/06/2024 11:47 PM [facility] Basophil % 0.4 0.0 - 1.6 % 06/06/2024 11:47 PM [facility] Immature Granulocytes % 0.5 0.0 - 1.0 % 06/06/2024 11:47 PM [facility] Neutrophil Absolute 7.40 1.60 - 7.50 x10E9/L 06/06/2024 11:47 PM [facility] Lymphocyte Absolute 2.54 1.00 - 4.40 x10E9/L 06/06/2024 11:47 PM [facility] Monocyte Absolute 0.92 0.15 - 1.00 x10E9/L 06/06/2024 11:47 PM [facility] Eosinophil Absolute 0.24 0.00 - 0.60 x10E9/L 06/06/2024 11:47 PM [facility] Basophil Absolute 0.04 0.00 - 0.13 x10E9/L 06/06/2024 11:47 PM [facility] Blood BLOOD SPECIMEN / Unknown Lab Venipuncture / Unknown 06/06/2024 11:36 PM CHURN DRILL OPERATOR 06/06/2024 11:44 PM CHURN DRILL OPERATOR Matt Thompson MD LAB - HEMATOLOGY ORD ERABLES [facility] [address] [place] [address] * LACTIC ACID BLOOD (06/06/2024 11:36 PM CHURN DRILL OPERATOR) Lactic Acid 0.696 <=2 mmol/L 06/07/2024 12:04 AM CHURN DRILL OPERATOR [facility] Blood BLOOD SPECIMEN / Unknown Lab Venipuncture / Unknown 06/06/2024 11:36 PM CHURN DRILL OPERATOR 06/06/2024 11:43 PM CHURN DRILL OPERATOR Matt Thompson MD LAB - CHEMISTRY LAURA Mendoza Organization Address City/State/ZIP Co de Phone Number [facility] [address] [place] [address] from Last 3 Months Advance Directives * Full Code (Latest Code Status on File) Date Activated Date Inactivated Comments 06/06/2024 10:47 PM 06/09/2024 5:30 PM Care Teams Agricultural Research Director Relationship Specialty Start Date End Date Johanny Reyes MD [address] [place] [address] PCP - General Internal Medicine 06/06/24
--- OUTSIDE RECORDS SUMMARY | 2024-06-18 16:52 | XMS_ITS ---
Author Name EJ DELEON D.O. Address [address] [place] [address] Phone [phone] [facility] Headache and Ne urology Care Team Providers Care Director Of Business Systems Name Role Phone VELVET DELEON Unavailable [phone] Unavailable Unavailable Unavailable Unavailable Unavailable Unavailable Johanny Reyes Unavailable [phone] Reason for Referral Not Available Allergies, adverse [...] dache, not intractable moderate [facility]23 Episodic cluster hea dache, not intractable high complexity office visit [facility] 11/26/2023 Episodic cluster he adache, not intractableDepression, unspecifiedHeadache, unspecifiedOther chronic painAdjustment disorder with depressed mood Social History Sex Female Gender identity Woman History of Procedures Procedures Service Procedure code Service date Servicing provider Phone# new patient, high complexity office visit [id number] 2023-09-19 No Data Available No Data Availa ble moderate complexity office visit [id number] 2023-10-21 No Data Available No Data Availa ble high complexity office visit [id number] 2023-11-26 No Data Available No Data Availa [...] was conducted via secured, two-way communication through [employer]. Patient located in [place]. Patient expressed consent with video communication to carry out today's visit. Total time of video encounter was 61 mins that were spent reviewing records, obtaining history, doing a physical exam (via video) as appropriate, documenting in the chart, and any associated orders, all on the day of the visit.Voice dictation software is in use. Front Elevator Operator variances may occur. Please excuse if [...] was conducted via secured, two-way communication through [employer]. Patient located in [place]. Patient expressed consent with video communication to carry out today's visit. Total time of video encounter was 26 mins that were spent reviewing records, obtaining history, doing a physical exam (via video) as appropriate, documenting in the chart, and any associated orders, all on the day of the visit.Voice dictation software is in use. Front Elevator Operator variances may occur. Please excuse if [...] was conducted via secured, two-way communication through [employer]. Patient located in [place]. Patient expressed consent with video communication to carry out today's visit. Total time of video encounter was 40 mins that were spent reviewing records, obtaining history, doing a physical exam (via video) as appropriate, documenting in the chart, and any associated orders, all on the day of the visit.Voice dictation software is in use. Front Elevator Operator variances may occur. Please excuse if [...]
[2024-06-18 17:01] LABS: Basophils Absolute Auto 0.05 K/mm3 (0.00-0.10); Basophils Percent Auto 0.6 % (0.0-1.0); Eosinophils Absolute Auto 0.43 K/mm3 (0.02-0.50); Eosinophils Percent Auto 5.2 % (1.0-6.0); Hematocrit 42.4 % (35.0-49.0); Hemoglobin 13.7 g/dL (12.0-15.0); Immature Granulocyte Absolute 0.03 K/mm3 (0.00-0.00); Immature Granulocyte Percent A 0.4 % (0.0-0.0); Lymphocytes Absolute Auto 3.58 K/mm3 (1.10-4.50); Mean Corpuscular HGB Conc 32.3 g/dL (32-36); Mean Corpuscular Hemoglobin 31.1 pg (27.0-31.0); Mean Corpuscular Volume 96.1 fL (78.0-102.0); Mean Platelet Volume 9.7 fl (9.2-11.8); Monocytes Absolute Auto 0.59 K/mm3 (0.10-0.90); Monocytes Percent Auto 7.1 % (2.0-11.0); Neutrophils Absolute Auto 3.64 K/mm3 (1.70-7.20); Neutrophils Percent Auto 43.7 % (50.0-70.0); Platelet Count Result 281 K/mm3 (150-420); Red Blood Count 4.41 M/mm3 (4.20-5.40); Red Cell Distribution Width 13.3 % (11.6-14.4); White Blood Count 8.3 K/mm3 (4.8-10.8)
[2024-06-18 17:41] LABS: Alanine Aminotransferase 34 U/L (14-59); Albumin Level 3.7 g/dL (3.4-5.0); Alkaline Phosphatase 112 U/L (46-116); Anion Gap 7 mmol/L (4-12); Aspartate Amino Transferase 15 U/L (15-37); Bilirubin,Total 0.3 mg/dL (0.00-1.00); Blood Urea Nitrogen 20 mg/dL (7-18); Calcium 9.1 mg/dL (8.5-10.1); Carbon Dioxide 31 mmol/L (21-32); Chloride 103 mmol/L (98-108); Estimated Glomerular Filt Rate > 60; Glucose 82 mg/dL (70-99); Osmolality Calculated 293 mOsm/kg (285-295); Potassium 4.5 mmol/L (3.5-5.1); Sodium 141 mmol/L (136-145); Total Protein 7.3 g/dL (6.4-8.2)
[2024-06-18 18:09] LABS: Erythrocyte Sedimentation Rate 19 mm/hr (0-20)
[2024-06-19 16:08] LABS: CRP 0.8 mg/dL (0.0-0.9)
== END 2024-06-18 16:46 | disposition home or self-care (01) ==
LOC: CHSLAB 16:48
PROVIDERS: PCP Internal Medicine; Visit Provider Internal Medicine
DX: K57.92 Diverticulitis of intestine, part unspecified, without perforation or abscess without bleeding (principal)
CPT/HCPCS: 36415; 80053; 85025; 85652; 86036; 86140; 86671

== ENCOUNTER 2024-06-19 15:44 | Outpatient (CLI) | payer BC, SELFPAY ==
--- OUTSIDE RECORDS SUMMARY | 2024-06-19 15:48 | XMS_ITS | Clinical Summary ---
Author Organization [facility] Address [address] [place] [address] Phone Care Team Providers Care Electronic Tech Name Role Phone DONOVAN ESTEVEZ DO Unavailable [phone] Reason for Visit and [...] - Last Documented On 06/30/2023 5:24PM ; [facility] Tooth pain: Discussed oral hygiene. Recommended frequent saline mouth rinses. Follow up with dentist at soonest availability. - Last Documented On 06/30/2023 5:24PM ; [facility] Assessments Includes: Assessments from this encounter Findings - Infection of tooth [K08.89 - Other specified disorders of teeth and supporting structures] - Last Documented On 06/30/2023 5:24PM ; [facility] - Viral infection [B34.9 - Viral infection, unspecified] - Last Documented On 06/30/2023 5:24PM ; [facility] Medical Equipment - Implanted Devices [...] structures One tablet twice a day Pharmacy: [address], [phone] - Last Documented On 4 5:28PM By Ken SANTAMARIA ; [facility] Current Medications (continue as prescribed) Atorvastatin Calcium 10 MG Oral Tablet 07/30/2023 Pr ovider: Diagnosis: Last Documented On 07/30/2023 5:10PM By Edwina Salcedo ; [facility] Advair Diskus 100-50 MCG/ACT Inhalation Aerosol Powder Breath Activated 07/30/2023 Provider: Diagnosis: Last Documented On 07/30/2023 5:11PM By Edwina Salcedo ; [facility] Singulair 10 MG Oral Tablet 07/30/2023 Provider: Diagnosis: Last Documented On 07/30/2023 5:11PM By Edwina Salcedo ; [facility] Verapamil HCl ER 360 MG Oral Capsule Extended Re lease 24 Hour 03/29/2022 Provider: Diagnosis: Last Documented On 03/29/2022 3:58PM By RAFAELA MAGDALENO ; [facility] DULoxetine HCl 60 MG Oral Capsule Delayed Releas e Particles 03/29/2022 Provider: Diagnosis: Last Documented On 03/29/2022 4:00PM By RAFAELA MAGDALENO ; [facility] Past Medications on file Amoxicillin 875 MG Oral Tablet 09/11/2023 - 09/21/2023 Provider: KEN MARES DNP Diagnosis: Streptococcal pharyngitis 1 CAPSULE TWO TIMES A DAY Last Documented On 4 10:15AM By Ken Mares DNP ; [facility] Ofloxacin 0.3% Otic Solution 07/30/2023 - 08/06/2023 Provider: KEN MARES DNP Diagnosis: Otitis media, unspecified, left ear Apply 10 drops to the left e ar daily for 7 days Last Documented On 4 6:37PM By Ken Mares DNP ; [facility] Cefdinir 300 MG Oral Capsule 07/30/2023 - 08/09/2023 Provider: KEN STEVEN DNP Diagnosis: Otitis media, unspecified, left ear 1 CAPSULE TWO TIMES A DAY Last Documented On 4 5:50PM By Ken Mares DNP ; [facility] Amoxicillin 875 MG Oral Tablet 03/29/2022 - 04/08/2022 Provider: VLAD RIVERA [employer] Diagnosis: Acute serous will tis media, right ear One tablet twice a day Last Documented On 2 4:28PM By VLAD RIVERA [employer] ; [facility] Medications Administered Includes: Administered Medications [...] 98 Last Documented: On 06/30/2023 5:10PM ; [facility] Results Includes: Results discussed during this encounter SARS COVID-19 FLU A & B [facility] Ordered by KEN SEYMOUR-Kareem on 0 06/30/2023 Collected: Reported: 06/30/2023 Last Documented On 4 5:23PM ; [facility] Reviewed on 06/30/2023; All test results are final unless otherwise noted. COVID neg N (Normal) Last Documented On 4 5:22PM ; [facility] INFLUENZA A neg (Negative) N (Normal) Last Documented On 4 5:22PM ; [facility] INFLUENZA B neg (negative) N (Normal) Last Documented On 4 5:22PM ; [facility] INT. QC ACCEPTABLE? yes N (Normal) Last Documented On 4 5:22PM ; [facility] LOT # & EXP. DATE [id number] 05/14/24 N (Normal) Last Documented On 4 5:22PM ; [facility] History of Present Illness Includes: [...] 06/30/2023 Last Documented On 4 5:24PM ; [facility] Tobacco non-user 06/30/2023 Last Documented On 4 5:24PM ; [facility] Smoking Status Unknown Procedures and Surgical History Includes: Procedures from this encounter Procedures Code Diagnosis Performing Provider Service Location Service Date SARS-CO,SARS-COV- 2, INFLUENZA A/B TEST (CLIA WAIVED) 88564 Fever, unspecified, Acute cough, Acute pharyngitis, unspecified KEN SARMIENTO [employer] SAL[employer] [facility] 06/30/2023 Last Documented On 4 3:45PM ; [facility] Discussed with family/pt kailash t rapid influenza testing was NEGATIVE. Discussed with family that pt is contagious until afebrile for 24 hours, secretions controled, and feeling better. Discussed symptom relief. Pt / family to call our office for further evaluation if persisting, worsening, or new symptoms noted Last Documented On 4 5:20PM ; [facility] use of tobacco assessment performed 1000F Last Documented On 4 5:07PM ; [facility] Clinical summary provided to patient Last Documented On 4 5:20PM ; [facility] Medical History Includes: Medical History addressed during this encounter Description Last Updated Taking OTC medications 06/30/2023 Last Documented On 4 5:24PM ; [facility] No Contact with and (Suspected) exposure to COVID-19 06/30/2023 Last Documented On 4 5:24PM ; [facility] No fall 06/30/2023 Last Documented On 4 5:24PM ; [facility] Family History Includes: Family History [...] SICK VISIT- ESTABLISHED PATIENT KEN Doyle SANTAMARIA [facility] 06/30/19 24 4:43PM 5:24PM Infection of Tooth,Infecti ous Disease Viral Infection Insurance Includes: Active Insurance Policies Plan Name Member ID Group # Subscriber Relationship Effect edelmira Dates 1 - [facility] [id number] ISAÍAS MELCHOR Self Clinical Notes Includes: Clinical Notes from this encounter * Progress note Date Encounter Last Documented by 06/30/2023 COVID SICK VISIT- ESTABLISHED ANGEL CLARK Last documented on 06/30/2023; 5:24 PM, KEN SANTAMARIA; [facility] Chief Complaint The Chief Complaint [...] yes Normal LOT # & EXP. DATE [id number] 05/14/24 Normal Assessment - Infection of tooth [...]
--- OUTSIDE RECORDS SUMMARY | 2024-06-19 15:48 | XMS_ITS | Continuity of Care Document ---
Author Organization [facility] Address [address] [place] [address] Phone Care Team Providers Care Kitchen And Counter Worker Name Role Phone Leoncio Seay MD Unavailable [...] GDX Retina IOLMaster-Technical Office/outpatient Visit, [facility] Advance Directives Directive Yes / No Effective Date File Name No Information Encounters Encounter Description Practice Location Reason(s) For Visit Diagnoses Date Provider Providers Copied on Encounter [facility], [address] [place] [address] [address], [place], [place], [id number], tel:[phone] [place] 1 mo CE PO (09/14/20) (chief complaint) Post op visit 1 Dawood Fang. [address] [place], [id number], [place]. tel:[phone] Referring Provider: Violet[facility]antley OD, [facility] [address] [place], [address]. tel:[phone] [facility], [address], [place], [place], [id number], [place] tel:[phone] [place] Post-Op (chief complaint) Post op visit 1 No Information Referring Provider: Violetta Brantley OD, [facility] [address] [place], [id number]. tel:[phone] [facility], [address], [place], [place], [id number], [place] tel: SEC [place] Profession[place] 1 day CE PO (09/14/20) (chief complaint) Post op visit 1 No Information Referring Provider: Violetta Brantley OD, [facility] [address], [place], [address]. tel:[phone] [facility], [address], [place], [place], [id number], tel: [facility] No Information 1 Dawood Fang. [address], [address] [place], [id number], . tel: Referring Provider: Violetta Brantley OD, [facility] [address], [place], [address]. tel:[phone] [facility], [address], [place], [place], [id number], [place] tel: [place] Profession[place] No Information 1 Dawood Fang. [address], [address] [place], [id number], . tel:[phone] Referring Provider: Violetta Masonhop OD, [facility] [address], [place], [address]. tel:[phone] [facility], [address], [place], [place], [id number], [place] tel: SEC [place] No Information 1 Dawood Fang. [address] [facility], [address] [place], [id number], . tel: [facility], [address], [place], [place], [id number], tel: [place] Profession[place] Post-Op (chief complaint) Post op visit No Information Referring Provider: Violetta Brantley OD, [facility] [address], [place], [address]. tel:[phone] [facility], [address], [place], [place], [id number], [place] tel:[phone] [place] 1 day po PCIOL OD (08/17/20) (chief complaint) Post op visit No Information Referring Provider: Violetta Brantley OD, [facility] [address], [place], [address]. tel:[phone] [facility], [id number] [place] [address] [address], [place], [place], [id number], [place] tel: [facility] No Information Dawood Fang. [address] [facility] [facility] [place], [id number], [place]. tel:[phone] Referring Provider: Violetta Brantley OD, [facility] [address], [place], [address]. tel:[phone] [facility], [address], [place], [place], [id number], [place] tel: SEC [place] Profession[place] No Information Dawood Fang. [address] [facility], [facility], [place], [place], [id number], [place]. tel:[phone] Referring Provider: Violetta Brantley OD, [facility] [address], [place], [address]. tel:[phone] [facility], [address], [place], [place], [id number], [place] tel:[phone] [place] Repeat measurements only (chief complaint) Age-related nuclear cataract, bilateral Jun- 1 Dawood Fang. [address] [facility], [facility], [place], [place], [address], [place]. tel:[phone] Referring Provider: Violetta Brantley OD, [facility] [address] [place], [address]. tel:[phone] [facility], [address], [place], [place], [id number], [place] tel:[phone] [place] Cataract evaluation (chief complaint) Posterior polar cataract of both eyesAge-rela sandra nuclear cataract, bilateral 1 Dawood Fang. [address] [facility], [facility], [place], [place], [address], [place]. tel:[phone] Referring Provider: Violetta Brantley OD, [facility] [address] [place], [address]. tel:[phone] [facility], [address], [place], [place], [address], [place] tel:[phone] [place] Prof[place] No Information [...]
--- OUTSIDE RECORDS SUMMARY | 2024-06-19 15:48 | XMS_ITS ---
Author Organization [facility] Address [address] [place] [address] Phone Care Team Providers Care Snack Steward Name Role Phone DONOVAN ESTEVEZ DO Shelly Unavailable [phone] Plan of Treatment Findings Encounter Date Ordered return to the clinic if condition worsens or new symptoms arise COVID SICK VISIT- ESTABLISHED PATIENT with KEN MARES [facility] 09/11/2023 Last Documented On 4 10:44AM ; [facility] Ordered return to the clinic if condition worsens or new symptoms arise COVID SICK VISIT- ESTABLISHED PATIENT with KEN MARES [facility] 07/30/2023 Last Documented On 4 5:20PM ; [facility] Ordered patient will call fo r appointment as needed WALK IN PATIENT - NEW PT with VLAD RIVERA [facility] 03/29/2022 Last Documented On 2 10:05AM ; [facility] Ordered return to the clinic if condition worsens or new symptoms arise WALK IN PATIENT - NEW PT with VLAD RIVERA [facility] 03/29/2022 Last Documented On 2 10:05AM ; [facility] Assessments Includes: Assessments for all patient encounters Findings Encounter Date Group A streptococcus: B hem olytic pharyngitis COVID SICK VISIT- ESTABLISHED PATIENT with KEN MARES DNP 09/11/2023 Last Documented On 4 10:44AM ; [facility] Otitis media of the left ear COVID SICK VISIT- ESTABLISHED PATIENT with KEN MARES DNP 07/30/2023 Last Documented On 4 5:20PM ; [facility] [B34.9 - Viral infection, un specified] viral infection COVID SICK VISIT- ESTABLISHED PATIENT with KEN REALCLAIR ASSOCIATE PROGRAM MANAGER-C 06/30/2023 Last Documented On 4 5:24PM ; [facility] Infection of tooth COVID SICK VISIT- ES TABLISHED PATIENT with KEN REALCLAIR ASSOCIATE PROGRAM MANAGER-C 06/30/2023 Last Documented On 4 5:24PM ; [facility] Otitis media WALK IN PATIENT - NEW PT with ISABELLE RIVERA ASSOCIATE PROGRAM MANAGER-BC 03/29/2022 Last Documented On 2 10:05AM ; [facility] Mirena insertion IUD INSERTION with Graciela SY MD 08/02/2011 Last Documented On 2 1:34PM ; [facility] Contraceptive management NEW PATIENT VISIT with Graciela MCNAIR MD 05/17/2011 Last Documented On 2 2:05PM ; [facility] NORMAL FEMALE EXAM NEW PATIENT VISIT with Graciela MCNAIR MD 05/17/2011 Last Documented On 2 2:05PM ; [facility] Urinary tract infection NEW PATIENT VISIT with Graciela MCNAIR MD 05/17/2011 Last Documented On 2 2:05PM ; [facility] Medical Equipment - Implanted Devices Includes: Current and historical Devices No Medical Equipment Recorded Medications Includes: Current and historical Medications Current Medications (continue as prescribed) Atorvastatin Calcium 10 MG Oral Tablet 07/30/2023 Pr ovider: Diagnosis: Last Documented On 07/30/2023 5:10PM By Edwina Salcedo ; [facility] Advair Diskus 100-50 MCG/ACT Inhalation Aerosol Powder Breath Activated 07/30/2023 Provider: Diagnosis: Last Documented On 07/30/2023 5:11PM By Edwina Salcedo ; [facility] Singulair 10 MG Oral Tablet 07/30/2023 Provider: Diagnosis: Last Documented On 07/30/2023 5:11PM By Edwina Salceod ; [facility] Amoxicillin-Pot Clavulanate 875-125 MG Oral Tablet 06/30/2023 Provider: KEN Francis ASSOCIATE PROGRAM MANAGER-C Diagnosis: Other specified disorders of teeth and supporting structures One tablet twice a day Last Documented On 4 5:28PM By Ken SANTAMARIA ; [facility] Verapamil HCl ER 360 MG Oral Capsule Extended Re lease 24 Hour 03/29/2022 Provider: Diagnosis: Last Documented On 03/29/2022 3:58PM By RAFAELA MAGDALENO ; [facility] DULoxetine HCl 60 MG Oral Capsule Delayed Releas e Particles 03/29/2022 Provider: Diagnosis: Last Documented On 03/29/2022 4:00PM By RAFAELA MAGDALENO ; [facility] Past Medications on file Amoxicillin 875 MG Oral Tablet 09/11/2023 - 09/21/2023 Provider: KEN MARES DNP Diagnosis: Streptococcal pharyngitis 1 CAPSULE TWO TIMES A DAY Last Documented On 4 10:15AM By Ken Mares DNP ; [facility] Ofloxacin 0.3% Otic Solution 07/30/2023 - 08/06/2023 Provider: KEN MARES DNP Diagnosis: Otitis media, unspecified, left ear Apply 10 drops to the left e ar daily for 7 days Last Documented On 4 6:37PM By Ken Mares DNP ; [facility] Cefdinir 300 MG Oral Capsule 07/30/2023 - 08/09/2023 Provider: KEN STEVEN DNP Diagnosis: Otitis media, unspecified, left ear 1 CAPSULE TWO TIMES A DAY Last Documented On 4 5:50PM By Kne Mares DNP ; [facility] Amoxicillin 875 MG Oral Tablet 03/29/2022 - 04/08/2022 Provider: VLAD HENRIQUEZ Diagnosis: Acute serous will tis media, right ear One tablet twice a day Last Documented On 2 4:28PM By VLAD HENRIQUEZ ; [facility] Medications Administered Includes: Administered Medications in patient's chart No Administered Medications Recorded Vital Signs Includes: Vital Signs from 06/19/2023 through 06/19/2024 Vital Name 09/11/2023 09:58A 07/30/2023 05:14P 06/29 [...] Regular Last Documented: On 09/11/2023 9:58AM ; [facility] On 07/30/2023 5:14PM ; [facility] On 06/30/2023 5:10PM ; [facility] Results Includes: Results from 06/19/2023 through 06/19/2024 Group A strep [facility] Ordered by KEN MARES DNP on Collected: Reported: 09/11/2023 Last Documented On 4 10:14AM ; [facility] Reviewed on 09/11/2023; All test results are final unless otherwise noted. Rapid Strep POS A (Abnormal) Last Documented On 4 10:12AM ; [facility] LOT # AND EXP. DATE [id number] 02-28-24 N (Normal) Last Documented On 4 10:12AM ; [facility] INT. QC ACCEPTABLE? YES N (Normal) Last Documented On 4 10:12AM ; [facility] SARS COVID-19 FLU A & B [facility] Ordered by KEN MARES DNP on Collected: Reported: 09/11/2023 Last Documented On 4 10:14AM ; [facility] Reviewed on 09/11/2023; All test results are final unless otherwise noted. COVID NEG N (Normal) Last Documented On 4 10:12AM ; [facility] INFLUENZA A NEG (Negative) N (Normal) Last Documented On 4 10:12AM ; [facility] INFLUENZA B NEG (negative) N (Normal) Last Documented On 4 10:12AM ; [facility] INT. QC ACCEPTABLE? YES N (Normal) Last Documented On 4 10:12AM ; [facility] LOT # & EXP. DATE [id number] 04-16-24 N (Normal) Last Documented On 4 10:12AM ; [facility] SARS COVID-19 FLU A & B [facility] Ordered by KEN SANTAMARIA on 0 06/30/2023 Collected: Reported: 06/30/2023 Last Documented On 4 5:23PM ; [facility] Reviewed on 06/30/2023; All test results are final unless otherwise noted. COVID neg N (Normal) Last Documented On 4 5:22PM ; [facility] INFLUENZA A neg (Negative) N (Normal) Last Documented On 4 5:22PM ; [facility] INFLUENZA B neg (negative) N (Normal) Last Documented On 4 5:22PM ; [facility] INT. QC ACCEPTABLE? yes N (Normal) Last Documented On 4 5:22PM ; [facility] LOT # & EXP. DATE [id number] 05/14/24 N (Normal) Last Documented On 4 5:22PM ; [facility] History of Present Illness History of Present Illness not supported for this document type No History of Present Illness Recorded Social History Description Last Updated Tobacco non-user 09/11/2023 Last Documented On 4 10:44AM ; [facility] Not a current smoker 09/11/2023 Last Documented On 4 10:44AM ; [facility] In monogamous relationship 05/17/2011 Last Documented On 2 2:05PM ; [facility] Sexually active with partners in the t year 1 05/17/2011 Last Documented On 2 2:05PM ; [facility] Alcohol use: 2 drinks or less per day Last Documented On 2 2:05PM ; [facility] Cigarette smoking 0.5 pack-years 20 04/29 Last Documented On 2 2:05PM ; [facility] 05/17/2011 Last Documented On 2 2:05PM ; [facility] Does not have high school diploma 2011 Last Documented On 2 2:05PM ; [facility] 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 Last Documented On 2 2:05PM ; [facility] Smoking Status Unknown Procedures and Surgical History Includes: Procedures from 06/19/2023 through 06/19/2024 Procedures Code Diagnosis Performing Provider Service Location Service Date SARS-CO,SARS-COV- 2, INFLUENZA A/B TEST ([facility]IA WA[facility]ED) 89852 Fever, unspecified KEN MARES [facility] 09/11/2023 Last Documented On 4 6:23PM ; [facility] STREP TEST SCREENING ([facility]IA WAIVED) 17175 Streptococcal pharyngitis KEN MARES [facility] 09/11/2023 Last Documented On 4 6:23PM ; [facility] SARS-CO,SARS-COV-2, INFLUENZA A/B TEST ([facility]IA WAIVED) 79567 Fever, unspecified, Acute cough, Acute pharyngitis, unspecified KEN SARMIENTO ASSOCIATE PROGRAM MANAGER-C [facility] 06/30/2023 Last Documented On 4 3:45PM ; [facility] Medical History Includes: Medical History in patient's chart Description Last Updated No Contact with and (Suspected) exposure to COVID-19 09/11/2023 Last Documented On 4 10:44AM ; [facility] No fall 09/11/2023 Last Documented On 4 10:44AM ; [facility] Taking OTC medications 06/30/2023 Last Documented On 4 5:24PM ; [facility] History of asthma 05/17/2011 Last Documented On 2 2:05PM ; [facility] 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 05/17/2011 Last Documented On 2 2:05PM ; [facility] History of urinary tract infection appx 3 per year 05/17/2011 Last Documented On 2 2:05PM ; [facility] No history of cervical dysplasia 012 Last Documented On 2 2:05PM ; [facility] No history of dysfunctional uterine blee ding 05/17/2011 Last Documented On 2 2:05PM ; [facility] No history of human papilloma virus infe ction 05/17/2011 Last Documented On 2 2:05PM ; [facility] No history of vaginitis 05/17/2011 Last Documented On 2 2:05PM ; [facility] 3 05/17/2011 Last Documented On 2 2:05PM ; [facility] Para 3 05/17/2011 Last Documented On 2 2:05PM ; [facility] LMP: 04/25/2011 05/17/2011 Last Documented On 2 2:05PM ; [facility] sinus surgery ~perforated colon ~cluster headaches 05/17/2011 Last Documented On 2 2:05PM ; [facility] A colonoscopy was performed 2009 diverti culitis 05/17/2011 Last Documented On 2 2:05PM ; [facility] Asthma 05/17/2011 Last Documented On 2 2:05PM ; [facility] Last pap smear date 200905/17/2011 Last Documented On 2 2:05PM ; [facility] Result: normal 05/17/2011 Last Documented On 2 2:05PM ; [facility] Family History Includes: Family History in patient's chart Description Last Updated Family history of diabetes mellitus 04/29 Last Documented On 2 2:05PM ; [facility] No family history of malignant female br east neoplasm 05/17/2011 Last Documented On 2 2:05PM ; [facility] No family history of malignant neoplasm of the large intestine 05/17/2011 Last Documented On 2 2:05PM ; [facility] No family history of malignant neoplasm of the ovary 05/17/2011 Last Documented On 2 2:05PM ; [facility] Family history of Cancer Father & Grandp arents 05/17/2011 Last Documented On 2 2:05PM ; [facility] Family history of cardiac problems grand parents 05/17/2011 Last Documented On 2 2:05PM ; [facility] Family history of Diabetes grandparents 05/17/2011 Last Documented On 2 2:05PM ; [facility] Family history of high cholesterol paren ts 05/17/2011 Last Documented On 2 2:05PM ; [facility] Family history of Hypertension parents 0 05/17/2011 Last Documented On 2 2:05PM ; [facility] Family history of thyroid disease mother 05/17/2011 Last Documented On 2 2:05PM ; [facility] Review of Systems Review of Systems not supported for this document type No Review of Systems Recorded Mental Status No Mental Status Recorded Functional Status No Functional Status Recorded Physical Exam Physical Exam not supported for this document type No Physical Exam Recorded Allergies Includes: Active, inactive, and resolved Allergies No Known Allergies Encounters Includes: Encounters from 06/19/2023 through 06/19/2024 Encounter Provider Location Date Check-In Time Check-Out Time Diagnosis COVID SICK VISIT- ESTABLISHED PATIENT KEN MARES DNP [facility] 09/11/19 24 9:25AM 10:14AM Pharyngitis Streptococcus, Group A: Beta Hemolytic COVID SICK VISIT- ESTABLISHED PATIENT KEN MARES DNP [facility] 07/30/19 24 4:53PM 5:15PM Otitis Media Left Ear COVID SICK VISIT- ESTABLISHED PATIENT KEN SARMIENTO ASSOCIATE PROGRAM MANAGER-C [facility] 06/30/19 24 4:43PM 5:24PM Infection of Tooth,Infectio us Disease Viral Infection Insurance Includes: Active Insurance Policies Plan Name Member ID Group # Subscriber Relationship Effect edelmira Dates 1 - [facility] [id number] HARRIET MELCHOR Self Clinical Notes Includes: Signed Clinical Notes starting from 05/18/2022 * Progress note Date Encounter Last Documented by 09/11/2023 COVID SICK VISIT- ESTABLISHED ANGEL CLARK Last documented on 09/11/2023; 10:44 AM, KEN MARES DNP; [facility] Chief Complaint The Chief Complaint is: [...] POS Abnormal LOT # AND EXP. DATE [id number] 02-28-24 Normal INT. QC ACCEPTABLE? YES Normal - Test: SARS COVID-19 FLU A & B Report Date: 09/11/2023 COVID NEG Normal INFLUENZA A NEG Normal INFLUENZA B NEG Normal INT. QC ACCEPTABLE? YES Normal LOT # & EXP. DATE [id number] 04-16-24 Normal Assessment - [J02.0 - Streptococcal [...] on 07/30/2023; 5:20 PM, KEN MARES DNP; [facility] Chief Complaint The Chief Complaint [...] documented on 06/30/2023; 5:24 PM, KEN SEYMOUR-C; [facility] Chief Complaint The Chief Complaint [...] yes Normal LOT # & EXP. DATE [id number] 05/14/24 Normal Assessment - Infection of tooth [...]
--- OUTSIDE RECORDS SUMMARY | 2024-06-19 15:48 | XMS_ITS | Clinical Summary ---
Author Organization [facility] Address [address] [place] [id number] Care Team Providers Care Control Specialist Name Role Phone Unavailable Primary Care Provider Unavailabl e Social History Tobacco Use Types Packs/Day Years Used Date Smoking Tobacco: Never Assessed Comments Unknown Sex and Gender Information Value Date Recorded Sex Assigned at Not on file Legal Sex Female 5:48 PM BUYING AGENT Gender Identity Not on file Sexual Orientation [...]
--- OUTSIDE RECORDS SUMMARY | 2024-06-19 15:48 | XMS_ITS | Clinical Summary ---
Author Organization [facility] Address [address] [place] [address] Care Team Providers Care Police Lieutenant Precinct Name Role Phone Johanny Reyes MD Primary Care Provider + [phone] Allergies No known active allergies Medications DULoxetine [...] 03/11/2024 Assessment & Plan (03/11/2024 3:05 PM [facility]): Ciprofloxacin 7 drops into the Left ear [...] plugs Doc's proplugs, Junito's ear plugs with [place], [place] water exposure Follow up in 9 months for ear tube check Chronic maxillary sinusitis 06/13/2022 Assessment & Plan (06/13/2022 3:52 PM [facility]): CT angiogram - call with results If [...] 06/13/2022 Assessment & Plan (06/13/2022 3:52 PM H[facility]): CT angiogram - call with results If [...] 06/13 Assessment & Plan (06/13/2022 3:52 PM HOSP[facility]): CT angiogram - call with results Vestibular migraine 10/10/2012 Anxiety 10/10/2012 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 [address] [place] [address] [place] [address] Jaciel Antonio MD Testing from Last 3 [...] on file Legal Sex Female 2:33 AM HOSPITAL [facility] Gender Identity Not on file Sexual Orientation Not on file Obstetrics History Last Filed Vital Signs Vital Sign Reading Time Taken Comments Blood Pressure 98/65 03/11/2024 2:38 PM [facility] Pulse 101 03/11/2024 2:38 PM [facility] Temperature 36.1 C (97 F) 03/11/2024 2:38 PM [facility] Respiratory Rate 21 02/14/2023 11:43 AM CDT Oxygen Saturation 94% 03/11/2024 2:38 PM [facility] Inhaled Oxygen Concentration - - Weight 57.2 kg (126 lb) 03/11/2024 2:38 PM [facility] Height 170.2 cm (5' 7 ) 03/11/2024 2:38 PM [facility] Body Mass Index 19.73 03/11/2024 2:38 PM [facility] Plan of Treatment Health Maintenance Due Date [...] 12/31/2028 12/31/2018 Medical Devices Implanted Type Area Director [place] Device Identifier Shelf Expiration Date Model / Serial / Lot [employer] Karlos 1.27mm 9.5mm 4.5mm T Ear 9.5mm Tube Ventilation Silicone [id number] - [id number] Implanted:Qty: 1 on 10/04/2022 by Beata Fraser DO at [facility] Bilateral : Ear [employer] 01/07/2030 [id number] / / [id number] Insurance [employer] [place] Advance Directives For more information, please contact: [phone] Documents on File Type Date Recorded Patient Curbstone Setter Expl anation ADVANCE DIRECTIVE 08/27/2019 12:54 PM Care Teams Police Lieutenant Precinct Relationship Specialty Start Date End Date Johanny Reyes MD [address] [id number] [facility] - General 08/21/16
--- OUTSIDE RECORDS SUMMARY | 2024-06-19 15:48 | XMS_ITS | Clinical Summary ---
Author Organization [facility] Address [address] [place] [address] Phone Care Team Providers Care Controller [place] Name Role Phone DONOVAN ESTEVEZ DO Unavailable [phone] Reason for Visit and [...] - Last Documented On 07/30/2023 5:20PM ; [facility] 1. Get plenty of [...] - Last Documented On 07/30/2023 5:20PM ; [facility] Assessments Includes: Assessments from this encounter Findings - [H66.92 - Otitis media, unspecified, left ear] Otitis media of the left ear - Last Documented On 07/30/2023 5:20PM ; [facility] Medical Equipment - Implanted [...] ar daily for 7 days Pharmacy: [facility] [address], [id number] - Last Documented On 4 6:37PM By Ken Mares DNP ; [facility] Cefdinir 300 MG Oral Capsule Provider: KEN Aburto NP 10 day supply: 20 capsule, 0 refills Diagnosis: Otitis media, unspecified, left ear 1 CAPSULE TWO TIMES A DAY Pharmacy: [facility] [address], [id number] - Last Documented On 4 5:50PM By Ken Mares DNP ; [facility] Current Medications (continue as prescribed) Atorvastatin Calcium 10 MG Oral Tablet 07/30/2023 Pr ovider: Diagnosis: Last Documented On 07/30/2023 5:10PM By Edwina Salcedo ; [facility] Advair Diskus 100-50 MCG/ACT Inhalation Aerosol Powder Breath Activated 07/30/2023 Provider: Diagnosis: Last Documented On 07/30/2023 5:11PM By Edwina Salcedo ; [facility] Singulair 10 MG Oral Tablet 07/30/2023 Provider: Diagnosis: Last Documented On 07/30/2023 5:11PM By Edwina Salcedo ; [facility] Amoxicillin-Pot Clavulanate 875-125 MG Oral Tablet 06/30/2023 Provider: KEN SANTAMARIA Diagnosis: Other specified disorders of teeth and supporting structures One tablet twice a day Last Documented On 4 5:28PM By Ken SANTAMARIA ; [facility] Verapamil HCl ER 360 MG Oral Capsule Extended Re lease 24 Hour 03/29/2022 Provider: Diagnosis: Last Documented On 03/29/2022 3:58PM By RAFAELA MAGDALENO ; [facility] DULoxetine HCl 60 MG Oral Capsule Delayed Releas e Particles 03/29/2022 Provider: Diagnosis: Last Documented On 03/29/2022 4:00PM By RAFAELA MAGDALENO ; [facility] Past Medications on file Amoxicillin 875 MG Oral Tablet 09/11/2023 - 09/21/2023 Provider: KEN MARES DNP Diagnosis: Streptococcal pharyngitis 1 CAPSULE TWO TIMES A DAY Last Documented On 4 10:15AM By Ken Mares DNP ; [facility] Amoxicillin 875 MG Oral Tablet 03/29/2022 - 04/08/2022 Provider: VLAD HENRIQUEZ Diagnosis: Acute serous will tis media, right ear One tablet twice a day Last Documented On 2 4:28PM By VLAD SEYMOUR-ELIU ; [facility] Medications Administered Includes: Administered Medications from this encounter No Administered Medications Recorded Vital Signs Includes: Vital Signs from this encounter Vital Name 07/30/2023 05:14P Pulse Rate-Sitting (bpm) 120 Respiration Rate (breaths/min) 18 Temp-Oral (F) 98.8 Height (in) 65 Weight (lb) 115 Body Mass Index 19.1 Body Surface Area 1.6 Oxygen Saturation (%) 97 Last Documented: On 07/30/2023 5:14PM ; [facility] Results Includes: Results discussed during this encounter [...] 07/30/2023 Last Documented On 4 5:20PM ; [facility] Smoking Status Unknown Procedures and Surgical History Includes: Procedures from this encounter Procedures Code Diagnosis Performing Provider Service L ocation Service Date use of tobacco assessment performed 1000F Last Documented On 4 5:13PM ; [facility] review of medications documented 1160F Last Documented On 4 5:13PM ; [facility] Clinical summary provided to patient Last Documented On 4 5:14PM ; [facility] Medical History Includes: Medical History addressed during this encounter Description Last Updated No Contact with and (Suspected) exposure to COVID-19 07/30/2023 Last Documented On 4 5:20PM ; [facility] No fall 07/30/2023 Last Documented On 4 5:20PM ; [facility] Family History Includes: Family History addressed during [...] SICK VISIT- ESTABLISHED PATIENT KEN MARES DNP [facility] 07/30/19 24 4:53PM 5:15PM Otitis Media Left Ear Insurance Includes: Active Insurance Policies Plan Name Member ID Group # Subscriber Relationship Effect edelmira Dates 1 - [facility] [id number] HARRIET MELCHOR Self Clinical Notes Includes: Clinical Notes from this encounter * Progress note Date Encounter Last Documented by 07/30/2023 COVID SICK VISIT- ESTABLISHED ANGEL RUTHIECHONG Last documented on 07/30/2023; 5:20 PM, KEN MARES DNP; [facility] Chief Complaint The Chief [...]
--- OUTSIDE RECORDS SUMMARY | 2024-06-19 15:48 | XMS_ITS | Encounter Summary ---
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
--- OUTSIDE RECORDS SUMMARY | 2024-06-19 15:48 | XMS_ITS | Referral Summary ---
Author Organization [facility] Address [address] [facility] [place] [address] Care Team Providers Care Materials Management Manager Name Role Phone Johanny Reyes MD Primary Care Provider + [phone] Encounters Date Type Department Care Team Description 05/15/2024 Telephone [facility] Cardiology [address] [facility] 8th [place] [address] [place] [address] Jaciel Antonio MD Testing from [...] 03/11/2024 Assessment & Plan (03/11/2024 3:05 PM PRIVACY ATTORNEY): Ciprofloxacin 7 drops into the Left ear [...] plugs Doc's proplugs, Junito's ear plugs with Motley, River or Mcelroy water exposure Follow up in 9 months for ear tube check Chronic maxillary sinusitis 06/13/2022 Assessment & Plan (06/13/2022 3:52 PM PRIVACY ATTORNEY): CT angiogram - call with results If [...] 06/13/2022 Assessment & Plan (06/13/2022 3:52 PM PRIVACY ATTORNEY): CT angiogram - call with results If [...] 06/13 Assessment & Plan (06/13/2022 3:52 PM PRIVACY ATTORNEY): CT angiogram - call with results Vestibular [...] on file Legal Sex Female 2:33 AM PRIVACY ATTORNEY Gender Identity Not on file Sexual Orientation Not on file Last Filed Vital Signs Vital Sign Reading Time Taken Comments Blood Pressure 98/65 03/11/2024 2:38 PM PRIVACY ATTORNEY Pulse 101 03/11/2024 2:38 PM PRIVACY ATTORNEY Temperature 36.1 C (97 F) 03/11/2024 2:38 PM PRIVACY ATTORNEY Respiratory Rate 21 02/14/2023 11:43 AM CDT Oxygen Saturation 94% 03/11/2024 2:38 PM PRIVACY ATTORNEY Inhaled Oxygen Concentration - - Weight 57.2 kg (126 lb) 03/11/2024 2:38 PM PRIVACY ATTORNEY Height 170.2 cm (5' 7 ) 03/11/2024 2:38 PM PRIVACY ATTORNEY Body Mass Index 19.73 03/11/2024 2:38 PM PRIVACY ATTORNEY Plan of Treatment Not on file Medical Devices Implanted Type Area Change Management Device Identifier Shelf Expiration Date Model / Serial / Lot [employer] Karlos 1.27mm 9.5mm 4.5mm T Ear 9.5mm Tube Ventilation Silicone [id number] - [id number] Implanted:Qty: 1 on 10/04/2022 by Beata Fraser DO at [facility] Bilateral : Ear [employer] 01/07/2030 [id number] / / [id number] Insurance What They Like OR What They Like OR [facility] Advance Directives For more information, please contact: [phone] Documents on File Type Date Recorded 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
--- OUTSIDE RECORDS SUMMARY | 2024-06-19 15:49 | XMS_ITS | Clinical Summary ---
Author Organization [facility] Address [address] [place] [address] Phone Care Team Providers Care Fraud Analyst Name Role Phone DONOVAN ESTEVEZ DO Unavailable [phone] Reason for Visit and Chief Complaint The Chief Complaint is: Left ear drainage since yesterday morning and Rt ear cannot hear out of it with pain off & on since yesterday Plan of Treatment - Return to the clinic if condition worsens or new symptoms arise - Last Documented On 04/02/2022 10:05AM ; [facility] - Patient will call for appointment as needed - Last Documented On 04/02/2022 10:05AM ; [facility] Assessments Includes: Assessments from this encounter Findings - [H65.01 - Acute serous otitis media, right ear] Otitis media - Last Documented On 04/02/2022 10:05AM ; [facility] Medical Equipment - Implanted Devices Includes: Current Devices No Medical Equipment Recorded Medications Includes: Medications discussed during this encounter and other current Medications New / Renewed during this visit VLAD HENRIQUEZ on 03/29/2022 Amoxicillin 875 MG Oral Tablet Provider: VLAD HENRIQUEZ 10 day supply: 20 tablet, 0 refills Diagnosis: Acute serous otitis media, right ear One tablet twice a day Pharmacy: [facility], [phone] - Last Documented On 4:28PM By VLAD HENRIQUEZ ; [facility] Current Medications (continue as prescribed) Atorvastatin Calcium 10 MG Oral Tablet 07/30/2023 Pr ovider: Diagnosis: Last Documented On 07/30/2023 5:10PM By Edwina Salcedo ; [facility] Advair Diskus 100-50 MCG/ACT Inhalation Aerosol Powder Breath Activated 07/30/2023 Provider: Diagnosis: Last Documented On 07/30/2023 5:11PM By Edwina Salcedo ; [facility] Singulair 10 MG Oral Tablet 07/30/2023 Provider: Diagnosis: Last Documented On 07/30/2023 5:11PM By Edwina Salcedo ; [facility] Amoxicillin-Pot Clavulanate 875-125 MG Oral Tablet 06/30/2023 Provider: KEN SANTAMARIA Diagnosis: Other specified disorders of teeth and supporting structures One tablet twice a day Last Documented On 4 5:28PM By Ken SANTAMARIA ; [facility] Verapamil HCl ER 360 MG Oral Capsule Extended Re lease 24 Hour 03/29/2022 Provider: Diagnosis: Last Documented On 03/29/2022 3:58PM By RAFAELA MAGDALENO ; [facility] DULoxetine HCl 60 MG Oral Capsule Delayed Releas e Particles 03/29/2022 Provider: Diagnosis: Last Documented On 03/29/2022 4:00PM By RAFAELA MAGDALENO ; [facility] Past Medications on file Amoxicillin 875 MG Oral Tablet 09/11/2023 - 09/21/2023 Provider: KEN MARES DNP Diagnosis: Streptococcal pharyngitis 1 CAPSULE TWO TIMES A DAY Last Documented On 4 10:15AM By Ken Mares DNP ; [facility] Ofloxacin 0.3% Otic Solution 07/30/2023 - 08/06/2023 Provider: KEN MARES DNP Diagnosis: Otitis media, unspecified, left ear Apply 10 drops to the left e ar daily for 7 days Last Documented On 4 6:37PM By Ken Mares DNP ; [facility] Cefdinir 300 MG Oral Capsule 07/30/2023 - [...] 96 Last Documented: On 03/29/2022 4:01PM ; [facility] Results Includes: Results [...] 03/29/2022 Last Documented On 2 10:05AM ; [facility] Sexually active with partners in the 05/17/2011 Last Documented On 2 3:58PM ; [facility] Alcohol use: 2 drinks or less per day Last Documented On 2 3:58PM ; [facility] Cigarette smoking 0.5 pack-years 20 04/29 Last Documented On 2 3:58PM ; [facility] 05/17/2011 Last Documented On 2 3:58PM ; [facility] 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 Last Documented On 2 3:58PM ; [facility] Smoking Status Unknown Procedures and Surgical History Includes: Procedures from this encounter Procedures Code Diagnosis Performing Provider Service L ocation Service Date use of tobacco assessment performed 1000F Last Documented On 2 3:58PM ; [facility] Clinical summary provided to patient Last Documented On 2 4:25PM ; [facility] Medical History Includes: Medical History addressed during this encounter Description Last Updated History of asthma 05/17/2011 Last Documented On 2 3:58PM ; [facility] 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 05/17/2011 Last Documented On 2 3:58PM ; [facility] History of urinary tract infection appx 3 per year 05/17/2011 Last Documented On 2 3:58PM ; [facility] 3 05/17/2011 Last Documented On 2 3:58PM ; [facility] Para 3 05/17/2011 Last Documented On 2 3:58PM ; [facility] LMP: 04/25/2011 05/17/2011 Last Documented On 2 3:58PM ; [facility] sinus surgery ~perforated colon ~cluster headaches 05/17/2011 Last Documented On 2 3:58PM ; [facility] A colonoscopy was performed 2009 diverti culitis 05/17/2011 Last Documented On 2 3:58PM ; [facility] Asthma 05/17/2011 Last Documented On 2 3:58PM ; [facility] Last pap smear date 200905/17/2011 Last Documented On 2 3:58PM ; [facility] Result: normal 05/17/2011 Last Documented On 2 3:58PM ; [facility] Family History Includes: Family History addressed during this encounter Description Last Updated Family history of diabetes mellitus 04/29 Last Documented On 2 3:58PM ; [facility] Family history of Cancer Father & Grandp arents 05/17/2011 Last Documented On 2 3:58PM ; [facility] Family history of cardiac problems grand parents 05/17/2011 Last Documented On 2 3:58PM ; [facility] Family history of Diabetes grandparents 05/17/2011 Last Documented On 2 3:58PM ; [facility] Family history of high cholesterol paren ts 05/17/2011 Last Documented On 2 3:58PM ; [facility] Family history of Hypertension parents 0 05/17/2011 Last Documented On 2 3:58PM ; [facility] Family history of thyroid disease mother 05/17/2011 Last Documented On 2 3:58PM ; [facility] Review of Systems Includes: Review of [...] IN PATIENT - 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
--- OUTSIDE RECORDS SUMMARY | 2024-06-19 15:49 | XMS_ITS | Clinical Summary ---
Author Organization [facility] Address [address] [place] [address] Phone Care Team Providers Care Internet Marketing Consultant Name Role Phone DONOVAN ESTEVEZ DO Unavailable [phone] Reason for Visit and Chief Complaint The Chief Complaint is: Sore throat ~PT IS DUE TO SORE THROAT, CHILLS, FATIGUE, BODY ACHES, AND SORE THROAT SINCE YESTERDAY DID FLU COVID STREP Plan of Treatment - Return to the clinic if condition worsens or new symptoms arise - Last Documented On 09/11/2023 10:44AM ; [facility] Strep test was positive at today's visit. [...] - Last Documented On 09/11/2023 10:44AM ; [facility] Assessments Includes: Assessments from this encounter Findings - [J02.0 - Streptococcal pharyngitis] Group A streptococcus: B hemolytic pharyngitis - Last Documented On 09/11/2023 10:44AM ; [facility] Medical Equipment - Implanted Devices Includes: Current Devices No Medical Equipment Recorded Medications Includes: Medications discussed during this encounter and other current Medications New / Renewed during this visit KEN MARES DNP on 09/11/2023 Amoxicillin 875 MG Oral Tablet Provider: KEN Aburto ORDNANCE ENGINEERING TECHNICIAN 10 day supply: 20 tablet, 0 refills Diagnosis: Streptococcal pharyngitis 1 CAPSULE TWO TIMES A DAY Pharmacy: [address], [phone] - Last Documented On 4 10:15AM By Ken Mares DNP ; [facility] Current Medications (continue as prescribed) Atorvastatin Calcium 10 MG Oral Tablet 07/30/2023 Pr ovider: Diagnosis: Last Documented On 07/30/2023 5:10PM By Edwina Salcedo ; [facility] Advair Diskus 100-50 MCG/ACT Inhalation Aerosol Powder Breath Activated 07/30/2023 Provider: Diagnosis: Last Documented On 07/30/2023 5:11PM By Edwina Salcedo ; [facility] Singulair 10 MG Oral Tablet 07/30/2023 Provider: Diagnosis: Last Documented On 07/30/2023 5:11PM By Edwina Salcedo ; [facility] Amoxicillin-Pot Clavulanate 875-125 MG Oral Tablet 06/30/2023 Provider: KEN SANTAMARIA Diagnosis: Other specified disorders of teeth and supporting structures One tablet twice a day Last Documented On 4 5:28PM By Ken SANTAMARIA ; [facility] Verapamil HCl ER 360 MG Oral Capsule Extended Re lease 24 Hour 03/29/2022 Provider: Diagnosis: Last Documented On 03/29/2022 3:58PM By RAFAELA MAGDALENO ; [facility] DULoxetine HCl 60 MG Oral Capsule Delayed Releas e Particles 03/29/2022 Provider: Diagnosis: Last Documented On 03/29/2022 4:00PM By RAFAELA MAGDALENO ; [facility] Medications Administered Includes: Administered Medications from this encounter No Administered Medications Recorded Vital Signs Includes: Vital Signs from this encounter Vital Name 09/11/2023 09:58A Pulse Rate-Sitting (bpm) 94 Respiration Rate (breaths/min) 21 Temp-Oral (F) 98.9 Height (in) 65 Weight (lb) 108.375 Body Mass Index 18 Body Surface Area 1.5 Oxygen Saturation (%) 98 Last Documented: On 09/11/2023 9:58AM ; [facility] Results Includes: Results discussed during this encounter Group A strep [facility] Ordered by KEN MARES DNP on Collected: Reported: 09/11/2023 Last Documented On 4 10:14AM ; [facility] Reviewed on 09/11/2023; All test results are final unless otherwise noted. Rapid Strep POS A (Abnormal) Last Documented On 4 10:12AM ; [facility] LOT # AND EXP. DATE [id number] 02-28-24 N (Normal) Last Documented On 4 10:12AM ; [facility] INT. QC ACCEPTABLE? YES N (Normal) Last Documented On 4 10:12AM ; [facility] SARS COVID-19 FLU A & B [facility] Ordered by KEN MARES DNP on Collected: Reported: 09/11/2023 Last Documented On 4 10:14AM ; [facility] Reviewed on 09/11/2023; All test results are final unless otherwise noted. COVID NEG N (Normal) Last Documented On 4 10:12AM ; [facility] INFLUENZA A NEG (Negative) N (Normal) Last Documented On 4 10:12AM ; [facility] INFLUENZA B NEG (negative) N (Normal) Last Documented On 4 10:12AM ; [facility] INT. QC ACCEPTABLE? YES N (Normal) Last Documented On 4 10:12AM ; [facility] LOT # & EXP. DATE [id number] 04-16-24 N (Normal) Last Documented On 4 10:12AM ; [facility] History of Present Illness Includes: History [...] 09/11/2023 Last Documented On 4 10:44AM ; [facility] Not a current smoker 09/11/2023 Last Documented On 4 10:44AM ; [facility] Smoking Status Unknown Procedures and Surgical History Includes: Procedures from this encounter Procedures Code Diagnosis Performing Provider Service Location Service Date SARS-CO,SARS-COV- 2, INFLUENZA A/B TEST (CLIA WAIVED) 94016 Fever, unspecified KEN MARES [facility] 09/11/2023 Last Documented On 4 6:23PM ; [facility] STREP TEST SCREENING (CLIA WAIVED) 10135 Streptococcal pharyngitis KEN MARES [facility] 09/11/2023 Last Documented On 4 6:23PM ; [facility] Pt to use prescription as ordered. Purpo se of and use of medication discussed.~ Last Documented On 4 10:14AM ; [facility] Pt to use OTC fever/pain product as need ed per product instruction.~ Last Documented On 4 10:14AM ; [facility] use of tobacco assessment performed 1000F Last Documented On 4 9:58AM ; [facility] review of medications documented 1160F Last Documented On 4 9:58AM ; [facility] Clinical summary provided to patient Last Documented On 4 10:14AM ; [facility] Medical History Includes: Medical History addressed during this encounter Description Last Updated No Contact with and (Suspected) exposure to COVID-19 09/11/2023 Last Documented On 4 10:44AM ; [facility] No fall 09/11/2023 Last Documented On 4 10:44AM ; [facility] Family History Includes: Family History addressed [...] SICK VISIT- ESTABLISHED PATIENT KEN MARES DNP [facility] 09/11/19 24 9:25AM 10:14AM Pharyngitis Streptococcus, Group A: Beta Hemolytic Insurance Includes: Active Insurance Policies Plan Name Member ID Group # Subscriber Relationship Effect edelmira Dates 1 - [facility] [id number] HARRIET MELCHOR Self Clinical Notes Includes: Clinical Notes from this encounter * Progress note Date Encounter Last Documented by 09/11/2023 COVID SICK VISIT- ESTABLISHED ANGEL CLARK Last documented on 09/11/2023; 10:44 AM, KEN MARES DNP; [facility] Chief Complaint The Chief Complaint is: Sore [...] POS Abnormal LOT # AND EXP. DATE [id number] 02-28-24 Normal INT. QC ACCEPTABLE? YES Normal - Test: SARS COVID-19 FLU A & B Report Date: 09/11/2023 COVID NEG Normal INFLUENZA A NEG Normal INFLUENZA B NEG Normal INT. QC ACCEPTABLE? YES Normal LOT # & EXP. DATE [id number] 04-16-24 Normal Assessment - [J02.0 - Streptococcal [...]
--- OUTSIDE RECORDS SUMMARY | 2024-06-19 15:49 | XMS_ITS | Referral Summary ---
Author Organization [facility] Address [address] [facility] [place] [address] Care Team Providers Care Flower Arranger Name Role Phone Johanny Reyes MD Primary Care Provider [phone] Source Comments [facility],non-owned Affiliates and Associated Physician Practices is amultiple site organization consisting of ambulatory clinics and hospital sitesin [place], [place], [place] and [place]. This disclosure is being madepursuant to the Care Everywhere program and may not contain all information available regarding this patient. Last updated 18.[facility] Encounters Date Type Department Care Team Description 06/06/2024 9:04 PM EXERCISE SCIENCE INSTRUCTOR - 06/09/2024 4:00 PM [facility] Hospital Encounter [facility] [address] [place] [address] Martin Booth MD Qazi, Mohsin, MD Ibrahim, [...] 06/27/2009 Immunizations Name Administration Dates Next Due Covonra Cannona primary monova lent 12+ yr 0.5mL [...] heating? Not hard at all 06/06/2024 [facility] [place] of Occupat ional Health - Occupational Stress [...] any time in the past 12 m [facility], were you homeless or living in a [facility] (including now)? No 06/06/2024 Sex and Gender Information Value Date Recorded Sex Assigned at Female 06/06/2024 8:59 PM EXERCISE SCIENCE INSTRUCTOR Gender Identity Not on file Sexual Orientation Not on file Last Filed Vital Signs Vital Sign Reading Time Taken Comments Blood Pressure 99/65 06/09/2024 11:27 AM EXERCISE SCIENCE INSTRUCTOR Pulse 68 06/09/2024 11:27 AM EXERCISE SCIENCE INSTRUCTOR Temperature 36.4 C (97.5 F) 06/09/2024 11:27 AM EXERCISE SCIENCE INSTRUCTOR Respiratory Rate 18 06/09/2024 11:27 AM EXERCISE SCIENCE INSTRUCTOR Oxygen Saturation 93% 06/09/2024 11:27 AM EXERCISE SCIENCE INSTRUCTOR Inhaled Oxygen Concentration - - Weight 59 kg (130 lb) 06/06/2024 9:10 PM EXERCISE SCIENCE INSTRUCTOR Height 170.2 cm (5' 7 ) 06/06/2024 9:10 PM EXERCISE SCIENCE INSTRUCTOR Body Mass Index 20.36 06/06/2024 9:10 PM EXERCISE SCIENCE INSTRUCTOR Functional Status Functional Status Response Date of [...] st Contact Info) Description 07/01/2024 10:45 AM EXERCISE SCIENCE INSTRUCTOR Office Visit [facility] - Colorectal Surgery [address] [place] [address] Tj Estrada MD [address] [place] [address] Procedures Procedure Name Priority Date/Time Associated Diagnosis Comments CARDIAC RHYTHM STRIP ORDER 06/11/2024 10:04 PM EXERCISE SCIENCE INSTRUCTOR GLUCOSE - POINT OF CARE Routine 06/09/2024 12:22 PM EXERCISE SCIENCE INSTRUCTOR GLUCOSE - POINT OF CARE Routine 06/09/2024 7:54 AM EXERCISE SCIENCE INSTRUCTOR GLUCOSE - POINT OF CARE Routine 06/08/2024 6:12 PM EXERCISE SCIENCE INSTRUCTOR GLUCOSE - POINT OF CARE Routine 06/08/2024 12:34 PM EXERCISE SCIENCE INSTRUCTOR GLUCOSE - POINT OF CARE Routine 06/08/2024 4:57 AM EXERCISE SCIENCE INSTRUCTOR CBC W/O DIFFERENTIAL AM Draw 06/08/2024 3:49 AM EXERCISE SCIENCE INSTRUCTOR RENAL FUNCTION PANEL AM Draw 06/08/2024 3:49 AM EXERCISE SCIENCE INSTRUCTOR GLUCOSE - POINT OF CARE Routine 06/07/2024 11:32 PM EXERCISE SCIENCE INSTRUCTOR GLUCOSE - POINT OF CARE Routine 06/07/2024 6:19 PM EXERCISE SCIENCE INSTRUCTOR GLUCOSE - POINT OF CARE Routine 06/07/2024 12:[address] ABDOMEN PELVIS W CONTRAST STAT 06/07/2024 10:27 AM EXERCISE SCIENCE INSTRUCTOR Acute diverticulitis GLUCOSE - POINT OF CARE Routine 06/07/2024 6:26 AM EXERCISE SCIENCE INSTRUCTOR MAGNESIUM BLOOD Routine 06/07/2024 3:45 AM EXERCISE SCIENCE INSTRUCTOR CBC W/O DIFFERENTIAL Routine 06/07/2024 3:45 AM EXERCISE SCIENCE INSTRUCTOR BASIC METABOLIC PANEL (CALCIUM TOTAL) Routine 06/07/2024 3:45 AM EXERCISE SCIENCE INSTRUCTOR MAGNESIUM BLOOD STAT 06/06/2024 11:36 PM EXERCISE SCIENCE INSTRUCTOR CBC W AUTO DIFFERENTIAL STAT 06/06/2024 11:36 PM EXERCISE SCIENCE INSTRUCTOR LACTIC ACID BLOOD STAT 06/06/2024 11: 36 PM EXERCISE SCIENCE INSTRUCTOR BASIC METABOLIC PANEL (CALCIUM TOTAL) STAT 06/06/2024 11:36 PM EXERCISE SCIENCE INSTRUCTOR from Last 3 Months Results * CARDIAC RHYTHM STRIP ORDER (06/11/2024 10:04 PM EXERCISE SCIENCE INSTRUCTOR) Narrative 06/11/2024 10:04 PM EXERCISE SCIENCE INSTRUCTOR Ordered by an unspecified provider. Scanned Document CARDIAC SERVICES ORD ERABLES * GLUCOSE - POINT OF CARE (06/09/2024 12:22 PM EXERCISE SCIENCE INSTRUCTOR) Only the most recent of9 resultswithin the time period is included. Pathologist [facility] Glucose WB/POC 90 70 - 99 mg/dL 06/09/2024 12:32 PM EXERCISE SCIENCE INSTRUCTOR [facility] Specimen Type Cap Fingerstick 2024 12:32 PM EXERCISE SCIENCE INSTRUCTOR [facility] Blood BLOOD SPECIMEN / Unknown 06/09/2024 12:22 PM EXERCISE SCIENCE INSTRUCTOR 06/09/2024 12:31 PM EXERCISE SCIENCE INSTRUCTOR Fabiola Mckeon MD LAB - POINT OF CARE ORDERABLES Performing Organization Address City/State/[facility] Co de Phone Number [facility] [address] [place] [address] * (ABNORMAL) CBC W/O DIFFERENTIAL (06/08/2024 3:49 AM EXERCISE SCIENCE INSTRUCTOR) Only the most recent of2 resultswithin the time period is included. WBC 7.2 4.0 - 10.7 x10E9/L 06/08/2024 4:07 AM EXERCISE SCIENCE INSTRUCTOR [facility] RBC Count 3.81(L) 3.90 - 5.20 x10E12/L 06/08/2024 4:07 AM EXERCISE SCIENCE INSTRUCTOR [facility] Hemoglobin 11.9 11.9 - 15.8 g/dL 06/08/2024 4:07 AM EXERCISE SCIENCE INSTRUCTOR [facility] Hematocrit 36.1 34.8 - 46.1 % 06/08/2024 4:07 AM [facility] MCV 94.8 80.0 - 98.0 fL 06/08/2024 4:07 AM [facility] MCH 31.2 26.7 - 33.6 pg 06/08/2024 4:07 AM [facility] MCHC 33.0 31.7 - 36.3 g/dL 06/08/2024 4:07 AM [facility] RDW-CV 12.8 11.3 - 14.8 % 06/08/2024 4:07 AM [facility] Platelet Count 189 150 - 420 x10E9/L 06/08/2024 4:07 AM [facility] MPV 9.5 7.8 - 11.4 fL 06/08/2024 4:07 AM [facility] Blood BLOOD SPECIMEN / Unknown Lab Venipuncture / Unknown 06/08/2024 3:49 AM EXERCISE SCIENCE INSTRUCTOR 06/08/2024 4:01 AM [facility] Sharon Orozco MD LAB - HEMATOLOGY ORD ERABLES [facility] [address] [place] [address] * (ABNORMAL) RENAL FUNCTION PANEL (06/08/2024 3:49 AM [facility]) Glucose 85 70 - 99 mg/dL 06/08/2024 4:30 AM [facility] Sodium 138 136 - 145 mmol/L 06/08/2024 4:30 AM [facility] Potassium 3.9 3.5 - 5.1 mmol/L 06/08/2024 4:30 AM [facility] Chloride 108(H) 98 - 107 mmol/L 06/08/2024 4:30 AM [facility] CO2 26 22 - 29 mmol/L 06/08/2024 4:30 AM [facility] Calcium 8.3(L) 8.4 - 10.4 mg/dL 06/08/2024 4:30 AM [facility] Anion Gap 4(L) 6 - 16 mmol/L 06/08/2024 4:30 AM [facility] BUN 8 7 - 26 mg/dL 06/08/2024 4:30 AM EXERCISE SCIENCE INSTRUCTOR [facility] Creatinine 0.65 0.57 - 1.11 mg/dL 06/08/2024 4:30 AM EXERCISE SCIENCE INSTRUCTOR [facility] Albumin 2.9(L) 3.4 - 5.0 gm/dL 06/08/2024 4:30 AM EXERCISE SCIENCE INSTRUCTOR [facility] Phosphorus 2.5 2.5 - 4.5 mg/dL 06/08/2024 4:30 AM [facility] eGFR by CKD-EPI >90 >=90 mL/min/1.7 3 m2 06/08/2024 4:30 AM EXERCISE SCIENCE INSTRUCTOR [facility] Blood BLOOD SPECIMEN / Unknown Lab Venipuncture / Unknown 06/08/2024 3:49 AM EXERCISE SCIENCE INSTRUCTOR 06/08/2024 4:01 AM EXERCISE SCIENCE INSTRUCTOR Sharon Orozco [facility] Organization Address City/State/[facility] Co de Phone Number [facility] [address] [place] [address] * CT Abdomen Pelvis W Contrast (06/07/2024 10:27 AM EXERCISE SCIENCE INSTRUCTOR) Anatomical Region Laterality Modality Abdomen, Pelvis Computed Tomogra phy 06/07/2024 10:3 3 AM EXERCISE SCIENCE INSTRUCTOR Impressions 06/07/2024 10:38 AM EXERCISE SCIENCE INSTRUCTOR IMPRESSION: 1. Findings compatible with acute uncomplicated sigmoid diverticulitis. > Interpreting Provider: Jaciel Meehan MD on 06/07/2024 10:38 AM Narrative 06/07/2024 10:38 AM EXERCISE SCIENCE INSTRUCTOR PROCEDURE: CT ABDOMEN PELVIS W CONTRAST DATE/TIME [...] METABOLIC PANEL (CALCIUM TOTAL) (06/07/2024 3:45 AM EXERCISE SCIENCE INSTRUCTOR) Only the most recent of2 resultswithin the time period is included. Pathologist [facility] Glucose 83 70 - 99 mg/dL 06/07/2024 5:47 AM [facility] Sodium 137 136 - 145 mmol/L 06/07/2024 5:47 AM [facility] Potassium 3.5 3.5 - 5.1 mmol/L 06/07/2024 5:47 AM [facility] Chloride 105 98 - 107 mmol/L 06/07/2024 5:47 AM [facility] CO2 24 22 - 29 mmol/L 06/07/2024 5:47 AM [facility] Calcium 8.3(L) 8.4 - 10.4 mg/dL 06/07/2024 5:47 AM [facility] Anion Gap 8 6 - 16 mmol/L 06/07/2024 5:47 AM [facility] BUN 12 7 - 26 mg/dL 06/07/2024 5:47 AM [facility] Creatinine 0.73 0.57 - 1.11 mg/dL 06/07/2024 5:47 AM [facility] eGFR by CKD-EPI >90 >=90 mL/min/1.7 3 m2 06/07/2024 5:47 AM [facility] Blood BLOOD SPECIMEN / Unknown Lab Venipuncture / Unknown 06/07/2024 3:45 AM EXERCISE SCIENCE INSTRUCTOR 06/07/2024 4:59 AM EXERCISE SCIENCE INSTRUCTOR Matt Thompson MD LAB - CHEMISTRY LAURA ORTIZ Performing Organization Address [facility]/ZIP Co de Phone Number [facility] [address] [place], [place] [id number] * MAGNESIUM BLOOD (06/07/2024 3:45 AM EXERCISE SCIENCE INSTRUCTOR) Only the most recent of2 resultswithin the time period is included. Magnesium 1.8 1.6 - 2.6 mg/dL 06/07/2024 5:47 AM EXERCISE SCIENCE INSTRUCTOR [facility] Blood BLOOD SPECIMEN / Unknown Lab Venipuncture / Unknown 06/07/2024 3:45 AM EXERCISE SCIENCE INSTRUCTOR 06/07/2024 4:59 AM EXERCISE SCIENCE INSTRUCTOR Matt Thompson MD LAB - CHEMISTRY LAURA ORTIZ Performing Organization Address [facility]/ZIP Co de Phone Number [facility] [address] [place] [phone] * (ABNORMAL) CBC W AUTO DIFFERENTIAL (06/06/2024 11:36 PM EXERCISE SCIENCE INSTRUCTOR) Pathologist [facility] WBC 11.2(H) 4.0 - 10.7 x10E9/L 06/06/2024 11:47 PM [facility] RBC Count 3.96 3.90 - 5.20 x10E12/L 06/06/2024 11:47 PM [facility] Hemoglobin 12.4 11.9 - 15.8 g/dL 06/06/2024 11:47 PM [facility] Hematocrit 37.6 34.8 - 46.1 % 06/06/2024 11:47 PM [facility] MCV 94.9 80.0 - 98.0 fL 06/06/2024 11:47 PM [facility] MCH 31.3 26.7 - 33.6 pg 06/06/2024 11:47 PM [facility] MCHC 33.0 31.7 - 36.3 g/dL 06/06/2024 11:47 PM [facility] RDW-CV 13.2 11.3 - 14.8 % 06/06/2024 11:47 PM [facility] Platelet Count 174 150 - 420 x10E9/L 06/06/2024 11:47 PM [facility] MPV 9.7 7.8 - 11.4 fL 06/06/2024 11:47 PM [facility] Neutrophil % 66.1 41.0 - 74.0 % 06/06/2024 11:47 PM [facility] Lymphocyte % 22.7 17.0 - 47.0 % 06/06/2024 11:47 PM [facility] Monocyte % 8.2 3.0 - 11.0 % 06/06/2024 11:47 PM [facility] Eosinophil % 2.1 0.0 - 7.0 % 06/06/2024 11:47 PM [facility] Basophil % 0.4 0.0 - 1.6 % 06/06/2024 11:47 PM [facility] Immature Granulocytes % 0.5 0.0 - 1.0 % 06/06/2024 11:47 PM [facility] Neutrophil Absolute 7.40 1.60 - 7.50 x10E9/L 06/06/2024 11:47 PM [facility] Lymphocyte Absolute 2.54 1.00 - 4.40 x10E9/L 06/06/2024 11:47 PM [facility] Monocyte Absolute 0.92 0.15 - 1.00 x10E9/L 06/06/2024 11:47 PM [facility] Eosinophil Absolute 0.24 0.00 - 0.60 x10E9/L 06/06/2024 11:47 PM [facility] Basophil Absolute 0.04 0.00 - 0.13 x10E9/L 06/06/2024 11:47 PM [facility] Blood BLOOD SPECIMEN / Unknown Lab Venipuncture / Unknown 06/06/2024 11:36 PM EXERCISE SCIENCE INSTRUCTOR 06/06/2024 11:44 PM EXERCISE SCIENCE INSTRUCTOR Matt Thompson MD LAB - HEMATOLOGY ORD ERABLES [facility] [address] [place] [address] * LACTIC ACID BLOOD (06/06/2024 11:36 PM EXERCISE SCIENCE INSTRUCTOR) Lactic Acid 0.696 <=2 mmol/L 06/07/2024 12:04 AM EXERCISE SCIENCE INSTRUCTOR [facility] Blood BLOOD SPECIMEN / Unknown Lab Venipuncture / Unknown 06/06/2024 11:36 PM EXERCISE SCIENCE INSTRUCTOR 06/06/2024 11:43 PM EXERCISE SCIENCE INSTRUCTOR Matt Thompson MD LAB - CHEMISTRY LAURA Mendoza Organization Address City/State/ZIP Co de Phone Number [facility] [address] [place] [address] from Last 3 Months Advance Directives * Full Code (Latest Code Status on File) Date Activated Date Inactivated Comments 06/06/2024 10:47 PM 06/09/2024 5:30 PM Care Teams Flower Arranger Relationship Specialty Start Date End Date Johanny Reyes MD [address] [place] [address] PCP - General Internal Medicine 06/06/24
--- OUTSIDE RECORDS SUMMARY | 2024-06-19 15:49 | XMS_ITS | Clinical Summary ---
Author Organization [facility] Address [address] [place] [address] Phone Care Team Providers Care Fruit And Vegetable Parer Name Role Phone DONOVAN ESTEVEZ DO Unavailable [phone] Reason for Visit and Chief Complaint gynecologic consultation Here for IUD insertion. Currently on her period. Has had 2 Mirenas before - The Chief Complaint is: Procedure Mirena placement of period 12 pt is on peroid today Plan of Treatment - Insertion Of Iud - Last Documented On 08/02/2011 1:34PM ; [facility] In office procedures/*Family Practice: IUD - Last Documented On 08/02/2011 1:34PM ; [facility] Pending Tests Order Diagnosis Results Due Ordering Vielka hernandez In office procedures - *Family Practice IUD Insertion Of Iud 08/16/11 Graciela KNIGHT MD Last Documented On 2 1:34PM ; [facility] Assessments Includes: Assessments from this encounter Findings Mirena insertion. - Last Documented On 08/02/2011 1:34PM ; [facility] Medical Equipment - Implanted Devices Includes: Current Devices No Medical Equipment Recorded Medications Includes: Medications discussed during this encounter and other current Medications Current Medications (continue as prescribed) Atorvastatin Calcium 10 MG Oral Tablet 07/30/2023 Pr ovider: Diagnosis: Last Documented On 07/30/2023 5:10PM By Edwina Salcedo ; [facility] Advair Diskus 100-50 MCG/ACT Inhalation Aerosol Powder Breath Activated 07/30/2023 Provider: Diagnosis: Last Documented On 07/30/2023 5:11PM By Edwina Salcedo ; [facility] Singulair 10 MG Oral Tablet 07/30/2023 Provider: Diagnosis: Last Documented On 07/30/2023 5:11PM By Edwina Salcedo ; [facility] Amoxicillin-Pot Clavulanate 875-125 MG Oral Tablet 06/30/2023 Provider: KEN SANTAMARIA Diagnosis: Other specified disorders of teeth and supporting structures One tablet twice a day Last Documented On 4 5:28PM By Ken SANTAMARIA ; [facility] Verapamil HCl ER 360 MG Oral Capsule Extended Re lease 24 Hour 03/29/2022 Provider: Diagnosis: Last Documented On 03/29/2022 3:58PM By RAFAELA AVALOS [place] ; [facility] DULoxetine HCl 60 MG Oral Capsule Delayed Releas e Particles 03/29/2022 Provider: Diagnosis: Last Documented On 03/29/2022 4:00PM By RAFAELA MAGDALENO ; [facility] Past Medications on file Amoxicillin 875 MG Oral Tablet 09/11/2023 - 09/21/2023 Provider: KEN MARES DNP Diagnosis: Streptococcal pharyngitis 1 CAPSULE TWO TIMES A DAY Last Documented On 4 10:15AM By Ken Mares DNP ; [facility] Ofloxacin 0.3% Otic Solution 07/30/2023 - 08/06/2023 Provider: KEN MARES DNP Diagnosis: Otitis media, unspecified, left ear Apply 10 drops to the left e ar daily for 7 days Last Documented On 4 6:37PM By Ken Mares DNP ; [facility] Cefdinir 300 MG Oral Capsule 07/30/2023 - 08/09/2023 Provider: KEN STEVEN DNP Diagnosis: Otitis media, unspecified, left ear 1 CAPSULE TWO TIMES A DAY Last Documented On 4 5:50PM By Ken Mares DNP ; [facility] Amoxicillin 875 MG Oral Tablet 03/29/2022 - 04/08/2022 Provider: VLAD RIVERA PARQUET FLOOR LAYER'S HELPER- Diagnosis: Acute serous will tis media, right ear One tablet twice a day Last Documented On 2 4:28PM By VLAD RIVERA PARQUET FLOOR LAYER'S HELPER-BC ; [facility] Medications Administered Includes: Administered Medications from this encounter No Administered Medications Recorded Vital Signs Includes: Vital Signs from this encounter Vital Name 08/02/2011 01:00P Blood Pressure Sitting R 90/58 BP Cuff Size Regular Pulse Rate-Sitting (bpm) 72 Pulse Rhythm Regular Respiration Rate (breaths/min) 18 Weight (lb) 115 Last Documented: On 08/02/2011 1:13PM ; [facility] Results Includes: Results discussed during this encounter No Results Recorded For Specified Dates History of Present Illness Includes: History of Present Illness from this encounter No History of Present Illness Recorded Social History Description Last Updated In monogamous relationship 05/17/2011 Last Documented On 2 1:14PM ; [facility] Sexually active with partners in the 1 05/17/2011 Last Documented On 2 1:14PM ; [facility] Alcohol use: 2 drinks or less per day Last Documented On 2 1:14PM ; [facility] Cigarette smoking 0.5 pack-years 20 04/29 Last Documented On 2 1:14PM ; [facility] 05/17/2011 Last Documented On 2 1:14PM ; [facility] Does not have high school diploma 2011 Last Documented On 2 1:14PM ; [facility] 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 Last Documented On 2 1:14PM ; [facility] Smoking Status Unknown Medical History Includes: Medical History addressed during this encounter Description Last Updated History of asthma 05/17/2011 Last Documented On 2 1:14PM ; [facility] 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 05/17/2011 Last Documented On 2 1:14PM ; [facility] History of urinary tract infection appx 3 per year 05/17/2011 Last Documented On 2 1:14PM ; [facility] No history of cervical dysplasia 012 Last Documented On 2 1:14PM ; [facility] No history of dysfunctional uterine blee ding 05/17/2011 Last Documented On 2 1:14PM ; [facility] No history of human papilloma virus infe ction 05/17/2011 Last Documented On 2 1:14PM ; [facility] No history of vaginitis 05/17/2011 Last Documented On 2 1:14PM ; [facility] 3 05/17/2011 Last Documented On 2 1:14PM ; [facility] Para 3 05/17/2011 Last Documented On 2 1:14PM ; [facility] LMP: 04/25/2011 05/17/2011 Last Documented On 2 1:14PM ; [facility] sinus surgery ~perforated colon ~cluster headaches 05/17/2011 Last Documented On 2 1:14PM ; [facility] A colonoscopy was performed 2009 diverti culitis 05/17/2011 Last Documented On 2 1:14PM ; [facility] Asthma 05/17/2011 Last Documented On 2 1:14PM ; [facility] Last pap smear date 200905/17/2011 Last Documented On 2 1:14PM ; [facility] Result: normal 05/17/2011 Last Documented On 2 1:14PM ; [facility] Family History Includes: Family History [...] Diagnosis IUD INSERTION Graciela MCNAIR MD [facility] 08/02/19 12 1:00PM 1:40PM Assessment [use For S.o.a.p. Note Free Text] Insurance Includes: Active Insurance Policies Plan Name Member ID Group # Subscriber Relationship Effect edelmira Dates 1 - [facility] [id number] ALEXX MELCHOR Self Clinical Notes Includes: Clinical Notes from this encounter No Clinical Notes Recorded
--- OUTSIDE RECORDS SUMMARY | 2024-06-19 15:49 | XMS_ITS ---
Care Plan - [facility] Created on: June 19, 2024 ALEXX MELCHOR : 1975 Sex: Female Author Organization [facility] Address [address] [place] [address] Phone Care Team Providers Care Physical Testing Supervisor Name Role Phone DONOVAN ESTEVEZ DO Unavailable [phone]
--- OUTSIDE RECORDS SUMMARY | 2024-06-19 15:49 | XMS_ITS ---
Author Name EJ DELEON D.O. Address [address] [place] [address] Phone [phone] [facility] Headache and Ne urology Care Team Providers Care Adult Neuropsychologist Name Role Phone VELVET DELEON Unavailable [phone] Unavailable Unavailable Unavailable Unavailable Unavailable Unavailable Johanny Reyes Unavailable [phone] Reason for Referral Not Available Allergies, adverse [...] [facility]21/2023 Episodic cluster hea dache, not intractable high complexity office visit [facility] 11/26/2023 Episodic cluster he adache, not intractableDepression, unspecifiedHeadache, unspecifiedOther chronic painAdjustment disorder with depressed mood Social History Sex Female Gender identity Woman History of Procedures Procedures Service Procedure code Service date Servicing provider Phone# new patient, high complexity office visit [id number] 2023-09-19 No Data Available No Data Availa ble moderate complexity office visit [id number] 2023-10-21 No Data Available No Data Availa ble high complexity office visit [id number] 2023-11-26 No Data Available No Data Availa [...] was conducted via secured, two-way communication through [employer]. Patient located in [place]. Patient expressed consent with video communication to carry out today's visit. Total time of video encounter was 61 mins that were spent reviewing records, obtaining history, doing a physical exam (via video) as appropriate, documenting in the chart, and any associated orders, all on the day of the visit.Voice dictation software is in use. [employer] Camp Unit Leader variances may occur. Please excuse if any [...] was conducted via secured, two-way communication through [employer]. Patient located in [place]. Patient expressed consent with video communication to carry out today's visit. Total time of video encounter was 26 mins that were spent reviewing records, obtaining history, doing a physical exam (via video) as appropriate, documenting in the chart, and any associated orders, all on the day of the visit.Voice dictation software is in use. [employer] Unit Leader variances may occur. Please excuse if any [...] was conducted via secured, two-way communication through [employer]. Patient located in [place]. Patient expressed consent with video communication to carry out today's visit. Total time of video encounter was 40 mins that were spent reviewing records, obtaining history, doing a physical exam (via video) as appropriate, documenting in the chart, and any associated orders, all on the day of the visit.Voice dictation software is in use. [employer] Unit Leader variances may occur. Please excuse if any [...]
--- OUTSIDE RECORDS SUMMARY | 2024-06-19 15:49 | XMS_ITS | Patient Health Summary ---
Author Organization [facility] [employer] Address [address] [place] [address] Care Team Providers Care [facility] Name Role Phone Johanny Reyes MD Primary Care Provider [phone] Note from [facility],non-owned Affiliates and Associated Physician Practices is amultiple site organization consisting of ambulatory clinics and hospital sitesin [place], [place], [place] and [place]. This disclosure is being madepursuant to the Care Everywhere program and may not contain all information available regarding this patient. Last updated 18.[facility] [employer] Allergies No known active allergies Medications * [...] and heating? Not hard at all 06/06/2024 [facility] [place] of Occupat ional Health - Occupational Stress [...] any time in the past 12 m [facility], were you homeless or living in a [facility] (including now)? No 06/06/2024 Sex and Gender Information Value Date Recorded Sex Assigned at Female 06/06/2024 8:59 PM IT DESKTOP SUPPORT TECHNICIAN Gender Identity Not on file Sexual Orientation Not on file Last Filed Vital Signs Vital Sign Reading Time Taken Comments Blood Pressure 99/65 06/09/2024 11:27 AM IT DESKTOP SUPPORT TECHNICIAN Pulse 68 06/09/2024 11:27 AM IT DESKTOP SUPPORT TECHNICIAN Temperature 36.4 C (97.5 F) 06/09/2024 11:27 AM IT DESKTOP SUPPORT TECHNICIAN Respiratory Rate 18 06/09/2024 11:27 AM IT DESKTOP SUPPORT TECHNICIAN Oxygen Saturation 93% 06/09/2024 11:27 AM IT DESKTOP SUPPORT TECHNICIAN Inhaled Oxygen Concentration - - Weight 59 kg (130 lb) 06/06/2024 9:10 PM IT DESKTOP SUPPORT TECHNICIAN Height 170.2 cm (5' 7 ) 06/06/2024 9:10 PM IT DESKTOP SUPPORT TECHNICIAN Body Mass Index 20.36 06/06/2024 9:10 PM IT DESKTOP SUPPORT TECHNICIAN Procedures * CARDIAC RHYTHM STRIP ORDER(Performed 06/11/2024) [...] CARDIAC RHYTHM STRIP ORDER (06/11/2024 10:04 PM IT DESKTOP SUPPORT TECHNICIAN) Narrative 06/11/2024 10:04 PM IT DESKTOP SUPPORT TECHNICIAN Ordered by an unspecified provider. Scanned Document CARDIAC SERVICES ORD ERABLES * GLUCOSE - POINT OF CARE (06/09/2024 12:22 PM IT DESKTOP SUPPORT TECHNICIAN) Only the most recent of9 resultswithin the time period is included. Pathologist [facility] Glucose WB/POC 90 70 - 99 mg/dL 06/09/2024 12:32 PM IT DESKTOP SUPPORT TECHNICIAN [facility] Specimen Type Cap Fingerstick 2024 12:32 PM [facility] Blood BLOOD SPECIMEN / Unknown 06/09/2024 12:22 PM IT DESKTOP SUPPORT TECHNICIAN 06/09/2024 12:31 PM IT DESKTOP SUPPORT TECHNICIAN Fabiola Mckeon MD LAB - POINT OF CARE ORDERABLES Performing Organization Address City/State/[facility] Co de Phone Number [facility] [address] [place] [address] * (ABNORMAL) CBC W/O DIFFERENTIAL (06/08/2024 3:49 AM IT DESKTOP SUPPORT TECHNICIAN) Only the most recent of2 resultswithin the time period is included. [facility] WBC 7.2 4.0 - 10.7 x10E9/L 06/08/2024 4:07 AM [facility] RBC Count 3.81(L) 3.90 - 5.20 x10E12/L 06/08/2024 4:07 AM [facility] Hemoglobin 11.9 11.9 - 15.8 g/dL 06/08/2024 4:07 AM [facility] Hematocrit 36.1 34.8 - 46.1 % 06/08/2024 4:07 AM [facility] MCV 94.8 80.0 - 98.0 fL 06/08/2024 4:07 AM [facility] MCH 31.2 26.7 - 33.6 pg 06/08/2024 4:07 AM [facility] MCHC 33.0 31.7 - 36.3 g/dL 06/08/2024 4:07 AM [facility] RDW-CV 12.8 11.3 - 14.8 % 06/08/2024 4:07 AM [facility] Platelet Count 189 150 - 420 x10E9/L 06/08/2024 4:07 AM [facility] MPV 9.5 7.8 - 11.4 fL 06/08/2024 4:07 AM [facility] Blood BLOOD SPECIMEN / Unknown Lab Venipuncture / Unknown 06/08/2024 3:49 AM IT DESKTOP SUPPORT TECHNICIAN 06/08/2024 4:01 AM [facility] Sharon Orozco MD LAB - HEMATOLOGY ORD ERABLES [facility] [address] [place] [address] * (ABNORMAL) RENAL FUNCTION PANEL (06/08/2024 3:49 AM [facility]) Glucose 85 70 - 99 mg/dL 06/08/2024 4:30 AM [facility] Sodium 138 136 - 145 mmol/L 06/08/2024 4:30 AM [facility] Potassium 3.9 3.5 - 5.1 mmol/L 06/08/2024 4:30 AM [facility] Chloride 108(H) 98 - 107 mmol/L 06/08/2024 4:30 AM [facility] CO2 26 22 - 29 mmol/L 06/08/2024 4:30 AM [facility] Calcium 8.3(L) 8.4 - 10.4 mg/dL 06/08/2024 4:30 AM [facility] Anion Gap 4(L) 6 - 16 mmol/L 06/08/2024 4:30 AM [facility] BUN 8 7 - 26 mg/dL 06/08/2024 4:30 AM [facility] Creatinine 0.65 0.57 - 1.11 mg/dL 06/08/2024 4:30 AM [facility] Albumin 2.9(L) 3.4 - 5.0 gm/dL 06/08/2024 4:30 AM [facility] Phosphorus 2.5 2.5 - 4.5 mg/dL 06/08/2024 4:30 AM [facility] eGFR by CKD-EPI >90 >=90 mL/min/1.7 3 m2 06/08/2024 4:30 AM [facility] Blood BLOOD SPECIMEN / Unknown Lab Venipuncture / Unknown 06/08/2024 3:49 AM IT DESKTOP SUPPORT TECHNICIAN 06/08/2024 4:01 AM IT DESKTOP SUPPORT TECHNICIAN Sharon Orozco MD LAB - CHEMISTRY LAURA Mendoza Organization Address City/State/ZIP Co de Phone Number [facility] [address] [place] [address] * CT Abdomen Pelvis W Contrast (06/07/2024 10:27 AM IT DESKTOP SUPPORT TECHNICIAN) Anatomical Region Laterality Modality Abdomen, Pelvis Computed Tomogra phy 06/07/2024 10:3 3 AM IT DESKTOP SUPPORT TECHNICIAN Impressions 06/07/2024 10:38 AM IT DESKTOP SUPPORT TECHNICIAN IMPRESSION: 1. Findings compatible with acute uncomplicated sigmoid diverticulitis. > Interpreting Provider: Jaciel Meehan MD on 06/07/2024 10:38 AM Narrative 06/07/2024 10:38 AM IT DESKTOP SUPPORT TECHNICIAN PROCEDURE: CT ABDOMEN PELVIS W CONTRAST DATE/TIME [...] METABOLIC PANEL (CALCIUM TOTAL) (06/07/2024 3:45 AM IT DESKTOP SUPPORT TECHNICIAN) Only the most recent of2 resultswithin the time period is included. Glucose 83 70 - 99 mg/dL 06/07/2024 5:47 AM IT DESKTOP SUPPORT TECHNICIAN [facility] Sodium 137 136 - 145 mmol/L 06/07/2024 5:47 AM [facility] Potassium 3.5 3.5 - 5.1 mmol/L 06/07/2024 5:47 AM [facility] Chloride 105 98 - 107 mmol/L 06/07/2024 5:47 AM [facility] CO2 24 22 - 29 mmol/L 06/07/2024 5:47 AM [facility] Calcium 8.3(L) 8.4 - 10.4 mg/dL 06/07/2024 5:47 AM [facility] Anion Gap 8 6 - 16 mmol/L 06/07/2024 5:47 AM [facility] BUN 12 7 - 26 mg/dL 06/07/2024 5:47 AM [facility] Creatinine 0.73 0.57 - 1.11 mg/dL 06/07/2024 5:47 AM [facility] eGFR by CKD-EPI >90 >=90 mL/min/1.7 3 m2 06/07/2024 5:47 AM [facility] Blood BLOOD SPECIMEN / Unknown Lab Venipuncture / Unknown 06/07/2024 3:45 AM IT DESKTOP SUPPORT TECHNICIAN 06/07/2024 4:59 AM [facility] Matt Thompson MD LAB - CHEMISTRY ORDE DIANA [facility] Organization Address City/State/ZIP Co de Phone Number [facility] [address] [place] [address] * MAGNESIUM BLOOD (06/07/2024 3:45 AM IT DESKTOP SUPPORT TECHNICIAN) Only the most recent of2 resultswithin the time period is included. Magnesium 1.8 1.6 - 2.6 mg/dL 06/07/2024 5:47 AM [facility] Blood BLOOD SPECIMEN / Unknown Lab Venipuncture / Unknown 06/07/2024 3:45 AM IT DESKTOP SUPPORT TECHNICIAN 06/07/2024 4:59 AM IT DESKTOP SUPPORT TECHNICIAN Matt Thompson MD LAB - CHEMISTRY LAURA ORTIZ [facility] Organization Address City/State/ZIP Co de Phone Number [facility] [address] [place] [address] * (ABNORMAL) CBC W AUTO DIFFERENTIAL (06/06/2024 11:36 PM IT DESKTOP SUPPORT TECHNICIAN) WBC 11.2(H) 4.0 - 10.7 x10E9/L 06/06/2024 11:47 PM [facility] RBC Count 3.96 3.90 - 5.20 x10E12/L 06/06/2024 11:47 PM [facility] Hemoglobin 12.4 11.9 - 15.8 g/dL 06/06/2024 11:47 PM [facility] Hematocrit 37.6 34.8 - 46.1 % 06/06/2024 11:47 PM [facility] MCV 94.9 80.0 - 98.0 fL 06/06/2024 11:47 PM [facility] MCH 31.3 26.7 - 33.6 pg 06/06/2024 11:47 PM [facility] MCHC 33.0 31.7 - 36.3 g/dL 06/06/2024 11:47 PM [facility] RDW-CV 13.2 11.3 - 14.8 % 06/06/2024 11:47 PM [facility] Platelet Count 174 150 - 420 x10E9/L 06/06/2024 11:47 PM [facility] MPV 9.7 7.8 - 11.4 fL 06/06/2024 11:47 PM [facility] Neutrophil % 66.1 41.0 - 74.0 % 06/06/2024 11:47 PM [facility] Lymphocyte % 22.7 17.0 - 47.0 % 06/06/2024 11:47 PM [facility] Monocyte % 8.2 3.0 - 11.0 % 06/06/2024 11:47 PM [facility] Eosinophil % 2.1 0.0 - 7.0 % 06/06/2024 11:47 PM IT DESKTOP SUPPORT TECHNICIAN [facility] Basophil % 0.4 0.0 - 1.6 % 06/06/2024 11:47 PM IT DESKTOP SUPPORT TECHNICIAN [facility] Immature Granulocytes % 0.5 0.0 - 1.0 % 06/06/2024 11:47 PM IT DESKTOP SUPPORT TECHNICIAN [facility] Neutrophil Absolute 7.40 1.60 - 7.50 x10E9/L 06/06/2024 11:47 PM IT DESKTOP SUPPORT TECHNICIAN [facility] Lymphocyte Absolute 2.54 1.00 - 4.40 x10E9/L 06/06/2024 11:47 PM IT DESKTOP SUPPORT TECHNICIAN [facility] Monocyte Absolute 0.92 0.15 - 1.00 x10E9/L 06/06/2024 11:47 PM IT DESKTOP SUPPORT TECHNICIAN [facility] Eosinophil Absolute 0.24 0.00 - 0.60 x10E9/L 06/06/2024 11:47 PM IT DESKTOP SUPPORT TECHNICIAN [facility] Basophil Absolute 0.04 0.00 - 0.13 x10E9/L 06/06/2024 11:47 PM IT DESKTOP SUPPORT TECHNICIAN [facility] Blood BLOOD SPECIMEN / Unknown Lab Venipuncture / Unknown 06/06/2024 11:36 PM IT DESKTOP SUPPORT TECHNICIAN 06/06/2024 11:44 PM IT DESKTOP SUPPORT TECHNICIAN Matt Thompson MD LAB - HEMATOLOGY ORD ERABLES [facility] [address] [place], [place] [id number] * LACTIC ACID BLOOD (06/06/2024 11:36 PM IT DESKTOP SUPPORT TECHNICIAN) Lactic Acid 0.696 <=2 mmol/L 06/07/2024 12:04 AM IT DESKTOP SUPPORT TECHNICIAN [facility] Blood BLOOD SPECIMEN / Unknown Lab Venipuncture / Unknown 06/06/2024 11:36 PM IT DESKTOP SUPPORT TECHNICIAN 06/06/2024 11:43 PM IT DESKTOP SUPPORT TECHNICIAN Matt Thompson MD LAB - CHEMISTRY ORDE RABTEJ Performing Organization Address City/[facility]/ZIP Co de Phone Number [facility] [address] [place] [id number] Care Teams [facility] Relationship Specialty Start Date End Date Johanny Reyes MD [address] [place] [address] PCP - General Internal Medicine 06/06/24
--- OUTSIDE RECORDS SUMMARY | 2024-06-19 15:49 | XMS_ITS | Clinical Summary ---
Author Organization [facility] [employer] Address [address] [place] [address] Care Team Providers Care Box Toe Maker Name Role Phone Johanny Reyes MD Primary Care Provider [phone] Source Comments [facility] [employer]non-owned Affiliates and Associated Physician Practices is amultiple site organization consisting of ambulatory clinics and hospital sitesin [place], [place], [place] and [place]. This disclosure is being madepursuant to the Care Everywhere program and may not contain all information available regarding this patient. Last updated 18.[facility] [employer] Allergies No known active allergies Medications * [...] Department Care Team Description 06/06/2024 9:04 PM INTERNAL AUDITOR - 06/09/2024 4:00 PM [facility] Hospital Encounter [facility] 2 ORTHO/NEW VIS [address] [place] [address] Martin Booth MD Qazi, MD Pam Gutierrez [...] and heating? Not hard at all 06/06/2024 [facility] [place] of Occupat ional Health - Occupational Stress [...] any time in the past 12 m [facility], were you homeless or living in a detention (including now)? No 06/06/2024 Sex and Gender Information Value Date Recorded Sex Assigned at Female 06/06/2024 8:59 PM INTERNAL AUDITOR Gender Identity Not on file Sexual Orientation Not on file Last Filed Vital Signs Vital Sign Reading Time Taken Comments Blood Pressure 99/65 06/09/2024 11:27 AM INTERNAL AUDITOR Pulse 68 06/09/2024 11:27 AM INTERNAL AUDITOR Temperature 36.4 C (97.5 F) 06/09/2024 11:27 AM INTERNAL AUDITOR Respiratory Rate 18 06/09/2024 11:27 AM INTERNAL AUDITOR Oxygen Saturation 93% 06/09/2024 11:27 AM INTERNAL AUDITOR Inhaled Oxygen Concentration - - Weight 59 kg (130 lb) 06/06/2024 9:10 PM INTERNAL AUDITOR Height 170.2 cm (5' 7 ) 06/06/2024 9:10 PM INTERNAL AUDITOR Body Mass Index 20.36 06/06/2024 9:10 PM INTERNAL AUDITOR Plan of Treatment Upcoming Encounters Date Type Department Care Team (Late st Contact Info) Description 07/01/2024 10:45 AM INTERNAL AUDITOR Office Visit [facility] - Colorectal Surgery [address] [place] [phone] Tj Estrada MD [address] [place] [phone] Health Maintenance Due Date Last Done Comments [...] CARDIAC RHYTHM STRIP ORDER 06/11/2024 10:04 PM INTERNAL AUDITOR GLUCOSE - POINT OF CARE Routine 06/09/2024 12:22 PM INTERNAL AUDITOR GLUCOSE - POINT OF CARE Routine 06/09/2024 7:54 AM INTERNAL AUDITOR GLUCOSE - POINT OF CARE Routine 06/08/2024 6:12 PM INTERNAL AUDITOR GLUCOSE - POINT OF CARE Routine 06/08/2024 12:34 PM INTERNAL AUDITOR GLUCOSE - POINT OF CARE Routine 06/08/2024 4:57 AM INTERNAL AUDITOR CBC W/O DIFFERENTIAL AM Draw 06/08/2024 3:49 AM INTERNAL AUDITOR RENAL FUNCTION PANEL AM Draw 06/08/2024 3:49 AM INTERNAL AUDITOR GLUCOSE - POINT OF CARE Routine 06/07/2024 11:32 PM INTERNAL AUDITOR GLUCOSE - POINT OF CARE Routine 06/07/2024 6:19 PM INTERNAL AUDITOR GLUCOSE - POINT OF CARE Routine 06/07/2024 12:[address] ABDOMEN PELVIS W CONTRAST STAT 06/07/2024 10:27 AM INTERNAL AUDITOR Acute diverticulitis GLUCOSE - POINT OF CARE Routine 06/07/2024 6:26 AM INTERNAL AUDITOR MAGNESIUM BLOOD Routine 06/07/2024 3:45 AM INTERNAL AUDITOR CBC W/O DIFFERENTIAL Routine 06/07/2024 3:45 AM INTERNAL AUDITOR BASIC METABOLIC PANEL (CALCIUM TOTAL) Routine 06/07/2024 3:45 AM INTERNAL AUDITOR MAGNESIUM BLOOD STAT 06/06/2024 11:36 PM INTERNAL AUDITOR CBC W AUTO DIFFERENTIAL STAT 06/06/2024 11:36 PM INTERNAL AUDITOR LACTIC ACID BLOOD STAT 06/06/2024 11: 36 PM INTERNAL AUDITOR BASIC METABOLIC PANEL (CALCIUM TOTAL) STAT 06/06/2024 11:36 PM INTERNAL AUDITOR from Last 3 Months Results * CARDIAC RHYTHM STRIP ORDER (06/11/2024 10:04 PM INTERNAL AUDITOR) Narrative 06/11/2024 10:04 PM INTERNAL AUDITOR Ordered by an unspecified provider. Scanned Document CARDIAC SERVICES ORD ERABLES * GLUCOSE - POINT OF CARE (06/09/2024 12:22 PM INTERNAL AUDITOR) Only the most recent of9 resultswithin the time period is included. Glucose WB/POC 90 70 - 99 mg/dL 06/09/2024 12:32 PM INTERNAL AUDITOR [facility] Specimen Type Cap Fingerstick 2024 12:32 PM INTERNAL AUDITOR [facility] Blood BLOOD SPECIMEN / Unknown 06/09/2024 12:22 PM INTERNAL AUDITOR 06/09/2024 12:31 PM INTERNAL AUDITOR Fabiola Mckeon MD LAB - POINT OF CARE ORDERABLES Performing Organization Address City/[facility]/ZIP Co de Phone Number [facility] [address] [place] [address] * (ABNORMAL) CBC W/O DIFFERENTIAL (06/08/2024 3:49 AM INTERNAL AUDITOR) Only the most recent of2 resultswithin the time period is included. [facility] [place] WBC 7.2 4.0 - 10.7 x10E9/L 06/08/2024 [...] Lab Venipuncture / Unknown 06/08/2024 3:49 AM INTERNAL AUDITOR 06/08/2024 4:01 AM INTERNAL AUDITOR Sharon Orozco MD LAB - HEMATOLOGY ORD ERABLES [facility] [address] [place] [address] * (ABNORMAL) RENAL FUNCTION PANEL (06/08/2024 3:49 AM [facility]) [facility] Glucose 85 70 - 99 mg/dL 06/08/2024 [...] Lab Venipuncture / Unknown 06/08/2024 3:49 AM INTERNAL AUDITOR 06/08/2024 4:01 AM [facility] Sharon Orozco MD LAB - CHEMISTRY LAURA ORTIZ [facility] Organization Address City/State/ZIP Co de Phone Number [facility] [address] [place] [address] * CT Abdomen Pelvis W Contrast (06/07/2024 10:27 AM INTERNAL AUDITOR) Anatomical Region Laterality Modality Abdomen, Pelvis Computed Tomogra phy 06/07/2024 10:3 3 AM INTERNAL AUDITOR Impressions 06/07/2024 10:38 AM INTERNAL AUDITOR IMPRESSION: 1. Findings compatible with acute uncomplicated sigmoid diverticulitis. > Interpreting Provider: Jaciel Meehan MD on 06/07/2024 10:38 AM Narrative 06/07/2024 10:38 AM INTERNAL AUDITOR PROCEDURE: CT ABDOMEN PELVIS W CONTRAST DATE/TIME [...] METABOLIC PANEL (CALCIUM TOTAL) (06/07/2024 3:45 AM INTERNAL AUDITOR) Only the most recent of2 resultswithin the time period is included. Glucose 83 70 - 99 mg/dL 06/07/2024 5:47 AM INTERNAL AUDITOR [facility] Sodium 137 136 - 145 mmol/L 06/07/2024 5:47 AM INTERNAL AUDITOR [facility] Potassium 3.5 3.5 - 5.1 mmol/L 06/07/2024 5:47 AM INTERNAL AUDITOR [facility] Chloride 105 98 - 107 [...] Lab Venipuncture / Unknown 06/07/2024 3:45 AM INTERNAL AUDITOR 06/07/2024 4:59 AM INTERNAL AUDITOR Matt Thompson MD LAB - CHEMISTRY ORDSung ORTIZ Performing Organization Address City/[facility]/ZIP Co de Phone Number [facility] [address] [place], [place] [id number] * MAGNESIUM BLOOD (06/07/2024 3:45 AM INTERNAL AUDITOR) Only the most recent of2 resultswithin the time period is included. Magnesium 1.8 1.6 - 2.6 mg/dL 06/07/2024 5:47 AM [facility] Blood BLOOD SPECIMEN / Unknown Lab Venipuncture / Unknown 06/07/2024 3:45 AM INTERNAL AUDITOR 06/07/2024 4:59 AM INTERNAL AUDITOR Matt Thompson MD LAB - CHEMISTRY ORDSung ORTIZ [facility] [address] [place] [id number] * (ABNORMAL) CBC W AUTO DIFFERENTIAL (06/06/2024 11:36 PM INTERNAL AUDITOR) WBC 11.2(H) 4.0 - 10.7 x10E9/L 06/06/2024 [...] 0.0 - 7.0 % 06/06/2024 11:47 PM [facility] Basophil % 0.4 0.0 - 1.6 % 06/06/2024 11:47 PM [facility] Immature Granulocytes % 0.5 0.0 - 1.0 % 06/06/2024 11:47 PM [facility] Neutrophil Absolute 7.40 1.60 - 7.50 x10E9/L 06/06/2024 11:47 PM [facility] Lymphocyte Absolute 2.54 1.00 - 4.40 x10E9/L 06/06/2024 11:47 PM INTERNAL AUDITOR [facility] Monocyte Absolute 0.92 0.15 - 1.00 x10E9/L 06/06/2024 11:47 PM INTERNAL AUDITOR [facility] Eosinophil Absolute 0.24 0.00 - 0.60 x10E9/L 06/06/2024 11:47 PM INTERNAL AUDITOR [facility] Basophil Absolute 0.04 0.00 - 0.13 x10E9/L 06/06/2024 11:47 PM INTERNAL AUDITOR [facility] Blood BLOOD SPECIMEN / Unknown Lab Venipuncture / Unknown 06/06/2024 11:36 PM INTERNAL AUDITOR 06/06/2024 11:44 PM INTERNAL AUDITOR Matt Thompson MD LAB - HEMATOLOGY ORD ERABLES [facility] [address] [place], [place] [id number] * LACTIC ACID BLOOD (06/06/2024 11:36 PM INTERNAL AUDITOR) Lactic Acid 0.696 <=2 mmol/L 06/07/2024 12:04 AM INTERNAL AUDITOR [facility] Blood BLOOD SPECIMEN / Unknown Lab Venipuncture / Unknown 06/06/2024 11:36 PM INTERNAL AUDITOR 06/06/2024 11:43 PM INTERNAL AUDITOR Matt Thompson MD LAB - CHEMISTRY ORDE DIANA [facility] [address] [place] [address] from Last 3 Months Advance Directives * Full Code (Latest Code Status on File) Date Activated Date Inactivated Comments 06/06/2024 10:47 PM 06/09/2024 5:30 PM Care Teams Box Toe Maker Relationship Specialty Start Date End Date Johanny Reyes MD [address] [place] [id number] PCP - General Internal Medicine 06/06/24
[2024-06-19 17:05] LABS: Toxigenic C. Diff NEGATIVE (NEGATIVE)
== END 2024-06-19 15:45 | disposition home or self-care (01) ==
PROVIDERS: PCP Internal Medicine; Visit Provider Internal Medicine
DX: K57.92 Diverticulitis of intestine, part unspecified, without perforation or abscess without bleeding (principal)
CPT/HCPCS: 83993; 87493

== ENCOUNTER 2024-07-28 00:50 | Day surgery (SDC) | payer BC, SELFPAY ==
[2024-07-20 10:03] VITALS: BMI 20.3
--- NOTE | 2024-07-27 13:40 | P.PNAN_ITS ---
Anes - Initial Pre Proc Eval Procedure: Operation Date: 07/28/24 11:00 Proposed Procedures p Colonoscopy - Kike Landry DO Date/Time: 07/27/24 13:40 Surgeon: Kike Landry DO Pre Op Diagnosis: diarrhea Patient Data Age: 49 Gender: F Height: 1.7 m Weight: 59 kg Allergies Allergy/AdvReac Type Severity Reaction Status Date / Time No Known Allergies Allergy Verified 07/28/24 09:38 Home Medications ?Medication ?Instructions ?Recorded ?Confirmed ?Type duloxetine 60 mg capsule,delayed 60 mg PO DAILY 03/23/20 07/28/24 History release calcitriol 0.5 mcg capsule 0.5 mcg PO DAILY 06/06/24 07/28/24 History montelukast 10 mg tablet 10 mg PO DAILY 06/06/24 07/28/24 History propranolol 80 mg capsule,24 80 mg PO DAILY 06/06/24 07/28/24 History hr,extended release atorvastatin 20 mg tablet 20 mg PO DAILY 07/20/24 07/28/24 History verapamil 120 mg tablet,extended 120 mg PO DAILY 07/20/24 07/28/24 History release Patient hx anesthesia problems: none Family hx anesthesia problems: none Results Review: All pre-operative results and documents have been reviewed as part of the pre- operative evaluation. [facility] Past Medical History Medical History (Updated 07/27/24 @ 13:41 by Ellis Marie DO) Asthma Depression Anxiety Diverticulitis Surgical History Surgical History H/O sinus surgery Family History Family History Father Diabetes mellitus Mother Asthma Hypertension Grandparent Melanoma Social History Social History Smoking status: Current every day smoker Tobacco type: cigarettes Alcohol intake: never Alcohol use details: occasional Substance use: never Substance use type: does not use Living arrangements: with family Spiritual care concerns: No Anes - Eval Final PreProcedure Day of Procedure 07/27/24 13:40 Patient weight: normal Heart: regular rate and rhythm Lungs: clear to auscultation and normal air movement Airway: Mallampati scale class II Neurological: alert and oriented Last oral intake: >/= 8 hours ASA classification: II Emergent: no Anesthetic plan: proceed Anesthesia type and monitoring: general GIVS and standard monitoring Results Review: All pre-operative results and documents have been reviewed as part of the pre- operative evaluation. Informed Consent: The patient's anesthetic plan and its attendant risks and benefits were discussed with the patient/family/POA. Questions were solicited and answers provided to the satisfaction of the patient/family/POA.
--- OUTSIDE RECORDS SUMMARY | 2024-07-28 00:57 | XMS_ITS ---
Author Organization [facility] Address [address] [place] [address] Phone Care Team Providers Care Director Center Name Role Phone DONOVAN ESTEVEZ DO Shelly Unavailable [phone] Plan of Treatment Findings Encounter Date Ordered return to the clinic if condition worsens or new symptoms arise COVID SICK VISIT- ESTABLISHED PATIENT with KEN MARES [facility] 09/11/2023 Last Documented On 4 10:44AM ; [facility] Ordered return to the clinic if condition worsens or new symptoms arise COVID SICK VISIT- ESTABLISHED PATIENT with KEN MARES [facility] 07/30/2023 Last Documented On 4 5:20PM ; [facility] Ordered patient will call fo r appointment as needed WALK IN PATIENT - NEW PT with VLAD RIVERA [facility] 03/29/2022 Last Documented On 2 10:05AM ; [facility] Ordered return to the clinic if condition worsens or new symptoms arise WALK IN PATIENT - NEW PT with VLAD RIVERA [facility] 03/29/2022 Last Documented On 2 10:05AM ; [facility] Assessments Includes: Assessments for all patient encounters Findings Encounter Date Group A streptococcus: B hem olytic pharyngitis COVID SICK VISIT- ESTABLISHED PATIENT with KEN MARES DNP 09/11/2023 Last Documented On 4 10:44AM ; [facility] Otitis media of the left ear COVID SICK VISIT- ESTABLISHED PATIENT with KEN MARES DNP 07/30/2023 Last Documented On 4 5:20PM ; [facility] [B34.9 - Viral infection, un specified] viral infection COVID SICK VISIT- ESTABLISHED PATIENT with KEN REALCLAIR [facility] 06/30/2023 Last Documented On 4 5:24PM ; [facility] Infection of tooth COVID SICK VISIT- ES TABLISHED PATIENT with KEN REALCLAIR [facility] 06/30/2023 Last Documented On 4 5:24PM ; [facility] Otitis media WALK IN PATIENT - NEW PT with ISABELLE RIVERA [facility] 03/29/2022 Last Documented On 2 10:05AM ; [facility] Mirena insertion IUD INSERTION with Graciela SY MD 08/02/2011 Last Documented On 2 1:34PM ; [facility] Contraceptive management NEW PATIENT VISIT with Graciela MCNAIR MD 05/17/2011 Last Documented On 2 2:05PM ; [facility] NORMAL FEMALE EXAM NEW PATIENT VISIT with Graciela MCNAIR MD 05/17/2011 Last Documented On 2 2:05PM ; [facility] Urinary tract infection NEW PATIENT VISIT with Graciela MCNAIR MD 05/17/2011 Last Documented On 2 2:05PM ; [facility] Medical Equipment - Implanted Devices Includes: Current and historical Devices No Medical Equipment Recorded Medications Includes: Current and historical Medications Current Medications (continue as prescribed) Atorvastatin Calcium 10 MG Oral Tablet 07/30/2023 Pr ovider: Diagnosis: Last Documented On 07/30/2023 5:10PM By Edwina Salcedo ; [facility] Advair Diskus 100-50 MCG/ACT Inhalation Aerosol Powder Breath Activated 07/30/2023 Provider: Diagnosis: Last Documented On 07/30/2023 5:11PM By Edwina Salcedo ; [facility] Singulair 10 MG Oral Tablet 07/30/2023 Provider: Diagnosis: Last Documented On 07/30/2023 5:11PM By Edwina Salcedo ; [facility] Amoxicillin-Pot Clavulanate 875-125 MG Oral Tablet 06/30/2023 Provider: KEN Francis [facility] Diagnosis: Other specified disorders of teeth and supporting structures One tablet twice a day Last Documented On 4 5:28PM By Ken SANTAMARIA ; [facility] Verapamil HCl ER 360 MG Oral Capsule Extended Re lease 24 Hour 03/29/2022 Provider: Diagnosis: Last Documented On 03/29/2022 3:58PM By RAFAELA MAGDALENO ; [facility] DULoxetine HCl 60 MG Oral Capsule Delayed Releas e Particles 03/29/2022 Provider: Diagnosis: Last Documented On 03/29/2022 4:00PM By RAFAELA MAGDALENO ; [facility] Past Medications on file Amoxicillin 875 MG Oral Tablet 09/11/2023 - 09/21/2023 Provider: KEN MARES DNP Diagnosis: Streptococcal pharyngitis 1 CAPSULE TWO TIMES A DAY Last Documented On 4 10:15AM By Ken Mares DNP ; [facility] Ofloxacin 0.3% Otic Solution 07/30/2023 - 08/06/2023 Provider: KEN MARES DNP Diagnosis: Otitis media, unspecified, left ear Apply 10 drops to the left e ar daily for 7 days Last Documented On 4 6:37PM By Ken Mares DNP ; [facility] Cefdinir 300 MG Oral Capsule 07/30/2023 - 08/09/2023 Provider: KEN STEVEN DNP Diagnosis: Otitis media, unspecified, left ear 1 CAPSULE TWO TIMES A DAY Last Documented On 4 5:50PM By Ken Mares DNP ; [facility] Amoxicillin 875 MG Oral Tablet 03/29/2022 - 04/08/2022 Provider: VLAD HENRIQUEZ Diagnosis: Acute serous will tis media, right ear One tablet twice a day Last Documented On 2 4:28PM By VLAD HENRIQUEZ ; [facility] Medications Administered Includes: Administered Medications in patient's chart No Administered Medications Recorded Vital Signs Includes: Vital Signs from 07/29/2023 through 07/28/2024 Vital Name 09/11/2023 09:58A 07/30/2023 05: 14P Pulse Rate-Sitting (bpm) 94 120 Respiration Rate (breaths/min) 21 18 Temp-Oral (F) 98.9 98.8 Height (in) 65 65 Weight (lb) 108.375 115 Body Mass Index 18 19.1 Body Surface Area 1.5 1.6 Oxygen Saturation (%) 98 97 Last Documented: On 09/11/2023 9:58AM ; [facility] On 07/30/2023 5:14PM ; [facility] Results Includes: Results from 07/29/2023 through 07/28/2024 Group A strep [facility] Ordered by KEN MARES DNP on Collected: Reported: 09/11/2023 Last Documented On 4 10:14AM ; [facility] Reviewed on 09/11/2023; All test results are final unless otherwise noted. Rapid Strep POS A (Abnormal) Last Documented On 4 10:12AM ; [facility] LOT # AND EXP. DATE [id number] 02-28-24 N (Normal) Last Documented On 4 10:12AM ; [facility] INT. QC ACCEPTABLE? YES N (Normal) Last Documented On 4 10:12AM ; [facility] SARS COVID-19 FLU A & B [facility] Ordered by KEN MARES DNP on Collected: Reported: 09/11/2023 Last Documented On 4 10:14AM ; [facility] Reviewed on 09/11/2023; All test results are final unless otherwise noted. COVID NEG N (Normal) Last Documented On 4 10:12AM ; [facility] INFLUENZA A NEG (Negative) N (Normal) Last Documented On 4 10:12AM ; [facility] INFLUENZA B NEG (negative) N (Normal) Last Documented On 4 10:12AM ; [facility] INT. QC ACCEPTABLE? YES N (Normal) Last Documented On 4 10:12AM ; [facility] LOT # & EXP. DATE [id number] 04-16-24 N (Normal) Last Documented On 4 10:12AM ; [facility] History of Present Illness History of Present Illness not supported for this document type No History of Present Illness Recorded Social History Description Last Updated Tobacco non-user 09/11/2023 Last Documented On 4 10:44AM ; [facility] Not a current smoker 09/11/2023 Last Documented On 4 10:44AM ; [facility] In monogamous relationship 05/17/2011 Last Documented On 2 2:05PM ; [facility] Sexually active with partners in the las t year 1 05/17/2011 Last Documented On 2 2:05PM ; [facility] Alcohol use: 2 drinks or less per day Last Documented On 2 2:05PM ; [facility] Cigarette smoking 0.5 pack-years 20 04/29 Last Documented On 2 2:05PM ; [facility] 05/17/2011 Last Documented On 2 2:05PM ; [facility] Does not have high school diploma 2011 Last Documented On 2 2:05PM ; [facility] 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 Last Documented On 2 2:05PM ; [facility] Smoking Status Unknown Procedures and Surgical History Includes: Procedures from 07/29/2023 through 07/28/2024 Procedures Code Diagnosis Performing Provider Service Location Service Date SARS-CO,SARS-COV- 2, INFLUENZA A/B TEST (CLIA WAIVED) 84335 Fever, unspecified KEN MARES [facility] 09/11/2023 Last Documented On 4 6:23PM ; [facility] STREP TEST SCREENING (CLIA WAIVED) 64073 Streptococcal pharyngitis KEN MARES [facility] 09/11/2023 Last Documented On 4 6:23PM ; [facility] Medical History Includes: Medical History in patient's chart Description Last Updated No Contact with and (Suspected) exposure to COVID-19 09/11/2023 Last Documented On 4 10:44AM ; [facility] No fall 09/11/2023 Last Documented On 4 10:44AM ; [facility] Taking OTC medications 06/30/2023 Last Documented On 4 5:24PM ; [facility] History of asthma 05/17/2011 Last Documented On 2 2:05PM ; [facility] 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 05/17/2011 Last Documented On 2 2:05PM ; [facility] History of urinary tract infection appx 3 per year 05/17/2011 Last Documented On 2 2:05PM ; [facility] No history of cervical dysplasia 012 Last Documented On 2 2:05PM ; [facility] No history of dysfunctional uterine blee ding 05/17/2011 Last Documented On 2 2:05PM ; [facility] No history of human papilloma virus infe ction 05/17/2011 Last Documented On 2 2:05PM ; [facility] No history of vaginitis 05/17/2011 Last Documented On 2 2:05PM ; [facility] 3 05/17/2011 Last Documented On 2 2:05PM ; [facility] Para 3 05/17/2011 Last Documented On 2 2:05PM ; [facility] LMP: 04/25/2011 05/17/2011 Last Documented On 2 2:05PM ; [facility] sinus surgery ~perforated colon ~cluster headaches 05/17/2011 Last Documented On 2 2:05PM ; [facility] A colonoscopy was performed 2009 diverti culitis 05/17/2011 Last Documented On 2 2:05PM ; [facility] Asthma 05/17/2011 Last Documented On 2 2:05PM ; [facility] Last pap smear date 200905/17/2011 Last Documented On 2 2:05PM ; [facility] Result: normal 05/17/2011 Last Documented On 2 2:05PM ; [facility] Family History Includes: Family History in patient's chart Description Last Updated Family history of diabetes mellitus 04/29 Last Documented On 2 2:05PM ; [facility] No family history of malignant female br east neoplasm 05/17/2011 Last Documented On 2 2:05PM ; [facility] No family history of malignant neoplasm of the large intestine 05/17/2011 Last Documented On 2 2:05PM ; [facility] No family history of malignant neoplasm of the ovary 05/17/2011 Last Documented On 2 2:05PM ; [facility] Family history of Cancer Father & Grandp arents 05/17/2011 Last Documented On 2 2:05PM ; [facility] Family history of cardiac problems grand parents 05/17/2011 Last Documented On 2 2:05PM ; [facility] Family history of Diabetes grandparents 05/17/2011 Last Documented On 2 2:05PM ; [facility] Family history of high cholesterol paren ts 05/17/2011 Last Documented On 2 2:05PM ; [facility] Family history of Hypertension parents 0 05/17/2011 Last Documented On 2 2:05PM ; [facility] Family history of thyroid disease mother 05/17/2011 Last Documented On 2 2:05PM ; [facility] Review of Systems Review of Systems not supported for this document type No Review of Systems Recorded Mental Status No Mental Status Recorded Functional Status No Functional Status Recorded Physical Exam Physical Exam not supported for this document type No Physical Exam Recorded Allergies Includes: Active, inactive, and resolved Allergies No Known Allergies Encounters Includes: Encounters from 07/29/2023 through 07/28/2024 Encounter Provider Location Date Check-In Time Check-Out Time Diagnosis COVID SICK VISIT- ESTABLISHED PATIENT KEN Johnson [facility] 09/11/19 24 9:25AM 10:14AM Pharyngitis Streptococcus, Group A: Beta Hemolytic COVID SICK VISIT- ESTABLISHED PATIENT KEN Johnson [facility] 07/30/19 24 4:53PM 5:15PM Otitis Media Left Ear Insurance Includes: Active Insurance Policies Plan Name Member ID Group # Subscriber Relationship Effect edelmira Dates 1 - [facility] [id number] HARRIET Jackson Clinical Notes Includes: Signed Clinical Notes starting from 05/18/2022 * Progress note Date Encounter Last Documented by 09/11/2023 COVID SICK VISIT- ESTABLISHED ANGEL EDUARDO Last documented on 09/11/2023; 10:44 AM, KEN MARES DNP; [facility] Chief Complaint The Chief Complaint is: Sore [...] POS Abnormal LOT # AND EXP. DATE [id number] 02-28-24 Normal INT. QC ACCEPTABLE? YES Normal - Test: SARS COVID-19 FLU A & B Report Date: 09/11/2023 COVID NEG Normal INFLUENZA A NEG Normal INFLUENZA B NEG Normal INT. QC ACCEPTABLE? YES Normal LOT # & EXP. DATE [id number] 04-16-24 Normal Assessment - [J02.0 - Streptococcal [...] on 07/30/2023; 5:20 PM, KEN MARES DNP; [facility] Chief Complaint The Chief [...]
--- OUTSIDE RECORDS SUMMARY | 2024-07-28 00:57 | XMS_ITS | Referral Summary ---
Author Organization [facility] [address] Address [address] [place] [address] Care Team Providers Care Junior Assistant Manager Name Role Phone Johanny Reyes MD Primary Care Provider Encounters Date Type Department Care Team Description 05/15/2024 Telephone [facility] Cardiology [address] 8th [place] [address] [place] [address] Jaciel Antonio MD Testing from [...] Assessment & Plan (03/11/2024 3:05 PM SENIOR PHARMACY TECHNICIAN): Ciprofloxacin 7 drops into the Left ear [...] plugs Doc's proplugs, Junito's ear plugs with [place], [place] or [place] water exposure Follow up in 9 months for ear tube check Chronic maxillary sinusitis 06/13/2022 Assessment & Plan (06/13/2022 3:52 PM SENIOR PHARMACY TECHNICIAN): CT angiogram - call with results If [...] Assessment & Plan (06/13/2022 3:52 PM SENIOR PHARMACY TECHNICIAN): CT angiogram - call with results If [...] Assessment & Plan (06/13/2022 3:52 PM SENIOR PHARMACY TECHNICIAN): CT angiogram - call with results Vestibular [...] file Legal Sex Female 2:33 AM SENIOR PHARMACY TECHNICIAN Gender Identity Not on file Sexual Orientation Not on file Last Filed Vital Signs Vital Sign Reading Time Taken Comments Blood Pressure 98/65 03/11/2024 2:38 PM SENIOR PHARMACY TECHNICIAN Pulse 101 03/11/2024 2:38 PM SENIOR PHARMACY TECHNICIAN Temperature 36.1 C (97 F) 03/11/2024 2:38 PM SENIOR PHARMACY TECHNICIAN Respiratory Rate 21 02/14/2023 11:43 AM CDT Oxygen Saturation 94% 03/11/2024 2:38 PM SENIOR PHARMACY TECHNICIAN Inhaled Oxygen Concentration - - Weight 57.2 kg (126 lb) 03/11/2024 2:38 PM SENIOR PHARMACY TECHNICIAN Height 170.2 cm (5' 7 ) 03/11/2024 2:38 PM SENIOR PHARMACY TECHNICIAN Body Mass Index 19.73 03/11/2024 2:38 PM SENIOR PHARMACY TECHNICIAN Plan of Treatment Not on file Medical Devices Implanted Type Area Warehouse Specialist Device Identifier Shelf Expiration Date Model / Serial / Lot [employer] Karlos 1.27mm 9.5mm 4.5mm T Ear 9.5mm Tube Ventilation Silicone [id number] - [id number] Implanted:Qty: 1 on 10/04/2022 by Beata Fraser DO at [facility] Bilateral : Ear [employer] 01/07/2030 [id number] / / [id number] Insurance impok [place] impok [place] [facility] Advance Directives For more information, please contact: [phone] Documents on File Type Date Recorded Patient Road Monkey Expl anation ADVANCE DIRECTIVE 08/27/2019 12:54 PM Care Teams Junior Assistant Manager Relationship Specialty Start Date End Date Johanny Reyes MD [address] [place], [place] [id number] PCP - General 08/21/16
--- OUTSIDE RECORDS SUMMARY | 2024-07-28 00:57 | XMS_ITS | CONTINUITY OF CARE DOCUMENT ---
Author Name christina vasquez Address Unknown Organization [facility] Address [address] [place] [address] Phone [phone] Care Team Providers Care Director Of In Service Education Name Role Phone .[employer], slhv Unavailable Unavailable INSURANCE PROVIDERS Payer name Policy type / Coverage type [place] red constitution party ID [facility] [id number]
--- OUTSIDE RECORDS SUMMARY | 2024-07-28 00:57 | XMS_ITS | Clinical Summary ---
Author Organization [facility] Address [address] [place] [address] Phone Care Team Providers Care Rn Neonatal Name Role Phone DONOVAN ESTEVEZ DO Unavailable [phone] Reason for Visit and [...] - Last Documented On 07/30/2023 5:20PM ; [facility] 1. Get plenty of rest. [...] - Last Documented On 07/30/2023 5:20PM ; [facility] Medical Equipment - Implanted [...] ar daily for 7 days Pharmacy: [facility] [address], [id number] - Last Documented On 4 6:37PM By Ken Mares DNP ; [facility] Cefdinir 300 MG Oral Capsule Provider: KEN Aburto NP 10 day supply: 20 capsule, 0 refills Diagnosis: Otitis media, unspecified, left ear 1 CAPSULE TWO TIMES A DAY Pharmacy: [facility] [address], [id number] - Last Documented On 4 5:50PM By Ken Mares DNP ; [facility] Current Medications (continue as prescribed) Atorvastatin Calcium 10 MG Oral Tablet 07/30/2023 Pr ovider: Diagnosis: Last Documented On 07/30/2023 5:10PM By Edwina Salcedo ; [facility] Advair Diskus 100-50 MCG/ACT Inhalation Aerosol Powder Breath Activated 07/30/2023 Provider: Diagnosis: Last Documented On 07/30/2023 5:11PM By Edwina Salcedo ; [facility] Singulair 10 MG Oral Tablet 07/30/2023 Provider: Diagnosis: Last Documented On 07/30/2023 5:11PM By Edwina Salcedo ; [facility] Amoxicillin-Pot Clavulanate 875-125 MG Oral Tablet 06/30/2023 Provider: KEN SANTAMARIA Diagnosis: Other specified disorders of teeth and supporting structures One tablet twice a day Last Documented On 4 5:28PM By Ken SANTAMARIA ; [facility] Verapamil HCl ER 360 MG Oral Capsule Extended Re lease 24 Hour 03/29/2022 Provider: Diagnosis: Last Documented On 03/29/2022 3:58PM By RAFAELA MAGDALENO ; [facility] DULoxetine HCl 60 MG Oral Capsule Delayed Releas e Particles 03/29/2022 Provider: Diagnosis: Last Documented On 03/29/2022 4:00PM By RAFAELA MAGDALENO ; [facility] Past Medications on file Amoxicillin 875 MG Oral Tablet 09/11/2023 - 09/21/2023 Provider: KEN MARES DNP Diagnosis: Streptococcal pharyngitis 1 CAPSULE TWO TIMES A DAY Last Documented On 4 10:15AM By Ken Mares DNP ; [facility] Amoxicillin 875 MG Oral Tablet [...] 07/30/2023 Last Documented On 4 5:20PM ; [facility] Smoking Status Unknown Procedures and Surgical History Includes: Procedures from this encounter Procedures Code Diagnosis Performing Provider Service L ocation Service Date use of tobacco assessment performed 1000F Last Documented On 4 5:13PM ; [facility] review of medications documented 1160F Last Documented On 4 5:13PM ; [facility] Clinical summary provided to patient Last Documented On 4 5:14PM ; [facility] Medical History Includes: Medical History addressed during this encounter Description Last Updated No Contact with and (Suspected) exposure to COVID-19 07/30/2023 Last Documented On 4 5:20PM ; [facility] No fall 07/30/2023 Last [...] SICK VISIT- ESTABLISHED PATIENT KEN MARES DNP [facility] 07/30/19 24 4:53PM 5:15PM Otitis Media Left Ear Insurance Includes: Active Insurance Policies Plan Name Member ID Group # Subscriber Relationship Effect edelmira Dates 1 - [facility] [id number] HARRIET MELCHOR Self Clinical Notes Includes: Clinical Notes from this encounter * Progress note Date Encounter Last Documented by 07/30/2023 COVID SICK VISIT- ESTABLISHED ANGEL RUTHIECHONG Last documented on 07/30/2023; 5:20 PM, KEN MARES DNP; [facility] Chief Complaint The Chief [...]
--- OUTSIDE RECORDS SUMMARY | 2024-07-28 00:57 | XMS_ITS | Clinical Summary ---
Author Organization [facility] [address] Address [address] [place] [address] Care Team Providers Care Contract Attorney Name Role Phone Johanny Reyes MD Primary [...] 03/11/2024 Assessment & Plan (03/11/2024 3:05 PM MICROGRAPHICS SERVICES SUPERVISOR): Ciprofloxacin 7 drops into the Left ear [...] plugs Doc's proplugs, Junito's ear plugs with [place], [place] or [place] water exposure Follow up in 9 months for ear tube check Chronic maxillary sinusitis 06/13/2022 Assessment & Plan (06/13/2022 3:52 PM MICROGRAPHICS SERVICES SUPERVISOR): CT angiogram - call with results If [...] 06/13/2022 Assessment & Plan (06/13/2022 3:52 PM MICROGRAPHICS SERVICES SUPERVISOR): CT angiogram - call with results If [...] 06/13 Assessment & Plan (06/13/2022 3:52 PM MICROGRAPHICS SERVICES SUPERVISOR): CT angiogram - call with results Vestibular migraine 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 Anxiety 10/10/2012 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 Cluster headaches 06/27/2009 Encounters Date Type Department Care Team Description 05/15/2024 Telephone [facility] Cardiology [address] 8th [place] [address] [place] [address] Jaciel Antonio MD Testing from Last 3 [...] on file Legal Sex Female 2:33 AM MICROGRAPHICS SERVICES SUPERVISOR Gender Identity Not on file Sexual Orientation Not on file Obstetrics History Last Filed Vital Signs Vital Sign Reading Time Taken Comments Blood Pressure 98/65 03/11/2024 2:38 PM MICROGRAPHICS SERVICES SUPERVISOR Pulse 101 03/11/2024 2:38 PM MICROGRAPHICS SERVICES SUPERVISOR Temperature 36.1 C (97 F) 03/11/2024 2:38 PM MICROGRAPHICS SERVICES SUPERVISOR Respiratory Rate 21 02/14/2023 11:43 AM CDT Oxygen Saturation 94% 03/11/2024 2:38 PM MICROGRAPHICS SERVICES SUPERVISOR Inhaled Oxygen Concentration - - Weight 57.2 kg (126 lb) 03/11/2024 2:38 PM MICROGRAPHICS SERVICES SUPERVISOR Height 170.2 cm (5' 7 ) 03/11/2024 2:38 PM MICROGRAPHICS SERVICES SUPERVISOR Body Mass Index 19.73 03/11/2024 2:38 PM MICROGRAPHICS SERVICES SUPERVISOR Plan of Treatment Health Maintenance Due Date [...] 12/31/2028 12/31/2018 Medical Devices Implanted Type Area Death Claim Examiner Device Identifier Shelf Expiration Date Model / Serial / Lot [employer] Karlos 1.27mm 9.5mm 4.5mm T Ear 9.5mm Tube Ventilation Silicone [id number] - [id number] Implanted:Qty: 1 on 10/04/2022 by Beata Fraser DO at [facility] Bilateral : Ear [employer] 01/07/2030 [id number] / / [id number] Insurance [place] Advance Directives For more information, please contact: [phone] Documents on File Type Date Recorded Patient Site Monitor Expl anation ADVANCE DIRECTIVE 08/27/2019 12:54 PM Care Teams Contract Attorney Relationship Specialty Start Date End Date Johanny Reyes MD [address] [id number] [facility] - General 08/21/16
--- OUTSIDE RECORDS SUMMARY | 2024-07-28 00:58 | XMS_ITS | Clinical Summary ---
Author Organization [facility] Address [address] [place] [address] Phone Care Team Providers Care Repair Specialist Name Role Phone DONOVAN ESTEVEZ DO Unavailable [phone] Reason for Visit and Chief Complaint The Chief Complaint is: Left ear drainage since yesterday morning and Rt ear cannot hear out of it with pain off & on since yesterday Plan of Treatment - Return to the clinic if condition worsens or new symptoms arise - Last Documented On 04/02/2022 10:05AM ; [facility] - Patient will call for appointment as needed - Last Documented On 04/02/2022 10:05AM ; [facility] Assessments Includes: Assessments from this encounter Findings - [H65.01 - Acute serous otitis media, right ear] Otitis media - Last Documented On 04/02/2022 10:05AM ; [facility] Medical Equipment - Implanted Devices Includes: Current Devices No Medical Equipment Recorded Medications Includes: Medications discussed during this encounter and other current Medications New / Renewed during this visit VLAD HENRIQUEZ on 03/29/2022 Amoxicillin 875 MG Oral Tablet Provider: VLAD HENRIQUEZ 10 day supply: 20 tablet, 0 refills Diagnosis: Acute serous otitis media, right ear One tablet twice a day Pharmacy: [facility], [id number] - Last Documented On 4:28PM By VLAD HENRIQUEZ ; [facility] Current Medications (continue as prescribed) Atorvastatin Calcium 10 MG Oral Tablet 07/30/2023 Pr ovider: Diagnosis: Last Documented On 07/30/2023 5:10PM By Edwina Salcedo ; [facility] Advair Diskus 100-50 MCG/ACT Inhalation Aerosol Powder Breath Activated 07/30/2023 Provider: Diagnosis: Last Documented On 07/30/2023 5:11PM By Edwina Salcedo ; [facility] Singulair 10 MG Oral Tablet 07/30/2023 Provider: Diagnosis: Last Documented On 07/30/2023 5:11PM By Edwina Salcedo ; [facility] Amoxicillin-Pot Clavulanate 875-125 MG Oral Tablet 06/30/2023 Provider: KEN SANTAMARIA Diagnosis: Other specified disorders of teeth and supporting structures One tablet twice a day Last Documented On 4 5:28PM By Ken SANTAMARIA ; [facility] Verapamil HCl ER 360 MG Oral Capsule Extended Re lease 24 Hour 03/29/2022 Provider: Diagnosis: Last Documented On 03/29/2022 3:58PM By RAFAELA MAGDALENO ; [facility] DULoxetine HCl 60 MG Oral Capsule Delayed Releas e Particles 03/29/2022 Provider: Diagnosis: Last Documented On 03/29/2022 4:00PM By RAFAELA MAGDALENO ; [facility] Past Medications on file Amoxicillin 875 MG Oral Tablet 09/11/2023 - 09/21/2023 Provider: KEN MARES DNP Diagnosis: Streptococcal pharyngitis 1 CAPSULE TWO TIMES A DAY Last Documented On 4 10:15AM By Ken Mares DNP ; [facility] Ofloxacin 0.3% Otic Solution 07/30/2023 - 08/06/2023 Provider: KEN MARES DNP Diagnosis: Otitis media, unspecified, left ear Apply 10 drops to the left e ar daily for 7 days Last Documented On 4 6:37PM By Ken Mares DNP ; [facility] Cefdinir 300 MG Oral Capsule 07/30/2023 - [...] 96 Last Documented: On 03/29/2022 4:01PM ; [facility] Results Includes: Results discussed [...] 03/29/2022 Last Documented On 2 10:05AM ; [facility] Sexually active with partners in the 05/17/2011 Last Documented On 2 3:58PM ; [facility] Alcohol use: 2 drinks or less per day Last Documented On 2 3:58PM ; [facility] Cigarette smoking 0.5 pack-years 20 04/29 Last Documented On 2 3:58PM ; [facility] 05/17/2011 Last Documented On 2 3:58PM ; [facility] 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 Last Documented On 2 3:58PM ; [facility] Smoking Status Unknown Procedures and Surgical History Includes: Procedures from this encounter Procedures Code Diagnosis Performing Provider Service L ocation Service Date use of tobacco assessment performed 1000F Last Documented On 2 3:58PM ; [facility] Clinical summary provided to patient Last Documented On 2 4:25PM ; [facility] Medical History Includes: Medical History addressed during this encounter Description Last Updated History of asthma 05/17/2011 Last Documented On 2 3:58PM ; [facility] 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 05/17/2011 Last Documented On 2 3:58PM ; [facility] History of urinary tract infection appx 3 per year 05/17/2011 Last Documented On 2 3:58PM ; [facility] 3 05/17/2011 Last Documented On 2 3:58PM ; [facility] Para 3 05/17/2011 Last Documented On 2 3:58PM ; [facility] LMP: 04/25/2011 05/17/2011 Last Documented On 2 3:58PM ; [facility] sinus surgery ~perforated colon ~cluster headaches 05/17/2011 Last Documented On 2 3:58PM ; [facility] A colonoscopy was performed 2009 diverti culitis 05/17/2011 Last Documented On 2 3:58PM ; [facility] Asthma 05/17/2011 Last Documented On 2 3:58PM ; [facility] Last pap smear date 200905/17/2011 Last Documented On 2 3:58PM ; [facility] Result: normal 05/17/2011 Last Documented On 2 3:58PM ; [facility] Family History Includes: Family History addressed during this encounter Description Last Updated Family history of diabetes mellitus 04/29 Last Documented On 2 3:58PM ; [facility] Family history of Cancer Father & Grandp arents 05/17/2011 Last Documented On 2 3:58PM ; [facility] Family history of cardiac problems grand parents 05/17/2011 Last Documented On 2 3:58PM ; [facility] Family history of Diabetes grandparents 05/17/2011 Last Documented On 2 3:58PM ; [facility] Family history of high cholesterol paren ts 05/17/2011 Last Documented On 2 3:58PM ; [facility] Family history of Hypertension parents 0 05/17/2011 Last Documented On 2 3:58PM ; [facility] Family history of thyroid disease mother 05/17/2011 Last Documented On 2 3:58PM ; [facility] Review of Systems Includes: [...] IN PATIENT - NEW PT VLAD RIVERA ASSEMBLER PRODUCT-[facility] 03/29/20 22 3:51PM 4:22PM Otitis Media Insurance Includes: Active Insurance Policies Plan Name Member ID Group # Subscriber Relationship Effect edelmira Dates 1 - [facility] [id number] ALEXX MELCHOR Self Clinical Notes Includes: Clinical Notes from this encounter No Clinical Notes Recorded
--- OUTSIDE RECORDS SUMMARY | 2024-07-28 00:58 | XMS_ITS ---
Care Plan - [facility] Created on: July 28, 2024 ALEXX MELCHOR : 1975 Sex: Female Author Organization [facility] Address [address] [place] [address] Phone Care Team Providers Care Catalyst Plant Supervisor Name Role Phone DONOVAN ESTEVEZ DO Unavailable [phone]
--- OUTSIDE RECORDS SUMMARY | 2024-07-28 00:58 | XMS_ITS | Clinical Summary ---
Author Organization [facility] Address [address] [place] [address] Phone Care Team Providers Care Vendor Specialist Name Role Phone DONOVAN ESTEVEZ DO Unavailable [phone] Reason for Visit and [...] - Last Documented On 06/30/2023 5:24PM ; [facility] Tooth pain: Discussed oral hygiene. Recommended frequent saline mouth rinses. Follow up with dentist at soonest availability. - Last Documented On 06/30/2023 5:24PM ; [facility] Assessments Includes: Assessments from this encounter Findings - Infection of tooth [K08.89 - Other specified disorders of teeth and supporting structures] - Last Documented On 06/30/2023 5:24PM ; [facility] - Viral infection [B34.9 - Viral infection, unspecified] - Last Documented On 06/30/2023 5:24PM ; [facility] Medical Equipment - Implanted [...] structures One tablet twice a day Pharmacy: [address], [id number] - Last Documented On 4 5:28PM By Ken SANTAMARIA ; [facility] Current Medications (continue as prescribed) Atorvastatin Calcium 10 MG Oral Tablet 07/30/2023 Pr ovider: Diagnosis: Last Documented On 07/30/2023 5:10PM By Edwina Salcedo ; [facility] Advair Diskus 100-50 MCG/ACT Inhalation Aerosol Powder Breath Activated 07/30/2023 Provider: Diagnosis: Last Documented On 07/30/2023 5:11PM By Edwina Salcedo ; [facility] Singulair 10 MG Oral Tablet 07/30/2023 Provider: Diagnosis: Last Documented On 07/30/2023 5:11PM By Edwina Salcedo ; [facility] Verapamil HCl ER 360 MG Oral Capsule Extended Re lease 24 Hour 03/29/2022 Provider: Diagnosis: Last Documented On 03/29/2022 3:58PM By RAFAELA MAGDALENO ; [facility] DULoxetine HCl 60 MG Oral Capsule Delayed Releas e Particles 03/29/2022 Provider: Diagnosis: Last Documented On 03/29/2022 4:00PM By RAFAELA MAGDALENO ; [facility] Past Medications on file Amoxicillin 875 MG Oral Tablet 09/11/2023 - 09/21/2023 Provider: KEN MARES DNP Diagnosis: Streptococcal pharyngitis 1 CAPSULE TWO TIMES A DAY Last Documented On 4 10:15AM By Ken Mares DNP ; [facility] Ofloxacin 0.3% Otic Solution 07/30/2023 - 08/06/2023 Provider: KEN MARES DNP Diagnosis: Otitis media, unspecified, left ear Apply 10 drops to the left e ar daily for 7 days Last Documented On 4 6:37PM By Ken Mares DNP ; [facility] Cefdinir 300 MG Oral Capsule 07/30/2023 - 08/09/2023 Provider: KEN STEVEN DNP Diagnosis: Otitis media, unspecified, left ear 1 CAPSULE TWO TIMES A DAY Last Documented On 4 5:50PM By Ken Mares DNP ; [facility] Amoxicillin 875 MG Oral Tablet 03/29/2022 - 04/08/2022 Provider: VLAD RIVERA MICROARRAY OPERATIONS VICE PRESIDENT-BC Diagnosis: Acute serous will tis media, right ear One tablet twice a day Last Documented On 2 4:28PM By VLAD RIVERA MICROARRAY OPERATIONS VICE PRESIDENT-BC ; [facility] Medications Administered Includes: Administered Medications from [...] 98 Last Documented: On 06/30/2023 5:10PM ; [facility] Results Includes: Results discussed during this encounter SARS COVID-19 FLU A & B [facility] Ordered by KEN SEYMOUR-Kareem on 0 06/30/2023 Collected: Reported: 06/30/2023 Last Documented On 4 5:23PM ; [facility] Reviewed on 06/30/2023; All test results are final unless otherwise noted. COVID neg N (Normal) Last Documented On 4 5:22PM ; [facility] INFLUENZA A neg (Negative) N (Normal) Last Documented On 4 5:22PM ; [facility] INFLUENZA B neg (negative) N (Normal) Last Documented On 4 5:22PM ; [facility] INT. QC ACCEPTABLE? yes N (Normal) Last Documented On 4 5:22PM ; [facility] LOT # & EXP. DATE [id number] 05/14/24 N (Normal) Last Documented On 4 5:22PM ; [facility] History of Present Illness Includes: History of Present Illness from this encounter HPI ISAÍAS MELCHOR is a 48 year old [...] 06/30/2023 Last Documented On 4 5:24PM ; [facility] Tobacco non-user 06/30/2023 Last Documented On 4 5:24PM ; [facility] Smoking Status Unknown Procedures and Surgical History Includes: Procedures from this encounter Procedures Code Diagnosis Performing Provider Service L ocation Service Date Discussed with family/pt that rapid influenza testing was NEGATIVE. Discussed with family that pt is contagious until afebrile for 24 hours, secretions controled, and feeling better. Discussed symptom relief. Pt / family to call our office for further evaluation if persisting, worsening, or new symptoms noted Last Documented On 4 5:20PM ; [facility] use of tobacco assessment performed 1000F Last Documented On 4 5:07PM ; [facility] Clinical summary provided to patient Last Documented On 4 5:20PM ; [facility] Medical History Includes: Medical History addressed during this encounter Description Last Updated Taking OTC medications 06/30/2023 Last Documented On 4 5:24PM ; [facility] No Contact with and (Suspected) exposure to COVID-19 06/30/2023 Last Documented On 4 5:24PM ; [facility] No fall 06/30/2023 Last Documented On 4 5:24PM ; [facility] Family History Includes: Family History [...] COVID SICK VISIT- ESTABLISHED PATIENT KEN Doyle SARMIENTO MICROARRAY OPERATIONS VICE PRESIDENT-C [facility] 06/30/19 24 4:43PM 5:24PM Infection of Tooth,Infecti ous Disease Viral Infection Insurance Includes: Active Insurance Policies Plan Name Member ID Group # Subscriber Relationship Effect edelmira Dates 1 - [facility] [id number] ISAÍAS MELCHOR Self Clinical Notes Includes: Clinical Notes from this encounter * Progress note Date Encounter Last Documented by 06/30/2023 COVID SICK VISIT- ESTABLISHED ANGEL CLARK Last documented on 06/30/2023; 5:24 PM, KEN Doyle TORSTEN DELACRUZP-C; [facility] Chief Complaint The Chief Complaint is: No COVID exposure, sx of fever at 5 am yesterday morning of 100.3-took Tyl every 4 hours, coguhing phlegm, fatigue/tried,muscle/body aches, stefanie S.T and stuffy nasal congestion since 5 AM yesterday morning, along with have Rt side tooth pain-boke off & has an appt to get pulled the of this month & Rt ear pain [...] yes Normal LOT # & EXP. DATE [id number] 05/14/24 Normal Assessment - Infection of tooth [...]
--- OUTSIDE RECORDS SUMMARY | 2024-07-28 00:58 | XMS_ITS | Continuity of Care Document ---
Author Organization [email or web address] Address [address] [place] [address] Phone Care Team Providers Care Drilling Assistant Name Role Phone Leoncio Seay MD Unavailable [...] No Charge [facility] IOLMaster-Technical Office/outpatient Visit, [facility] Advance Directives Directive Yes / No Effective Date File Name No Information Encounters Encounter Description Practice Location Reason(s) For Visit Diagnoses Date Provider Providers Copied on [facility]counter [facility], [address] [place] [address] [address], [place], [place], [id number], tel:[phone] [place] Profession[place] 1 mo CE PO (09/14/20) (chief complaint) Post op visit 1 Dawood Fang. [address] [facility] [place], [id number], [place]. tel:[phone] Referring Provider: Violet[facility]antley OD, [facility] [address] [place], [address]. tel:[phone] [facility], [address], [place], [place], [id number], [place] tel:[phone] [place] Profession[place] l Post-Op (chief complaint) Post op visit 1 No Information Referring Provider: Violetta Brantley OD, [facility] [address] [place], [address]. tel:[phone] [facility], [address], [place], [place], [id number], [place] tel: [place] Profession[place] 1 day CE PO (09/14/20) (chief complaint) Post op visit 1 No Information Referring Provider: Violetta Brantley OD, [facility] [address] [place], [place], [address]. tel:[phone] [facility], [address], [place], [place], [id number], tel: [facility] No Information 1 Dawood Fang. [address] [facility], [address] [place], [id number], . tel: Referring Provider: Violetta Brantley OD, [facility] [address] [place], [place], [address]. tel:[phone] [facility], [address], [place], [place], [id number], [place] tel: [place]ession[place] No Information 1 Dawood Fang. [address] [facility], [address] [place], [id number], . tel: Referring Provider: Violetta Masonhop OD, [facility] [address] [place], [place], [address]. tel:[phone] [facility], [address], [place], [place], [address], [place] tel: [place] No Information 1 Dawood Fang. [address] [facility], [address] [place], [id number], . tel: [facility], [address], [place], [place], [address], tel: [place] Profession[place] Post-Op (chief complaint) Post op visit No Information Referring Provider: Violetta Brantley OD, [facility] [address] [place], [place], [address]. tel:[phone] [facility], [address], [place], [place], [id number], [place] tel:[phone] [place] Profession[place] 1 day po PCIOL OD (08/17/20) (chief complaint) Post op visit No Information Referring Provider: Violetta Brantley OD, [facility] [address] [place], [place], [address]. tel:[phone] [facility], [address] [place] [address] [address], [place], [place], [id number], [place] tel: [facility] No Information Dawood Fang. [address] [facility] [place], [address], [place]. tel:[phone] Referring Provider: Violetta Brantley OD, [facility] [address] [place], [place], [address]. tel:[phone] [facility], [address], [place], [place], [id number], [place] tel: [place] Profession[place] No Information Dawood Fang. [address] [facility], [facility], [place], [place], [id number], [place]. tel:[phone] Referring Provider: Violetta Brantley OD, [facility] [address] [place], [place], [address]. tel:[phone] [facility], [address], [place], [place], [id number], [place] tel:[phone] [place] Repeat measurements only (chief complaint) Age-related nuclear cataract, bilateral Jun- 1 Dawood Fang. [address] [facility], [facility], [place], [place], [id number], [place]. tel:[phone] Referring Provider: Violetta Brantley OD, [facility] [address] [place], [address]. tel:[phone] [facility], [address], [place], [place], [id number], [place] tel:[phone] [place] Cataract evaluation (chief complaint) Posterior polar cataract of both eyesAge-rela sandra nuclear cataract, bilateral 1 Dawood Fang. [address] [facility], [facility], [place], [place], [id number], [place]. tel:[phone] Referring Provider: Violetta Brantley OD, [facility] [address] [place], [address]. tel:[phone] [facility], [address], [place], [place], [address], [place] tel:[phone] [place] Profession[place] No Information [...]
--- OUTSIDE RECORDS SUMMARY | 2024-07-28 00:58 | XMS_ITS | Clinical Summary ---
Author Organization [facility] Address [address] [place] [address] Phone Care Team Providers Care Chromium Plater Name Role Phone DONOVAN ESTEVEZ DO Unavailable [phone] Reason for Visit and Chief Complaint The Chief Complaint is: Sore throat ~PT IS DUE TO SORE THROAT, CHILLS, FATIGUE, BODY ACHES, AND SORE THROAT SINCE YESTERDAY DID FLU COVID STREP Plan of Treatment - Return to the clinic if condition worsens or new symptoms arise - Last Documented On 09/11/2023 10:44AM ; [facility] Strep test was positive at today's [...] - Last Documented On 09/11/2023 10:44AM ; [facility] Assessments Includes: Assessments from this encounter Findings - [J02.0 - Streptococcal pharyngitis] Group A streptococcus: B hemolytic pharyngitis - Last Documented On 09/11/2023 10:44AM ; [facility] Medical Equipment - Implanted Devices Includes: Current Devices No Medical Equipment Recorded Medications Includes: Medications discussed during this encounter and other current Medications New / Renewed during this visit KEN MARES DNP on 09/11/2023 Amoxicillin 875 MG Oral Tablet Provider: KEN Aburto BLUEBERRY GROWER 10 day supply: 20 tablet, 0 refills Diagnosis: Streptococcal pharyngitis 1 CAPSULE TWO TIMES A DAY Pharmacy: [address], [phone] - Last Documented On 4 10:15AM By Ken Mares DNP ; [facility] Current Medications (continue as prescribed) Atorvastatin Calcium 10 MG Oral Tablet 07/30/2023 Pr ovider: Diagnosis: Last Documented On 07/30/2023 5:10PM By Edwina Salcedo ; [facility] Advair Diskus 100-50 MCG/ACT Inhalation Aerosol Powder Breath Activated 07/30/2023 Provider: Diagnosis: Last Documented On 07/30/2023 5:11PM By Edwina Salcedo ; [facility] Singulair 10 MG Oral Tablet 07/30/2023 Provider: Diagnosis: Last Documented On 07/30/2023 5:11PM By Edwina Salcedo ; [facility] Amoxicillin-Pot Clavulanate 875-125 MG Oral Tablet 06/30/2023 Provider: KEN SANTAMARIA Diagnosis: Other specified disorders of teeth and supporting structures One tablet twice a day Last Documented On 4 5:28PM By Ken SANTAMARIA ; [facility] Verapamil HCl ER 360 MG Oral Capsule Extended Re lease 24 Hour 03/29/2022 Provider: Diagnosis: Last Documented On 03/29/2022 3:58PM By RAFAELA MAGDALENO ; [facility] DULoxetine HCl 60 MG Oral Capsule Delayed Releas e Particles 03/29/2022 Provider: Diagnosis: Last Documented On 03/29/2022 4:00PM By RAFAELA MAGDALENO ; [facility] Medications Administered Includes: Administered Medications from this encounter No Administered Medications Recorded Vital Signs Includes: Vital Signs from this encounter Vital Name 09/11/2023 09:58A Pulse Rate-Sitting (bpm) 94 Respiration Rate (breaths/min) 21 Temp-Oral (F) 98.9 Height (in) 65 Weight (lb) 108.375 Body Mass Index 18 Body Surface Area 1.5 Oxygen Saturation (%) 98 Last Documented: On 09/11/2023 9:58AM ; [facility] Results Includes: Results discussed during this encounter Group A strep [facility] Ordered by KEN MARES DNP on Collected: Reported: 09/11/2023 Last Documented On 4 10:14AM ; [facility] Reviewed on 09/11/2023; All test results are final unless otherwise noted. Rapid Strep POS A (Abnormal) Last Documented On 4 10:12AM ; [facility] LOT # AND EXP. DATE [id number] 02-28-24 N (Normal) Last Documented On 4 10:12AM ; [facility] INT. QC ACCEPTABLE? YES N (Normal) Last Documented On 4 10:12AM ; [facility] SARS COVID-19 FLU A & B [facility] Ordered by KEN MARES DNP on Collected: Reported: 09/11/2023 Last Documented On 4 10:14AM ; [facility] Reviewed on 09/11/2023; All test results are final unless otherwise noted. COVID NEG N (Normal) Last Documented On 4 10:12AM ; [facility] INFLUENZA A NEG (Negative) N (Normal) Last Documented On 4 10:12AM ; [facility] INFLUENZA B NEG (negative) N (Normal) Last Documented On 4 10:12AM ; [facility] INT. QC ACCEPTABLE? YES N (Normal) Last Documented On 4 10:12AM ; [facility] LOT # & EXP. DATE [id number] 04-16-24 N (Normal) Last Documented On 4 10:12AM ; [facility] History of Present Illness Includes: History [...] 09/11/2023 Last Documented On 4 10:44AM ; [facility] Not a current smoker 09/11/2023 Last Documented On 4 10:44AM ; [facility] Smoking Status Unknown Procedures and Surgical History Includes: Procedures from this encounter Procedures Code Diagnosis Performing Provider Service Location Service Date SARS-CO,SARS-COV- 2, INFLUENZA A/B TEST (CLIA WAIVED) 94848 Fever, unspecified KEN MARES [facility] 09/11/2023 Last Documented On 4 6:23PM ; [facility] STREP TEST SCREENING (CLIA WAIVED) 12995 Streptococcal pharyngitis KEN MARES [facility] 09/11/2023 Last Documented On 4 6:23PM ; [facility] Pt to use prescription as ordered. Purpo se of and use of medication discussed.~ Last Documented On 4 10:14AM ; [facility] Pt to use OTC fever/pain product as need ed per product instruction.~ Last Documented On 4 10:14AM ; [facility] use of tobacco assessment performed 1000F Last Documented On 4 9:58AM ; [facility] review of medications documented 1160F Last Documented On 4 9:58AM ; [facility] Clinical summary provided to patient Last Documented On 4 10:14AM ; [facility] Medical History Includes: Medical History addressed during this encounter Description Last Updated No Contact with and (Suspected) exposure to COVID-19 09/11/2023 Last Documented On 4 10:44AM ; [facility] No fall 09/11/2023 Last Documented On 4 10:44AM ; [facility] Family History Includes: Family History addressed [...] SICK VISIT- ESTABLISHED PATIENT KEN MARES DNP [facility] 09/11/19 24 9:25AM 10:14AM Pharyngitis Streptococcus, Group A: Beta Hemolytic Insurance Includes: Active Insurance Policies Plan Name Member ID Group # Subscriber Relationship Effect edelmira Dates 1 - [facility] [id number] HARRIET MELCHOR Self Clinical Notes Includes: Clinical Notes from this encounter * Progress note Date Encounter Last Documented by 09/11/2023 COVID SICK VISIT- ESTABLISHED ANGEL CLARK Last documented on 09/11/2023; 10:44 AM, KEN MARES DNP; [facility] Chief Complaint The Chief [...] POS Abnormal LOT # AND EXP. DATE [id number] 02-28-24 Normal INT. QC ACCEPTABLE? YES Normal - Test: SARS COVID-19 FLU A & B Report Date: 09/11/2023 COVID NEG Normal INFLUENZA A NEG Normal INFLUENZA B NEG Normal INT. QC ACCEPTABLE? YES Normal LOT # & EXP. DATE [id number] 04-16-24 Normal Assessment - [J02.0 - Streptococcal [...]
--- OUTSIDE RECORDS SUMMARY | 2024-07-28 00:58 | XMS_ITS | Encounter Summary ---
Author Organization [facility] Address [address] [place] [address] Care Team Providers Care Oyster Buyer Name Role Phone Unavailable Primary Care Provider Unavailabl e Encounter Details Date Type Department Care Team (Late st Contact Info) Description 10/04/2018 Abstract SFL CONVERSION [address] [place] [address] , Generic Conversion, Social History Tobacco Use Types Packs/Day Years Used Date Smoking Tobacco: Never Assessed Comments Unknown Sex and Gender Information Value Date Recorded Sex Assigned at Not on file Legal Sex Female 5:48 PM RECREATION COORDINATOR Gender Identity Not on file Sexual Orientation Not on file documented as of this encounter Plan of Treatment Not on file documented as of this encounter Visit Diagnoses Not on filedocumented in this encounter
--- OUTSIDE RECORDS SUMMARY | 2024-07-28 00:58 | XMS_ITS | Clinical Summary ---
Author Organization [facility] [employer] Address [address] [place] [address] Care Team Providers Care Investigative Shopper Name Role Phone Johanny Reyes MD Primary Care Provider [phone] Source Comments [facility] [employer],non-owned Affiliates and Associated Physician Practices is amultiple site organization consisting of ambulatory clinics and hospital sitesin [place], [place], [place] and [place]. This disclosure is being madepursuant to the Care Everywhere program and may not contain all information available regarding this patient. Last updated 18.[facility] [employer] Allergies No known active allergies Medications * [...] needed for Constipation 30 tablet 06/09/2024 Active atorvastatin (Lipitor) 40 MG tablet Take 1 (one) tablet by mouth once daily 10/16/2023 10/15/2024 Active calcitriol (Rocaltrol) 0.5 MCG capsule Take 1 (one) capsule by mouth once daily Active fluticasone-salme terol (Advair/Wixela) 100-50 MCG/ACT inhaler Inhale 1 (one) puff by mouth 2 times daily Active SUMAtriptan (Imitrex) 20 MG/ACT nasal spray 02/06/2024 Active Active Problems Problem Noted Date Diagnosed [...] Encounters Date Type Department Care Team Description 07/01/2024 10:45 AM GERIATRIC NURSE PRACTITIONER Office Visit [facility] - Colorectal Surgery [address] [facility], [facility] [address] [place] [id number] Tj Estrada MD Diverticulitis (Primary Dx) 07/01/2024 Travel 06/06/2024 9:04 PM GERIATRIC NURSE PRACTITIONER - 06/09/2024 4:00 PM GERIATRIC NURSE PRACTITIONER Hospital Encounter [facility] 2 ORTHO/NEW VIS [address] [place] [address] Martin Booth MD Qazi, Mohsin, MD Ibrahim, [...] and heating? Not hard at all 06/06/2024 [facility] [place] [facility] Occupat ional Health - Occupational Stress [...] any time in the past 12 m [facility], were you homeless or living in a senior care (including now)? No 06/06/2024 Sex and Gender Information Value Date Recorded Sex Assigned at Female 06/06/2024 8:59 PM GERIATRIC NURSE PRACTITIONER Gender Identity Not on file Sexual Orientation Not on file Last Filed Vital Signs Vital Sign Reading Time Taken Comments Blood Pressure 115/77 07/01/2024 10:25 AM GERIATRIC NURSE PRACTITIONER Pulse 94 07/01/2024 10:25 AM GERIATRIC NURSE PRACTITIONER Temperature 36.6 C (97.8 F) 07/01/2024 10:25 AM GERIATRIC NURSE PRACTITIONER Respiratory Rate 18 06/09/2024 11:27 AM GERIATRIC NURSE PRACTITIONER Oxygen Saturation 93% 06/09/2024 11:27 AM GERIATRIC NURSE PRACTITIONER Inhaled Oxygen Concentration - - Weight 59.9 kg (132 lb) 07/01/2024 10:25 AM GERIATRIC NURSE PRACTITIONER Height 170.2 cm (5' 7 ) 07/01/2024 10:25 AM GERIATRIC NURSE PRACTITIONER Body Mass Index 20.67 07/01/2024 10:25 AM GERIATRIC NURSE PRACTITIONER Plan of Treatment Health Maintenance Due Date Last Done Comments COLOGUARD (AGES 45-75) - COLON CA SCREENING 1973 COLON MONITORING 1973 COLONOSCOPY - COLON CA SCREENING 1973 CT COLONOGRAPHY - COLON CA SCREENING 1973 Colorectal Cancer Screening 1973 FIT - COLON CA SCREENING 1973 FLEX SIG - COLON CA SCREENING 1973 MAMMOGRAM 1973 PAP SMEAR 1973 HIV [...] complete this topic MENINGOCOCCAL (Group B) VACCINE SHARED DECISION-MAKING Aged Out No longer eligible based on patient's age to complete this topic MENINGOCOCCAL GROUPS A/C/Y/W VACCINE Aged Out No longer eligible based on patient's age to complete this topic Procedures Procedure Name Priority Date/Time Associated Diagnosis Comments CARDIAC RHYTHM STRIP ORDER 06/11/2024 10:04 PM GERIATRIC NURSE PRACTITIONER GLUCOSE - POINT OF CARE Routine 06/09/2024 12:22 PM GERIATRIC NURSE PRACTITIONER GLUCOSE - POINT OF CARE Routine 06/09/2024 7:54 AM GERIATRIC NURSE PRACTITIONER GLUCOSE - POINT OF CARE Routine 06/08/2024 6:12 PM GERIATRIC NURSE PRACTITIONER GLUCOSE - POINT OF CARE Routine 06/08/2024 12:34 PM GERIATRIC NURSE PRACTITIONER GLUCOSE - POINT OF CARE Routine 06/08/2024 4:57 AM GERIATRIC NURSE PRACTITIONER CBC W/O DIFFERENTIAL AM Draw 06/08/2024 3:49 AM GERIATRIC NURSE PRACTITIONER RENAL FUNCTION PANEL AM Draw 06/08/2024 3:49 AM GERIATRIC NURSE PRACTITIONER GLUCOSE - POINT OF CARE Routine 06/07/2024 11:32 PM GERIATRIC NURSE PRACTITIONER GLUCOSE - POINT OF CARE Routine 06/07/2024 6:19 PM GERIATRIC NURSE PRACTITIONER GLUCOSE - POINT OF CARE Routine 06/07/2024 12:49 PM GERIATRIC NURSE PRACTITIONER CT ABDOMEN PELVIS W CONTRAST STAT 06/07/2024 10:27 AM GERIATRIC NURSE PRACTITIONER Acute diverticulitis GLUCOSE - POINT OF CARE Routine 06/07/2024 6:26 AM GERIATRIC NURSE PRACTITIONER MAGNESIUM BLOOD Routine 06/07/2024 3:45 AM GERIATRIC NURSE PRACTITIONER CBC W/O DIFFERENTIAL Routine 06/07/2024 3:45 AM GERIATRIC NURSE PRACTITIONER BASIC METABOLIC PANEL (CALCIUM TOTAL) Routine 06/07/2024 3:45 AM GERIATRIC NURSE PRACTITIONER MAGNESIUM BLOOD STAT 06/06/2024 11:36 PM GERIATRIC NURSE PRACTITIONER CBC W AUTO DIFFERENTIAL STAT 06/06/2024 11:36 PM GERIATRIC NURSE PRACTITIONER LACTIC ACID BLOOD STAT 06/06/2024 11: 36 PM GERIATRIC NURSE PRACTITIONER BASIC METABOLIC PANEL (CALCIUM TOTAL) STAT 06/06/2024 11:36 PM GERIATRIC NURSE PRACTITIONER from Last 3 Months Results * CARDIAC RHYTHM STRIP ORDER (06/11/2024 10:04 PM GERIATRIC NURSE PRACTITIONER) Narrative 06/11/2024 10:04 PM GERIATRIC NURSE PRACTITIONER Ordered by an unspecified provider. Scanned Document CARDIAC SERVICES ORD ERABLES * GLUCOSE - POINT OF CARE (06/09/2024 12:22 PM GERIATRIC NURSE PRACTITIONER) Only the most recent of9 resultswithin the time period is included. Pathologist [facility] Glucose WB/POC 90 70 - 99 mg/dL 06/09/2024 12:32 PM GERIATRIC NURSE PRACTITIONER [facility] Specimen Type Cap Fingerstick 2024 12:32 PM GERIATRIC NURSE PRACTITIONER [facility] Blood BLOOD SPECIMEN / Unknown 06/09/2024 12:22 PM GERIATRIC NURSE PRACTITIONER 06/09/2024 12:31 PM GERIATRIC NURSE PRACTITIONER Fabiola Mckeon MD LAB - POINT OF CARE ORDERABLES [facility] [address] [place] [address] * (ABNORMAL) CBC W/O DIFFERENTIAL (06/08/2024 3:49 AM GERIATRIC NURSE PRACTITIONER) Only the most recent of2 resultswithin the time period is included. [facility] WBC 7.2 4.0 - 10.7 x10E9/L 06/08/2024 4:[address] [facility] RBC Count 3.81(L) 3.90 - 5.20 x10E12/L 06/08/2024 4:[address] [facility] Hemoglobin 11.9 11.9 - 15.8 g/dL 06/08/2024 4:[address] [facility] Hematocrit 36.1 34.8 - 46.1 % 06/08/2024 4:[address] [facility] MCV 94.8 80.0 - 98.0 fL 06/08/2024 4:[address] [facility] MCH 31.2 26.7 - 33.6 pg 06/08/2024 4:[address] [facility] MCHC 33.0 31.7 - 36.3 g/dL 06/08/2024 4:[address] [facility] RDW-CV 12.8 11.3 - 14.8 % 06/08/2024 4:[address] [facility] Platelet Count 189 150 - 420 x10E9/L 06/08/2024 4:[address] [facility] MPV 9.5 7.8 - 11.4 fL 06/08/2024 4:[address] [facility] Blood BLOOD SPECIMEN / Unknown Lab Venipuncture / Unknown 06/08/2024 3:49 AM GERIATRIC NURSE PRACTITIONER 06/08/2024 4:01 AM GERIATRIC NURSE PRACTITIONER Sharon Orozco MD LAB - HEMATOLOGY ORD ERABLES [facility] [address] [place] [address] * (ABNORMAL) RENAL FUNCTION PANEL (06/08/2024 3:49 AM [facility]) [facility] Signature Glucose 85 70 - 99 mg/dL 06/08/2024 4:[address] [facility] Sodium 138 136 - 145 mmol/L 06/08/2024 4:[address] [facility] Potassium 3.9 3.5 - 5.1 mmol/L 06/08/2024 4:[address] [facility] Chloride 108(H) 98 - 107 mmol/L 06/08/2024 4:[address] [facility] CO2 26 22 - 29 mmol/L 06/08/2024 4:[address] [facility] Calcium 8.3(L) 8.4 - 10.4 mg/dL 06/08/2024 4:[address] [facility] Anion Gap 4(L) 6 - 16 mmol/L 06/08/2024 4:[address] [facility] BUN 8 7 - 26 mg/dL 06/08/2024 4:[address] [facility] Creatinine 0.65 0.57 - 1.11 mg/dL 06/08/2024 4:[address] [facility] Albumin 2.9(L) 3.4 - 5.0 gm/dL 06/08/2024 4:[address] [facility] Phosphorus 2.5 2.5 - 4.5 mg/dL 06/08/2024 4:[address] [facility] eGFR by CKD-EPI >90 >=90 mL/min/1.7 3 m2 06/08/2024 4:[address] [facility] Blood BLOOD SPECIMEN / Unknown Lab Venipuncture / Unknown 06/08/2024 3:49 AM GERIATRIC NURSE PRACTITIONER 06/08/2024 4:01 AM [facility] Sharon Orozco MD LAB - CHEMISTRY LAURA ORTIZ [facility] [address] [place] [address] * CT Abdomen Pelvis W Contrast (06/07/2024 10:27 AM GERIATRIC NURSE PRACTITIONER) Anatomical Region Laterality Modality Abdomen, Pelvis Computed Tomogra phy 06/07/2024 10:3 3 AM GERIATRIC NURSE PRACTITIONER Impressions 06/07/2024 10:38 AM GERIATRIC NURSE PRACTITIONER IMPRESSION: 1. Findings compatible with acute uncomplicated sigmoid diverticulitis. > Interpreting Provider: Jaciel Meehan MD on 06/07/2024 10:38 AM Narrative 06/07/2024 10:38 AM GERIATRIC NURSE PRACTITIONER PROCEDURE: CT ABDOMEN PELVIS W CONTRAST DATE/TIME [...] METABOLIC PANEL (CALCIUM TOTAL) (06/07/2024 3:45 AM GERIATRIC NURSE PRACTITIONER) Only the most recent of2 resultswithin the time period is included. Glucose 83 70 - 99 mg/dL 06/07/2024 5:47 AM GERIATRIC NURSE PRACTITIONER [facility] Sodium 137 136 - 145 mmol/L 06/07/2024 5:47 AM GERIATRIC NURSE PRACTITIONER [facility] Potassium 3.5 3.5 - 5.1 mmol/L 06/07/2024 5:[address] [facility] Chloride 105 98 - 107 mmol/L 06/07/2024 5:[address] [facility] CO2 24 22 - 29 mmol/L 06/07/2024 5:[address] [facility] Calcium 8.3(L) 8.4 - 10.4 mg/dL 06/07/2024 5:[address] [facility] Anion Gap 8 6 - 16 mmol/L 06/07/2024 5:[address] [facility] BUN 12 7 - 26 mg/dL 06/07/2024 5:[address] [facility] Creatinine 0.73 0.57 - 1.11 mg/dL 06/07/2024 5:[address] [facility] eGFR by CKD-EPI >90 >=90 mL/min/1.7 3 m2 06/07/2024 5:[address] [facility] Blood BLOOD SPECIMEN / Unknown Lab Venipuncture / Unknown 06/07/2024 3:45 AM GERIATRIC NURSE PRACTITIONER 06/07/2024 4:59 AM GERIATRIC NURSE PRACTITIONER Matt Thompson MD LAB - CHEMISTRY LAURA ORTIZ [facility] [address] [place], [place] [id number] * MAGNESIUM BLOOD (06/07/2024 3:45 AM GERIATRIC NURSE PRACTITIONER) Only the most recent of2 resultswithin the time period is included. Magnesium 1.8 1.6 - 2.6 mg/dL 06/07/2024 5:[address] [facility] Blood BLOOD SPECIMEN / Unknown Lab Venipuncture / Unknown 06/07/2024 3:45 AM GERIATRIC NURSE PRACTITIONER 06/07/2024 4:59 AM GERIATRIC NURSE PRACTITIONER Matt Thompson MD LAB - CHEMISTRY LAURA ORTIZ [facility] [address] [place] [id number] * (ABNORMAL) CBC W AUTO DIFFERENTIAL (06/06/2024 11:36 PM GERIATRIC NURSE PRACTITIONER) WBC 11.2(H) 4.0 - 10.7 x10E9/L 06/06/2024 11:[address] [facility] RBC Count 3.96 3.90 - 5.20 x10E12/L 06/06/2024 11:[address] [facility] Hemoglobin 12.4 11.9 - 15.8 g/dL 06/06/2024 11:[address] [facility] Hematocrit 37.6 34.8 - 46.1 % 06/06/2024 11:[address] [facility] MCV 94.9 80.0 - 98.0 fL 06/06/2024 11:[address] [facility] MCH 31.3 26.7 - 33.6 pg 06/06/2024 11:[address] [facility] MCHC 33.0 31.7 - 36.3 g/dL 06/06/2024 11:[address] [facility] RDW-CV 13.2 11.3 - 14.8 % 06/06/2024 11:[address] [facility] Platelet Count 174 150 - 420 x10E9/L 06/06/2024 11:[address] [facility] MPV 9.7 7.8 - 11.4 fL 06/06/2024 11:[address] [facility] Neutrophil % 66.1 41.0 - 74.0 % 06/06/2024 11:[address] [facility] Lymphocyte % 22.7 17.0 - 47.0 % 06/06/2024 11:[address] [facility] Monocyte % 8.2 3.0 - 11.0 % 06/06/2024 11:[address] [facility] Eosinophil % 2.1 0.0 - 7.0 % 06/06/2024 11:[address] [facility] Basophil % 0.4 0.0 - 1.6 % 06/06/2024 11:[address] [facility] Immature Granulocytes % 0.5 0.0 - 1.0 % 06/06/2024 11:[address] [facility] Neutrophil Absolute 7.40 1.60 - 7.50 x10E9/L 06/06/2024 11:[address] [facility] Lymphocyte Absolute 2.54 1.00 - 4.40 x10E9/L 06/06/2024 11:47 PM GERIATRIC NURSE PRACTITIONER [facility] Monocyte Absolute 0.92 0.15 - 1.00 x10E9/L 06/06/2024 11:47 PM GERIATRIC NURSE PRACTITIONER [facility] Eosinophil Absolute 0.24 0.00 - 0.60 x10E9/L 06/06/2024 11:47 PM GERIATRIC NURSE PRACTITIONER [facility] Basophil Absolute 0.04 0.00 - 0.13 x10E9/L 06/06/2024 11:47 PM GERIATRIC NURSE PRACTITIONER [facility] Blood BLOOD SPECIMEN / Unknown Lab Venipuncture / Unknown 06/06/2024 11:36 PM GERIATRIC NURSE PRACTITIONER 06/06/2024 11:44 PM GERIATRIC NURSE PRACTITIONER Matt Thompson MD LAB - HEMATOLOGY ORD ERABLES [facility] [address] [place], [place] [id number] * LACTIC ACID BLOOD (06/06/2024 11:36 PM GERIATRIC NURSE PRACTITIONER) Lactic Acid 0.696 <=2 mmol/L 06/07/2024 12:04 AM GERIATRIC NURSE PRACTITIONER [facility] Blood BLOOD SPECIMEN / Unknown Lab Venipuncture / Unknown 06/06/2024 11:36 PM GERIATRIC NURSE PRACTITIONER 06/06/2024 11:43 PM GERIATRIC NURSE PRACTITIONER Matt Thompson MD LAB - CHEMISTRY ORDE DIANA [facility] [address] [place] [address] from Last 3 Months Advance Directives * Full Code (Latest Code Status on File) Date Activated Date Inactivated Comments 06/06/2024 10:47 PM 06/09/2024 5:30 PM Care Teams Investigative Shopper Relationship Specialty Start Date End Date Johanny Reyes MD [address] [place] [address] PCP - General Internal Medicine 06/06/24
--- OUTSIDE RECORDS SUMMARY | 2024-07-28 00:58 | XMS_ITS | Clinical Summary ---
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
--- OUTSIDE RECORDS SUMMARY | 2024-07-28 00:58 | XMS_ITS | Clinical Summary ---
Author Organization [facility] Address [address] [place] [address] Phone Care Team Providers Care Baggage Handling Supervisor Name Role Phone DONOVAN ESTEVEZ DO Unavailable [phone] Reason for Visit and Chief Complaint gynecologic consultation Here for IUD insertion. Currently on her period. Has had 2 Mirenas before - The Chief Complaint is: Procedure Mirena placement of period 12 pt is on peroid today Plan of Treatment - Insertion Of Iud - Last Documented On 08/02/2011 1:34PM ; [facility] In office procedures/*Family Practice: IUD - Last Documented On 08/02/2011 1:34PM ; [facility] Pending Tests Order Diagnosis Results Due Ordering Vielka hernandez In office procedures - *Family Practice IUD Insertion Of Iud 08/16/11 Graciela KNIGHT MD Last Documented On 2 1:34PM ; [facility] Assessments Includes: Assessments from this encounter Findings Mirena insertion. - Last Documented On 08/02/2011 1:34PM ; [facility] Medical Equipment - Implanted Devices Includes: Current Devices No Medical Equipment Recorded Medications Includes: Medications discussed during this encounter and other current Medications Current Medications (continue as prescribed) Atorvastatin Calcium 10 MG Oral Tablet 07/30/2023 Pr ovider: Diagnosis: Last Documented On 07/30/2023 5:10PM By Edwina Salcedo ; [facility] Advair Diskus 100-50 MCG/ACT Inhalation Aerosol Powder Breath Activated 07/30/2023 Provider: Diagnosis: Last Documented On 07/30/2023 5:11PM By Edwina Salcedo ; [facility] Singulair 10 MG Oral Tablet 07/30/2023 Provider: Diagnosis: Last Documented On 07/30/2023 5:11PM By Edwina Salcedo ; [facility] Amoxicillin-Pot Clavulanate 875-125 MG Oral Tablet 06/30/2023 Provider: KEN SANTAMARIA Diagnosis: Other specified disorders of teeth and supporting structures One tablet twice a day Last Documented On 4 5:28PM By Ken SANTAMARIA ; [facility] Verapamil HCl ER 360 MG Oral Capsule Extended Re lease 24 Hour 03/29/2022 Provider: Diagnosis: Last Documented On 03/29/2022 3:58PM By RAFAELA AVALOS [place] ; [facility] DULoxetine HCl 60 MG Oral Capsule Delayed Releas e Particles 03/29/2022 Provider: Diagnosis: Last Documented On 03/29/2022 4:00PM By RAFAELA MAGDALENO ; [facility] Past Medications on file Amoxicillin 875 MG Oral Tablet 09/11/2023 - 09/21/2023 Provider: KEN MARES DNP Diagnosis: Streptococcal pharyngitis 1 CAPSULE TWO TIMES A DAY Last Documented On 4 10:15AM By Ken Mares DNP ; [facility] Ofloxacin 0.3% Otic Solution 07/30/2023 - 08/06/2023 Provider: KEN MARES DNP Diagnosis: Otitis media, unspecified, left ear Apply 10 drops to the left e ar daily for 7 days Last Documented On 4 6:37PM By Ken Mares DNP ; [facility] Cefdinir 300 MG Oral Capsule 07/30/2023 - 08/09/2023 Provider: KEN STEVEN DNP Diagnosis: Otitis media, unspecified, left ear 1 CAPSULE TWO TIMES A DAY Last Documented On 4 5:50PM By Ken Mares DNP ; [facility] Amoxicillin 875 MG Oral Tablet 03/29/2022 - 04/08/2022 Provider: VLAD RIVERA BIN OPERATOR- Diagnosis: Acute serous will tis media, right ear One tablet twice a day Last Documented On 2 4:28PM By VLAD RIVERA BIN OPERATOR-BC ; [facility] Medications Administered Includes: Administered Medications from this encounter No Administered Medications Recorded Vital Signs Includes: Vital Signs from this encounter Vital Name 08/02/2011 01:00P Blood Pressure Sitting R 90/58 BP Cuff Size Regular Pulse Rate-Sitting (bpm) 72 Pulse Rhythm Regular Respiration Rate (breaths/min) 18 Weight (lb) 115 Last Documented: On 08/02/2011 1:13PM ; [facility] Results Includes: Results discussed during this encounter No Results Recorded For Specified Dates History of Present Illness Includes: History of Present Illness from this encounter No History of Present Illness Recorded Social History Description Last Updated In monogamous relationship 05/17/2011 Last Documented On 2 1:14PM ; [facility] Sexually active with partners in the 1 05/17/2011 Last Documented On 2 1:14PM ; [facility] Alcohol use: 2 drinks or less per day Last Documented On 2 1:14PM ; [facility] Cigarette smoking 0.5 pack-years 20 04/29 Last Documented On 2 1:14PM ; [facility] 05/17/2011 Last Documented On 2 1:14PM ; [facility] Does not have high school diploma 2011 Last Documented On 2 1:14PM ; [facility] 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 Last Documented On 2 1:14PM ; [facility] Smoking Status Unknown Medical History Includes: Medical History addressed during this encounter Description Last Updated History of asthma 05/17/2011 Last Documented On 2 1:14PM ; [facility] 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 05/17/2011 Last Documented On 2 1:14PM ; [facility] History of urinary tract infection appx 3 per year 05/17/2011 Last Documented On 2 1:14PM ; [facility] No history of cervical dysplasia 012 Last Documented On 2 1:14PM ; [facility] No history of dysfunctional uterine blee ding 05/17/2011 Last Documented On 2 1:14PM ; [facility] No history of human papilloma virus infe ction 05/17/2011 Last Documented On 2 1:14PM ; [facility] No history of vaginitis 05/17/2011 Last Documented On 2 1:14PM ; [facility] 3 05/17/2011 Last Documented On 2 1:14PM ; [facility] Para 3 05/17/2011 Last Documented On 2 1:14PM ; [facility] LMP: 04/25/2011 05/17/2011 Last Documented On 2 1:14PM ; [facility] sinus surgery ~perforated colon ~cluster headaches 05/17/2011 Last Documented On 2 1:14PM ; [facility] A colonoscopy was performed 2009 diverti culitis 05/17/2011 Last Documented On 2 1:14PM ; [facility] Asthma 05/17/2011 Last Documented On 2 1:14PM ; [facility] Last pap smear date 200905/17/2011 Last Documented On 2 1:14PM ; [facility] Result: normal 05/17/2011 Last Documented On 2 1:14PM ; [facility] Family History Includes: [...] Diagnosis IUD INSERTION Graciela MCNAIR MD [facility] 08/02/19 12 1:00PM 1:40PM Assessment [use For S.o.a.p. Note Free Text] Insurance Includes: Active Insurance Policies Plan Name Member ID Group # Subscriber Relationship Effect edelmira Dates 1 - [facility] [id number] ALEXX MELCHOR Self Clinical Notes Includes: Clinical Notes from this encounter No Clinical Notes Recorded
--- OUTSIDE RECORDS SUMMARY | 2024-07-28 00:58 | XMS_ITS ---
Author Name EJ DELEON D.O. Address [address] [place] [address] Phone [phone] [facility] Headache and Ne urology Care Team Providers Care Donation Specialist Name Role Phone VELVET DELEON Unavailable [phone] Unavailable Unavailable Unavailable Unavailable Unavailable Unavailable Johanny Reyes Unavailable [phone] Reason for Referral Not Available Allergies, adverse [...] dache, not intractable moderate complexity [facility] 10/21/2023 Episodic cluster hea dache, not intractable high complexity office visit [facility] 11/26/2023 Episodic cluster he adache, not intractableDepression, unspecifiedHeadache, unspecifiedOther chronic painAdjustment disorder with depressed mood Social History Sex Female Gender identity Woman History of Procedures Procedures Service Procedure code Service date Servicing provider Phone# new patient, high complexity office visit [id number] 2023-09-19 No Data Available No Data Availa ble moderate complexity office visit [id number] 2023-10-21 No Data Available No Data Availa ble high complexity office visit [id number] 2023-11-26 No Data Available No Data Availa [...] was conducted via secured, two-way communication through e-channel. Patient located in [place]. Patient expressed consent with video communication to carry out today's visit. Total time of video encounter was 61 mins that were spent reviewing records, obtaining history, doing a physical exam (via video) as appropriate, documenting in the chart, and any associated orders, all on the day of the visit.Voice dictation software is in use. Rural Health Consultant variances may occur. Please excuse if any [...] was conducted via secured, two-way communication through e-channel. Patient located in [place]. Patient expressed consent with video communication to carry out today's visit. Total time of video encounter was 26 mins that were spent reviewing records, obtaining history, doing a physical exam (via video) as appropriate, documenting in the chart, and any associated orders, all on the day of the visit.Voice dictation software is in use. Rural Health Consultant variances may occur. Please excuse if any [...] was conducted via secured, two-way communication through e-channel. Patient located in [place]. Patient expressed consent with video communication to carry out today's visit. Total time of video encounter was 40 mins that were spent reviewing records, obtaining history, doing a physical exam (via video) as appropriate, documenting in the chart, and any associated orders, all on the day of the visit.Voice dictation software is in use. Rural Health Consultant variances may occur. Please excuse if any [...]
[2024-07-28 09:40] VITALS: BP 115/81; PULSE 102; RESP 18; TEMP 36.9; O2SAT 98; BMI 20.2
[2024-07-28 09:53] LABS: BEDSIDEPREGUCG Negative (Negative)
[2024-07-28] MEDS: LACTATED RINGERS 1,000 ML 150 ML IV CONT (09:57)
--- NOTE | 2024-07-28 11:00 | P.HP_ITS ---
H&P: HPI History of Present Illness Date/Time: 07/28/24 11:00 Chief Complaint: Diverticulitis Narrative: This is a 49 yo woman who presents for colonoscopy. She was recently hospitalized about 8 weeks ago for diverticulitis with localized perforation. She recovered with bowel rest and antibiotics. She currently has no more abdominal pain and bowels were moving normally. She had a colonoscopy about 10 years ago after another episode of diverticulitis. She denies any hematochezia or melena. Denies fam hx colon cancer. Review of Systems Review of Systems: All systems reviewed & are unremarkable except as noted in HPI and below Constitutional: Constitutional: Denies chills, Denies fever(s), Denies headache(s) and Denies weight loss Eyes: Eyes: Denies change in vision ENT: Denies dizziness, Denies headache(s), Denies neck mass and Denies throat swelling Cardiovascular: Cardiovascular: Denies chest pain, Denies lightheadedness and Denies dyspnea Respiratory: Respiratory: Denies cough, Denies dyspnea and Denies wheezing Gastrointestinal: Gastrointestinal: Denies abdominal pain, Denies change in bowel habits, Denies nausea and Denies vomiting Genitourinary: Genitourinary: Denies hematuria and Denies dysuria Musculoskeletal: Musculoskeletal: Reports as per HPI Integumentary/Breasts: Skin/Breast: Reports as per HPI Neurologic: Denies dizziness and Denies headache(s) Allergic/Immunologic: Allergic/Immunologic: Denies throat swelling and Denies wheezing [facility] Past Medical History Medical History (Updated 07/27/24 @ 13:41 by Ellis Marie DO) Asthma Depression Anxiety Diverticulitis Surgical History Surgical History H/O sinus surgery Family History Family History Father Diabetes mellitus Mother Asthma Hypertension Grandparent Melanoma Social History Social History Smoking status: Current every day smoker Tobacco type: cigarettes Alcohol intake: never Alcohol use details: occasional Substance use: never Substance use type: does not use Living arrangements: with family Spiritual care concerns: No Meds Home Medications and Allergies Home Medications ?Medication ?Instructions ?Recorded ?Confirmed ?Type duloxetine 60 mg capsule,delayed 60 mg PO DAILY 03/23/20 07/28/24 History release calcitriol 0.5 mcg capsule 0.5 mcg PO DAILY 06/06/24 07/28/24 History montelukast 10 mg tablet 10 mg PO DAILY 06/06/24 07/28/24 History propranolol 80 mg capsule,24 80 mg PO DAILY 06/06/24 07/28/24 History hr,extended release atorvastatin 20 mg tablet 20 mg PO DAILY 07/20/24 07/28/24 History verapamil 120 mg tablet,extended 120 mg PO DAILY 07/20/24 07/28/24 History release Allergies Allergy/AdvReac Type Severity Reaction Status Date / Time No Known Allergies Allergy Verified 07/28/24 09:38 Exam Const: General: no acute distress and alert Orientation/consciousness: patient oriented x3 HENMT: Head: normocephalic and atraumatic Ears: hearing grossly normal bilaterally Face/Nose/Sinus: Normal nares present Mouth: Yes Normal oral and palatal mucosa present Eyes: Periorbital: periorbital findings normal Sclera: sclerae normal EOM: EOMs intact bilaterally Neck: Neck: normal visual inspection, no lymphadenopathy and trachea midline Chest: Chest palpation & inspection: normal inspection of the chest Resp: Effort & Inspection: normal respiratory effort Auscultation: clear to auscultation bilaterally Cardio: Jugular venous distension: no JVD Rate: regular rate Rhythm: regular rhythm Heart sounds: S1 normal heart sound present and S2 normal heart sound present Peripheral pulses: Peripheral pulses 2+ throughout GI: Inspection: normal to inspection GI Palp: Yes Soft to palpation, No Tenderness to palpation present (GI), No Guarding due to palpation present (GI) and No Rebound tenderness present Percussion: Yes normal to percussion Auscultation: normal bowel sounds : General: Yes no CVA tenderness Back/Spine/Pelvis: Back: no CVA tenderness Neuro: General: patient oriented x3, no focal motor deficits and CN's II-XI intact bilaterally Cognition (Neuro): normal cognition Speech: normal speech Motor exam (neuro): 5/5 motor strength present throughout Extrem: General: capillary refill normal and no clubbing, cyanosis or edema Assessment and Plan Assessment and plan (1) Diverticulitis: Code(s): K57.92 - Diverticulitis of intestine, part unspecified, without perforation or abscess without bleeding Status: Acute Assessment and Plan: I have recommended colonoscopy. I have discussed the procedure, risks, benefits, and alternatives. Questions were answered. Patient is agreeable to proceed.
[2024-07-28 11:49] VITALS: BP 101/62; PULSE 93; RESP 20; O2SAT 100
[2024-07-28 11:59] VITALS: BP 120/73; PULSE 64; RESP 16; O2SAT 100
[2024-07-28 12:09] VITALS: BP 112/79; PULSE 75; RESP 22; O2SAT 99
== END 2024-07-28 12:23 | disposition home or self-care (01) ==
PROVIDERS: Anesthesiology; PCP Internal Medicine; Visit Provider Surgery
PROC: 0DJD8ZZ Inspection of Lower Intestinal Tract, Via Natural or Artificial Opening Endoscopic (ICD-10-PCS; CPT 45378; principal; 2024-07-28 11:00)
DX: Z09 Encounter for follow-up examination after completed treatment for conditions other than malignant neoplasm (principal); K57.30 Diverticulosis of large intestine without perforation or abscess without bleeding; J45.909 Unspecified asthma, uncomplicated; F32.A Depression, unspecified; F41.9 Anxiety disorder, unspecified; F17.210 Nicotine dependence, cigarettes, uncomplicated; Z98.890 Other specified postprocedural states; Z87.19 Personal history of other diseases of the digestive system; Z80.8 Family history of malignant neoplasm of other organs or systems
CPT/HCPCS: 45378; J2003; J2704; J7120

== ENCOUNTER 2024-12-23 16:27 | Outpatient (CLI) | payer BC, SELFPAY ==
--- OUTSIDE RECORDS SUMMARY | 2020-10-10 03:00 | XMS_ITS | Continuity of Care Document ---
Author Organization [employer] [facility] Address [address] [place] [address] Phone Care Team Providers Care Phone Counselor Name Role Phone Leoncio Seay MD Unavailable Unavailable Allergies, Adverse Reactions, Alerts Substance Reaction Status Criticality No Known Allergies Active No Inform ation Medications Medication Instructions Dosage Effective Dates (start - stop) Status Comments prednisolone acetate 1 % eye drops,suspension instill 1 drop by ophthalmic route 4 times every day into operative eye for 2 weeks, then 2 times per day for 2 weeks, then stop - Active ketorolac 0.5 % eye drops instill 1 drop in operative eye 4 times every day for 2 weeks, then 2 times per day for 2 weeks, then stop - Active Drizalma Sprinkle 20 mg capsule,delayed release take 1 capsule by oral route 2 times every day 20 MG - Active Pro Air INHALATION INHALER take once daily as needed - Active Emgality Pen 120 mg/mL subcutaneous pen injector inject (120MG) by subcutaneous route every month in the abdomen, thigh, outer upper arm, or buttocks 120 MG - Active Vigamox 0.5 % eye drops instill 1 drop by ophthalmic route 4 times every day into operative eye for 2 weeks, then stop - No Longer Active ok to substitute Polytrim 5ml with same directions Procedures Procedure Date No Charge Refraction Post-op Follow-up Visit Post-op Follow-up Visit Post-op Follow-up Visit Remove Cataract, Insert Lens IOLMaster-Professional No Charge Refraction Post-op Follow-up Visit Post-op Follow-up Visit Remove Cataract, Insert Lens IOLMaster-Professional No Charge Orbscan No Charge IOL Master No Charge Refraction No Charge Orbscan No Charge Optomap Fundus Photos No Charge GDX Retina IOLMaster-Technical Office/outpatient Visit, [facility] Advance Directives Directive Yes / No Effective Date File Name No Information Encounters Encounter Description Practice Location Reason(s) For Visit Diagnoses Date Provider Providers Copied on Encounter [facility] [employer] [facility], [address] [place] [address] [address], [place], [place], [id number], tel:[phone] [place] Profession[place] 1 mo CE PO (09/14/20) (chief complaint) Post op visit 1 Dawood Fang. [address] [facility] [place], [place], [id number], [place]. tel:[phone] Referring Provider: [facility] OD, [facility] [address] [place], [address]. tel:[phone] [facility], [address], [place], [place], [id number], [place] tel:[phone] [place] Post-Op (chief complaint) Post op visit 1 No Information Referring Provider: Violetta Brantley OD, [facility] [address] [place], [address]. tel:[phone] [facility], [address], [place], [place], [id number], [place] tel: [place] 1 day CE PO (09/14/20) (chief complaint) Post op visit 1 No Information Referring Provider: Violetta Brantley OD, [facility] [address] [place], [place], [address]. tel:[phone] [facility], [address], [place], [place], [id number], tel: [facility] No Information 1 Dawood Fang. [address] [facility], [address] [place], [place], [id number], . tel: Referring Provider: Violetta Brantley OD, [facility] [address] [place], [place], [address]. tel:[phone] [facility], [address], [place], [place], [address], [place] tel: [place] No Information 1 Dawood Fang. [address] [facility], [address] [place], [address], . tel:[phone] Referring Provider: Violetta Masonhop OD, [facility] [address] [place], [place], [address]. tel:[phone] [facility], [address], [place], [place], [id number], [place] tel: SEC [place] No Information 1 Dawood Fang. [address] [facility], [address] [place], [address], . tel: [facility], [address], [place], [place], [id number], tel: [place] Post-Op (chief complaint) Post op visit No Information Referring Provider: Violetta Brantley OD, [facility] [address] [place], [place], [address]. tel:[phone] [facility], [address], [place], [place], [id number], [place] tel:[phone] [place] 1 day po PCIOL OD (08/17/20) (chief complaint) Post op visit No Information Referring Provider: Violetta Brantley OD, [facility] [address] [place], [place], [address]. tel:[phone] [facility], [id number] [place] [address] [address], [place], [place], [id number], [place] tel: [facility] No Information Dawood Fang. [address] [facility] [place], [address], [place]. tel:[phone] Referring Provider: Violetta Brantley OD, [facility] [address] [place], [place], [address]. tel:[phone] [facility], [address], [place], [place], [id number], [place] tel: [place] No Information Dawood Fang. [address] [facility], [facility], [place], [place], [address], [place]. tel:[phone] Referring Provider: Violetta Brantley OD, [facility] [address] [place], [place], [address]. tel:[phone] [facility], [address], [place], [place], [address], [place] tel:[phone] [place] Repeat measurements only (chief complaint) Age-related nuclear cataract, bilateral Jun- 1 Dawood Fang. [address] [facility], [facility], [place], [place], [id number], [place]. tel:[phone] Referring Provider: Violetta Brantley OD, [facility] [address] [place], [address]. tel:[phone] [facility]pa [facility]ient [facility], [address], [place], [place], [id number], [place] tel:[phone] [place] Cataract evaluation (chief complaint) Posterior polar cataract of both eyesAge-rela sandra nuclear cataract, bilateral 1 Dawood Fang. [address] [facility], [facility], [place], [place], [id number], [place]. tel:[phone] Referring Provider: Violetta Brantley OD, [facility] [address] [place], [address]. tel:[phone] [facility], [address], [place], [place], [address], [place] tel:[phone] [place] No Information 1 No Information Family History Family Member Type Diagnosis Age At Onset Problem Family history of Diabetes m blaine Payers Payer name Insurance type Covered green party ID Authoriza tion(s) No Information Social History Type Description Quantity Date Captured Comments Alcohol Use Details No Caffeine Use Details Tobacco Use Status Smoking Status Heavy tobacco smoker Smoking Tobacco Use Details Cigarette: Age Started: 13 Cigarette: 1 Packs per day Sex Female Chief Complaint And Reason For Visit From encounter dated '10/10/2020 08:00'. 1 mo CE PO (09/14/20) (chief complaint). Description: The 45 year old female presents for evaluationof 1 mo CE PO (09/14/20) in the left eye. Pt reports she is using Pred QID OS and Ketorolac QID OS. Pt reports OS is doing great and she sees a lot better since CE. Pt was referred by Dr. Violetta Brantley. Reason For Referral Reason For Referral No Information Plan Of Treatment Date Type Action Status Goal Tobacco cessation counseling completed Goal Tobacco cessation counseling completed Goal Tobacco cessation counseling completed Goal Tobacco cessation counseling completed Goal Tobacco cessation counseling completed Goal Tobacco cessation counseling completed Patient Education Cataract Surgery: What to Expect at H~ completed Patient Education Cataract Surgery: What to Expect at H~ completed History Of Present Illness Encounter Date Complaint History Of Prese nt Illness 1 mo CE PO (09/14/20) The 45 year old female presents for evaluation of 1 mo CE PO (09/14/20) in the left eye. Pt reports she is using Pred QID OS and Ketorolac QID OS. Pt reports OS is doing great and she sees a lot better since CE. Pt was referred by Dr. Violetta Brantley. Post-Op The 45 year old female presents for a 1 week Post op CE OS. Patient is using Pred, Vigamox and Ketorolac qid OS. Patient states OS is doing great. 1 day CE PO (09/14/20) The 45 yea r old female presents for evaluation of 1 day CE PO (09/14/20) in the left eye. Pt reports she is using Vigamox QID OS, Pred QID OS, and Ketorolac QID OS. PO instructions were given, explained and understood by pt. Pt reports OS has no pain or discomfort today. Post-Op The 45 year old female presents for a 2 week post op CE OD. Patient states OD is doing good. Patient is using Pred and Ketorolac bid OD. Patient wishes to proceed with CE OS. Patient is bothered by glare driving at night and is having a hard time seeing grocery store labels and playing board games. 1 day po PCIOL OD (08/17/20) The 45 year old female presents for evaluation of 1 day po PCIOL OD (08/17/20) Pt reports good comfort and vision OD. Pt was assigned Prednisolone, Ketorolac, and Vigamox QID OD. Post op instructions reviewed and understood by the pt. Repeat measurements only The 45 year old female presents for evaluation of Repeat measurements only in the right eye and left eye. Cataract evaluation The 45 year old female presents for evaluation of Cataract evaluation in the right eye and left eye. Patient states she avoids driving at night due to glare with both eyes x 1 year. Patient has difficulty seeing road signs until she is close to them with both eyes x 6 months. Patient has trouble playing board games due to [place] with both eyes. Patient has difficulty reading labels at the grocery store with both eyes x years. Patient wears CL's she wore in today, wears 2 week disposable, sleeps in contacts Functional Status Date Functional Assessmen t No Information Instructions Date Instruction Additional Infor celia Impression/Plan Impression/Plan Impression/Plan Impression/Plan Impression/Plan Impression/Plan Impression/Plan Assessments Type Assessment Date assessment Post op visit Patient Care Teams Name Effective Dates (start - stop) Status Members No Information
--- NOTE | ~2024-12-23 | XR_ITS ---
[id number] 12/23/2024 16:55 Indication: Cervical radiculopathy Procedure: 3 view cervical spine Comparison: No prior studies for comparison. Findings: Vertebral body heights are maintained. No prevertebral soft tissue swelling. There is mild multilevel uncinate degenerative change. Lung apices are normal. There is mild disc narrowing at C5-6. No acute fracture or traumatic malalignment. Impression: 1: Mild cervical spondylosis. Reviewed, dictated and finalized at location O. Impression: 1: Mild cervical spondylosis.
--- OUTSIDE RECORDS SUMMARY | 2024-12-23 16:32 | XMS_ITS | Encounter Summary ---
Author Organization [facility] Address [address] [place] [address] Care Team Providers Care Char Filter Operator Helper Name Role Phone Unavailable Primary Care Provider Unavailabl e Encounter Details Date Type Department Care Team (Late st Contact Info) Description 10/04/2018 Abstract SFL CONVERSION [address] [place] [address] , Generic Conversion, Social History Tobacco Use Types Packs/Day Years Used Date Smoking Tobacco: Never Assessed Comments Unknown Sex and Gender Information Value Date Recorded Sex Assigned at Not on file Legal Sex Female 5:48 PM [employer] PLAYER Gender Identity Not on file Sexual Orientation Not on file documented as of this encounter Plan of Treatment Not on file documented as of this encounter Visit Diagnoses Not on filedocumented in this encounter
--- OUTSIDE RECORDS SUMMARY | 2024-12-23 16:32 | XMS_ITS | Clinical Summary ---
Author Organization [facility] Address [address] [place] [address] Care Team Providers Care Rigging And Controls Aircraft Mechanic Name Role Phone Johanny Reyes MD Primary [...] by mouth daily 30 tablet 11 4 Active ciprofloxacin (CILOXAN) 0.3 % ophthalmic solutionIndicat ions:Otorrhea of left ear 7 drops into Left EAR, NOT EYE, twice daily for 10 days 10 mL 1 4 Active verapamil SR (CALAN SR) 120 mg CR tablet Take 1 tablet (120 mg total) by mouth nightly 5 Active montelukast (SINGULAIR) 10 mg tablet Take 1 tablet (10 mg total) by mouth nightly 5 Active SUMAtriptan (IMITREX) 20 mg/actuation nasal spray as needed 4 Active albuterol HFA (PROVENTIL HFA,VENTOLIN HFA,PROAIR HFA) 90 mcg/actuation inhaler Inhale 2 puffs every 6 (six) hours as needed Active propranolol LA (INDERAL LA) 80 mg 24 hr capsule TAKE 1 CAPSULE(80 MG) BY MOUTH DAILY 90 capsule 3 5 Active Active Problems Problem Noted Date Diagnosed Date Mild left ventricular systolic dysfunction (LVSD ) 10/15/2024 Palpitations 10/15/2024 Otorrhea of left ear 03/11/2024 Assessment & Plan (03/11/2024 3:05 PM PHYSICIAN EXTENDER): Ciprofloxacin 7 drops into the Left ear [...] plugs Doc's proplugs, Junito's ear plugs with [place], [place] or [place] water exposure Follow up in 9 months for ear tube check Chronic maxillary sinusitis 06/13/2022 Assessment & Plan (06/13/2022 3:52 PM PHYSICIAN EXTENDER): CT angiogram - call with results If [...] 06/13/2022 Assessment & Plan (06/13/2022 3:52 PM PHYSICIAN EXTENDER): CT angiogram - call with results If [...] 06/13 Assessment & Plan (06/13/2022 3:52 PM PHYSICIAN EXTENDER): CT angiogram - call with results Vestibular migraine 10/10/2012 Anxiety 10/10/2012 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 Cluster headaches 06/27/2009 Encounters Date Type Department Care Team Description 10/15/2024 11:00 AM CDT Office Visit [facility] Medicine Cardiology [address] [place] [address] [place] [address] Jaciel Antonio MD Familial hyperlipidemia, high LDL (Primary Dx); Mild left ventricular systolic dysfunction (LVSD); Tobacco use disorder; Palpitations from Last 3 Months Surgical History Surgery Date Site/Laterality Comments SINUS SURGERY Sinus Surgery - (Added by TW Conv) CATARACT EXTRACTION 2020 Medical History Medical History Date Comments Suicide and self-inflicted injury (HCC) Suicide Attempt - with alcohol and Xanax (Added by TW Conv) Episodic tension-type headac he, not intractable Episodic tension type headac he - (Added by TW Conv) PONV (postoperative nausea and vomiting) Asthma Cataract 2018 Depression 2014 Family History Medical History Relation Name Comments Diabetes Father Dmitriy Rashes / Skin problems Father Dmitriy Asthma Mother Lj Hypertension Mother Lj Bipolar disorder Other Bipolar Dis order - daughter (Added by TW Conv) Relation Name Status Comments Father Dmitriy Alive Mother Lj Alive Other Social History Tobacco Use Types Packs/Day [...] on file Legal Sex Female 2:33 AM PHYSICIAN EXTENDER Gender Identity Not on file Sexual Orientation Not on file Obstetrics History Last Filed Vital Signs Vital Sign Reading Time Taken Comments Blood Pressure 115/74 10/15/2024 11:31 AM CDT Pulse 88 10/15/2024 11:31 AM CDT Temperature 36.1 C (97 F) 03/11/2024 2:38 PM PHYSICIAN EXTENDER Respiratory Rate 21 02/14/2023 11:43 AM CDT Oxygen Saturation 95% 10/15/2024 11:31 AM CDT Inhaled Oxygen Concentration - - Weight 63.1 kg (139 lb 3.2 oz) 10/15/2024 11:31 AM CDT Height 170.2 cm (5' 7) 10/15/2024 11:31 AM CDT Body Mass Index 21.8 10/15/2024 11:31 AM CDT Plan of Treatment Health Maintenance Due Date Last Done Comments Breast Cancer Screening-Mammogram 1973 Cervical Cancer Screening 1973 Colon Cancer Screening-Colonoscopy 1973 Depression Screening 1973 Hepatitis C Screening 1973 Hepatitis B Screening 1991 Regular Well Visit/Exam 18-64 1991 Pneumococcal vaccine <65 (2 of 2 - PCV) 01/01/2020 12/31/2018 Zoster Vaccine (1 of 2) 2023 Covid-19 Vaccine (4 - 2023-2 5 season) 2023 05/08/2021, 06/11/2020, 05/14/2020 Influenza Vaccine (#1) 2024 3, 02/13/2019, 02/18/2018, Additional history exists DTaP/Tdap/Td Vaccine (2 - Td or Tdap) 12/31/2028 12/31/2018 Medical Devices Implanted Type Area Divemaster Device Identifier Shelf Expiration Date Model / Serial / Lot [employer] Karlos 1.27mm 9.5mm 4.5mm T Ear 9.5mm Tube Ventilation Silicone [id number] - [id number] Implanted:Qty: 1 on 10/04/2022 by Beata Fraser DO at [facility] Bilateral : Ear [employer] 01/07/2030 [id number] / / [id number] [place] [employer] [place] [facility] Advance Directives For more information, please contact: [phone] Documents on File Type Date Recorded Patient Stencil Cutter Expl anation ADVANCE DIRECTIVE 08/27/2019 12:54 PM Care Teams Rigging And Controls Aircraft Mechanic Relationship Specialty Start Date End Date Johanny Reyes MD [address] [place] [address] PCP - General 08/21/16
--- OUTSIDE RECORDS SUMMARY | 2024-12-23 16:32 | XMS_ITS ---
Author Name EJ DELEON D.O. Address [address] [place] [address] Phone [phone] [facility] u[facility] Care Team Providers Care Fireworks Inspector Name Role Phone VELVET DELEON Unavailable [phone] Unavailable Unavailable Unavailable Unavailable Unavailable Unavailable Unavailable Unavailable Unavailable Unavailable Unavailable Unavailable Johanny Reyes Unavailable [phone] Reason for Referral Not Available Allergies, adverse [...] Available Verapamil ER 120 mg Tab ER TAKE 1 TABLET BY MOUTH NIGHTLY FOR 1 WEEK THEN CONTINUE AT 1 TABLET TWICE DAILY 2023-09-19 No Data Available methylPREDNISolone 4 mg Tab Therapy Pack No Data Available 2023-10-08 No Data Available Wixmarilyn Inhub 100-50 MCG/ACT Aerosol Powder Breath Activated No Data Available 2024-02-21 No Data Available metroNIDAZOLE 500 mg Tab No Data Available 2024-06-09 No Data Available Ciprofloxacin 500 mg Tab No Data Available 2024-06-09 No Data Available Advair Diskus 100-50 MCG/ACT Aerosol Powder Breath Activated Inhalation prn 2024-11-12 No Data Available Problem List No known problems Encounters Encounters Type Facility Date of Service Diagnosis/Co mplaint new patient, high complexity office visit [facility] 09/19/2023 Episodic cluster hea dache, not intractable moderate complexity office visit [facility] 10/21/2023 Episodic cluster hea dache, not intractable high complexity office visit [facility] 11/26/2023 Episodic cluster he adache, not intractableDepression, unspecifiedHeadache, unspecifiedOther chronic painAdjustment disorder with depressed mood moderate complexity office visit [facility] 11/12/2024 Episodic cluster he adache, not intractableDepression, unspecifiedHeadache, unspecifiedOther chronic painAdjustment disorder with depressed moodOther hypersomnia Social History Sex Female Gender identity Woman History of Procedures Procedures Service Procedure code Service date Servicing provider Phone# new patient, high complexity office visit [id number] 2023-09-19 No Data Available No Data Availa ble moderate complexity office visit [id number] 2023-10-21 No Data Available No Data Availa ble high complexity office visit [id number] 2023-11-26 No Data Available No Data Availa ble moderate complexity office visit [id number] 2024-11-12 No Data Available No Data Availa ble Functional Status No Information Mental Status No Information Assessments Date of Service Assessments 2023-09-19 08:00:00 Episodic cluster hea dache 2023-10-21 08:30:00 Episodic cluster hea dache 2023-11-26 06:30:00 Episodic cluster hea dache 2024-11-12 12:30:00 Episodic cluster hea dacheExcessive daytime and night-time sleepiness Plan of Care Date of Service Plans [...] was conducted via secured, two-way communication through [employer]. Patient located in [place]. Patient expressed consent with video communication to carry out today's visit. Total time of video encounter was 61 mins that were spent reviewing records, obtaining history, doing a physical exam (via video) as appropriate, documenting in the chart, and any associated orders, all on the day of the visit.Voice dictation software is in use. Circular Clerk variances may occur. Please excuse if any [...] was conducted via secured, two-way communication through [employer]. Patient located in [place]. Patient expressed consent with video communication to carry out today's visit. Total time of video encounter was 26 mins that were spent reviewing records, obtaining history, doing a physical exam (via video) as appropriate, documenting in the chart, and any associated orders, all on the day of the visit.Voice dictation software is in use. Circular Clerk variances may occur. Please excuse if any [...] was conducted via secured, two-way communication through [employer]. Patient located in [place]. Patient expressed consent with video communication to carry out today's visit. Total time of video encounter was 40 mins that were spent reviewing records, obtaining history, doing a physical exam (via video) as appropriate, documenting in the chart, and any associated orders, all on the day of the visit.Voice dictation software is in use. Circular Clerk variances may occur. Please excuse if any [...] updated care plan notes and clinical note. 2024-11-12 12:30:00 continue current natalie apamil dosing.will refer to Dr Bocanegra for psychiatry management. Patient agrees.on duloxetine 60mg daily.recommended once weekly sessions with therapyFollow up in [address] [facility]
--- OUTSIDE RECORDS SUMMARY | 2024-12-23 16:32 | XMS_ITS | Clinical Summary ---
Author Organization [facility] Address [address] [place] [id number] Care Team Providers Care Network Manager Name Role Phone Unavailable Primary Care Provider Unavailabl e Social History Tobacco Use Types Packs/Day Years Used Date Smoking Tobacco: Never Assessed Comments Unknown Sex and Gender Information Value Date Recorded Sex Assigned at Not on file Legal Sex Female 5:48 PM [employer] Gender Identity Not on file Sexual Orientation [...] Screening with HPV 2003 Mammogram Screening 2013 Pneumococcal Vaccine: 50+ Ye ars (1 of 1 - PCV) 2023 Zoster Vaccines (1 of 2) 2023 COVID-19 Vaccine ( - 2023-2 5 season) 2023 Meningococcal B Vaccine Aged Out No l onger eligible based on patient's age to complete this topic Meningococcal Vaccine Aged Out No víctor janie eligible based on patient's age to complete this topic RSV Immunizations Under 20 Months Aged Out No longer eligible based on patient's age to complete this topic
--- OUTSIDE RECORDS SUMMARY | 2024-12-23 16:32 | XMS_ITS | Clinical Summary ---
Author Organization [facility] [employer] Address [address] [place] [address] Care Team Providers Care Global Creative Chairman Name Role Phone Johanny Reyes MD Primary Care Provider [phone] Source Comments [facility] [employer],non-owned Affiliates and Associated Physician Practices is amultiple site organization consisting of ambulatory clinics and hospital sitesin [place], [place], [place] and [place]. This disclosure is being madepursuant to the Care Everywhere program and may not contain all information available regarding this patient. Last updated 18.[facility] [employer] Allergies No known active allergies Medications * Be aware that medications may not be up to date on this document. Alwaysverify current medications with the patient. montelukast (Singulair) 10 MG tablet Take 1 [...] 4 hours as needed 90 tablet 06/09/2024 3:01 PM [employer] Active polyethylene glycol 3350 (Miralax) 17 GM/SCOOP powder Mix one capful of powder in liquid and drink once daily as needed for constipation 510 g 06/09/2024 3:01 PM [employer] 5 Active senna-docusate (Senokot-S) 8.6-50 MG tablet Take 2 (two) tablets by mouth once daily as needed for Constipation 30 tablet 06/09/2024 3:01 PM [employer] 5 Active atorvastatin (Lipitor) 40 MG tablet Take 1 (one) tablet by mouth once daily 4 Active calcitriol (Rocaltrol) 0.5 MCG capsule Take 1 (one) capsule by mouth once daily Active fluticasone-vanna meterol (Advair/Wixela) 100-50 MCG/ACT inhaler Inhale 1 (one) puff by mouth 2 times daily Active SUMAtriptan (Imitrex) 20 MG/ACT nasal spray 4 Active ciprofloxacin (Cipro) 500 MG tabletIndicatio ns:Pre-operativ e clearance Take one tablet at 2pm, 3pm, and 10pm the day before surgery 3 tablet 5 Active metroNIDAZOLE (Flagyl) 500 MG tabletIndicatio ns:Pre-operativ e clearance Take one tablet at 2pm, 3pm, and 10pm the day before surgery. 3 tablet 5 Active ondansetron (Zofran) 4 MG tabletIndicatio ns:Pre-operativ e clearance Take one tablet at 12pm and 7pm the day before surgery. 2 tablet 5 Active Active Problems Problem Noted Date [...] Encounters Date Type Department Care Team Description 10/13/2024 Orders Only [facility] - [facility] [address], [place] [address] [place] [id number] Tj Estrada MD Pre-operative clearance from Last 3 Months Immunizations Immunization Administration Dates Next Due Covid Moderna primary [...] and heating? Not hard at all 06/06/2024 [facility] [place] [facility] - Occupational Stress [...] any time in the past 12 m [facility], were you homeless or living in a correction (including now)? No 06/06/2024 Comments Unknown Sex and Gender Information Value Date Recorded Sex Assigned at Female 06/06/2024 8:59 PM [employer] Legal Sex Female 3:47 PM [employer] Gender Identity Not on file Sexual Orientation Not on file Last Filed Vital Signs Vital Sign Reading Time Taken Comments Blood Pressure 115/77 07/01/2024 10:25 AM [employer] Pulse 94 07/01/2024 10:25 AM [employer] Temperature 36.6 C (97.8 F) 07/01/2024 10:25 AM [employer] Respiratory Rate 18 06/09/2024 11:27 AM [employer] Oxygen Saturation 93% 06/09/2024 11:27 AM [employer] Inhaled Oxygen Concentration - - Weight 59.9 kg (132 lb) 07/01/2024 10:25 AM [employer] Height 170.2 cm (5' 7) 07/01/2024 10:25 AM [employer] Body Mass Index 20.67 07/01/2024 10:25 AM [employer] Plan of Treatment Health Maintenance Due Date Last Done Comments COLOGUARD (AGES 45-75) - COLON CA SCREENING 1973 COLON MONITORING 1973 COLONOSCOPY - COLON CA SCREENING 1973 CT COLONOGRAPHY - COLON CA SCREENING 1973 Colorectal Cancer Screening 1973 FIT - COLON CA SCREENING 1973 FLEX SIG - COLON CA SCREENING 1973 LIPID TESTING 1973 MAMMOGRAM 1973 HIV SCREENING 1988 HEPATITIS C SCREENING 03/05/1991 HEPATITIS B VACCINE (1 of 3 - 19+ 3-dose series) 1992 PAP SMEAR 1994 PNEUMOCOCCAL VACCINE 50+ (2 of 2 - PCV) 01/01/2020 12/31/2018 ZOSTER VACCINE (1 of 2) 2023 COVID-19 VACCINE (4 - season) 2023 05/08/2021, 06/11/2020, 05/14/2020 DEPRESSION SCREENING 04/29/2024 INFLUENZA VACCINE (#1) 2024 , 02/13/2019, 02/18/2018, Additional history exists DTAP/TDAP/TD VACCINES (2 - Td or Tdap) [...] on patient's age to complete this topic Insurance [facility] Advance Directives * Full Code (Latest Code Status on File) Date Activated Date Inactivated Comments 06/06/2024 10:47 PM 06/09/2024 5:30 PM Care Teams Global Creative Chairman Relationship Specialty Start Date End Date Johanny Reyes MD [address] [place] [id number] PCP - General Internal Medicine 06/06/24
== END 2024-12-23 16:28 | disposition home or self-care (01) ==
LOC: CHSIMG 16:30
PROVIDERS: PCP Internal Medicine; Visit Provider Internal Medicine
DX: M54.12 Radiculopathy, cervical region (principal); M43.02 Spondylolysis, cervical region
CPT/HCPCS: 72040